=== PATIENT | female | born 1950 | race Caucasian/White ===

== ENCOUNTER 2018-05-04 11:20 | Observation (INO) | payer MEDICARE, MEDICAID ==
[~2018-05-04] VITALS: Ht 157.5 cm; Wt 38.6 kg
--- OUTSIDE RECORDS SUMMARY | 2018-05-04 11:27 | XMS REPORT | Clinical Summary ---
Author Author Admin, QIE Organization [facility] Address Unknown Phone Unavailable Allergies, Adverse Reactions, Alerts Allergy Name Reaction Description Start Date Severity Status Provider DILTIAZEM HCL ER rash Moderate Active Meli Elder Conditions or Problems Problem Name Problem Code Onset Date Status Entry Date Provider Comment Standard Description Annotate URETHRAL STENOSIS, MEATAL 598.9 Active Gabriela Calloway MD Urethral stricture, unspecified Incomplete Bladder Emptying 788.20 Active Gabriela Calloway MD Retention of urine, unspecified Medication List Medication Instructions Start Date Stop Date Generic Name NDC Status Provider Patient Instruction NITROFURANTOIN MACROCRYSTAL 100 MG ORAL CAPSULE Take one by mouth daily 03/15 NITROFURANTOIN MACROCRYSTAL 61513675591 Active Gabriela Calloway MD Active CARAFATE 1 GM ORAL TABLET 1 QID SUCRALFATE 09446891115 Active Meli Elder Active FERROUS SULFATE 325 (65 FE) MG ORAL TABLET 1 tablet by mouth twice daily 2017 FERROUS SULFATE 51881197902 Active Meli Elder Active DIGOXIN 125 MCG ORAL TABLET 1 tab by mouth daily DIGOXIN 33493013063 Active Meli Elder Active ATENOLOL 50 MG ORAL TABLET 1 tab by mouth daily ATENOLOL 94080195212 Active Meli Elder Active IMODIUM A-D 2 MG ORAL TABLET 1 tab by mouth every 4 hours prn LOPERAMIDE HCL 59810554359 Active Meli Elder Active FISH OIL 1000 MG ORAL CAPSULE DELAYED RELEASE 1 pill by mouth twice daily for cholesterol OMEGA-3 FATTY ACIDS 81268723114 Active Meli Elder Active POTASSIUM CHLORIDE 20 MEQ ORAL PACKET 1 qDay with Lasix POTASSIUM CHLORIDE 68285894251 Active Meli Elder Active TRAMADOL HCL 50 MG ORAL TABLET 1 po tid with ES Tylenol TRAMADOL HCL 77174351435 Active Meli Elder Active MIRALAX ORAL PACKET 1 po qd PRN Constipation POLYETHYLENE GLYCOL 3350 55795663732 Active Meli Elder Active TYLENOL 325 MG ORAL TABLET 1 to 2 tabs by mouth every 4 hours prn ACETAMINOPHEN 84513584045 Active Meli Elder Active OMEPRAZOLE 20 MG ORAL CAPSULE DELAYED RELEASE 1 tablet by mouth daily OMEPRAZOLE 08729824753 Active Meli Elder Active FENOFIBRATE 160 MG ORAL TABLET 1 tab by mouth daily FENOFIBRATE 12861874172 Active Meli Elder Active ROBAFEN DM 100-10 MG/5ML ORAL SYRUP 10ml by mouth every 6 hours prn DEXTROMETHORPHAN-GUAIFENESIN 30966269784 Active Meli Elder Active FUROSEMIDE 20 MG ORAL TABLET 1 tablet by mouth daily FUROSEMIDE 58439154832 Active Meli Bravo Active MULTIVITAMINS ORAL CAPSULE 1 cap by mouth daily MULTIPLE VITAMIN 79683383804 Active Meli Bravo Active Immunizations Vaccine Administration Date Value Standard Description influenza immunization (Flu Vax) has been administered Done according to patient influenza virus vaccine, unspecified formulation Vital Signs Date Name Value Unit Range Description blood pressure, diastolic, repeated by physician 80 BP marquez blood pressure, diastolic 80 mm[Hg] BP marquez blood pressure, systolic, repeated by physician 128 BP sys blood pressure, systolic 128 mm[Hg] BP sys height E&M 60 [in_us] Bdy height pulse rate E&M 72 /min Heart rate temperature E&M 97.8 [degF] Body temperature weight E&M 85 [lb_av] Weight Measured Diagnostic Results Date Name Value Unit Range Description Clinical Lists Update: chart update - [facility] sexually transmitted disease no risk noted Office Visit: CN-recurrent uti - Chemistry RBC, urine, dipstick trace non hemoglyzed Office Visit: CN-recurrent uti - Urinalysis nitrite, urine, semiquantitative negative urobilinogen, urine, semiquantitative (dipstick) 0.2 leukocyte esterase, urine, by dipstick 2+ appearance, urine clear urine color yellow specific gravity, urine 1.010 pH, urine, semiquantitative 6.5 protein, urine, semiquantitative (dipstick) 1+ glucose, urine, semiquantitative negative ketones, urine, by test strip negative bilirubin, urine negative Encounters Code Encounter Date Provider Facility CPT-38228 Level 3 New Patient 11:32:23 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
--- OUTSIDE RECORDS SUMMARY | 2018-05-04 11:27 | XMS REPORT | Clinical Summary ---
Author Author Admin, QIE Organization [facility] Address Unknown Phone Unavailable Allergies, Adverse Reactions, [...] one by mouth daily 03/15 NITROFURANTOIN MACROCRYSTAL 71909437649 Active Lizzy Manuel Active CARAFATE 1 GM ORAL TABLET 1 QID SUCRALFATE 53637366429 Active Meli Elder Active FERROUS SULFATE 325 (65 FE) MG ORAL TABLET 1 tablet by mouth twice daily 2017 FERROUS SULFATE 64588087398 Active Meli Elder Active DIGOXIN 125 MCG ORAL TABLET 1 tab by mouth daily DIGOXIN 94190449220 Active Meli Elder Active ATENOLOL 50 MG ORAL TABLET 1 tab by mouth daily ATENOLOL 05514636636 Active Meli Elder Active IMODIUM A-D 2 MG ORAL TABLET 1 tab by mouth every 4 hours prn LOPERAMIDE HCL 55864811188 Active Meli Elder Active FISH OIL 1000 MG ORAL CAPSULE DELAYED RELEASE 1 pill by mouth twice daily for cholesterol OMEGA-3 FATTY ACIDS 49477604096 Active Meli Elder Active POTASSIUM CHLORIDE 20 MEQ ORAL PACKET 1 qDay with Lasix POTASSIUM CHLORIDE 77035040783 Active Meli Elder Active TRAMADOL HCL 50 MG ORAL TABLET 1 po tid with ES Tylenol TRAMADOL HCL 39179927371 Active Meli Elder Active MIRALAX ORAL PACKET 1 po qd PRN Constipation POLYETHYLENE GLYCOL 3350 58746605484 Active Meli Elder Active TYLENOL 325 MG ORAL TABLET 1 to 2 tabs by mouth every 4 hours prn ACETAMINOPHEN 63118508867 Active Meli Elder Active OMEPRAZOLE 20 MG ORAL CAPSULE DELAYED RELEASE 1 tablet by mouth daily OMEPRAZOLE 59728833522 Active Meli Elder Active FENOFIBRATE 160 MG ORAL TABLET 1 tab by mouth daily FENOFIBRATE 29419113058 Active Meli Elder Active ROBAFEN DM 100-10 MG/5ML ORAL SYRUP 10ml by mouth every 6 hours prn DEXTROMETHORPHAN-GUAIFENESIN 92671583061 Active Meli Elder Active FUROSEMIDE 20 MG ORAL TABLET 1 tablet by mouth daily FUROSEMIDE 90196415608 Active Meli Elder Active MULTIVITAMINS ORAL CAPSULE 1 cap by mouth daily MULTIPLE VITAMIN 63597159199 Active Meli Elder Active Immunizations Vaccine Administration Date Value Standard [...] Description Clinical Lists Update: chart update - [facility] sexually transmitted disease no risk noted [...] negative Encounters Code Encounter Date Provider Facility CPT-14285 Level 3 New Patient 11:32: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 Procedures Code Procedure Name Date Entry Date Standard Description CPT-79489 Dil F ureth int 11:32:23 CORE WINDER MACHINE OPERATOR CPT-53531 Bladder Scan 11:32:23 CORE WINDER MACHINE OPERATOR
--- OUTSIDE RECORDS SUMMARY | 2018-05-04 11:27 | XMS REPORT | Clinical Summary ---
Author Author Admin, QIE Organization [facility] Address Unknown Phone Unavailable Allergies, [...] one by mouth daily 03/15 NITROFURANTOIN MACROCRYSTAL 84027306050 Active Lizzy Manuel Active CARAFATE 1 GM ORAL TABLET 1 QID SUCRALFATE 14430913997 Active Meli Elder Active FERROUS SULFATE 325 (65 FE) MG ORAL TABLET 1 tablet by mouth twice daily 2017 FERROUS SULFATE 40681510921 Active Meli Elder Active DIGOXIN 125 MCG ORAL TABLET 1 tab by mouth daily DIGOXIN 64241927663 Active Meli Elder Active ATENOLOL 50 MG ORAL TABLET 1 tab by mouth daily ATENOLOL 08354208308 Active Meli Elder Active IMODIUM A-D 2 MG ORAL TABLET 1 tab by mouth every 4 hours prn LOPERAMIDE HCL 04485139765 Active Meli Elder Active FISH OIL 1000 MG ORAL CAPSULE DELAYED RELEASE 1 pill by mouth twice daily for cholesterol OMEGA-3 FATTY ACIDS 53296278200 Active Meli Elder Active POTASSIUM CHLORIDE 20 MEQ ORAL PACKET 1 qDay with Lasix POTASSIUM CHLORIDE 54871435147 Active Meli Elder Active TRAMADOL HCL 50 MG ORAL TABLET 1 po tid with ES Tylenol TRAMADOL HCL 13556664715 Active Meli Elder Active MIRALAX ORAL PACKET 1 po qd PRN Constipation POLYETHYLENE GLYCOL 3350 15759043470 Active Meli Elder Active TYLENOL 325 MG ORAL TABLET 1 to 2 tabs by mouth every 4 hours prn ACETAMINOPHEN 38236535305 Active Meli Elder Active OMEPRAZOLE 20 MG ORAL CAPSULE DELAYED RELEASE 1 tablet by mouth daily OMEPRAZOLE 59524236844 Active Meli Elder Active FENOFIBRATE 160 MG ORAL TABLET 1 tab by mouth daily FENOFIBRATE 98922508059 Active Meli Elder Active ROBAFEN DM 100-10 MG/5ML ORAL SYRUP 10ml by mouth every 6 hours prn DEXTROMETHORPHAN-GUAIFENESIN 98539468664 Active Meli Elder Active FUROSEMIDE 20 MG ORAL TABLET 1 tablet by mouth daily FUROSEMIDE 95912919635 Active Meli Elder Active MULTIVITAMINS ORAL CAPSULE 1 cap by mouth daily MULTIPLE VITAMIN 49412814267 Active Meli Elder Active Immunizations Vaccine Administration [...] Description Clinical Lists Update: chart update - [facility] sexually transmitted disease no risk noted [...] negative Encounters Code Encounter Date Provider Facility CPT-67362 Level 3 New Patient 11:32:23 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
--- OUTSIDE RECORDS SUMMARY | 2018-05-04 11:28 | XMS REPORT | Clinical Summary ---
Author Author Admin, QIE Organization [facility] Address Unknown Phone Unavailable Allergies, [...] Generic Name NDC Status Provider Patient Instruction CARAFATE 1 GM ORAL TABLET 1 QID SUCRALFATE 48586415579 Active Meli Elder Active FERROUS SULFATE 325 (65 FE) MG ORAL TABLET 1 tablet by mouth twice daily 2017 FERROUS SULFATE 60743445474 Active Meli Elder Active DIGOXIN 125 MCG ORAL TABLET 1 tab by mouth daily DIGOXIN 31545257542 Active Meli Elder Active ATENOLOL 50 MG ORAL TABLET 1 tab by mouth daily ATENOLOL 05730293122 Active Meli Elder Active IMODIUM A-D 2 MG ORAL TABLET 1 tab by mouth every 4 hours prn LOPERAMIDE HCL 17869620281 Active Meli Elder Active FISH OIL 1000 MG ORAL CAPSULE DELAYED RELEASE 1 pill by mouth twice daily for cholesterol OMEGA-3 FATTY ACIDS 65966179956 Active Meli Elder Active POTASSIUM CHLORIDE 20 MEQ ORAL PACKET 1 qDay with Lasix POTASSIUM CHLORIDE 56831566311 Active Meli Elder Active TRAMADOL HCL 50 MG ORAL TABLET 1 po tid with ES Tylenol TRAMADOL HCL 74189053858 Active Meli Elder Active MIRALAX ORAL PACKET 1 po qd PRN Constipation POLYETHYLENE GLYCOL 3350 12366711773 Active Meli Elder Active TYLENOL 325 MG ORAL TABLET 1 to 2 tabs by mouth every 4 hours prn ACETAMINOPHEN 18979031020 Active Meli Elder Active OMEPRAZOLE 20 MG ORAL CAPSULE DELAYED RELEASE 1 tablet by mouth daily OMEPRAZOLE 99824749076 Active Meli Elder Active FENOFIBRATE 160 MG ORAL TABLET 1 tab by mouth daily FENOFIBRATE 48343519285 Active Meli Elder Active ROBAFEN DM 100-10 MG/5ML ORAL SYRUP 10ml by mouth every 6 hours prn DEXTROMETHORPHAN-GUAIFENESIN 01880677402 Active Meli Bravo Active FUROSEMIDE 20 MG ORAL TABLET 1 tablet by mouth daily FUROSEMIDE 85096846175 Active Meli Bravo Active MULTIVITAMINS ORAL CAPSULE 1 cap by mouth daily MULTIPLE VITAMIN 74811864284 Active Meli Elder Active Immunizations Vaccine Administration [...] Description Clinical Lists Update: chart update - [facility] sexually transmitted disease no risk noted [...] negative Encounters Code Encounter Date Provider Facility CPT-44057 Level 3 New Patient 11:32: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
--- OUTSIDE RECORDS SUMMARY | 2018-05-04 11:28 | XMS REPORT | Clinical Summary ---
Author Author Admin, QIE Organization [facility] Address Unknown Phone Unavailable Allergies, [...] 1 GM ORAL TABLET 1 QID SUCRALFATE 16954232328 Active Meli Elder Active FERROUS SULFATE 325 (65 FE) MG ORAL TABLET 1 tablet by mouth twice daily 2017 FERROUS SULFATE 76874019582 Active Meli Elder Active DIGOXIN 125 MCG ORAL TABLET 1 tab by mouth daily DIGOXIN 07071080287 Active Meli Elder Active ATENOLOL 50 MG ORAL TABLET 1 tab by mouth daily ATENOLOL 66543984661 Active Meli Elder Active IMODIUM A-D 2 MG ORAL TABLET 1 tab by mouth every 4 hours prn LOPERAMIDE HCL 64541222443 Active Meli Elder Active FISH OIL 1000 MG ORAL CAPSULE DELAYED RELEASE 1 pill by mouth twice daily for cholesterol OMEGA-3 FATTY ACIDS 94432366045 Active Meli Elder Active POTASSIUM CHLORIDE 20 MEQ ORAL PACKET 1 qDay with Lasix POTASSIUM CHLORIDE 86111083012 Active Meli Elder Active TRAMADOL HCL 50 MG ORAL TABLET 1 po tid with ES Tylenol TRAMADOL HCL 09965558809 Active Meli Elder Active MIRALAX ORAL PACKET 1 po qd PRN Constipation POLYETHYLENE GLYCOL 3350 59091098657 Active Meli Elder Active TYLENOL 325 MG ORAL TABLET 1 to 2 tabs by mouth every 4 hours prn ACETAMINOPHEN 48285649346 Active Meli Elder Active OMEPRAZOLE 20 MG ORAL CAPSULE DELAYED RELEASE 1 tablet by mouth daily OMEPRAZOLE 46488762110 Active Meli Elder Active FENOFIBRATE 160 MG ORAL TABLET 1 tab by mouth daily FENOFIBRATE 07680567533 Active Meli Elder Active ROBAFEN DM 100-10 MG/5ML ORAL SYRUP 10ml by mouth every 6 hours prn DEXTROMETHORPHAN-GUAIFENESIN 75778950495 Active Meli Bravo Active FUROSEMIDE 20 MG ORAL TABLET 1 tablet by mouth daily FUROSEMIDE 35589724781 Active Meli Bravo Active MULTIVITAMINS ORAL CAPSULE 1 cap by mouth daily MULTIPLE VITAMIN 49911817393 Active Meli Elder Active Immunizations Vaccine Administration [...] Description Clinical Lists Update: chart update - [facility] sexually transmitted disease no risk noted [...] negative Encounters Code Encounter Date Provider Facility CPT-30623 Level 3 New Patient 11:32: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
--- OUTSIDE RECORDS SUMMARY | 2018-05-04 11:28 | XMS REPORT | Clinical Summary ---
Author Author Admin, QIE Organization [facility] Address Unknown Phone Unavailable Allergies, [...] 1 GM ORAL TABLET 1 QID SUCRALFATE 82901124216 Active Meli Elder Active FERROUS SULFATE 325 (65 FE) MG ORAL TABLET 1 tablet by mouth twice daily 2017 FERROUS SULFATE 68696784680 Active Meli Elder Active DIGOXIN 125 MCG ORAL TABLET 1 tab by mouth daily DIGOXIN 86779460068 Active Meli Elder Active ATENOLOL 50 MG ORAL TABLET 1 tab by mouth daily ATENOLOL 06826417896 Active Meli Elder Active IMODIUM A-D 2 MG ORAL TABLET 1 tab by mouth every 4 hours prn LOPERAMIDE HCL 43155978235 Active Meli Elder Active FISH OIL 1000 MG ORAL CAPSULE DELAYED RELEASE 1 pill by mouth twice daily for cholesterol OMEGA-3 FATTY ACIDS 77011523183 Active Meli Elder Active POTASSIUM CHLORIDE 20 MEQ ORAL PACKET 1 qDay with Lasix POTASSIUM CHLORIDE 79163794334 Active Meli Elder Active TRAMADOL HCL 50 MG ORAL TABLET 1 po tid with ES Tylenol TRAMADOL HCL 53989542590 Active Meli Elder Active MIRALAX ORAL PACKET 1 po qd PRN Constipation POLYETHYLENE GLYCOL 3350 88845251236 Active Meli Elder Active TYLENOL 325 MG ORAL TABLET 1 to 2 tabs by mouth every 4 hours prn ACETAMINOPHEN 53956752696 Active Meli Elder Active OMEPRAZOLE 20 MG ORAL CAPSULE DELAYED RELEASE 1 tablet by mouth daily OMEPRAZOLE 86218034666 Active Meli Elder Active FENOFIBRATE 160 MG ORAL TABLET 1 tab by mouth daily FENOFIBRATE 84074715995 Active Meli Elder Active ROBAFEN DM 100-10 MG/5ML ORAL SYRUP 10ml by mouth every 6 hours prn DEXTROMETHORPHAN-GUAIFENESIN 16940305078 Active Meli Bravo Active FUROSEMIDE 20 MG ORAL TABLET 1 tablet by mouth daily FUROSEMIDE 73603404916 Active Meli Bravo Active MULTIVITAMINS ORAL CAPSULE 1 cap by mouth daily MULTIPLE VITAMIN 33264374617 Active Meli Elder Active Immunizations Vaccine Administration [...] Description Clinical Lists Update: chart update - [facility] sexually transmitted disease no risk noted [...] negative Encounters Code Encounter Date Provider Facility CPT-02087 Level 3 New Patient 11:32:23 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
--- OUTSIDE RECORDS SUMMARY | 2018-05-04 11:28 | XMS REPORT | Clinical Summary ---
Author Author Admin, QIE Organization [facility] Address Unknown Phone Unavailable Allergies, Adverse Reactions, [...] one by mouth daily 03/15 NITROFURANTOIN MACROCRYSTAL 07931379099 Active Lizzy Manuel Active CARAFATE 1 GM ORAL TABLET 1 QID SUCRALFATE 61394094564 Active Meli Elder Active FERROUS SULFATE 325 (65 FE) MG ORAL TABLET 1 tablet by mouth twice daily 2017 FERROUS SULFATE 36940258476 Active Meli Elder Active DIGOXIN 125 MCG ORAL TABLET 1 tab by mouth daily DIGOXIN 53259450107 Active Meli Elder Active ATENOLOL 50 MG ORAL TABLET 1 tab by mouth daily ATENOLOL 56992212967 Active Meli Elder Active IMODIUM A-D 2 MG ORAL TABLET 1 tab by mouth every 4 hours prn LOPERAMIDE HCL 37162323721 Active Meli Elder Active FISH OIL 1000 MG ORAL CAPSULE DELAYED RELEASE 1 pill by mouth twice daily for cholesterol OMEGA-3 FATTY ACIDS 60969388919 Active Meli Elder Active POTASSIUM CHLORIDE 20 MEQ ORAL PACKET 1 qDay with Lasix POTASSIUM CHLORIDE 83418445628 Active Meli Elder Active TRAMADOL HCL 50 MG ORAL TABLET 1 po tid with ES Tylenol TRAMADOL HCL 76282055753 Active Meli Elder Active MIRALAX ORAL PACKET 1 po qd PRN Constipation POLYETHYLENE GLYCOL 3350 11035386122 Active Meli Elder Active TYLENOL 325 MG ORAL TABLET 1 to 2 tabs by mouth every 4 hours prn ACETAMINOPHEN 81764470888 Active Meli Elder Active OMEPRAZOLE 20 MG ORAL CAPSULE DELAYED RELEASE 1 tablet by mouth daily OMEPRAZOLE 63973810040 Active Meli Elder Active FENOFIBRATE 160 MG ORAL TABLET 1 tab by mouth daily FENOFIBRATE 68565181851 Active Meli Elder Active ROBAFEN DM 100-10 MG/5ML ORAL SYRUP 10ml by mouth every 6 hours prn DEXTROMETHORPHAN-GUAIFENESIN 04200276477 Active Meli Elder Active FUROSEMIDE 20 MG ORAL TABLET 1 tablet by mouth daily FUROSEMIDE 32783373538 Active Meli Elder Active MULTIVITAMINS ORAL CAPSULE 1 cap by mouth daily MULTIPLE VITAMIN 02287203197 Active Meli Elder Active Immunizations Vaccine Administration [...] Description Clinical Lists Update: chart update - [facility] sexually transmitted disease no risk noted Office [...] negative Encounters Code Encounter Date Provider Facility CPT-97196 Level 3 New Patient 11:32:23 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 Procedures Code Procedure Name Date Entry Date Standard Description CPT-62874 Dil F ureth int 11:32:23 URBAN DESIGN CONSULTANT CPT-26548 Bladder Scan 11:32:23 URBAN DESIGN CONSULTANT
--- OUTSIDE RECORDS SUMMARY | 2018-05-04 11:28 | XMS REPORT | Clinical Summary ---
Author Author Admin, QIE Organization [facility] Address Unknown Phone Unavailable Allergies, [...] 1 GM ORAL TABLET 1 QID SUCRALFATE 87570347799 Active Meli Elder Active FERROUS SULFATE 325 (65 FE) MG ORAL TABLET 1 tablet by mouth twice daily 2017 FERROUS SULFATE 26935842812 Active Meli Elder Active DIGOXIN 125 MCG ORAL TABLET 1 tab by mouth daily DIGOXIN 96031269911 Active Meli Elder Active ATENOLOL 50 MG ORAL TABLET 1 tab by mouth daily ATENOLOL 84554661776 Active Meli Elder Active IMODIUM A-D 2 MG ORAL TABLET 1 tab by mouth every 4 hours prn LOPERAMIDE HCL 39660888172 Active Meli Elder Active FISH OIL 1000 MG ORAL CAPSULE DELAYED RELEASE 1 pill by mouth twice daily for cholesterol OMEGA-3 FATTY ACIDS 86561148211 Active Meli Elder Active POTASSIUM CHLORIDE 20 MEQ ORAL PACKET 1 qDay with Lasix POTASSIUM CHLORIDE 89846455775 Active Meli Elder Active TRAMADOL HCL 50 MG ORAL TABLET 1 po tid with ES Tylenol TRAMADOL HCL 04328121669 Active Meli Elder Active MIRALAX ORAL PACKET 1 po qd PRN Constipation POLYETHYLENE GLYCOL 3350 83952186411 Active Meli Elder Active TYLENOL 325 MG ORAL TABLET 1 to 2 tabs by mouth every 4 hours prn ACETAMINOPHEN 24701034215 Active Meli Elder Active OMEPRAZOLE 20 MG ORAL CAPSULE DELAYED RELEASE 1 tablet by mouth daily OMEPRAZOLE 99194837071 Active Meli Elder Active FENOFIBRATE 160 MG ORAL TABLET 1 tab by mouth daily FENOFIBRATE 11361554574 Active Meli Elder Active ROBAFEN DM 100-10 MG/5ML ORAL SYRUP 10ml by mouth every 6 hours prn DEXTROMETHORPHAN-GUAIFENESIN 21652031588 Active Meli Bravo Active FUROSEMIDE 20 MG ORAL TABLET 1 tablet by mouth daily FUROSEMIDE 49564611171 Active Meli Bravo Active MULTIVITAMINS ORAL CAPSULE 1 cap by mouth daily MULTIPLE VITAMIN 89347121023 Active Meli Elder Active Immunizations Vaccine Administration [...] Description Clinical Lists Update: chart update - [facility] sexually transmitted disease no risk noted [...] negative Encounters Code Encounter Date Provider Facility CPT-29941 Level 3 New Patient 11:32:23 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
--- OUTSIDE RECORDS SUMMARY | 2018-05-04 11:28 | XMS REPORT | Clinical Summary ---
Author Author Admin, QIE Organization [facility] Address Unknown Phone Unavailable Allergies, Adverse [...] 1 GM ORAL TABLET 1 QID SUCRALFATE 21533380743 Active Meli Elder Active FERROUS SULFATE 325 (65 FE) MG ORAL TABLET 1 tablet by mouth twice daily 2017 FERROUS SULFATE 14309836064 Active Meli Elder Active DIGOXIN 125 MCG ORAL TABLET 1 tab by mouth daily DIGOXIN 38166519786 Active Meli Elder Active ATENOLOL 50 MG ORAL TABLET 1 tab by mouth daily ATENOLOL 09405564376 Active Meli Elder Active IMODIUM A-D 2 MG ORAL TABLET 1 tab by mouth every 4 hours prn LOPERAMIDE HCL 53870651316 Active Meli Elder Active FISH OIL 1000 MG ORAL CAPSULE DELAYED RELEASE 1 pill by mouth twice daily for cholesterol OMEGA-3 FATTY ACIDS 00764062416 Active Meli Elder Active POTASSIUM CHLORIDE 20 MEQ ORAL PACKET 1 qDay with Lasix POTASSIUM CHLORIDE 18641405689 Active Meli Elder Active TRAMADOL HCL 50 MG ORAL TABLET 1 po tid with ES Tylenol TRAMADOL HCL 61430395193 Active Meli Elder Active MIRALAX ORAL PACKET 1 po qd PRN Constipation POLYETHYLENE GLYCOL 3350 72965016162 Active Meli Elder Active TYLENOL 325 MG ORAL TABLET 1 to 2 tabs by mouth every 4 hours prn ACETAMINOPHEN 09912902848 Active Meli Elder Active OMEPRAZOLE 20 MG ORAL CAPSULE DELAYED RELEASE 1 tablet by mouth daily OMEPRAZOLE 90474610304 Active Meli Elder Active FENOFIBRATE 160 MG ORAL TABLET 1 tab by mouth daily FENOFIBRATE 79523457331 Active Meli Elder Active ROBAFEN DM 100-10 MG/5ML ORAL SYRUP 10ml by mouth every 6 hours prn DEXTROMETHORPHAN-GUAIFENESIN 76786022470 Active Meli Bravo Active FUROSEMIDE 20 MG ORAL TABLET 1 tablet by mouth daily FUROSEMIDE 70423640507 Active Meli Bravo Active MULTIVITAMINS ORAL CAPSULE 1 cap by mouth daily MULTIPLE VITAMIN 57180398291 Active Meli Elder Active Immunizations Vaccine Administration [...] Description Clinical Lists Update: chart update - [facility] sexually transmitted disease no risk [...] negative Encounters Code Encounter Date Provider Facility CPT-18413 Level 3 New Patient 11:32:23 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
--- OUTSIDE RECORDS SUMMARY | 2018-05-04 11:29 | XMS REPORT ---
Author Author AMELIA VIVAR Organization [facility] Address [address] [place] [address] Care Team Providers Care Plate Gauger Name Role Phone AMELIA VIVAR Unavailable PROBLEMS Unknown Problems ALLERGIES No Information ENCOUNTERS Encounter Location Date Diagnosis [facility] [address] [id number] [phone] May, [facility] [address] [id number], [place] [phone] Apr, Encounter for dental exam and cleaning w/o abnormal findings Z01.20 [facility] [address] [id number], [place] [phone] Mar, Dental examination Z01.20 [facility] [address] [id number], [place] [phone] Jan, Dental examination Z01.20 [facility] [place] [address] [id number] [place] [phone] Jan, Dental examination Z01.20 [facility] [address] [id number], [place] [phone] Oct, Encounter for dental examination and cleaning with abnormal findings Z01.21 [facility] [address] [id number] [place] [phone] Aug, Dental examination Z01.20 [facility] [address] [id number], [place] [phone] Jul, Encounter for dental examination and cleaning without abnormal findings Z01.20 [facility] [address] [id number], [place] [phone] Feb, Encounter for dental examination and cleaning without abnormal findings Z01.20 [facility] [address] [id number] [place] [phone] Feb, Dental examination Z01.20 [facility] [address] [id number], [place] [phone] Oct, Encounter for dental examination and cleaning without abnormal findings Z01.20 [facility] [address] [id number] [place] [phone] Sep, Dental examination Z01.20 [facility] [address] [id number], [place] [phone] Jul, Encounter for dental examination and cleaning without abnormal findings Z01.20 [facility] [address] [id number] [place] [phone] Jul, Dental examination Z01.20 [facility] [address] [id number], [place] [phone] May, Encounter for dental examination Z01.20 [facility] [address] [id number], [place] [phone] Mar, Encounter for dental examination Z01.20 [facility] [address] [id number], [place] [phone] Feb, Dental examination Z01.20 [facility] [address] [id number], [place] [phone] Aug, Dental examination V72.2 [facility] [address] [id number], [place] [phone] Jul, Dental examination V72.2 IMMUNIZATIONS No Known Immunizations SOCIAL HISTORY Never Assessed REASON FOR VISIT PLAN OF CARE Activity Details Follow Up prn Reason:Recall VITAL SIGNS MEDICATIONS Unknown Medications RESULTS No Results PROCEDURES Procedure Date Ordered Result Body Site RESIN COMPOS - 3 SURFACES ANTERIOR August 28, 2016 Dental Outreach adjust balance August 28, 2016 Billing Notes on claim August 28, 2016 INSTRUCTIONS MEDICATIONS ADMINISTERED No Known Medications MEDICAL (GENERAL) HISTORY Type Description Date Medical History Arthritis Medical History 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 Hospitalization History Hospitalization for surgery only
--- OUTSIDE RECORDS SUMMARY | 2018-05-04 11:29 | XMS REPORT ---
Author Author CORNELIUS PHAN Organization [facility] Address [address] [place] [address] Phone Unavailable Care Team Providers Care Gas Processing Plant Operator Name Role Phone CORNELIUS PHAN Unavailable Unavailable PROBLEMS Type Condition ICD9-CM Code [id number] Code Onset Dates Condition Status SNOMED Code Problem Encounter for dental examination Z01.20 Active 997546797 Assessment Encounter for dental examination and cleaning without abnormal findings Z01.20 13 Oct, 2015 Active 813929508 ALLERGIES Substance Reaction Event Type Date Status Diltiazem HCl Unknown Drug Allergy Oct, Active SOCIAL HISTORY No smoking Hx information available PLAN OF CARE VITAL SIGNS MEDICATIONS Medication Instructions Dosage Frequency Start Date End Date Duration Status Fenofibrate Active Prilosec Active Furosemide Active Ferrous Sulfate ER Active Gummi Bear Multivitamin/Min Active Anusol-HC 25 MG Rectal Twice a day 1 suppository 12h Active Milk of Magnesia Active Lovastatin Active Carafate Active MiraLax Active Colace Adult Active atenolol Active Digoxin Active Tylenol Active Omeprazole Active Anusol Active RESULTS No Results PROCEDURES Procedure Date Ordered Related Diagnosis Body Site PROPHYLAXIS - ADULT Oct 30, 2015 TOPICAL FLUORIDE VARNISH Oct 30, 2015 IMMUNIZATIONS No Known Immunizations
--- OUTSIDE RECORDS SUMMARY | 2018-05-04 11:29 | XMS REPORT | Clinical Summary ---
Author Author Admin, QIE Organization [facility] Address Unknown Phone Unavailable Allergies, Adverse Reactions, Alerts Allergy Name Reaction Description Start Date Severity Status Provider DILTIAZEM HCL ER rash Moderate Active Meli Elder Conditions or Problems Problem Name Problem Code Onset Date Status Entry Date Provider Comment Standard Description Annotate Problems Unknown Active Medication List Medication Instructions Start Date Stop Date Generic Name NDC Status Provider Patient Instruction CARAFATE 1 GM ORAL TABLET 1 QID SUCRALFATE 42801037742 Active Meli Elder Active FERROUS SULFATE 325 (65 FE) MG ORAL TABLET 1 tablet by mouth twice daily 2017 FERROUS SULFATE 08598522727 Active Meli Elder Active DIGOXIN 125 MCG ORAL TABLET 1 tab by mouth daily DIGOXIN 08979305238 Active Meli Elder Active ATENOLOL 50 MG ORAL TABLET 1 tab by mouth daily ATENOLOL 55613036427 Active Meli Elder Active IMODIUM A-D 2 MG ORAL TABLET 1 tab by mouth every 4 hours prn LOPERAMIDE HCL 12131809211 Active Meli Elder Active FISH OIL 1000 MG ORAL CAPSULE DELAYED RELEASE 1 pill by mouth twice daily for cholesterol OMEGA-3 FATTY ACIDS 52076867027 Active Meli Elder Active POTASSIUM CHLORIDE 20 MEQ ORAL PACKET 1 qDay with Lasix POTASSIUM CHLORIDE 89138374853 Active Meli Elder Active TRAMADOL HCL 50 MG ORAL TABLET 1 po tid with ES Tylenol TRAMADOL HCL 74286389325 Active Meli Elder Active MIRALAX ORAL PACKET 1 po qd PRN Constipation POLYETHYLENE GLYCOL 3350 52539936722 Active Meli Elder Active TYLENOL 325 MG ORAL TABLET 1 to 2 tabs by mouth every 4 hours prn ACETAMINOPHEN 16517547238 Active Meli Elder Active OMEPRAZOLE 20 MG ORAL CAPSULE DELAYED RELEASE 1 tablet by mouth daily OMEPRAZOLE 85034576233 Active Meli Elder Active FENOFIBRATE 160 MG ORAL TABLET 1 tab by mouth daily FENOFIBRATE 61822909385 Active Meli Elder Active ROBAFEN DM 100-10 MG/5ML ORAL SYRUP 10ml by mouth every 6 hours prn DEXTROMETHORPHAN-GUAIFENESIN 03851556846 Active Meli Elder Active FUROSEMIDE 20 MG ORAL TABLET 1 tablet by mouth daily FUROSEMIDE 98723266297 Active Meli Elder Active MULTIVITAMINS ORAL CAPSULE 1 cap by mouth daily MULTIPLE VITAMIN 76082760716 Active Meli Elder Active Diagnostic Results Date Name Value Unit Range Description Clinical Lists Update: chart update - [facility] sexually transmitted disease no risk noted
--- OUTSIDE RECORDS SUMMARY | 2018-05-04 11:29 | XMS REPORT ---
Author Author AMELIA VIVAR Organization [facility] Address [address] [place] [address] Care Team Providers Care Tax Senior Associate Name Role Phone AMELIA VIVAR Unavailable PROBLEMS Unknown Problems ALLERGIES Substance Reaction Event Type Date Status Diltiazem HCl Unknown Drug Allergy May, Active ENCOUNTERS Encounter Location Date Diagnosis [facility] [address] [place] [address] Jul, Dental examination Z01.20 [facility] [address] [id number] [place] [phone] May, Dental examination Z01.20 [facility] [address] [id number] [place] [phone] Apr, Encounter for dental exam and cleaning w/o abnormal findings Z01.20 [facility] [address] [id number] [place] [phone] Mar, Dental examination Z01.20 [facility] [address] [id number], [place] [phone] Jan, Dental examination Z01.20 [facility] [address] [place] [address] Jan, Dental examination Z01.20 [facility] [address] [id number] [place] [phone] Oct, Encounter for dental examination and cleaning with abnormal findings [facility]01.21 [facility] [address] [id number], [place] [phone] Aug, Dental examination Z01.20 [facility] [address] [id number], [place] [phone] Jul, Encounter for dental examination and cleaning without abnormal findings Z01.20 [facility] [address] [id number], [place] [phone] Feb, Encounter for dental examination and cleaning without abnormal findings Z01.20 [facility] [address] [facility] [address] [id number], [place] [phone] Feb, Dental examination Z01.20 [facility] [address] [id number], [place] [phone] Oct, Encounter for dental examination and cleaning without abnormal findings Z01.20 [facility] [address] [place] [address] AVE [id number], [place] [phone] Sep, Dental examination Z01.20 [facility] [address] [id number] [place] [phone] Jul, Encounter for dental examination and cleaning without abnormal findings Z01.20 [facility] [address] [facility] [address] [id number], [place] [phone] Jul, Dental examination Z01.20 [facility] [address] [id number], [place] [phone] May, Encounter for dental examination Z01.20 [facility] [address] [id number] [place] [phone] Mar, Encounter for dental examination Z01.20 [facility] [address] [id number] [place] [address] [phone] Feb, Dental examination Z01.20 [facility] [address] [id number], [place] [phone] Aug, Dental examination V72.2 [facility] [address] [id number], [place] [phone] Jul, Dental examination V72.2 IMMUNIZATIONS No Known Immunizations SOCIAL HISTORY Never Assessed REASON FOR VISIT PLAN OF CARE Activity Details Follow Up prn Reason:CATIE VITAL SIGNS Blood pressure systolic 150 mmHg 2017-06-08 Blood pressure diastolic 90 mmHg 2017-06-08 MEDICATIONS Medication Instructions Dosage Frequency Start Date End Date Duration Status Ferrous Sulfate ER Active Carafate Active Digoxin Active atenolol Active MiraLax Active Anusol Active Milk of Magnesia Active Lovastatin Active Prilosec Active Gummi Bear Multivitamin/Min Active Colace Adult Active Fenofibrate Active Furosemide Active Anusol-HC 25 MG Rectal Twice a day 1 suppository 12h Active Omeprazole Active Tylenol Active RESULTS No Results PROCEDURES Procedure Date Ordered Result Body Site AMALGAM-ONE SURFACE PRIMARY/PERM June 08, 2017 RESIN COMPOS - 2 SURFACES POSTERIOR June 08, 2017 Dental Outreach adjust balance June 08, 2017 Billing Notes on claim June 08, 2017 INSTRUCTIONS MEDICATIONS ADMINISTERED No Known Medications MEDICAL (GENERAL) HISTORY Type Description Date Medical History Arthritis Medical History 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 Hospitalization History Hospitalization for surgery only
--- OUTSIDE RECORDS SUMMARY | 2018-05-04 11:29 | XMS REPORT ---
Author Author CORNELIUS PHAN Organization [facility] Address [address] [place] [address] Phone Unavailable Care Team Providers Care Market Analysis Director Name Role Phone CORNELIUS PHAN Unavailable Unavailable PROBLEMS Unknown Problems ALLERGIES Substance Reaction Event Type Date Status Diltiazem HCl Unknown Drug Allergy Apr, Active ENCOUNTERS Encounter Location Date Diagnosis [facility] [place] [address] [place] [address] Jul, Dental examination Z01.20 [facility] [address] [id number] [place] [phone] May, Dental examination Z01.20 [facility] [address] [id number] [place] [phone] Apr, Encounter for dental exam and cleaning w/o abnormal findings Z01.20 [facility] [address] [id number] [place] [phone] Mar, Dental examination Z01.20 [facility] [address] [id number] [place] [phone] Jan, Dental examination Z01.20 [facility] [place] [address] [place] [address] Jan, Dental examination Z01.20 [facility] [address] [id number], [place] [phone] Oct, Encounter for dental examination and cleaning with abnormal findings Z01.21 [facility] [address] [id number] LA[place] [phone] Aug, Dental examination Z01.20 [facility] [address] [id number] [place] [phone] Jul, Encounter for dental examination and cleaning without abnormal findings Z01.20 [facility] [address] [id number], [place] [phone] Feb, Encounter for dental examination and cleaning without abnormal findings Z01.20 [facility] [address] [id number] LAKE[place] [phone] Feb, Dental examination Z01.20 [facility] [address] [id number], [place] [phone] Oct, Encounter for dental examination and cleaning without abnormal findings Z01.20 [facility] [address] [id number] LAKE, [place] [phone] Sep, Dental examination Z01.20 [facility] [address] [id number], [place] [phone] Jul, Encounter for dental examination and cleaning without abnormal findings Z01.20 [facility] [address] [id number] LAKE, [place] [phone] Jul, Dental examination Z01.20 [facility] [address] [id number], [place] [phone] May, Encounter for dental examination Z01.20 [facility] [address] [id number], [place] [phone] Mar, Encounter for dental examination Z01.20 [facility] [address] [id number], [place] [phone] Feb, Dental examination Z01.20 [facility] [address] [id number], [place] [phone] Aug, Dental examination V72.2 [facility] [address] [id number], [place] [phone] Jul, Dental examination V72.2 IMMUNIZATIONS No Known Immunizations SOCIAL HISTORY Never Assessed REASON FOR VISIT ADULT OUTREACH PILAR MATA PLAN OF CARE Activity Details Follow Up PATIENT HAS APPT Reason:RESTORATIVE #21 VITAL SIGNS MEDICATIONS Medication Instructions Dosage Frequency Start Date End Date Duration Status Fenofibrate Active MiraLax Active atenolol Active Digoxin Active Gummi Bear Multivitamin/Min Active Colace Adult Active Tylenol Active Prilosec Active Furosemide Active Lovastatin Active Anusol Active Omeprazole Active Ferrous Sulfate ER Active Carafate Active Anusol-HC 25 MG Rectal Twice a day 1 suppository 12h Active Milk of Magnesia Active RESULTS No Results PROCEDURES Procedure Date Ordered Result Body Site PROPHYLAXIS - ADULT May 06, 2017 TOPICAL FLUORIDE VARNISH May 06, 2017 INSTRUCTIONS MEDICATIONS ADMINISTERED No Known Medications MEDICAL (GENERAL) HISTORY Type Description Date Medical History Arthritis Medical History Mild MR [facility] Medical History hyperlipidemia Medical History anemia Surgical History Eye Surgery Surgical History Esophogeal 2012? Hospitalization History Hospitalization for surgery only
--- OUTSIDE RECORDS SUMMARY | 2018-05-04 11:29 | XMS REPORT ---
Author Author AMELIA VIVAR Organization [facility] Address [address] [place] [address] Care Team Providers Care Assistant Plant Control Operator Name Role Phone AMELIA VIVAR Unavailable PROBLEMS Unknown Problems ALLERGIES Substance Reaction Event Type Date Status Diltiazem HCl Unknown Drug Allergy Mar, Active ENCOUNTERS Encounter Location Date Diagnosis [facility] [address] [id number] [place], [place] [phone] Jul, Dental examination Z01.20 [facility] [address] [id number] [place], [place] [phone] May, Dental examination Z01.20 [facility] [address] [id number] [place] [phone] Apr, Encounter for dental exam and cleaning w/o abnormal findings Z01.20 [facility] [address] [id number] [place], [place] [phone] Mar, Dental examination Z01.20 [facility] [address] [id number] [place] [phone] Jan, Dental examination Z01.20 [facility] [place] [address] [id number] [place], [place] [phone] Jan, Dental examination Z01.20 [facility] [address] [id number] [place] [phone] Oct, Encounter for dental examination and cleaning with abnormal findings Z01.21 [facility] [address] [id number], [place] [phone] Aug, Dental examination Z01.20 [facility] [address] [id number] [place], [place] [phone] Jul, Encounter for dental examination and cleaning without abnormal findings Z01.20 [facility] [address] [id number] [place], [place] [phone] Feb, Encounter for dental examination and cleaning without abnormal findings Z01.20 [facility] [address] [id number], [place] [phone] Feb, Dental examination Z01.20 [facility] [address] [id number] [place] [phone] Oct, Encounter for dental examination and cleaning without abnormal findings Z01.20 [facility] [address] [id number], [place] [phone] Sep, Dental examination Z01.20 [facility] [address] [id number] [place] [address] [phone] Jul, Encounter for dental examination and cleaning without abnormal findings Z01.20 [facility] Parviz [facility] [address] [id number], [place] [phone] Jul, Dental examination Z01.20 [facility] [address] [id number] [place] [address] [phone] May, Encounter for dental examination Z01.20 [facility] [address] [id number] [place] [address] [phone] Mar, Encounter for dental examination Z01.20 [facility] [address] [id number] [place], [place] [phone] Feb, Dental examination Z01.20 [facility] [address] [id number] [place], [place] [phone] Aug, Dental examination V72.2 [facility] [address] [id number] [place], [place] [phone] Jul, Dental examination V72.2 IMMUNIZATIONS No Known Immunizations SOCIAL HISTORY Never Assessed REASON FOR VISIT filling PLAN OF CARE Activity Details Follow Up as directed Reason:recall VITAL SIGNS Blood pressure systolic 144 mmHg 2017-03-30 Blood pressure diastolic 82 mmHg 2017-03-30 MEDICATIONS Medication Instructions Dosage Frequency Start Date End Date Duration Status Colace Adult Active atenolol Active Carafate Active Tylenol Active Milk of Magnesia Active Ferrous Sulfate ER Active Furosemide Active Digoxin Active Anusol-HC 25 MG Rectal Twice a day 1 suppository 12h Active Omeprazole Active Gummi Bear Multivitamin/Min Active Anusol Active MiraLax Active Fenofibrate Active Prilosec Active Lovastatin Active RESULTS No Results PROCEDURES Procedure Date Ordered Result Body Site PRFABR STAINLESS STEEL CROWN-PERM Mar 30, 2017 Dental Outreach adjust balance Mar 30, 2017 Billing Notes on claim Mar 30, 2017 INSTRUCTIONS MEDICATIONS ADMINISTERED No Known Medications MEDICAL (GENERAL) HISTORY Type Description Date Medical History Arthritis Medical History Mild [facility] Medical History hyperlipidemia Medical History anemia Surgical History Eye Surgery Surgical History Esophogeal 2012? Hospitalization History Hospitalization for surgery only
--- OUTSIDE RECORDS SUMMARY | 2018-05-04 11:29 | XMS REPORT ---
Author Author ABY BRYAN Organization [employer] Address Unknown Phone Unavailable Care Team Providers Care Cake Cutter Machine Name Role Phone ABY BRYAN CP Unavailable Allergies, Adverse Reactions, Alerts Substance Reaction Event Type Aspirin Info Not Available Drug Allergy Problems Problem Type Condition Code Onset Dates Condition Status Assessment Dental examination Z01.20 Active Medications Medication Code System Code Instructions Start Date End Date Status Dosage Furosemide NDC 0 not defined Fenofibrate [facility] [address]-90 not defined Tylenol NDC 0 not defined Carafate [facility] [address]-96 not defined Phenergan [facility] [address]-71 not defined Ferrous Sulfate ER [facility] [address]-22 not defined Colace Adult NDC 0 not defined Milk of Magnesia [facility] [address]-38 not defined Gummi Bear Multivitamin/Min [facility] [address] not defined Lovastatin [facility] [address]-95 not defined Prilosec [facility] [address]-68 not defined Anusol NDC 0 not defined atenolol NDC 0 not defined Digoxin [facility] [address]-19 not defined MiraLax [facility] [address]-05 not defined Procedures Procedure Coding System Code Date AMALGAM-FOUR/MORE SURF PRIM/PERM CPT-4 D2161 Feb 19, 2015 Vital Signs Date/Time: Feb 19, 2015 Blood Pressure Diastolic 93 mmHg Blood Pressure Systolic 154 mmHg Results No Known Results Summary Purpose [employer] Submission
--- OUTSIDE RECORDS SUMMARY | 2018-05-04 11:29 | XMS REPORT ---
Author Author ANN SYLVESTER Organization [facility] [address] [place] [address] Care Team Providers Care Shopper Insights Manager Name Role Phone ANN SYLVESTER Unavailable PROBLEMS Unknown Problems ALLERGIES Substance Reaction Event Type Date Status Diltiazem HCl Unknown Drug Allergy Jul, Active ENCOUNTERS Encounter Location Date Diagnosis [facility] I[address] [place] [address] Jul, Dental examination Z01.20 [facility] [address] [id number] [place], [place] [phone] May, Dental examination Z01.20 [facility] [id number] [place] [phone] Apr, Encounter for dental exam and cleaning w/o abnormal findings Z01.20 [facility] [address] [id number] [place] [phone] Mar, Dental examination Z01.20 [facility] [address] [id number] [place], [place] [phone] Jan, Dental examination Z01.20 [facility] [place] [address] [place] [address] Jan, Dental examination Z01.20 [facility] [address] [id number] [place] [phone] Oct, Encounter for dental examination and cleaning with abnormal findings Z01.21 [facility] [address] [id number], [place] [phone] Aug, Dental examination Z01.20 [facility] [address] [id number] [place] [phone] Jul, Encounter for dental examination and cleaning without abnormal findings Z01.20 [facility] [address] [id number] [place] [phone] Feb, Encounter for dental examination and cleaning without abnormal findings [facility]01.20 [facility] [address] [id number], [place] [phone] Feb, Dental examination Z01.20 [facility] [address] [id number] [place] [phone] Oct, Encounter for dental examination and cleaning without abnormal findings [facility]01.20 [facility] [address] [id number], [place] [phone] Sep, Dental examination Z01.20 [facility] [address] [id number] [place] [phone] Jul, Encounter for dental examination and cleaning without abnormal findings Z01.20 [facility] [address] [id number], [place] [phone] Jul, Dental examination Z01.20 [facility] [address] [id number] CITY, [place] [phone] May, Encounter for dental examination Z01.20 [facility] [address] [id number] [place] [phone] Mar, Encounter for dental examination Z01.20 [facility] [address] [id number] [place] [phone] Feb, Dental examination Z01.20 [facility] [address] [id number] [place], [place] [phone] Aug, Dental examination V72.2 [facility] [address] [id number] CITY, [place] [phone] Jul, Dental examination V72.2 IMMUNIZATIONS No Known Immunizations SOCIAL HISTORY Never Assessed REASON FOR VISIT Adult outreach [facility] PLAN OF CARE Activity Details Follow Up 3 Months Reason:on site recall VITAL SIGNS MEDICATIONS Medication Instructions Dosage Frequency Start Date End Date Duration Status Ferrous Sulfate ER Active Prilosec Active Digoxin Active Fenofibrate Active MiraLax Active Colace Adult Active Anusol Active Lovastatin Active Gummi Bear Multivitamin/Min Active Carafate Active Anusol-HC 25 MG Rectal Twice a day 1 suppository 12h Active atenolol Active Furosemide Active Tylenol Active Omeprazole Active Milk of Magnesia Active RESULTS No Results PROCEDURES Procedure Date Ordered Result Body Site PERIODIC ORAL EXAMINATION August 12, 2017 PROPHYLAXIS - ADULT August 12, 2017 INSTRUCTIONS MEDICATIONS ADMINISTERED No Known Medications MEDICAL (GENERAL) HISTORY Type Description Date Medical History Arthritis Medical History 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 Hospitalization History Hospitalization for surgery only
--- OUTSIDE RECORDS SUMMARY | 2018-05-04 11:29 | XMS REPORT ---
Author Author CORNELIUS PHAN Organization [facility] Address [address] [place] [address] Phone Unavailable Care Team Providers Care Fiberglass Laminator Name Role Phone CORNELIUS PHAN Unavailable Unavailable PROBLEMS Type Condition ICD9-CM Code [id number] Code Onset Dates Condition Status SNOMED Code Problem Encounter for dental examination Z01.20 Active 624656031 ALLERGIES Substance Reaction Event Type Date Status Diltiazem HCl Unknown Drug Allergy Feb, Active SOCIAL HISTORY No smoking Hx information available PLAN OF CARE Activity Details Follow Up 3 Months Reason:ON SITE RECALL VITAL SIGNS MEDICATIONS Unknown Medications RESULTS No Results PROCEDURES Procedure Date Ordered Related Diagnosis Body Site PROPHYLAXIS - ADULT Feb 22, 2016 TOPICAL FLUORIDE VARNISH Feb 22, 2016 IMMUNIZATIONS No Known Immunizations
--- OUTSIDE RECORDS SUMMARY | 2018-05-04 11:30 | XMS REPORT ---
Author Author CORNELIUS PHAN Organization [facility] Address [address] [place] [address] Phone Unavailable Care Team Providers Care Professor Of Radiology Name Role Phone CORNELIUS PHAN Unavailable Unavailable PROBLEMS Unknown Problems ALLERGIES Substance Reaction Event Type Date Status Diltiazem HCl Unknown Drug Allergy Oct, Active ENCOUNTERS Encounter Location Date Diagnosis [facility] [address] [id number] [place] [phone] May, [facility] [address] [id number] [place] [phone] Apr, Encounter for dental exam and cleaning w/o abnormal findings Z01.20 [facility] [address] [id number] [place] [phone] Mar, Dental examination Z01.20 [facility] [address] [id number] [place] [phone] Jan, Dental examination Z01.20 [facility] [place] [address] [id number] [place] [phone] Jan, Dental examination Z01.20 [facility] [address] [id number] [place] [phone] Oct, Encounter for dental examination and cleaning with abnormal findings Z01.21 [facility] [address] [id number] [place] [phone] Aug, Dental examination Z01.20 [facility] [address] [id number] [place] [phone] Jul, Encounter for dental examination and cleaning without abnormal findings Z01.20 [facility] [address] [id number] [place] [phone] Feb, Encounter for dental examination and cleaning without abnormal findings Z01.20 [facility] [address] [id number] [place] [phone] Feb, Dental examination Z01.20 [facility] [address] [id number] [place] [phone] Oct, Encounter for dental examination and cleaning without abnormal findings Z01.20 [facility] [address] [id number] [place] [phone] Sep, Dental examination Z01.20 [facility] [address] [id number] [place] [phone] Jul, Encounter for dental examination and cleaning without abnormal findings Z01.20 [facility] [address] [id number] [place] [phone] Jul, Dental examination Z01.20 [facility] [address] [id number] [place] [phone] May, Encounter for dental examination Z01.20 [facility] [address] [id number] [place] [phone] Mar, Encounter for dental examination Z01.20 [facility] [address] [id number] [place] [phone] Feb, Dental examination Z01.20 [facility] [address] [id number] [place] [phone] Aug, Dental examination V72.2 [facility] [address] [id number] [place] [phone] Jul, Dental examination V72.2 IMMUNIZATIONS No Known Immunizations SOCIAL HISTORY Never Assessed REASON FOR VISIT ADULT OUTREACH [facility] PLAN OF CARE Activity Details Follow Up 3 Months/CHERYLE Reason:ON SITE RECALL/#12 FRACTURED CONFUCIANISM, POSSIBLE RE-RESTORE OR TE VITAL SIGNS MEDICATIONS Medication Instructions Dosage Frequency Start Date End Date Duration Status Anusol Active Fenofibrate Active Tylenol Active Milk of Magnesia Active Digoxin Active Lovastatin Active MiraLax Active Omeprazole Active atenolol Active Ferrous Sulfate ER Active Furosemide Active Colace Adult Active Anusol-HC 25 MG Rectal Twice a day 1 suppository 12h Active Gummi Bear Multivitamin/Min Active Carafate Active Prilosec Active RESULTS No Results PROCEDURES Procedure Date Ordered Result Body Site PROPHYLAXIS - ADULT Oct 17, 2016 TOPICAL FLUORIDE VARNISH Oct 17, 2016 INSTRUCTIONS MEDICATIONS ADMINISTERED No Known Medications MEDICAL (GENERAL) HISTORY Type Description Date Medical History Arthritis Medical History 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 Hospitalization History Hospitalization for surgery only
--- OUTSIDE RECORDS SUMMARY | 2018-05-04 11:30 | XMS REPORT ---
Author Author ANN SYLVESTER [facility] Address [address] [place] [address] Care Team Providers Care Equipment Cleaner And Tester Name Role Phone ANN SYLVESTER Unavailable PROBLEMS Unknown Problems ALLERGIES Substance Reaction Event Type Date Status Diltiazem HCl Unknown Drug Allergy Jan, Active ENCOUNTERS Encounter Location Date Diagnosis [facility] [address] [id number] [place] [phone] Jul, [facility] [address] [id number] [place] [phone] Jul, [facility] [address] [id number] [place] [phone] May, Dental examination Z01.20 [facility] [address] [id number] [place] [phone] Apr, Encounter for dental exam and cleaning w/o abnormal findings Z01.20 [facility] [address] [id number] [place] [phone] Mar, Dental examination Z01.20 [facility] [address] [id number] [place] [phone] Jan, Dental examination Z01.20 [facility] [place] [address] [id number] [place] [phone] Jan, Dental examination Z01.20 [facility] [address] [id number] [place] [phone] Oct, Encounter for dental examination and cleaning with abnormal findings Z01.21 [facility] [address] [id number] [place] [phone] Aug, Dental examination Z01.20 [facility] [address] [id number] [place] [phone] Jul, Encounter for dental examination and cleaning without abnormal findings Z01.20 [facility] [address] [id number] [place] [phone] Feb, Encounter for dental examination and cleaning without abnormal findings Z01.20 [facility] [address] [id number] [place], [place] [phone] Feb, Dental examination Z01.20 [facility] [address] [id number] [place] [phone] Oct, Encounter for dental examination and cleaning without abnormal findings Z01.20 [facility] [address] [id number] [place] [phone] Sep, Dental examination Z01.20 [facility] [address] [id number] [place] [phone] Jul, Encounter for dental examination and cleaning without abnormal findings Z01.20 [facility] ESCAM[facility] [address] [id number] [place] [phone] Jul, Dental examination Z01.20 [facility] [address] [id number] [place] [address] [phone] May, Encounter for dental examination Z01.20 [facility] [address] [id number] [place] [phone] Mar, Encounter for dental examination Z01.20 [facility] [address] [id number] [place] [phone] Feb, Dental examination Z01.20 [facility] [address] [id number] [place] [phone] Aug, Dental examination V72.2 [facility] [address] [id number] [place] [address] [phone] Jul, Dental examination V72.2 IMMUNIZATIONS No Known Immunizations SOCIAL HISTORY Never Assessed REASON FOR VISIT PLAN OF CARE Activity Details Follow Up CHERYLE Reason:Restorative VITAL SIGNS MEDICATIONS Medication Instructions Dosage Frequency Start Date End Date Duration Status Digoxin Active Gummi Bear Multivitamin/Min Active atenolol Active Milk of Magnesia Active Furosemide Active MiraLax Active Prilosec Active Lovastatin Active Fenofibrate Active Ferrous Sulfate ER Active Tylenol Active Anusol-HC 25 MG Rectal Twice a day 1 suppository 12h Active Omeprazole Active Carafate Active Anusol Active Colace Adult Active RESULTS No Results PROCEDURES Procedure Date Ordered Result Body Site PERIODIC ORAL EXAMINATION Feb 04, 2017 INTRAORL-PERIAPICAL 1 FILM 00209 Feb 04, 2017 INTRAORL-PERIAPICAL EA ADD FILM Feb 04, 2017 INTRAORL-PERIAPICAL EA ADD FILM Feb 04, 2017 INTRAORL-PERIAPICAL EA ADD FILM Feb 04, 2017 INSTRUCTIONS MEDICATIONS ADMINISTERED No Known Medications MEDICAL (GENERAL) HISTORY Type Description Date Medical History Arthritis Medical History 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 Hospitalization History Hospitalization for surgery only
--- OUTSIDE RECORDS SUMMARY | 2018-05-04 11:30 | XMS REPORT ---
Author Author AMELIA VIVAR Organization [facility] Address [facility] [place] [address] Care Team Providers Care Insurance Biller Name Role Phone AMELIA VIVAR Unavailable PROBLEMS Type Condition ICD9-CM Code [id number] Code Onset Dates Condition Status SNOMED Code Problem Encounter for dental examination Z01.20 Active 882773561 Assessment Dental examination Z01.20 Sep, Active 700188214 ALLERGIES Unknown Allergies SOCIAL HISTORY No smoking Hx information available PLAN OF CARE VITAL SIGNS MEDICATIONS Unknown Medications RESULTS No Results PROCEDURES Procedure Date Ordered Related Diagnosis Body Site AMALGAM-ONE SURFACE PRIMARY/PERM Oct 09, 2015 AMALGAM-ONE SURFACE PRIMARY/PERM Oct 09, 2015 Dental Outreach adjust balance Oct 09, 2015 AMALGAM-TWO SURFACES PRIMARY/PERM Oct 09, 2015 IMMUNIZATIONS No Known Immunizations
--- OUTSIDE RECORDS SUMMARY | 2018-05-04 11:30 | XMS REPORT ---
Author Author ABY BRYAN Organization [employer] Address Unknown Phone Unavailable Care Team Providers Care Lunch Truck Driver Name Role Phone ABY BRYAN CP Unavailable Allergies No Known Allergies Problems Problem Type Condition ICD-9 Code Onset Dates Condition Status Assessment Dental examination V72.2 Active Medications No Known Medications Procedures Procedure Coding System Code Date RESIN COMPOS - 2 SURFACES ANTERIOR CPT-4 D2331 September 12, 2014 RESIN COMPOS - 2 SURFACES ANTERIOR CPT-4 D2331 September 12, 2014 AMALGAM-3 SURFACES PRIMARY/PERM CPT-4 D2160 September 12, 2014 Results No Known Results Summary Purpose [employer] Submission
--- OUTSIDE RECORDS SUMMARY | 2018-05-04 11:30 | XMS REPORT ---
Author Author CORNELIUS PHAN Organization [facility] Address [address] [place] [address] Phone Unavailable Care Team Providers Care Model Set Artist Name Role Phone CORNELIUS PHAN Unavailable Unavailable PROBLEMS Type Condition ICD9-CM Code [id number] Code Onset Dates Condition Status SNOMED Code Problem Encounter for dental examination Z01.20 Active 511186778 ALLERGIES Substance Reaction Event Type Date Status Diltiazem HCl Unknown Drug Allergy Jul, Active SOCIAL HISTORY Never Assessed PLAN OF CARE Activity Details Follow Up CHERYLE /3 Months Reason:RESTORATIVE/ON SITE RECALL VITAL SIGNS MEDICATIONS Medication Instructions Dosage Frequency Start Date End Date Duration Status Digoxin Active Lovastatin Active atenolol Active Anusol-HC 25 MG Rectal Twice a day 1 suppository 12h Active Fenofibrate Active Tylenol Active Carafate Active Ferrous Sulfate ER Active Gummi Bear Multivitamin/Min Active Furosemide Active Prilosec Active Milk of Magnesia Active Omeprazole Active MiraLax Active Anusol Active Colace Adult Active RESULTS No Results PROCEDURES Procedure Date Ordered Result Body Site PERIODIC ORAL EXAMINATION July 17, 2016 BITEWINGS - FOUR FILMS July 17, 2016 PROPHYLAXIS - ADULT July 17, 2016 IMMUNIZATIONS No Known Immunizations MEDICAL (GENERAL) HISTORY Type Description Date Medical History Arthritis Medical History 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 Hospitalization History Hospitalization for surgery only
--- OUTSIDE RECORDS SUMMARY | 2018-05-04 11:30 | XMS REPORT ---
Author Author CORNELIUS PHAN [facility] Address [address] [place] [address] Phone Unavailable Care Team Providers Care Mixing Machine Tender Name Role Phone CORNELIUS PHAN Unavailable Unavailable PROBLEMS Unknown Problems ALLERGIES Substance Reaction Event Type Date Status Diltiazem HCl Unknown Drug Allergy Jan, Active ENCOUNTERS Encounter Location Date Diagnosis [facility] [address] [facility] [id number] [place] [address] Jul, [facility] [address] [id number], [place] [phone] Jul, [facility] [address] [id number] [place] [phone] May, Dental examination Z01.20 [facility] [address] [id number] [place] [phone] Apr, Encounter for dental exam and cleaning w/o abnormal findings Z01.20 [facility] [address] [id number] [place] [phone] Mar, Dental examination Z01.20 [facility] [address] [id number] [place] [phone] Jan, Dental examination Z01.20 [facility] [place] [address] [id number] [place], [place] [phone] Jan, Dental examination Z01.20 [facility] [address] [id number] [place] [phone] Oct, Encounter for dental examination and cleaning with abnormal findings Z01.21 [facility] [address] [id number], [place] [phone] Aug, Dental examination Z01.20 [facility] [address] [id number] [place] [phone] Jul, Encounter for dental examination and cleaning without abnormal findings Z01.20 [facility] [address] [id number] [place] [phone] Feb, Encounter for dental examination and cleaning without abnormal findings Z01.20 [facility] [address] [id number], [place] [phone] Feb, Dental examination Z01.20 [facility] [address] [id number] [place] [phone] Oct, Encounter for dental examination and cleaning without abnormal findings Z01.20 [facility] [address] [id number], [place] [phone] Sep, Dental examination Z01.20 [facility] [address] [id number] [place] [phone] Jul, Encounter for dental examination and cleaning without abnormal findings Z01.20 [facility] [address] [id number], [place] [phone] Jul, Dental examination Z01.20 [facility] [address] [id number] [place] [phone] May, Encounter for dental examination Z01.20 [facility] [address] [id number] [place] [phone] Mar, Encounter for dental examination Z01.20 [facility] [address] [id number] [place] [phone] Feb, Dental examination Z01.20 [facility] [address] [id number] [place] [phone] Aug, Dental examination V72.2 [facility] [address] [id number] [place] [phone] Jul, Dental examination V72.2 IMMUNIZATIONS No Known Immunizations SOCIAL HISTORY Never Assessed REASON FOR VISIT ADULT OUTREACH [facility] PLAN OF CARE Activity Details Follow Up SITE STAFF WILL CALL Reason:RESTORATIVE AT [facility] [place] [facility] VITAL SIGNS MEDICATIONS Medication Instructions Dosage Frequency Start Date End Date Duration Status Omeprazole Active Fenofibrate Active Digoxin Active Anusol-HC 25 MG Rectal Twice a day 1 suppository 12h Active Lovastatin Active Carafate Active Prilosec Active Gummi Bear Multivitamin/Min Active Ferrous Sulfate ER Active Furosemide Active Colace Adult Active Milk of Magnesia Active atenolol Active MiraLax Active Anusol Active Tylenol Active RESULTS No Results PROCEDURES Procedure Date Ordered Result Body Site PROPHYLAXIS - ADULT Feb 04, 2017 TOPICAL FLUORIDE VARNISH Feb 04, 2017 INSTRUCTIONS MEDICATIONS ADMINISTERED No Known Medications MEDICAL (GENERAL) HISTORY Type Description Date Medical History Arthritis Medical History 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 Hospitalization History Hospitalization for surgery only
--- OUTSIDE RECORDS SUMMARY | 2018-05-04 11:30 | XMS REPORT | Continuity of Care Document ---
Author Author [facility] Organization [facility] Address Unknown Phone Unavailable Allergies There is no data. Medications There is no data. Problems Date Dx Coded Attending Type Code Diagnosis Diagnosed By 12/25/2017 Gabriela Calloway MD N35.9 URETHRAL STENOSIS, MEATAL 12/25/2017 Gabriela Calloway MD R33.9 Incomplete Bladder Emptying Procedures There is no data. Results There is no data. Encounters ACCT No. Visit Date/Time Discharge Status Pt. Type Provider Facility Loc./Unit Complaint [id number] 03/26/2018 20:06:20 ACT Unknown Gabriela Calloway MD [id number] 04/30/2018 09:30:00 04/30/2018 23:59:59 CLS Outpatient [facility]
--- NOTE | 2018-05-04 11:38 | ED Syncope ---
General Stated Complaint: SYNCOPE Source of Information: Patient, Caregiver Exam Limitations: Physical Impairments (developmental delay) History of Present Illness Date Seen by Provider: May 04, 2018 Time Seen by Provider: 11:23 Initial Comments Patient presents to the ER by private conveyance from [facility] with chief complaint of 2 syncopal episodes this morning. 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 She had a bowel movement earlier today. She was also incontinent of bowel upon arrival. Her worker reports she went syncopal en route while sitting in the van as well. No known fever or chills. She says she has some mild, diffuse abdominal pain. She has a history of chronic UTIs and is on Macrobid daily. She took her medications this morning. She denies nausea or painful urination. Allergies and Home Medications Allergies Coded Allergies: diltiazem (Verified Allergy, Unknown, 05/04/18) Patient Home Medication List Home Medication List Reviewed: Yes Review of Systems Constitutional: No chills, No diaphoresis, No fever, No malaise EENTM: No ear discharge, No ear pain Respiratory: No cough, No short of breath Cardiovascular: No chest pain, No edema Gastrointestinal: abdominal pain; No constipation, No diarrhea, No nausea, No vomiting Genitourinary: No discharge, No dysuria Musculoskeletal: No back pain, No joint pain Past Erajkis-Ijvyzo-Afbjxm Hx Patient Social History Alcohol Use: Denies Use Recreational Drug Use: No Smoking Status: Never a Smoker Recent Foreign Travel: No Physical Exam Vital Signs Vital Signs - First Documented 05/04/18 12:00 Temp 97.2 Pulse 64 Resp 18 B/P (MAP) 184/58 (100) Pulse Ox 95 O2 Delivery Room Air Capillary Refill : Height, Weight, BMI Height: '" Weight: lbs. oz. kg; BMI Method: General Appearance: No Apparent Distress, WD/WN, Thin HEENT: PERRL/EOMI, Normal ENT Inspection, Pharynx Normal; No Moist Mucous Membranes (mildly dry) Neck: Full Range of Motion, Normal Inspection Cardiovascular: Regular Rate, Rhythm, No Edema, Normal Peripheral Pulses Respiratory: Lungs Clear, Normal Breath Sounds, No Accessory Muscle Use, No Respiratory Distress Gastrointestinal: Normal Bowel Sounds, No Organomegaly, Non Tender, Soft Extremities: Normal Capillary Refill, Normal Inspection, No Pedal Edema Neurologic/Psychiatric: Alert, Oriented x3, No Motor/Sensory Deficits, Normal 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, 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 Norm as Tested Cranial Nerves: Normal Hearing, Normal Speech, PERRL Motor/Sensory: No Motor Deficit, No Sensory Deficit, No Pronator Drift Skin: Warm/Dry, Pallor Progress/Results/Core Measures Results/Orders Lab Results Laboratory Tests Test 05/04/18 11:30 05/04/18 12:00 05/04/18 12:25 Range/Units Stool Occult Blood Immunoassay POSITIVE H NEGATIVE White Blood Count 10.8 4.3-11.0 10^3/uL Red Blood Count 3.16 L 4.35-5.85 10^6/uL Hemoglobin 10.2 L 11.5-16.0 G/DL Hematocrit 31 L 35-52 % Mean Corpuscular Volume 98 80-99 FL Mean Corpuscular Hemoglobin 32 25-34 PG Mean Corpuscular Hemoglobin Concent 33 32-36 G/DL Red Cell Distribution Width 13.7 10.0-14.5 % Platelet Count 264 130-400 10^3/uL Mean Platelet Volume 10.6 H 7.4-10.4 FL Neutrophils (%) (Auto) 82 H 42-75 % Lymphocytes (%) (Auto) 12 12-44 % Monocytes (%) (Auto) 6 0-12 % Eosinophils (%) (Auto) 0 0-10 % Basophils (%) (Auto) 0 0-10 % Neutrophils # (Auto) 8.8 H 1.8-7.8 X 10^3 Lymphocytes # (Auto) 1.3 1.0-4.0 X 10^3 Monocytes # (Auto) 0.7 0.0-1.0 X 10^3 Eosinophils # (Auto) 0.0 0.0-0.3 10^3/uL Basophils # (Auto) 0.0 0.0-0.1 10^3/uL Sodium Level 141 135-145 MMOL/L Potassium Level 3.9 3.6-5.0 MMOL/L Chloride Level 102 98-107 MMOL/L Carbon Dioxide Level 21 21-32 MMOL/L Anion Gap 18 H 5-14 MMOL/L Blood Urea Nitrogen 21 H 7-18 MG/DL Creatinine 1.26 0.60-1.30 MG/DL Estimat Glomerular Filtration Rate 42 BUN/Creatinine Ratio 17 Glucose Level 153 H 70-105 MG/DL Calcium Level 8.8 8.5-10.1 MG/DL Corrected Calcium 9.0 8.5-10.1 MG/DL Total Bilirubin 0.3 0.1-1.0 MG/DL Aspartate Amino Transf (AST/SGOT) 28 5-34 U/L Alanine Aminotransferase (ALT/SGPT) 14 0-55 U/L Alkaline Phosphatase 50 40-136 U/L Total Protein 6.9 6.4-8.2 GM/DL Albumin 3.8 3.2-4.5 GM/DL Lipase 14 8-78 U/L Urine Color YELLOW Urine Clarity CLEAR Urine pH 6.5 5-9 Urine Specific [place] 1.010 L 1.016-1.022 Urine Protein 1+ H NEGATIVE Urine Glucose (UA) NEGATIVE NEGATIVE Urine Ketones NEGATIVE NEGATIVE Urine Nitrite NEGATIVE NEGATIVE Urine Bilirubin NEGATIVE NEGATIVE Urine Urobilinogen 0.2 NORMAL MG/DL Urine Leukocyte Esterase NEGATIVE NEGATIVE Urine RBC (Auto) NEGATIVE NEGATIVE Urine RBC RARE /HPF Urine WBC NONE /HPF Urine Squamous Epithelial Cells RARE /HPF Urine Crystals NONE /LPF Urine Bacteria NONE /HPF Urine Casts NONE /LPF Urine Mucus NEGATIVE /LPF Urine Culture Indicated NO My Orders Orders - FANNY,DANILO Ochoa Ua Culture If Indicated (05/04/18 11:23) Cbc With Automated Diff (05/04/18 11:25) Comprehensive Metabolic Panel (05/04/18 11:25) Orthostatic Vital Signs (Adult (05/04/18 11:25) Ekg Tracing (05/04/18 11:25) Continuous Ekg Monitoring (05/04/18 11:25) Chest 1 View Ap/Pa Only (05/04/18 11:25) Lipase (05/04/18 11:25) Iv Heplock-Insert (Order) (05/04/18 11:29) Occult Blood Stool (05/04/18 11:31) Digoxin (05/04/18 12:51) Thyroid Stimulating Hormone (05/04/18 12:56) Vital Signs/I&O 05/04/18 12:00 Temp 97.2 Pulse 64 Resp 18 B/P (MAP) 184/58 (100) Pulse Ox 95 O2 Delivery Room Air Progress Progress Note #1: Time: 11:35 Progress Note Labs to include lipase and urinalysis. Orthostatic vital signs, EKG and chest x- ray. Suspect UTI versus other source of abdominal pain. In her provided written medical history she has anemia listed. Dysrhythmia is also a possibility. The staff who accompanies her relates that her blood pressure this morning was on the low side 101 systolic but after her syncopal episode was high 180. 184 systolic now. Heart rate is controlled at 60 bpm with P waves. Orthostatic vital signs are unremarkable. Progress Note #2: Time: 12:52 Progress Note Patient's had a low heart rate running anywhere from 48-65 without atrial fibrillation. She is on atenolol 50 mg as well as digoxin. Digoxin is a send out from this facility so I don't know what the level was today. Her blood pressure has been elevated in the 160s to 170s systolic range. Rest of her labs are fairly unremarkable except she does have some positive fecal occult blood. Hemoglobin is okay at 12 and should not be contributing to her symptoms of syncope. This may just be symptomatic bradycardia. We're waiting on a TSH and if this is okay then we'll discuss whether we should discontinue her atenolol and maybe replace it with another blood pressure medicine. We will obtain a digoxin level and have her primary care doctor followed up outpatient. Initial ECG Impression Date: May 04, 2018 Initial ECG Impression Time: 11:39 Initial ECG Rate: 53 Initial ECG Rhythm: S.[place] Initial ECG Intervals: Normal Initial ECG Impression: Normal Initial ECG Comparisson: No Previous ECG Available Comment Sinus bradycardia without ST elevation or depression. Diagnostic Imaging Diagonstic Imaging: Xray Plain Films/CT/US/NM/MRI: chest (1v) Comments [facility] [place] NAME: KAROLINA SOMMERS [facility] REC#: [id number] PT STATUS: REG ER : 1950 PHYSICIAN: DANILO ESCOBEDO MD ADMIT DATE: 05/04/18/ER FS Draft Date of Exam:05/04/18 CHEST 1 VIEW AP/PA ONLY INDICATION: Syncope. TIME OF EXAM: 11:09 a.m. No prior studies available for comparison. The heart size is normal. The lungs are clear. No infiltrates are seen. There is no effusion or pneumothorax. Kyphoplasty changes lower thoracic spine are noted. IMPRESSION: No acute cardiopulmonary process is detected. Dictated on workstation # [id number] Dict: 05/04/18 1214 Trans: 05/04/18 1217 [facility] [id number] Interpreted by: GUI ARTHUR MD Electronically signed by: Reviewed: Reviewed by Me Consults : Consulting Physician: LOUIS HUTCHINS MD Consults Notes We discussed the case lab imaging findings medicines and he agrees it is symptomatically bradycardia. We discussed whether observation stay or follow-up in the clinic would be appropriate. She's been asymptomatic for us and is not orthostatic so I think would be reasonable to try and do a close hand follow-up this week. He says he would see her in the clinic if they will call for an appointment. He recommend since we can't get a digoxin level just to stop the digitoxin is able not contribute to her already high blood pressure. Departure Impression Primary Impression: Symptomatic sinus bradycardia Disposition: HOME, SELF-CARE Condition: Stable Departure-Patient Inst. Decision time for Depature: 13:29 Referrals: NIKIA APPLE MD (PCP/Family) Primary Care Physician LOUIS HUTCHINS MD Patient Instructions: Bradycardia (DC) Add. Discharge Instructions: Call Dr. Hutchins's office and request an appointment on . 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 Discontinue the use of digoxin. Use fall precautions in your fainting episode should slow down and disappear by tomorrow as the digoxin wears off. If you have any other significant problems and may follow back up with the ER or the primary care doctor. DANILO ESCOBEDO May 04, 2018 11:38
[2018-05-04 12:14] VITALS: BP 164/45
[2018-05-04 12:15] VITALS: BP 161/46
[2018-05-04 12:16] VITALS: BP_SYST 150; BP_SYST 161; BP_SYST 164; BP_DIAS 45; BP_DIAS 46; BP_DIAS 55
--- NOTE | 2018-05-04 12:17 | Diagnostic Imaging Report ---
INDICATION: Syncope. TIME OF EXAM: 11:09 a.m. No prior studies available for comparison. The heart size is normal. The lungs are clear. No infiltrates are seen. There is no effusion or pneumothorax. Kyphoplasty changes lower thoracic spine are noted. IMPRESSION: No acute cardiopulmonary process is detected. Dictated by: Dictated on workstation # [id number]
[2018-05-04 12:22] LABS: HEMATOCRIT 31 % (35-52); HEMOGLOBIN 10.2 G/DL (11.5-16.0); MEAN CORPUSCULAR HEMOGLOBIN 32 PG (25-34); MEAN CORPUSCULAR HGB CONC 33 G/DL (32-36); MEAN CORPUSCULAR VOLUME 98 FL (80-99); WHITE BLOOD COUNT 10.8 10^3/uL (4.3-11.0)
[2018-05-04 12:23] LABS: BASOPHILS % (AUTO) 0 % (0-10); EOSINOPHILS % (AUTO) 0 % (0-10); LYMPHOCYTES # (AUTO) 1.3 X 10^3 (1.0-4.0); LYMPHOCYTES % (AUTO) 12 % (12-44); MEAN PLATELET VOLUME 10.6 FL (7.4-10.4); MONOCYTES # (AUTO) 0.7 X 10^3 (0.0-1.0); MONOCYTES % (AUTO) 6 % (0-12); NEUTROPHILS # (AUTO) 8.8 X 10^3 (1.8-7.8); NEUTROPHILS % (AUTO) 82 % (42-75); PLATELET COUNT 264 10^3/uL (130-400); RED CELL DISTRIBUTION WIDTH 13.7 % (10.0-14.5)
[2018-05-04 12:36] LABS: ALBUMIN 3.8 GM/DL (3.2-4.5); BILIRUBIN,TOTAL 0.3 MG/DL (0.1-1.0); CALCIUM 8.8 MG/DL (8.5-10.1); CREATININE SERUM 1.26 MG/DL (0.60-1.30); POTASSIUM 3.9 MMOL/L (3.6-5.0); TOTAL PROTEIN 6.9 GM/DL (6.4-8.2)
[2018-05-04 12:39] LABS: BILIRUBIN,URINE NEGATIVE (NEGATIVE); CLARITY,URINE CLEAR; COLOR,URINE YELLOW; GLUCOSE, URINE (UA) NEGATIVE (NEGATIVE); KETONES,URINE NEGATIVE (NEGATIVE); LEUKOCYTE ESTERASE ,URINE NEGATIVE (NEGATIVE); NITRITE,URINE NEGATIVE (NEGATIVE); PH,URINE 6.5 (5-9); PROTEIN,URINE 1+ (NEGATIVE); RBC,URINE RARE /HPF; SQUAMOUS EPITHELIAL CELL,UR RARE /HPF; UROBILINOGEN,URINE 0.2 MG/DL (NORMAL)
--- NOTE | 2018-05-04 16:09 | NUR ---
KAROLINA SOMMERS admitted to room 414-1, with an admitting diagnosis of , on 05/04/18 from [place] via AMBULANCE, accompanied by EMS.KAROLINA SOMMERS introduced to surroundings, call light, bed controls, phone, TV, temperature control, lights, meal times, smoking policy, visitor policy, side rail policy, bathrooms and showers. Patient Rights given to patient in the handbook.KAROLINA SOMMERS verbalizes understanding that [facility] is not responsible for the loss or damage to any personal effects or valuables that are kept in the patients posession during their hospitalization. The following Patient Care Plans were discussed with the : Discharge Planning, ,, and . KAROLINA SOMMERS verbalizes understanding of Interdisciplinary Patient Education.
[2018-05-04] MEDS ORDERED: ACETAMINOPHEN 500 MG TAB (TYLENOL) PO PRN (17:15)
[2018-05-04] MEDS ORDERED: CATHETER FLUSH 10 ML SYR IV PRN (17:15)
[2018-05-04] MEDS ORDERED: ONDANSETRON 4 MG/2 ML (SDV) Z0FRAN IV PRN (17:15)
[2018-05-04] MEDS ORDERED: hydrALAZINE (APESOLINE) 20 MG/ML VIAL IV PRN (17:15)
--- OUTSIDE RECORDS SUMMARY | 2018-05-04 18:39 | XMS REPORT | Continuity of Care Document ---
[...] Status Pt. Type Provider Facility Loc./Unit Complaint [id number] 03/26/2018 20:06:20 ACT Unknown Gabriela Calloway MD [id number] 04/30/2018 09:30:00 04/30/2018 23:59:59 C[facility]
[2018-05-04 19:37] VITALS: BP 182/82
[2018-05-04] MEDS: CATHETER FLUSH 10 ML SYR IV SCH (22:00)
[2018-05-05] VITALS: BP 159/74
[2018-05-05 04:00] VITALS: BP 164/77
[2018-05-05 04:25] LABS: BASOPHILS % (AUTO) 0 % (0-10); EOSINOPHILS % (AUTO) 0 % (0-10); HEMATOCRIT 30 % (35-52); HEMOGLOBIN 9.8 G/DL (11.5-16.0); LYMPHOCYTES % (AUTO) 38 % (12-44); MEAN CORPUSCULAR HEMOGLOBIN 32 PG (25-34); MEAN CORPUSCULAR HGB CONC 33 G/DL (32-36); MEAN CORPUSCULAR VOLUME 97 FL (80-99); MEAN PLATELET VOLUME 10.8 FL (7.4-10.4); MONOCYTES # (AUTO) 0.7 X 10^3 (0.0-1.0); MONOCYTES % (AUTO) 13 % (0-12); NEUTROPHILS # (AUTO) 2.6 X 10^3 (1.8-7.8); NEUTROPHILS % (AUTO) 49 % (42-75); PLATELET COUNT 251 10^3/uL (130-400); RED CELL DISTRIBUTION WIDTH 14.2 % (10.0-14.5); WHITE BLOOD COUNT 5.2 10^3/uL (4.3-11.0)
[2018-05-05 04:45] LABS: CALCIUM 8.9 MG/DL (8.5-10.1); CREATININE SERUM 1.17 MG/DL (0.60-1.30); POTASSIUM 3.4 MMOL/L (3.6-5.0)
[2018-05-05] MEDS: CATHETER FLUSH 10 ML SYR IV SCH ×2 (06:35→14:46)
[2018-05-05] MEDS ORDERED: FUROSEMIDE 20 MG (LASIX) TAB PO SCH (07:00)
[2018-05-05] MEDS ORDERED: KCL 10 MEQ TAB (MICRO K) PO SCH (07:00)
[2018-05-05 08:00] VITALS: BP 174/71
[2018-05-05] MEDS ORDERED: NITR100C10 PO (08:47)
[2018-05-05] MEDS ORDERED: GUAI5SYR PO (08:47)
[2018-05-05] MEDS ORDERED: FENO160T12 PO (08:47)
[2018-05-05] MEDS ORDERED: LOVA20TA2 PO (08:47)
[2018-05-05] MEDS ORDERED: POTA20LI3 PO (08:47)
[2018-05-05] MEDS ORDERED: FURO20TA4 PO (08:47)
[2018-05-05] MEDS ORDERED: [UNRECOGNIZED DRUG - CODE] PO (08:47)
[2018-05-05] MEDS ORDERED: OMEG10005 PO (08:47)
[2018-05-05] MEDS ORDERED: OMEP20CA12 PO (08:47)
[2018-05-05] MEDS ORDERED: DIGO125T18 PO (08:47)
[2018-05-05] MEDS ORDERED: ATEN50TA PO (08:47)
[2018-05-05] MEDS ORDERED: LOPE2CAP PO (08:47)
[2018-05-05] MEDS ORDERED: POLY238P32 PO (08:47)
[2018-05-05] MEDS ORDERED: FERR-84 PO (08:47)
[2018-05-05] MEDS ORDERED: [UNRECOGNIZED DRUG - CODE] PO (08:47)
[2018-05-05] MEDS ORDERED: SUCR1TAB PO (08:47)
[2018-05-05] MEDS ORDERED: ONDA4TAB11 PO (08:47)
--- NOTE | 2018-05-05 08:51 | NUR ---
UPDATED MED REC WITH MAR FROM [facility]
[2018-05-05] MEDS ORDERED: ATENOLOL 50 MG (TENORMIN) TAB PO SCH (09:00)
[2018-05-05] MEDS ORDERED: PANTOPRAZOLE 20 MG TABLET (PROTONIX) PO SCH ×2 (09:00→21:00)
--- NOTE | 2018-05-05 09:03 | History & Physical-Hospitalist ---
History of Present Illness HPI/Chief Complaint Chief Complaint: Syncopal episode. HPI: This is a 67yo mentally challenged white female who sees Dr. 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 She was assessed, had normal labs and EKG showed bradycardia so she has been admitted, echocardiogram ordered and reviewed by Dr. Hutchins, placed on telemetry and initiated PT in the mean time. I did speak with Dr. Hutchins who evaluated the Pt and reviewed the test results and found everything to be within normal limits and stopped the Digoxin, so that will be followed over on her discharge med list, but to continue the rest of her medications. At this current time the Pt is very agreeable with the plan. Source: patient Exam Limitations: no limitations Date Seen 05/05/18 Time Seen by a Provider: 09:15 Attending Physician Armando Ogden MD PCP Erick Rogers MD Referring Physician LOUIS HUTCHINS MD Date of Admission May 04, 2018 at 16:10 Home Medications & Allergies Home Medications Reviewed patient Home Medication Reconciliation performed by pharmacy medication reconciliations line technician and/or nursing. Patients Allergies have been reviewed. Allergies Allergies Coded Allergies diltiazem (Verified Allergy, Unknown, 05/04/18) Past Fbzfgtv-Vikmml-Rbsexw Hx Past Med/Social Hx: Reviewed Nursing Past Med/Soc Hx, Reviewed and Corrections made Patient Social History Marrital Status: (19 yrs) Employed/Student: employed Alcohol Use: Denies Use Recreational Drug Use: No Smoking Status: Never a Smoker 2nd Hand Smoke Exposure: No Physical Abuse Screen: No Sexual Abuse: No Recent Foreign Travel: No Contact w/other who traveled: No Recent Hopitalizations: No Recent Infectious Disease Expo: No Immunizations Up To Date Date of Pneumonia Vaccine: Jan 04, 2018 Date of Influenza Vaccine: Jan 04, 2018 Seasonal Allergies Seasonal Allergies: No Past Medical History Currently Using CPAP: No Currently Using BIPAP: No Cardiac: Hypertension Neurological: Developmental Disorder Genitourinary: Renal Failure History of Blood Disorders: Yes (chronic anemia) Family History Patient reports no known family medical history. Review of Systems Constitutional: see HPI, dizziness EENTM: no symptoms reported Respiratory: no symptoms reported Cardiovascular: no symptoms reported Gastrointestinal: no symptoms reported Musculoskeletal: no symptoms reported Skin: no symptoms reported Psychiatric/Neurological: No Symptoms Reported All Other Systems Reviewed Negative Unless Noted: Yes Physical Exam Physical Exam Vital Signs Vital Signs - First Documented 05/04/18 12:00 Temp 97.2 Pulse 64 Resp 18 B/P (MAP) 184/58 (100) Pulse Ox 95 O2 Delivery Room Air Capillary Refill : Less Than 3 Seconds Height, Weight, BMI Height: 5'2.00" Weight: 85lbs. 0.2oz. 38.478103ml; 15.6 BMI Method:Stated General Appearance: No Apparent Distress, WD/WN, Chronically ill, Thin Eyes: Right Eye Normal Inspection, Right Eye PERRL HEENT: PERRL/EOMI, TMs Normal, Normal ENT Inspection, Pharynx Normal, Moist Mucous Membranes Neck: Full Range of Motion, Normal Inspection, Non Tender Respiratory: Chest Non Tender, Lungs Clear, Normal Breath Sounds, No Accessory Muscle Use, No Respiratory Distress Cardiovascular: Regular Rate, Rhythm, No Edema, No Gallop, No JVD, No Murmur, Normal Peripheral Pulses Gastrointestinal: Normal Bowel Sounds, No Organomegaly, No Pulsatile Mass, Non Tender, Soft Back: Normal Inspection, No CVA Tenderness, No Vertebral Tenderness Extremity: Normal Capillary Refill, Normal Inspection, Normal Range of Motion, Non Tender, No Calf Tenderness, No Pedal Edema Neurologic/Psychiatric: Alert, Oriented x3, No Motor/Sensory Deficits, Normal Mood/Affect Skin: Normal Color, Warm/Dry Lymphatic: No Adenopathy Results Results/Procedures Labs Laboratory Tests 05/04/18 12:00 05/05/18 03:45 Patient resulted labs reviewed. Assessment/Plan Admission Diagnosis Assessment: Syncope vasovagal type Bradycardia DC Dig Developmental d/o Plan: DC home Cardiology f/u Admission Status: Observation Diagnosis/Problems Diagnosis/Problems (1) Syncope and collapse Status: Resolved Resolution Date/Time: 05/05/18 @ 21:21 (2) Symptomatic bradycardia Status: Acute Clinical Quality Measures DVT/VTE Risk/Contraindication: Risk Factor Score Per Nursin RFS Level Per Nursing on Admit: 3=High CARLOS ABREU DO May 05, 2018 09:03
--- NOTE | 2018-05-05 10:52 | Consultation-Cardiology ---
HPI-Cardiology Cardiology Consultation Date of Consultation 05/05/18 Date of Admission Time Seen by Provider: 09:55 Indication: Syncope, bradycardia HPI Patient is a 67 y/o female with history of HTN, HLP, questionable PAF. Presented to [facility] ER via private vehicle with complaints of syncope. Patient was sitting in chair sewing yesterday when she had syncopal episode. While on the way to ER reportedly had another syncopal episode while sitting. Denies any chest pain or dyspnea. Denies any dizziness, lightheadedness or previous syncope. Has questionable hx of PAF and is on Atenolol and digoxin. Workup in ER revealed bradycardia with HR as low as 48. Digoxin was discontinued and patient was admitted for observation. Upon interviewing patient , she denies any c/o at this time. 67 years old lady with history of hypertension, questionable history of atrial fibrillation, presented for [place] emergency room with syncopal episodes. At the syncope while in route to the hospital and reported to be bradycardic, had her syncope initially after bowel movement and then the second episode of syncopal card while she was sitting down, reported that her heart rate was as low as 48. She is currently a symptom that expand the night in the hospital and was asymptomatic. Heart rate has been in the 60s and 70s. Probably she had a vasovagal episode. Home Medications & Allergies Allergies: Coded Allergies: diltiazem (Verified Allergy, Unknown, 05/04/18) Home Medication List Reviewed: Yes XOT-Etmsrs-Fvgopx Hx Patient Social History Marital Status: Employed/Student: employed ([employer], [place]) Alcohol Use: Denies Use Recreational Drug Use: No Smoking Status: Never a Smoker 2nd Hand Smoke Exposure: No Recent Foreign Travel: No Recent Infectious Disease Expo: No Recent Hopitalizations: No Physical Abuse Screen: No Sexual Abuse: No Immunizations Up To Date Date of Pneumonia Vaccine: Jan 04, 2018 Date of Influenza Vaccine: Jan 04, 2018 Past Medical History HTN, HLP Family Medical History Significant Family History: No Pertinent Family Hx Family History: Patient reports no known family medical history. Review of Systems Constitutional: No diaphoresis, No dizziness, No fever, No malaise, No weakness EENTM: No blurred vision, No double vision, No vision loss, No epistaxis, No nose pain Respiratory: No cough, No dyspnea on exertion, No short of breath Cardiovascular: No chest pain, No edema, No palpitations; syncope; No vascular heart diseas Gastrointestinal: No abdominal pain, No constipation Genitourinary: No discharge, No dysuria, No frequency Musculoskeletal: No joint pain, No joint swelling Skin: No dryness, No lesions Psychiatric/Neurological: Denies Anxiety, Denies Depressed Reviewed Test Results Reviewed Test Results Lab Laboratory Tests 05/04/18 11:30: Stool Occult Blood Immunoassay POSITIVEH 05/04/18 12:00: White Blood Count 10.8, Red Blood Count 3.16L, Hemoglobin 10.2L, Hematocrit 31L , Mean Corpuscular Volume 98, Mean Corpuscular Hemoglobin 32, Mean Corpuscular Hemoglobin Concent 33, Red Cell Distribution Width 13.7, Platelet Count 264, Mean Platelet Volume 10.6H, Neutrophils (%) (Auto) 82H, Lymphocytes (%) (Auto) 12, Monocytes (%) (Auto) 6, Eosinophils (%) (Auto) 0, Basophils (%) (Auto) 0, Neutrophils # (Auto) 8.8H, Lymphocytes # (Auto) 1.3, Monocytes # (Auto) 0.7, Eosinophils # (Auto) 0.0, Basophils # (Auto) 0.0, Sodium Level 141, Potassium Level 3.9, Chloride Level 102, Carbon Dioxide Level 21, Anion Gap 18H, Blood Urea Nitrogen 21H, Creatinine 1.26, Estimat Glomerular Filtration Rate 42, BUN/ Creatinine Ratio 17, Glucose Level 153H, Calcium Level 8.8, Corrected Calcium 9.0, Total Bilirubin 0.3, Aspartate Amino Transf (AST/SGOT) 28, Alanine Aminotransferase (ALT/SGPT) 14, Alkaline Phosphatase 50, Total Protein 6.9, Albumin 3.8, Lipase 14, Thyroid Stimulating Hormone (TSH) 2.22, Digoxin Level 0.70L 05/04/18 12:25: Urine Color YELLOW, Urine Clarity CLEAR, Urine pH 6.5, Urine Specific [place] 1.010L, Urine Protein 1+H, Urine Glucose (UA) NEGATIVE, Urine Ketones NEGATIVE, Urine Nitrite NEGATIVE, Urine Bilirubin NEGATIVE, Urine Urobilinogen 0.2, Urine Leukocyte Esterase NEGATIVE, Urine RBC (Auto) NEGATIVE, Urine RBC RARE, Urine WBC NONE, Urine Squamous Epithelial Cells RARE, Urine Crystals NONE, Urine Bacteria NONE, Urine Casts NONE, Urine Mucus NEGATIVE, Urine Culture Indicated NO 05/05/18 03:45: White Blood Count 5.2, Red Blood Count 3.03L, Hemoglobin 9.8L, Hematocrit 30L, Mean Corpuscular Volume 97, Mean Corpuscular Hemoglobin 32, Mean Corpuscular Hemoglobin Concent 33, Red Cell Distribution Width 14.2, Platelet Count 251, Mean Platelet Volume 10.8H, Neutrophils (%) (Auto) 49, Lymphocytes (%) (Auto) 38 , Monocytes (%) (Auto) 13H, Eosinophils (%) (Auto) 0, Basophils (%) (Auto) 0, Neutrophils # (Auto) 2.6, Lymphocytes # (Auto) 2.0, Monocytes # (Auto) 0.7, Eosinophils # (Auto) 0.0, Basophils # (Auto) 0.0, Sodium Level 140, Potassium Level 3.4L, Chloride Level 105, Carbon Dioxide Level 25, Anion Gap 10, Blood Urea Nitrogen 20H, Creatinine 1.17, Estimat Glomerular Filtration Rate 46, BUN/ Creatinine Ratio 17, Glucose Level 96, Calcium Level 8.9 ECG Impression ECG Initial ECG Rhythm: S.[place] Physical Exam Vital Signs Vital Signs - First Documented 05/04/18 12:00 Temp 97.2 Pulse 64 Resp 18 B/P (MAP) 184/58 (100) Pulse Ox 95 O2 Delivery Room Air Capillary Refill : Less Than 3 Seconds Height, Weight, BMI Height: 5'2.00" Weight: 85lbs. 0.2oz. 38.242179sa; 15.6 BMI Method:Stated General Appearance: No Apparent Distress, WD/WN HEENT: PERRL/EOMI, Normal ENT Inspection Neck: Non Tender, Supple; No Carotid Bruit Respiratory: Chest Non Tender, Lungs Clear, Normal Breath Sounds Cardiovascular: No Edema, No Gallop, No Murmur, Normal Peripheral Pulses, Bradycardia Gastrointestinal: Normal Bowel Sounds, No Pulsatile Mass, Non Tender, Soft Rectal: Deferred Back: No CVA Tenderness Extremity: Non Tender, No Calf Tenderness Neurologic/Psychiatric: Alert, Oriented x3 A/P-Cardiology Admission Diagnosis Syncope Bradycardia HTN HLP Assessment/Plan Syncope- unknown etiology. Had syncopal episode while sitting x 2 yesterday. Could be secondary to bradycardia. Digoxin was discontinued. Continue on telemetry. Further evaluation with 2D Echo Bradycardia- HR in upper 40's in ER, was asymptomatic at the time. Digoxin discontinued. Continue to monitor. Questionable PAF- I will try to obtain records from PCP in [place] for further review. HTN- continue to monitor BP/HR HLP- maintained on statin GERD- maintained on protonix and carafate. Hx of chronic UTI- maintained on macrobid as outpatient. Thank you for allowing us to participate in the management of Ms. Valenzuela. This is Janae Roach PA-C, as a scribe for Dr. Hutchins. This is Dr. Hutchins, I have seen and evaluated the patient with Janae, discussed the management plan examined the patient, agree with the current scribed note, on examination lungs were clear to auscultation bilateral, heart is regular rate and rhythm. This is a 67 years old lady who was admitted for syncopal episode most probably vasovagal episode post bowel movement, was bradycardic, I we will discontinue digoxin, echocardiogram reviewed and showed normal LV size and function. I will continue on atenolol and follow-up as an outpatient. Discussed the management plan with Dr. Moon. I reviewed the current note and made few minor modification using Italic Font Clinical Quality Measures DVT/VTE Risk/Contraindication: Risk Factor Score Per Nursin RFS Level Per Nursing on Admit: 3=High JANAE ROBISON May 05, 2018 10:51 LOUIS HUTCHINS MD May 05, 2018 13:01
[2018-05-05 12:00] VITALS: BP 192/76
[2018-05-05] MEDS ORDERED: ONDANSETRON 4 MG (ZOFRAN) ORAL DISSOLVE TAB PO PRN (12:00)
[2018-05-05] MEDS ORDERED: LOPERAMIDE 2 MG (IMODIUM) CAP PO PRN (12:00)
[2018-05-05] MEDS ORDERED: ACETAMINOPHEN 325 MG TABLET PO PRN (12:00)
--- NOTE | 2018-05-05 12:55 | Physical Therapy Evaluation ---
PT Evaluation-General Medical Diagnosis Admission Date May 04, 2018 at 16:10 Medical Diagnosis: bradycardia Onset Date: May 04, 2018 Therapy Diagnosis Therapy Diagnosis: weakness Height/Weight Height (Feet): 5 Height (Inches): 2.00 Weight (Pounds): 85 Weight (Ounces): 0.2 Precautions Precautions/Isolations: Fall Prevention, Standard Precautions Referral Physician: Sarai Reason for Referral: Evaluation/Treatment Medical History Pertinent Medical History: GERD, HTN Current History Pt admitted with symptomatic bracycardia with syncopal episodes. Reviewed History: Yes Social History Home: Single Level Current Living Status: Spouse Entry Into Home: Stairs With Railing Prior/Core FIM Prior Level of Function Therapy Code Descriptions/Definitions Functional [place] Measure: 0=Not Assessed/NA 4=Minimal Assistance 1=Total Assistance 5=Supervision or Setup 2=Maximal Assistance 6=Modified [place] 3=Moderate Assistance 7=Complete [place] Therapy Quality Codes: 6 Independent with activity with or without an assistive device 5 Patient requires set up or clean up by helper. Patient completes activity by themselves 4 Supervision or touching assist (CGA). [place] provide cues , steadying assist 3 The helper provides less than half the effort to complete the activity 2 The helper provides more than half the effort to complete the activity 1 Dependent. The helper does all the effort to complete an activity 7 Patient refused to complete or attempt activity 9 The patient did not perform the activity before the current illness or injury 88 Not attempted due to Medical conditions or safety concerns Functional Abilities and Goals: Independent: Patient completed the activities by him/herself, with or without an assistive device, with no assistance from a helper. Needed Some Help: Patient needed partial assistance from another person to complete activities. Dependent: A helper completed the activities for the patient. Unknown: Not Applicable: Bed Mobility: 7 Transfers (B,C,W/C) (FIM): 7 Gait: 7 PT Evaluation-Current Subjective Reports she hopes to go home today. Objective Patient Orientation: Person, Place, Time, Situation Problem Solving: Good ROM/Strength ROM Lower Extremities WNL Strength Lower Extremities WFL Integumentary/Posture Bowel Incontinence: No Bladder Incontinence: Yes Posture normal Neuromuscular (Tone, Coordination, Reflexes) intact Sensory Vision: Wears Glasses Hearing: Functional Hand Dominance: Right Sensation Right Lower Extremit: Intact Sensation Left Lower Extremity: Intact Transfers Therapy Code Descriptions/Definitions Functional [place]ell Measure: 0=Not Assessed/NA 4=Minimal Assistance 1=Total Assistance 5=Supervision or Setup 2=Maximal Assistance 6=Modified [place]ell 3=Moderate Assistance 7=Complete [place] Transfers (B, C, W/C) (FIM): 5 SBA with all transfers Gait Mode of Locomotion: Walk Anticipated Mode of Locomotion: Walk Gait (FIM): 4 (CGA for safety) Distance (FIM): 6=108-99 ft Distance: 50 ft Gait Assistive Device: None Balance Sitting Static: Normal Sitting Dynamic: Normal Standing Static: Normal Standing Dynamic: Normal Treatment up to chair Assessment/Needs Pt is SBA with transfers an dCGA with gait. She will benefit from short term pt to address functional mobility and safety. 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 Usp Goals PT Usp Goals Time Frame: May 10, 2018 Transfers (B,C,W/C) (FIM): 7 Gait (FIM): 7 PT Plan Problem List Problem List: Activity Tolerance, Functional Strength, Safety Treatment/Plan Treatment Plan: Continue Plan of Care Treatment Plan: Functional Activity Marissa, Gait, Safety, Therapeutic Exercise, Transfers Treatment Duration: May 10, 2018 Frequency: 6 times per week Estimated Hrs Per Day: .25 hour per day Patient and/or Family Agrees t: Yes Safety Risks/Education Patient Education: Safety Issues Teaching Recipient: Patient Teaching Methods: Discussion Response to Teaching: Return Demonstration Time/GCodes Time In: 1235 Time Out: 1250 Total Billed Treatment Time: 15 Total Billed Treatment visit EVL 15 CARLITA VASQUEZ PT May 05, 2018 12:54
--- NOTE | 2018-05-05 13:51 | Occupational Therapy Eval ---
OT Evaluation-General/PLF Medical Diagnosis Admission Date May 04, 2018 at 16:10 Medical Diagnosis: bradycardia Onset Date: May 04, 2018 Therapy Diagnosis Therapy Diagnosis: Weakness Height/Weight Height (Feet): 5 Height (Inches): 2.00 Weight (Pounds): 85 Weight (Ounces): 0.2 Precautions Precautions/Isolations: Fall Prevention, Standard Precautions Safety Interventions: Bed Exit Alarm, Reorient-PRN Weight Bear Status Weight Bearing Restriction: Weight Bearing/Tolerated Referral Physician: Sarai Referral Reason: Activity Tolerance, Self Care, Evaluation/Treatment, Strengthening/ROM Medical History Pertinent Medical History: GERD, HTN Additional Medical History Developmental disorder Current History Pt. had several syncopal episodes. Came to ER with bradycardia. Reviewed History: Yes Social History Home: Single Level Current Living Status: Spouse Entry Into Home: Level Entry ADL-Prior Level of Function Therapy Code Descriptions/Definitions Functional [place] Measure: 0=Not Assessed/NA 4=Minimal Assistance 1=Total Assistance 5=Supervision or Setup 2=Maximal Assistance 6=Modified [place] 3=Moderate Assistance 7=Complete [place] Therapy Quality Codes: 6 Independent with activity with or without an assistive device 5 Patient requires set up or clean up by helper. Patient completes activity by themselves 4 Supervision or touching assist (CGA). [place] provide cues , steadying assist 3 The helper provides less than half the effort to complete the activity 2 The helper provides more than half the effort to complete the activity 1 Dependent. The helper does all the effort to complete an activity 7 Patient refused to complete or attempt activity 9 The patient did not perform the activity before the current illness or injury 88 Not attempted due to Medical conditions or safety concerns Functional Abilities and Goals: Independent: Patient completed the activities by him/herself, with or without an assistive device, with no assistance from a helper. Needed Some Help: Patient needed partial assistance from another person to complete activities. Dependent: A helper completed the activities for the patient. Unknown: Not Applicable: ADL PLOF Comments Pt. states that she is independent with daily tasks. 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 Pt. states that she does not use any assistive devices. Self Care: Unknown Functional Cognition: Unknown DME/Equipment: Tub/Shower Pt. lives with her spouse. He works two jobs per pt. OT Current Status Subjective No pain reported. Appearance Pt. in bed. Agrees to shower. Mental Status/Objective Patient Orientation: Person, Place Attachments: IV, Telemetry Current Glasses/Contacts: Yes Hearing Aids: Yes Hand Dominance: Right Upper Extremity ROM WFL ADL-Treatment Therapy Code Descriptions/Definitions Functional [place] Measure: 0=Not Assessed/NA 4=Minimal Assistance 1=Total Assistance 5=Supervision or Setup 2=Maximal Assistance 6=Modified [place] 3=Moderate Assistance 7=Complete [place] Therapy Quality Codes: 6 Independent with activity with or without an assistive device 5 Patient requires set up or clean up by helper. Patient completes activity by themselves 4 Supervision or touching assist (CGA). [place] provide cues , steadying assist 3 The helper provides less than half the effort to complete the activity 2 The helper provides more than half the effort to complete the activity 1 Dependent. The helper does all the effort to complete an activity 7 Patient refused to complete or attempt activity 9 The patient did not perform the activity before the current illness or injury 88 Not attempted due to Medical conditions or safety concerns Grooming (FIM): 5 (Set up to brush hair.) Bathing (FIM): 5 (SBA in shower for safety.) Lower Body Dressing (FIM): 5 (SBA to doff/don socks and brief.) Transfers (B, C, W/C) (FIM): 4 (Pt. held OT's hand to ambulate to shower and into shower. Declined walker.) Shower Transfer (FIM): 4 Other Treatments Pt. agreed to shower. Pt. able to wash all parts with no difficulty, with SBA needed. Ambulated back to bed after shower and donning fresh gown/brief/socks. All needs met. Education OT Patient Education: Correct positioning, Modified ADL techniques, Progress toward Goal/Update tx plan, Purpose of tx/functional activities, Reviewed precautions, Rehab process, Transfer techniques Teaching Recipient: Patient Teaching Methods: Demonstration, Discussion Response to Teaching: Verbalize Understanding, Return Demonstration OT Short Term Goals Short Term Goals 1=Demonstrate adherence to instructed precautions during ADL tasks. 2=Patient will verbalize/demonstrate understanding of assistive devices/ modifications for ADL. 3=Patient will improve strength/tolerance for activity to enable patient to perform ADL's. OT Complaint Inspector Goals [facility] Goals Time Frame: May 12, 2018 Eating (FIM): 6 Grooming(FIM): 6 Bathing(FIM): 6 Upper Body Dressing(FIM): 6 Lower Body Dressing(FIM): 6 Toileting(FIM): 6 Transfers (B,C,W/C) (FIM): 6 Toilet/Commode Transfer(FIM): 6 Shower Transfer(FIM): 6 Additional Goals: 1-Demonstrate ADL Tasks, 2-Verbalize Understanding, 3- ImproveStrength/Marissa 1=Demonstrate adherence to instructed precautions during ADL tasks. 2=Patient will verbalize/demonstrate understanding of assistive devices/ modifications for ADL. 3=Patient will improve strength/tolerance for activity to enable patient to perform ADL's. OT Education/Plan Problem List/Assessment Assessment: Decreased Activ Tolerance, Impaired I ADL's, Impaired Self-Care Skills Discharge Recommendations Plan/Recommendations: Continue POC Therapy D/C Recommendations: Home w/ Family Support Treatment Plan/Plan of Care Treatment,Training & Education: Yes Patient would benefit from OT for education, treatment and training to promote independence in ADL's, mobility, safety and/or upper extremity function for ADL' s. Plan of Care: ADL Retraining, Functional Mobility, UE Funct Exercise/Act Treatment Duration: May 12, 2018 Frequency: 5 times per week Estimated Hrs Per Day: .25 hour per day Agreement: Yes Rehab Potential: Good Time/GCodes Start Time: 11:35 Stop Time: 12:00 Total Time Billed (hr/min): 25 Billed Treatment Time 1, EVM x 10minutes, ADL x 15minutes EDDIE PUGA OT May 05, 2018 13:51
--- NOTE | 2018-05-05 15:45 | Diagnostic Imaging Report ---
PROCEDURE: US carotid duplex, bilateral. TECHNIQUE: Multiple real-time grayscale images were obtained over the carotid arteries in various projections, bilaterally. Additional spectral analysis and color Doppler duplex images were also obtained. INDICATION: Syncope. FINDINGS: Mild plaquing is seen at the carotid bifurcations bilaterally extending into the proximal internal carotid arteries. Internal carotid artery is seen reaching 150 cm/s. There is some mild elevation of the distal left ICA reaching 140 cm/s. Both vertebral arteries demonstrate antegrade flow. Parameters based on the consensus panel Woodward-Scale and Doppler ultrasound criteria published December 2002, Radiology, Volume 229. DOPPLER (peak systolic velocity M/S Right Left CCA 0.8 1.0 ICA Proximal 1.5 1.0 ICA Mid 1.1 1.1 ICA Distal 1.0 1.4 RATIO 1.91 1.41 ECA 0.96 1.1 VERT 0.83 0.57 IMPRESSION: Mild bilateral carotid plaque. There is mild velocity elevation in the internal carotid arteries as described consistent with approximately 50% diameter stenosis. No hemodynamically significant stenosis is identified. Dictated by: Dictated on workstation # [id number]
[2018-05-05] MEDS ORDERED: SUCRALFATE 1 GM (CARAFATE) TAB PO SCH (16:00)
[2018-05-05] MEDS ORDERED: NITROFURANTOIN 100 MG (MACROBID) CAPSULE PO SCH (20:00)
[2018-05-06] MEDS ORDERED: FERROUS SULF 325 MG (IRON) TAB PO SCH (07:00)
[2018-05-06] MEDS ORDERED: KCL 20 MEQ POWDER FOR ORAL SOLUTION PO SCH (07:00)
[2018-05-06] MEDS ORDERED: POLYETHYLENE GLYCOL 17 GM (MIRALAX) PACK PO SCH (09:00)
[2018-05-06] MEDS ORDERED: FUROSEMIDE 20 MG (LASIX) TAB PO SCH (09:00)
== END 2018-05-05 18:39 | disposition home or self-care (01) ==
LOC: ER FS 11:23 → 4TH 16:10
PROVIDERS: ADMIT Internal Medicine; ATTEND Internal Medicine
DX: R55 Syncope and collapse (principal); R00.1 Bradycardia, unspecified; N39.0 Urinary tract infection, site not specified; I10 Essential (primary) hypertension; E78.5 Hyperlipidemia, unspecified; N19 Unspecified kidney failure; D63.8 Anemia in other chronic diseases classified elsewhere; F79 Unspecified intellectual disabilities; K21.9 Gastro-esophageal reflux disease without esophagitis; Z79.899 Other long term (current) drug therapy
CPT/HCPCS: 36415; 71045; 80048; 80053; 80162; 81000; 82274; 83690; 84443; 85025; 93005; 93306; 93880

== ENCOUNTER 2019-07-13 10:59 | Emergency (ER) | payer MEDICARE, MEDICAID ==
[~2019-07-13] VITALS: Ht 152 cm; Wt 45.0 kg
[~2019-07-13 10:59] MED LIST: ATEN50TA PO; DIGO125T18 PO; FENO160T12 PO; FERR-84 PO; FURO20TA4 PO; GUAI5SYR PO; LOPE2CAP PO; LOVA20TA2 PO; NITR100C10 PO; OMEG10005 PO; OMEP20CA18 PO; ONDA4TAB11 PO; POLY238P32 PO; POTA20LI3 PO; SUCR1TAB PO; [UNRECOGNIZED DRUG - CODE] PO; [UNRECOGNIZED DRUG - CODE] PO
--- NOTE | 2019-07-13 11:16 | ED General ---
General Stated Complaint: POSSIBLE STROKE Source of Information: Patient, EMS, EMS Notes Reviewed, [facility]pc Records, Old Records, RN/MD History of Present Illness Date Seen by Provider: July 13, 2019 Time Seen by Provider: 11:00 Initial Comments This patient is a 68-year-old female that presents to the emergency department complaining of strokelike symptoms. Patient states she was sitting in chair in her room at the local shelter Where she couldn't harming move her right arm cannot move her right leg. Patient denies any history of stroke in the past. Patient is awake and alert and oriented in all cranial nerves are intact. We'll do medical evaluation treatment is needed. Timing/Duration: 1 Hour Severity: Moderate Allergies and Home Medications Allergies Coded Allergies: diltiazem (Verified Allergy, Unknown, 05/04/18) Home Medications Acetaminophen 325 Mg Tablet, 650 MG PO Q4H PRN for PAIN-MILD OR TEMPATURE, (Reported) TAKES 2 (325MG) TABLETS Atenolol 50 Mg Tablet, 50 MG PO DAILY, (Reported) Fenofibrate 160 Mg Tablet, 160 MG PO 1999, (Reported) Ferrous Sulfate 325 Mg Tablet, 325 MG PO DAILY, (Reported) Folic Acid/Multivit-Minerals 200 Mcg Tab.chew, 1 TAB.CHEW PO DAILY, (Reported) Furosemide 20 Mg Tablet, 20 MG PO DAILY, (Reported) Guaifenesin/Dextromethorphan 5 Ml Syrup, 10 ML PO Q4H PRN for COUGH, (Reported) Loperamide HCl 2 Mg Capsule, 2 MG PO Q3H PRN for DIARRHEA, (Reported) Lovastatin 20 Mg Tablet, 20 MG PO 1700, (Reported) Nitrofurantoin Monohyd/M-Cryst 100 Mg Capsule, 100 MG PO 1999, (Reported) [place]-3 Fatty Acids 1,000 Mg Capsule, 1,000 MG PO BID, (Reported) Omeprazole 20 Mg Capsule.dr, 20 MG PO BID, (Reported) Ondansetron 4 Mg Tab.rapdis, 4 MG PO Q8H PRN for NAUSEA/VOMITING-1ST LINE, (Reported) Polyethylene Glycol 3350 238 Gm Powder, 17 GM PO DAILY, (Reported) Potassium Chloride 20 Meq/15 Ml Liquid, 15 ML PO DAILY, (Reported) Sucralfate 1 Gm Tablet, 1 GM PO ACHS, (Reported) Patient Home Medication List Home Medication List Reviewed: Yes Review of Systems Review of Systems Constitutional: No no symptoms reported; see HPI; No chills, No diaphoresis, No dizziness, No fever, No malaise, No weakness, No weight gain, No weight loss, No other EENTM: No see HPI, No no symptoms reported, No ear discharge, No hearing loss, No ear pain, No blurred vision, No double vision, No eye pain, No tearing, No vision loss, No dental problems, No hoarseness, No mouth pain, No mouth swelling, No epistaxis, No nose congestion, No nose pain, No throat pain, No throat swelling, No other Respiratory: No no symptoms reported, No see HPI, No cough, No dyspnea on exertion, No hemoptysis, No orthopnea, No phlegm, No short of breath, No stridor, No wheezing, No other Cardiovascular: No no symptoms reported, No see HPI, No chest pain, No edema, No Hx of Intervention, No palpitations, No syncope, No vascular heart diseas, No other Gastrointestinal: No RUQ, No LUQ, No RLQ, No LLQ, No no symptoms reported, No see HPI, No abdominal pain, No constipation, No diarrhea, No dysphagia, No hematemesis, No heartburn, No jaundice, No loss of appetite, No melena, No nausea, No vomiting, No other Musculoskeletal: No no symptoms reported, No see HPI, No back pain, No gout, No joint pain, No joint swelling, No muscle pain, No muscle stiffness, No muscle cramps, No muscle twitching, No muscle weakness, No neck pain, No other Skin: No no symptoms reported, No see HPI, No change in color, No change in hair/nails, No dryness, No hx of skin cancer, No lesions, No lumps, No pruritus, No rash, No other Psychiatric/Neurological: See HPI, Numbness, Paresthesia, Weakness All Other Systems Reviewed Negative Unless Noted: Yes Past Szmyrlr-Cxaqqr-Pupxme Hx Patient Social History 2nd Hand Smoke Exposure: No Recent Hopitalizations: No Immunizations Up To Date Date of Pneumonia Vaccine: Jan 04, 2018 Date of Influenza Vaccine: Jan 04, 2018 Seasonal Allergies Seasonal Allergies: No Past Medical History Surgeries: No Respiratory: Yes Pneumonia Currently Using CPAP: No Currently Using BIPAP: No Cardiac: No Hypertension Neurological: Yes (MILD MR) Developmental Disorder Genitourinary: Yes Renal Failure Gastrointestinal: No Musculoskeletal: No Endocrine: No HEENT: No Cancer: No Psychosocial: No Integumentary: No Blood Disorders: Yes (chronic anemia) Family Medical History Patient reports no known family medical history. No Pertinent Family Hx Physical Exam Vital Signs Vital Signs - First Documented 07/13/19 11:22 Temp 36.5 Pulse 69 Resp 16 B/P (MAP) 180/74 (109) Pulse Ox 100 O2 Delivery Nasal Cannula O2 Flow Rate 2.00 Capillary Refill : Height, Weight, BMI Height: 5'2.00" Weight: 85lbs. 0.2oz. 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 Norm as Tested, Motor Weakness (right arm and right leg), Sensory Deficit (decrease sensation to right leg ) Skin: Normal Color, Warm/Dry Progress/Results/Core Measures Suspected Sepsis SIRS Temperature: Pulse: Respiratory Rate: Laboratory Tests 07/13/19 12:10: White Blood Count 7.0 Blood Pressure / Mean: Laboratory Tests 07/13/19 11:16: INR Comment 0.9 07/13/19 12:10: Platelet Count 287 Results/Orders Lab Results Laboratory Tests Test 07/13/19 11:13 07/13/19 11:16 07/13/19 12:10 Range/Units Glucometer 108 70-110 MG/DL Prothrombin Time 12.5 12.2-14.7 SEC INR Comment 0.9 0.8-1.4 White Blood Count 7.0 4.3-11.0 10^3/uL Red Blood Count 3.13 L 4.35-5.85 10^6/uL Hemoglobin 10.4 L 11.5-16.0 G/DL Hematocrit 30 L 35-52 % Mean Corpuscular Volume 96 80-99 FL Mean Corpuscular Hemoglobin 33 25-34 PG Mean Corpuscular Hemoglobin Concent 35 32-36 G/DL Red Cell Distribution Width 13.2 10.0-14.5 % Platelet Count 287 130-400 10^3/uL Mean Platelet Volume 10.3 7.4-10.4 FL Neutrophils (%) (Auto) 68 42-75 % Lymphocytes (%) (Auto) 22 12-44 % Monocytes (%) (Auto) 10 0-12 % Eosinophils (%) (Auto) 0 0-10 % Basophils (%) (Auto) 0 0-10 % Neutrophils # (Auto) 4.7 1.8-7.8 X 10^3 Lymphocytes # (Auto) 1.6 1.0-4.0 X 10^3 Monocytes # (Auto) 0.7 0.0-1.0 X 10^3 Eosinophils # (Auto) 0.0 0.0-0.3 10^3/uL Basophils # (Auto) 0.0 0.0-0.1 10^3/uL My Orders Orders - HOLA MCFARLAND MD Ct Head Wo (07/13/19 11:02) Cbc With Automated Diff (07/13/19 11:02) Comprehensive Metabolic Panel (07/13/19 11:02) Protime With Inr (07/13/19 11:02) Troponin I Fs (07/13/19 11:02) Urinalysis (07/13/19 11:02) Chest 1 View Ap/Pa Only (07/13/19 11:02) Ekg Tracing (07/13/19 11:02) Metoprolol Tartrate Injection (Lopressor (07/13/19 11:45) Alteplase (Activase) (Activase Injection (07/13/19 11:36) Alteplase (Activase) (Activase Injection (07/13/19 12:00) Post Thrombolytic Adminstratio (07/13/19 11:57) Ns (Ivpb) (Sodium C... W/Nicardipine Iv (07/13/19 12:30) Nicardipine Iv For Drip (Cardene I.V. (O (07/13/19 12:24) Ns (Ivpb) (Sodium Chloride 0.9%) (07/13/19 12:24) Medications Given in ED Current Medications Medications Dose Ordered Sig/Rolando Route Start Time Stop Time Status Last Admin Dose Admin Alteplase, Recombinant (0.9mg/ kg-max 90mg) with ... ONCE ONCE IV 07/13/19 12:00 07/13/19 12:01 DC 07/13/19 12:28 40 MG Metoprolol Tartrate 5 mg ONCE ONCE IV 07/13/19 11:45 07/13/19 11:46 DC 07/13/19 11:41 5 MG Sodium Chloride 250 ml @ ud STK-MED ONCE .ROUTE 07/13/19 12:24 07/13/19 12:33 DC 07/13/19 12:35 25 MLS/HR Vital Signs/I&O 07/13/19 07/13/19 11:22 12:38 Temp 36.5 Pulse 69 70 Resp 16 B/P (MAP) 180/74 (109) 187/59 Pulse Ox 100 O2 Delivery Nasal Cannula O2 Flow Rate 2.00 Capillary Refill : Progress Note : Progress Note 1130 patient initially had a NIH score of 5-6. On arrival back from CT scan patient appears to have some improvement negative evaluation in the right upper extremity now and now is able to move the right lower extremity with some drift. Patient states all sensations intact at this time. I discussed with Dr. Ballesteros neurology at [facility]. Review patient's CT scan and lab reports and contraindications. Patient is stable at this time Dr. Ballesteros recommends patient receive TPA. She is aware that some improvement of her symptoms have taken place. Patient is still ataxic unable stand or walk. Unable to do heel to peres with right leg. She again recommends TPA. And also a Cardene drip. The maintain tight control of blood pressure. I discussed at length with patient and she is agreeable for TPA as therapy for acute strokelike symptoms. Nursing staff was preparing to give TPA. Patient be from by helicopter to [facility] in [place]. CT Head no acute findings ECG Initial ECG Impression Date: July 13, 2019 Initial ECG Impression Time: 10:57 Initial ECG Rate: 71 Initial ECG Rhythm: Normal Sinus Initial ECG Intervals: Normal Initial ECG Impression: Normal Comment Normal sinus rhythm heart rate 71 nonspecific EKG. Critical Care Note Critical Care Start Time: 11:00 Stop Time: 12:30 Total Time (minutes) Patient acute CVA administering TPA in the emergency dept. Departure Impression Primary Impression: Cerebrovascular accident due to cerebral artery occlusion Additional Impression: HTN (hypertension) Disposition: 02 XFER SHT-TRM HOSP Condition: Stable Transfer Transfer Reason: Exceeds level of care Time Spoke to Accepting Phy: 12:00 Transfer Progress Notes I discussed with Dr. Ballesteros neurology at [facility]. Review patient's CT scan and lab reports and contraindications. Patient is stable at this time Dr. Ballesteros recommends patient receive TPA. She is aware that some improvement of her symptoms have taken place. Patient is still ataxic unable stand or walk. Unable to do heel to peres with right leg. She again recommends TPA. And a Cardene drip to maintain tight blood pressure control less than 180. I discussed at length with patient and she is agreeable for TPA as therapy for acute strokelike symptoms. Nursing staff was preparing to give TPA. Patient be from by helicopter to [facility] in [place]. Transfer Time: 12:03 Transfer Facility: [facility] Method of Transfer: Air Departure-Patient Inst. Referrals: NIKIA APPLE MD (PCP/Family) Primary Care Physician HOLA MCFARLAND MD July 13, 2019 11:16
[2019-07-13] MEDS ORDERED: ALTEPLASE 100 MG/VIAL (ACTIVASE) ONE (11:36)
--- NOTE | 2019-07-13 11:36 | Diagnostic Imaging Report ---
INDICATION: Right-sided weakness. Time of exam 11:28 AM Correlation is made with prior chest from 05/04/2018. Heart is enlarged but stable. Lungs appear clear of acute infiltrates. No parenchymal consolidation is identified. No effusion or pneumothorax is detected. IMPRESSION: No acute cardiopulmonary process is detected. Dictated by: Dictated on workstation # [id number]
--- NOTE | 2019-07-13 11:38 | Diagnostic Imaging Report ---
PROCEDURE: CT head without contrast. TECHNIQUE: Multiple contiguous axial images were obtained through the brain without the use of intravenous contrast. Auto Exposure Controls were utilized during the CT exam to meet ALARA standards for radiation dose reduction. INDICATION: Right-sided weakness. COMPARISON: No prior studies are available for comparison. FINDINGS: Ventricles and sulci are somewhat prominent. There is a small area of encephalomalacia in the left frontal lobe. There is also an area of encephalomalacia in the left posterior parieto-occipital lobe. This is consistent with prior infarcts. No sulcal effacement or midline shift is identified. No acute intra-axial or extra-axial hemorrhage is detected. Cisterns are patent. Visualized paranasal sinuses demonstrate opacification of the left maxillary sinus. IMPRESSION: 1. Chronic changes, as described. No acute intracranial process is detected. 2. Left maxillary sinusitis. Dictated by: Dictated on workstation # [id number]
[2019-07-13] MEDS ORDERED: meTOprolol 5 MG/5 ML (LOPRESSOR) VIAL IV ONE (11:45)
--- OUTSIDE RECORDS SUMMARY | 2019-07-13 11:54 | XMS REPORT | Clinical Summary ---
Author Author Admin, Nola Caballero Organization [facility] Address Unknown Phone Unavailable Allergies, Adverse Reactions, Alerts Allergy Name Reaction Description Start Date Severity Status Pr ovider DILTIAZEM HCL ER rash Moderate Active Meli Hickman naye Conditions or Problems Problem Name Problem Code Onset Date Status Entry Date Provider Comment Standard Description Annotate URETHRAL STENOSIS, MEATAL 598.9 Active Gabriela Calloway MD Urethral stricture, unspecified Incomplete Bladder Emptying 788.20 Active Gabriela Calloway MD Retention of urine, unspecified BMI less than 20 Inactive Meli Bravo Body Mass Index less than 19, adult Underweight [facility] Recurrent bacterial cystitis 595.9 Active Gabriela Calloway MD Cystitis, unspecified BMI less than 20 Inactive Meli Elder Underweight Inactive Meli Elder Medication List Medication Instructions Start Date Stop Date Generic Name NDC Status Provider Patient Instruction NITROFURANTOIN MACROCRYSTAL 100 MG ORAL CAPSULE Take one by mouth daily NITROFURANTOIN MACROCRYSTAL 27580892994 Active Gabriela Calloway MD Active CARAFATE 1 GM ORAL TABLET 1 QID SUCRALFATE 81356590 110 Active Meli Elder Active FERROUS SULFATE 325 (65 FE) MG ORAL TABLET 1 tablet by mouth twice daily FERROUS SULFATE 63974881486 Active Meli Elder Active DIGOXIN 125 MCG ORAL TABLET 1 tab by mouth daily DIGOXIN 41273906275 Active Meli Elder Active ATENOLOL 50 MG ORAL TABLET 1 tab by mouth daily ATENOLOL 01527432940 Active Meli Elder Active IMODIUM A-D 2 MG ORAL TABLET 1 tab by mouth every 4 hours prn 12/24 LOPERAMIDE HCL 12236381679 Active Meli Elder Active FISH OIL 1000 MG ORAL CAPSULE DELAYED RELEASE 1 pill b y mouth twice daily for cholesterol OMEGA-3 FATTY ACIDS 48496351542 Active Meli Eld er Active POTASSIUM CHLORIDE 20 MEQ ORAL PACKET 1 qDay with Lasix POTASSIUM CHLORIDE 62012372071 Active Meli Elder Active TRAMADOL HCL 50 MG ORAL TABLET 1 po tid with ES Tylenol TRAMADOL HCL 86523607448 Active Meli Elder Active MIRALAX ORAL PACKET 1 po qd PRN Constipation POLYETHYLENE GLYCOL 3350 56453877394 Active Meli Elder Active TYLENOL 325 MG ORAL TABLET 1 to 2 tabs by mouth every 4 hours prn 2 ACETAMINOPHEN 91372566641 Active Meli Elder Active OMEPRAZOLE 20 MG ORAL CAPSULE DELAYED RELEASE 1 tablet by mo uth daily OMEPRAZOLE 33782992077 Active Meli Elder Activ e FENOFIBRATE 160 MG ORAL TABLET 1 tab by mouth daily FENOFIBRATE 49254817495 Active Meli Elder Active ROBAFEN DM 100-10 MG/5ML ORAL SYRUP 10ml by mouth every 6 hours prn DEXTROMETHORPHAN-GUAIFENESIN 14655727761 Active Meli Elder Active FUROSEMIDE 20 MG ORAL TABLET 1 tablet by mouth daily FUROSEMIDE 09999827547 Active Meli Elder Active MULTIVITAMINS ORAL CAPSULE 1 cap by mouth daily MULTIPLE VITAMIN 15143967410 Active Meli Elder Active Immunizations Vaccine Administration Date Value Standard Max cription influenza immunization (Flu Vax) has been administered 11/26 Done according to patient influenza virus vaccine, unspecified for mulation influenza immunization (Flu Vax) has been administered 12/25 Done according to patient influenza virus vaccine, unspecified for mulation Vital Signs Date Name Value Unit Range Description blood pressure, diastolic, repeated by physician 80 BP marquez blood pressure, diastolic 80 mm[Hg] BP marquez blood pressure, systolic, repeated by physician 100 BP sys blood pressure, systolic 100 mm[Hg] BP sys height E&M 60 [in_us] Bdy height pulse rate E&M 74 /min Heart rate temperature E&M 98.3 [degF] Body temp erature weight E&M 83 [lb_av] Weight Measure d blood pressure, diastolic, repeated by physician 70 BP marquez blood pressure, diastolic 70 mm[Hg] BP marquez blood pressure, systolic, repeated by physician 110 BP sys blood pressure, systolic 110 mm[Hg] BP sys height E&M 60 [in_us] Bdy height pulse rate E&M 72 /min Heart rate temperature E&M 98.3 [degF] Body temp erature weight E&M 88 [lb_av] Weight Measure d blood pressure, diastolic 78 mm[Hg] BP marquez blood pressure, systolic 126 mm[Hg] BP sys height E&M 60 [in_us] Bdy height pulse rate E&M 70 /min Heart rate temperature E&M 98.2 [degF] Body temp erature weight E&M 85 [lb_av] Weight Measure d blood pressure, diastolic, repeated by physician 80 BP marquez blood pressure, diastolic 80 mm[Hg] BP marquez blood pressure, systolic, repeated by physician 128 BP sys blood pressure, systolic 128 mm[Hg] BP sys height E&M 60 [in_us] Bdy height pulse rate E&M 72 /min Heart rate temperature E&M 97.8 [degF] Body temp erature weight E&M 85 [lb_av] Weight Measure d Diagnostic Results Date Name Value Unit Range Description Clinical Lists Update: chart update - P sexually transmitted disease no risk noted Office Visit: 3 month f/u macrobid - Rosalia mehnaz protein, total urine random trace mg/dL RBC, urine, dipstick negative Office Visit: 3 month f/u macrobid - Uri nalysis ketones, urine, by test strip negative bilirubin, urine negative glucose, urine, semiquantitative negative pH, urine, semiquantitative 6 specific gravity, urine 1.010 urinalysis, routine Clean Catch urine color yellow appearance, urine cloudy leukocyte esterase, urine, by dipstick 2+ nitrite, urine, semiquantitative positive urobilinogen, urine, semiquantitative (dipstick) 0.2 protein, urine, semiquantitative (dipstick) negative Office Visit: 3 month follow up uti - C hemistry RBC, urine, dipstick trace non hemoglyzed protein, urine, by sulfasalicylic acid negative bilirubin, by Ictotest, urine negative Office Visit: 3 month follow up uti - U rinalysis nitrite, urine, semiquantitative negative urobilinogen, urine, semiquantitative (dipstick) 0.2 leukocyte esterase, urine, by dipstick negative appearance, urine clear urine color yellow specific gravity, urine 1.010 pH, urine, semiquantitative 5.0 protein, urine, semiquantitative (dipstick) negative glucose, urine, semiquantitative negative ketones, urine, by test strip negative bilirubin, urine negative Office Visit: CN-recurrent uti - Chemis try RBC, urine, dipstick trace non hemoglyzed Office Visit: CN-recurrent uti - Urinal ysis nitrite, urine, semiquantitative negative urobilinogen, urine, semiquantitative (dipstick) 0.2 leukocyte esterase, urine, by dipstick 2+ appearance, urine clear urine color yellow specific gravity, urine 1.010 pH, urine, semiquantitative 6.5 protein, urine, semiquantitative (dipstick) 1+ glucose, urine, semiquantitative negative ketones, urine, by test strip negative bilirubin, urine negative Encounters Code Encounter Date Provider Facility CPT-02978 Level 3 Est. Patient 19:16:54 CDT Gabriela scales MD [facility] CPT-50850 Level 3 Est. Patient 10:47:04 CDT Gabriela scales MD [facility] CPT-37861 Level 3 Est. 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
--- OUTSIDE RECORDS SUMMARY | 2019-07-13 11:54 | XMS REPORT | Clinical Summary ---
Author Author Admin, Nola Caballero Organization [facility] Address Unknown Phone Unavailable Allergies, Adverse [...] less than 19, adult Underweight Inactive [facility]eli [facility] Recurrent bacterial cystitis 595.9 Active Gabriela Calloway MD Cystitis, unspecified BMI less than 20 Inactive Meli Bravo Underweight Inactive Meli Elder Medication List Medication Instructions Start Date Stop Date Generic Name NDC Status Provider Patient Instruction NITROFURANTOIN MACROCRYSTAL 100MG ORAL CAPSULE TAKE 1 CAPSULE BY MOUTH ONCE A DAY FOR CHRONIC UTI (EQ MACRODANTIN) *TAKE WITH FOOD* NITROFURANTOIN MACROCRYSTAL 40641429661 Active Gabriela Calloway MD Active CARAFATE 1 GM ORAL TABLET 1 QID SUCRALFATE 31539100 110 Active Meli Elder Active FERROUS SULFATE 325 (65 FE) MG ORAL TABLET 1 tablet by mouth twice daily FERROUS SULFATE 81062694858 Active Meli Elder Active DIGOXIN 125 MCG ORAL TABLET 1 tab by mouth daily DIGOXIN 68810822191 Active Meli Elder Active ATENOLOL 50 MG ORAL TABLET 1 tab by mouth daily ATENOLOL 95359974847 Active Meli Elder Active IMODIUM A-D 2 MG ORAL TABLET 1 tab by mouth every 4 hours prn 12/24 LOPERAMIDE HCL 90015041029 Active Meli Elder Active FISH OIL 1000 MG ORAL CAPSULE DELAYED RELEASE 1 pill b y mouth twice daily for cholesterol OMEGA-3 FATTY ACIDS 32702206293 Active Meli Eld er Active POTASSIUM CHLORIDE 20 MEQ ORAL PACKET 1 qDay with Lasix POTASSIUM CHLORIDE 11866120520 Active Meli Elder Active TRAMADOL HCL 50 MG ORAL TABLET 1 po tid with ES Tylenol TRAMADOL HCL 26410419296 Active Meli Elder Active MIRALAX ORAL PACKET 1 po qd PRN Constipation POLYETHYLENE GLYCOL 3350 59121384316 Active Meli Elder Active TYLENOL 325 MG ORAL TABLET 1 to 2 tabs by mouth every 4 hours prn 2 ACETAMINOPHEN 92255472436 Active Meli Elder Active OMEPRAZOLE 20 MG ORAL CAPSULE DELAYED RELEASE 1 tablet by mo uth daily OMEPRAZOLE 18567826582 Active Meli Elder Activ e FENOFIBRATE 160 MG ORAL TABLET 1 tab by mouth daily FENOFIBRATE 69628743977 Active Meli Elder Active ROBAFEN DM 100-10 MG/5ML ORAL SYRUP 10ml by mouth every 6 hours prn DEXTROMETHORPHAN-GUAIFENESIN 26246211609 Active Meli Elder Active FUROSEMIDE 20 MG ORAL TABLET 1 tablet by mouth daily FUROSEMIDE 43933389671 Active Meli Elder Active MULTIVITAMINS ORAL CAPSULE 1 cap by mouth daily MULTIPLE VITAMIN 79207262608 Active Meli Elder Active Immunizations Vaccine Administration [...] negative Encounters Code Encounter Date Provider Facility CPT-94219 Level 3 Est. Patient 19:16:54 CDT Gabriela scales MD [facility] CPT-51054 Level 3 Est. Patient 10:47:04 CDT Gabriela scales MD [facility] CPT-82671 Level 3 Est. 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
--- OUTSIDE RECORDS SUMMARY | 2019-07-13 11:55 | XMS REPORT | Clinical Summary ---
Author Author Admin, Nola Caballero Organization [facility] Address Unknown [...] less than 19, adult Underweight [facility] Recurrent bacterial cystitis 595.9 Active Gabriela Calloway MD Cystitis, unspecified BMI less than 20 Inactive Meli Elder Underweight Inactive Meli Elder Medication List Medication Instructions Start Date Stop Date Generic Name NDC Status Provider Patient Instruction NITROFURANTOIN MACROCRYSTAL 100 MG ORAL CAPSULE Take one by mouth daily NITROFURANTOIN MACROCRYSTAL 70976934132 Active Gabriela Calloway MD Active CARAFATE 1 GM ORAL TABLET 1 QID SUCRALFATE 16214878 110 Active Meli Elder Active FERROUS SULFATE 325 (65 FE) MG ORAL TABLET 1 tablet by mouth twice daily FERROUS SULFATE 92068907162 Active Meli Elder Active DIGOXIN 125 MCG ORAL TABLET 1 tab by mouth daily DIGOXIN 69992583946 Active Meli Elder Active ATENOLOL 50 MG ORAL TABLET 1 tab by mouth daily ATENOLOL 64971221582 Active Meli Elder Active IMODIUM A-D 2 MG ORAL TABLET 1 tab by mouth every 4 hours prn 12/24 LOPERAMIDE HCL 51657887043 Active Meli Elder Active FISH OIL 1000 MG ORAL CAPSULE DELAYED RELEASE 1 pill b y mouth twice daily for cholesterol OMEGA-3 FATTY ACIDS 23062862299 Active Meli Eld er Active POTASSIUM CHLORIDE 20 MEQ ORAL PACKET 1 qDay with Lasix POTASSIUM CHLORIDE 83063525348 Active Meli Elder Active TRAMADOL HCL 50 MG ORAL TABLET 1 po tid with ES Tylenol TRAMADOL HCL 76317126745 Active Meli Elder Active MIRALAX ORAL PACKET 1 po qd PRN Constipation POLYETHYLENE GLYCOL 3350 24031351491 Active Meli Elder Active TYLENOL 325 MG ORAL TABLET 1 to 2 tabs by mouth every 4 hours prn 2 ACETAMINOPHEN 86083651926 Active Meli Elder Active OMEPRAZOLE 20 MG ORAL CAPSULE DELAYED RELEASE 1 tablet by mo uth daily OMEPRAZOLE 50915589160 Active Meli Elder Activ e FENOFIBRATE 160 MG ORAL TABLET 1 tab by mouth daily FENOFIBRATE 03739155214 Active Meli Elder Active ROBAFEN DM 100-10 MG/5ML ORAL SYRUP 10ml by mouth every 6 hours prn DEXTROMETHORPHAN-GUAIFENESIN 89607089401 Active Meli Elder Active FUROSEMIDE 20 MG ORAL TABLET 1 tablet by mouth daily FUROSEMIDE 98734050895 Active Meli Elder Active MULTIVITAMINS ORAL CAPSULE 1 cap by mouth daily MULTIPLE VITAMIN 38079088643 Active Meli Elder Active Immunizations Vaccine Administration [...] negative Encounters Code Encounter Date Provider Facility CPT-67569 Level 3 Est. Patient 19:16:54 CDT Gabriela scales MD [facility] CPT-66969 Level 3 Est. Patient 10:47:04 CDT Gabriela scales MD [facility] CPT-62255 Level 3 Est. 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
--- OUTSIDE RECORDS SUMMARY | 2019-07-13 11:55 | XMS REPORT | Clinical Summary ---
Author Author Admin, Nola Caballero Organization [facility] Address Unknown Phone Unavailable [...] less than 19, adult Underweight [facility] Recurrent bacterial cystitis 595.9 Active Gabriela Calloway MD Cystitis, unspecified BMI less than 20 Inactive Meli Elder Underweight Inactive Meli Elder Medication List Medication Instructions Start Date Stop Date Generic Name NDC Status Provider Patient Instruction NITROFURANTOIN MACROCRYSTAL 100 MG ORAL CAPSULE Take one by mouth daily NITROFURANTOIN MACROCRYSTAL 36736559326 Active Gabriela Calloway MD Active CARAFATE 1 GM ORAL TABLET 1 QID SUCRALFATE 18267612 110 Active Meli Elder Active FERROUS SULFATE 325 (65 FE) MG ORAL TABLET 1 tablet by mouth twice daily FERROUS SULFATE 57156292019 Active Meli Elder Active DIGOXIN 125 MCG ORAL TABLET 1 tab by mouth daily DIGOXIN 87302103046 Active Meli Elder Active ATENOLOL 50 MG ORAL TABLET 1 tab by mouth daily ATENOLOL 64413878444 Active Meli Elder Active IMODIUM A-D 2 MG ORAL TABLET 1 tab by mouth every 4 hours prn 12/24 LOPERAMIDE HCL 63284019127 Active Meli Elder Active FISH OIL 1000 MG ORAL CAPSULE DELAYED RELEASE 1 pill b y mouth twice daily for cholesterol OMEGA-3 FATTY ACIDS 45160829501 Active Meli Eld er Active POTASSIUM CHLORIDE 20 MEQ ORAL PACKET 1 qDay with Lasix POTASSIUM CHLORIDE 20240123427 Active Meli Elder Active TRAMADOL HCL 50 MG ORAL TABLET 1 po tid with ES Tylenol TRAMADOL HCL 42853503443 Active Meli Elder Active MIRALAX ORAL PACKET 1 po qd PRN Constipation POLYETHYLENE GLYCOL 3350 21147012661 Active Meli Elder Active TYLENOL 325 MG ORAL TABLET 1 to 2 tabs by mouth every 4 hours prn 2 ACETAMINOPHEN 26062052006 Active Meli Elder Active OMEPRAZOLE 20 MG ORAL CAPSULE DELAYED RELEASE 1 tablet by mo uth daily OMEPRAZOLE 80920907343 Active Meli Elder Activ e FENOFIBRATE 160 MG ORAL TABLET 1 tab by mouth daily FENOFIBRATE 97464028213 Active Meli Elder Active ROBAFEN DM 100-10 MG/5ML ORAL SYRUP 10ml by mouth every 6 hours prn DEXTROMETHORPHAN-GUAIFENESIN 64190303140 Active Meli Elder Active FUROSEMIDE 20 MG ORAL TABLET 1 tablet by mouth daily FUROSEMIDE 73420896302 Active Meli Elder Active MULTIVITAMINS ORAL CAPSULE 1 cap by mouth daily MULTIPLE VITAMIN 15158278100 Active Meli Elder Active Immunizations Vaccine Administration [...] negative Encounters Code Encounter Date Provider Facility CPT-79728 Level 3 Est. Patient 19:16:54 CDT Gabriela scales MD [facility] CPT-11190 Level 3 Est. Patient 10:47:04 CDT Gabriela scales MD [facility] CPT-07143 Level 3 Est. Patient 14:07:32 CDT Gabriela scales MD 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 Procedures Code Procedure Name Date Entry Date Standard Desc ription CPT-10198 Bladder Scan 19:16:54 CDT CPT-04211 Insert non indwelling bld cath 10:47:05 CDT CPT-02066 Bladder Scan 10:47:04 CDT CPT-80889 Insert non indwelling bld cath 14:10:28 CDT CPT-22961 Bladder Scan 14:07:32 CDT CPT-61648 Dil F ureth int 11:32:23 COMMUNICATIONS OPERATOR CPT-48832 Bladder Scan 11:32:23 COMMUNICATIONS OPERATOR
--- OUTSIDE RECORDS SUMMARY | 2019-07-13 11:55 | XMS REPORT | Clinical Summary ---
Author Author Admin, Nola Caballero Organization [facility] Address Unknown Phone Unavailable Allergies, Adverse Reactions, Alerts Allergy Name Reaction Description Start Date Severity Status Pr ovider DILTIAZEM HCL ER rash Moderate Active Meli El naye Conditions or Problems Problem Name Problem Code Onset Date Status Entry Date Provider Comment Standard Description Annotate URETHRAL STENOSIS, MEATAL 598.9 Active Gabriela Calloway MD Urethral stricture, unspecified Incomplete Bladder Emptying 788.20 Active Gabriela Calloway MD Retention of urine, unspecified BMI less than 20 Active Gabriela Calloway MD Body Mass Index less than 19, adult Underweight Active Gabriela Calloway MD Underweight Recurrent bacterial cystitis 595.9 Active Gabriela Calloway MD Cystitis, unspecified Medication List Medication Instructions Start Date Stop Date Generic Name NDC Status Provider Patient Instruction NITROFURANTOIN MACROCRYSTAL 100 MG ORAL CAPSULE Take one by mouth daily NITROFURANTOIN MACROCRYSTAL 70228126950 Active Gabriela Calloway MD Active CARAFATE 1 GM ORAL TABLET 1 QID SUCRALFATE 89306746 110 Active Meli Elder Active FERROUS SULFATE 325 (65 FE) MG ORAL TABLET 1 tablet by mouth twice daily FERROUS SULFATE 95838730255 Active Meli Elder Active DIGOXIN 125 MCG ORAL TABLET 1 tab by mouth daily DIGOXIN 34913350167 Active Meli Elder Active ATENOLOL 50 MG ORAL TABLET 1 tab by mouth daily ATENOLOL 26926000086 Active Meli Elder Active IMODIUM A-D 2 MG ORAL TABLET 1 tab by mouth every 4 hours prn 12/24 LOPERAMIDE HCL 35538833391 Active Meli Elder Active FISH OIL 1000 MG ORAL CAPSULE DELAYED RELEASE 1 pill b y mouth twice daily for cholesterol OMEGA-3 FATTY ACIDS 96421656063 Active Meli Eld er Active POTASSIUM CHLORIDE 20 MEQ ORAL PACKET 1 qDay with Lasix POTASSIUM CHLORIDE 80870836088 Active Meli Elder Active TRAMADOL HCL 50 MG ORAL TABLET 1 po tid with ES Tylenol TRAMADOL HCL 27834740574 Active Meli Elder Active MIRALAX ORAL PACKET 1 po qd PRN Constipation POLYETHYLENE GLYCOL 3350 17140890936 Active Meli Elder Active TYLENOL 325 MG ORAL TABLET 1 to 2 tabs by mouth every 4 hours prn 2 ACETAMINOPHEN 50302824615 Active Meli Elder Active OMEPRAZOLE 20 MG ORAL CAPSULE DELAYED RELEASE 1 tablet by mo uth daily OMEPRAZOLE 69857779714 Active Meli Elder Activ e FENOFIBRATE 160 MG ORAL TABLET 1 tab by mouth daily FENOFIBRATE 06189052799 Active Meli Elder Active ROBAFEN DM 100-10 MG/5ML ORAL SYRUP 10ml by mouth every 6 hours prn DEXTROMETHORPHAN-GUAIFENESIN 02755777393 Active Meli Elder Active FUROSEMIDE 20 MG ORAL TABLET 1 tablet by mouth daily FUROSEMIDE 22121598775 Active Meli Elder Active MULTIVITAMINS ORAL CAPSULE 1 cap by mouth daily MULTIPLE VITAMIN 60402686596 Active Meli Elder Active Immunizations Vaccine Administration Date Value Standard Max cription influenza immunization (Flu Vax) has been administered 12/25 Done according to patient influenza virus vaccine, unspecified for mulation Vital Signs Date Name Value Unit Range Description blood pressure, diastolic, repeated by physician 70 [...] 3 month f/u macrobid - Rosalia mehnaz RBC, urine, dipstick negative protein, total urine random trace mg/dL Office Visit: 3 month f/u macrobid - Uri nalysis pH, urine, semiquantitative 6 specific gravity, urine 1.010 urinalysis, routine Clean Catch ketones, urine, by test strip negative bilirubin, urine negative glucose, urine, semiquantitative negative urine color yellow appearance, urine cloudy leukocyte esterase, urine, by dipstick 2+ nitrite, urine, semiquantitative positive urobilinogen, urine, semiquantitative (dipstick) 0.2 protein, urine, semiquantitative (dipstick) negative Office Visit: CN-recurrent uti - Chemis [...] negative Encounters Code Encounter Date Provider Facility CPT-10269 Level 3 Est. Patient 10:47:04 CDT Gabriela scales MD [facility] CPT-01607 Level 3 Est. 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
--- OUTSIDE RECORDS SUMMARY | 2019-07-13 11:55 | XMS REPORT | Clinical Summary ---
Author Author Admin, Nola Caballero Organization [facility] Address Unknown Phone Unavailable Allergies, Adverse [...] adult Underweight Active Gabriela Calloway MD Underweight Medication List Medication Instructions Start Date Stop Date Generic Name NDC Status Provider Patient Instruction NITROFURANTOIN MACROCRYSTAL 100 MG ORAL CAPSULE Take one by mouth daily NITROFURANTOIN MACROCRYSTAL 77698246967 Active Gabriela Calloway MD Active CARAFATE 1 GM ORAL TABLET 1 QID SUCRALFATE 82294567 110 Active Meli Elder Active FERROUS SULFATE 325 (65 FE) MG ORAL TABLET 1 tablet by mouth twice daily FERROUS SULFATE 59089818451 Active Meli Elder Active DIGOXIN 125 MCG ORAL TABLET 1 tab by mouth daily DIGOXIN 22771039386 Active Meli Elder Active ATENOLOL 50 MG ORAL TABLET 1 tab by mouth daily ATENOLOL 80872888102 Active Meli Elder Active IMODIUM A-D 2 MG ORAL TABLET 1 tab by mouth every 4 hours prn 12/24 LOPERAMIDE HCL 70350622404 Active Meli Elder Active FISH OIL 1000 MG ORAL CAPSULE DELAYED RELEASE 1 pill b y mouth twice daily for cholesterol OMEGA-3 FATTY ACIDS 31740355178 Active Meli Eld er Active POTASSIUM CHLORIDE 20 MEQ ORAL PACKET 1 qDay with Lasix POTASSIUM CHLORIDE 65605877388 Active Meli Elder Active TRAMADOL HCL 50 MG ORAL TABLET 1 po tid with ES Tylenol TRAMADOL HCL 24248817088 Active Meli Elder Active MIRALAX ORAL PACKET 1 po qd PRN Constipation POLYETHYLENE GLYCOL 3350 15576026396 Active Meli Elder Active TYLENOL 325 MG ORAL TABLET 1 to 2 tabs by mouth every 4 hours prn 2 ACETAMINOPHEN 44334539610 Active Meli Elder Active OMEPRAZOLE 20 MG ORAL CAPSULE DELAYED RELEASE 1 tablet by mo uth daily OMEPRAZOLE 42731466842 Active Meli Elder Activ e FENOFIBRATE 160 MG ORAL TABLET 1 tab by mouth daily FENOFIBRATE 37459259146 Active Meli Elder Active ROBAFEN DM 100-10 MG/5ML ORAL SYRUP 10ml by mouth every 6 hours prn DEXTROMETHORPHAN-GUAIFENESIN 34711761745 Active Meli Elder Active FUROSEMIDE 20 MG ORAL TABLET 1 tablet by mouth daily FUROSEMIDE 87265728779 Active Meli Elder Active MULTIVITAMINS ORAL CAPSULE 1 cap by mouth daily MULTIPLE VITAMIN 67689832860 Active Meli Elder Active Immunizations Vaccine Administration Date Value Standard Max cription influenza immunization (Flu Vax) has been administered 12/25 Done according to patient influenza virus vaccine, unspecified for mulation Vital Signs Date Name Value Unit Range Description blood pressure, diastolic 78 mm[Hg] BP marquez [...] risk noted Office Visit: CN-recurrent uti - Chemis try [...] negative Encounters Code Encounter Date Provider Facility CPT-36731 Level 3 Est. 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
--- OUTSIDE RECORDS SUMMARY | 2019-07-13 11:55 | XMS REPORT | Clinical Summary ---
Author Author Admin, Nola Caballero Organization [facility] Address Unknown Phone Unavailable Allergies, Adverse [...] Take one by mouth daily NITROFURANTOIN MACROCRYSTAL 06970711931 Active Gabriela Calloway MD Active CARAFATE 1 GM ORAL TABLET 1 QID SUCRALFATE 77715651 110 Active Meli Elder Active FERROUS SULFATE 325 (65 FE) MG ORAL TABLET 1 tablet by mouth twice daily FERROUS SULFATE 53699621136 Active Meli Elder Active DIGOXIN 125 MCG ORAL TABLET 1 tab by mouth daily DIGOXIN 05882255932 Active Meli Elder Active ATENOLOL 50 MG ORAL TABLET 1 tab by mouth daily ATENOLOL 22550708266 Active Meli Elder Active IMODIUM A-D 2 MG ORAL TABLET 1 tab by mouth every 4 hours prn 12/24 LOPERAMIDE HCL 39384980127 Active Meli Elder Active FISH OIL 1000 MG ORAL CAPSULE DELAYED RELEASE 1 pill b y mouth twice daily for cholesterol OMEGA-3 FATTY ACIDS 96083964730 Active Meli Eld er Active POTASSIUM CHLORIDE 20 MEQ ORAL PACKET 1 qDay with Lasix POTASSIUM CHLORIDE 67682692284 Active Meli Elder Active TRAMADOL HCL 50 MG ORAL TABLET 1 po tid with ES Tylenol TRAMADOL HCL 88386134204 Active Meli Elder Active MIRALAX ORAL PACKET 1 po qd PRN Constipation POLYETHYLENE GLYCOL 3350 94571037097 Active Meli Elder Active TYLENOL 325 MG ORAL TABLET 1 to 2 tabs by mouth every 4 hours prn 2 ACETAMINOPHEN 91909454548 Active Meli Elder Active OMEPRAZOLE 20 MG ORAL CAPSULE DELAYED RELEASE 1 tablet by mo uth daily OMEPRAZOLE 71149989215 Active Meli Elder Activ e FENOFIBRATE 160 MG ORAL TABLET 1 tab by mouth daily FENOFIBRATE 30468173498 Active Meli Elder Active ROBAFEN DM 100-10 MG/5ML ORAL SYRUP 10ml by mouth every 6 hours prn DEXTROMETHORPHAN-GUAIFENESIN 36917582208 Active Meli Elder Active FUROSEMIDE 20 MG ORAL TABLET 1 tablet by mouth daily FUROSEMIDE 03147856385 Active Meli Elder Active MULTIVITAMINS ORAL CAPSULE 1 cap by mouth daily MULTIPLE VITAMIN 60781848312 Active Meli Elder Active Immunizations Vaccine Administration [...] negative Encounters Code Encounter Date Provider Facility CPT-53685 Level 3 Est. Patient 10:47:04 CDT Gabriela scales MD [facility] CPT-20426 Level 3 Est. 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
--- OUTSIDE RECORDS SUMMARY | 2019-07-13 11:55 | XMS REPORT | Clinical Summary ---
Author Author Admin, Nola Caballero Organization [facility] Address Unknown Phone Unavailable Allergies, Adverse [...] Take one by mouth daily NITROFURANTOIN MACROCRYSTAL 69250029485 Active Gabriela Calloway MD Active CARAFATE 1 GM ORAL TABLET 1 QID SUCRALFATE 85016661 110 Active Meli Elder Active FERROUS SULFATE 325 (65 FE) MG ORAL TABLET 1 tablet by mouth twice daily FERROUS SULFATE 49611578160 Active Meli Elder Active DIGOXIN 125 MCG ORAL TABLET 1 tab by mouth daily DIGOXIN 75207989341 Active Meli Elder Active ATENOLOL 50 MG ORAL TABLET 1 tab by mouth daily ATENOLOL 28049097948 Active Meli Elder Active IMODIUM A-D 2 MG ORAL TABLET 1 tab by mouth every 4 hours prn 12/24 LOPERAMIDE HCL 10032579806 Active Meli Elder Active FISH OIL 1000 MG ORAL CAPSULE DELAYED RELEASE 1 pill b y mouth twice daily for cholesterol OMEGA-3 FATTY ACIDS 71621761628 Active Meli Eld er Active POTASSIUM CHLORIDE 20 MEQ ORAL PACKET 1 qDay with Lasix POTASSIUM CHLORIDE 07388918975 Active Meli Elder Active TRAMADOL HCL 50 MG ORAL TABLET 1 po tid with ES Tylenol TRAMADOL HCL 40902240528 Active Meli Elder Active MIRALAX ORAL PACKET 1 po qd PRN Constipation POLYETHYLENE GLYCOL 3350 69479862136 Active Meli Elder Active TYLENOL 325 MG ORAL TABLET 1 to 2 tabs by mouth every 4 hours prn 2 ACETAMINOPHEN 87956511824 Active Meli Elder Active OMEPRAZOLE 20 MG ORAL CAPSULE DELAYED RELEASE 1 tablet by mo uth daily OMEPRAZOLE 81617799995 Active Meli Elder Activ e FENOFIBRATE 160 MG ORAL TABLET 1 tab by mouth daily FENOFIBRATE 31444109216 Active Meli Elder Active ROBAFEN DM 100-10 MG/5ML ORAL SYRUP 10ml by mouth every 6 hours prn DEXTROMETHORPHAN-GUAIFENESIN 39801390808 Active Meli Elder Active FUROSEMIDE 20 MG ORAL TABLET 1 tablet by mouth daily FUROSEMIDE 00047114287 Active Meli Elder Active MULTIVITAMINS ORAL CAPSULE 1 cap by mouth daily MULTIPLE VITAMIN 17072969313 Active Meli Elder Active Immunizations Vaccine Administration [...] negative Encounters Code Encounter Date Provider Facility CPT-65447 Level 3 Est. Patient 10:47:04 CDT Gabriela scales MD [facility] CPT-60237 Level 3 Est. 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
--- OUTSIDE RECORDS SUMMARY | 2019-07-13 11:55 | XMS REPORT | Clinical Summary ---
Author Author Admin, Nola Caballero Organization [facility] Address Unknown Phone Unavailable Allergies, Adverse Reactions, [...] Take one by mouth daily NITROFURANTOIN MACROCRYSTAL 30352022874 Active Gabriela Calloway MD Active CARAFATE 1 GM ORAL TABLET 1 QID SUCRALFATE 06825802 110 Active Meli Elder Active FERROUS SULFATE 325 (65 FE) MG ORAL TABLET 1 tablet by mouth twice daily FERROUS SULFATE 01375029441 Active Meli Elder Active DIGOXIN 125 MCG ORAL TABLET 1 tab by mouth daily DIGOXIN 22910124325 Active Meli Elder Active ATENOLOL 50 MG ORAL TABLET 1 tab by mouth daily ATENOLOL 06966285544 Active Meli Elder Active IMODIUM A-D 2 MG ORAL TABLET 1 tab by mouth every 4 hours prn 12/24 LOPERAMIDE HCL 30293166402 Active Meli Elder Active FISH OIL 1000 MG ORAL CAPSULE DELAYED RELEASE 1 pill b y mouth twice daily for cholesterol OMEGA-3 FATTY ACIDS 87526518415 Active Meli Eld er Active POTASSIUM CHLORIDE 20 MEQ ORAL PACKET 1 qDay with Lasix POTASSIUM CHLORIDE 49878891338 Active Meli Elder Active TRAMADOL HCL 50 MG ORAL TABLET 1 po tid with ES Tylenol TRAMADOL HCL 66232499244 Active Meli Elder Active MIRALAX ORAL PACKET 1 po qd PRN Constipation POLYETHYLENE GLYCOL 3350 78017083193 Active Meli Elder Active TYLENOL 325 MG ORAL TABLET 1 to 2 tabs by mouth every 4 hours prn 2 ACETAMINOPHEN 11194894530 Active Meli Elder Active OMEPRAZOLE 20 MG ORAL CAPSULE DELAYED RELEASE 1 tablet by mo uth daily OMEPRAZOLE 89432650814 Active Meli Elder Activ e FENOFIBRATE 160 MG ORAL TABLET 1 tab by mouth daily FENOFIBRATE 50663403275 Active Meli Elder Active ROBAFEN DM 100-10 MG/5ML ORAL SYRUP 10ml by mouth every 6 hours prn DEXTROMETHORPHAN-GUAIFENESIN 68310956835 Active Meli Elder Active FUROSEMIDE 20 MG ORAL TABLET 1 tablet by mouth daily FUROSEMIDE 70255139460 Active Meli Elder Active MULTIVITAMINS ORAL CAPSULE 1 cap by mouth daily MULTIPLE VITAMIN 88332850768 Active Meli Elder Active Immunizations Vaccine Administration [...] negative Encounters Code Encounter Date Provider Facility CPT-52842 Level 3 Est. Patient 10:47:04 CDT Gabriela scales MD [facility] CPT-41284 Level 3 Est. 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
--- OUTSIDE RECORDS SUMMARY | 2019-07-13 11:55 | XMS REPORT | Clinical Summary ---
Author Author Admin, Nola Caballero Organization [facility] Address Unknown Phone Unavailable [...] Take one by mouth daily NITROFURANTOIN MACROCRYSTAL 54381261718 Active Gabriela Calloway MD Active CARAFATE 1 GM ORAL TABLET 1 QID SUCRALFATE 48937445 110 Active Meli Elder Active FERROUS SULFATE 325 (65 FE) MG ORAL TABLET 1 tablet by mouth twice daily FERROUS SULFATE 09814872303 Active Meli Elder Active DIGOXIN 125 MCG ORAL TABLET 1 tab by mouth daily DIGOXIN 68448849932 Active Meli Elder Active ATENOLOL 50 MG ORAL TABLET 1 tab by mouth daily ATENOLOL 20307399006 Active Meli Elder Active IMODIUM A-D 2 MG ORAL TABLET 1 tab by mouth every 4 hours prn 12/24 LOPERAMIDE HCL 82524427230 Active Meli Elder Active FISH OIL 1000 MG ORAL CAPSULE DELAYED RELEASE 1 pill b y mouth twice daily for cholesterol OMEGA-3 FATTY ACIDS 26522786079 Active Meli Eld er Active POTASSIUM CHLORIDE 20 MEQ ORAL PACKET 1 qDay with Lasix POTASSIUM CHLORIDE 95947986453 Active Meli Elder Active TRAMADOL HCL 50 MG ORAL TABLET 1 po tid with ES Tylenol TRAMADOL HCL 58117693947 Active Meli Elder Active MIRALAX ORAL PACKET 1 po qd PRN Constipation POLYETHYLENE GLYCOL 3350 35821621878 Active Meli Elder Active TYLENOL 325 MG ORAL TABLET 1 to 2 tabs by mouth every 4 hours prn 2 ACETAMINOPHEN 59859489765 Active Meli Elder Active OMEPRAZOLE 20 MG ORAL CAPSULE DELAYED RELEASE 1 tablet by mo uth daily OMEPRAZOLE 18981301380 Active Meli Elder Activ e FENOFIBRATE 160 MG ORAL TABLET 1 tab by mouth daily FENOFIBRATE 04450273053 Active Meli Elder Active ROBAFEN DM 100-10 MG/5ML ORAL SYRUP 10ml by mouth every 6 hours prn DEXTROMETHORPHAN-GUAIFENESIN 98902675247 Active Meli Elder Active FUROSEMIDE 20 MG ORAL TABLET 1 tablet by mouth daily FUROSEMIDE 25785037211 Active Meli Elder Active MULTIVITAMINS ORAL CAPSULE 1 cap by mouth daily MULTIPLE VITAMIN 06927676072 Active Meli Elder Active Immunizations Vaccine Administration [...] negative Encounters Code Encounter Date Provider Facility CPT-21078 Level 3 Est. Patient 10:47:04 CDT Gabriela scales MD [facility] CPT-66073 Level 3 Est. 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
--- OUTSIDE RECORDS SUMMARY | 2019-07-13 11:56 | XMS REPORT | Clinical Summary ---
Author Author Admin, Nola Caballero Organization [facility] Address Unknown Phone Unavailable [...] Take one by mouth daily NITROFURANTOIN MACROCRYSTAL 01036925811 Active Gabriela Calloway MD Active CARAFATE 1 GM ORAL TABLET 1 QID SUCRALFATE 34662057 110 Active Meli Elder Active FERROUS SULFATE 325 (65 FE) MG ORAL TABLET 1 tablet by mouth twice daily FERROUS SULFATE 01210273586 Active Meli Elder Active DIGOXIN 125 MCG ORAL TABLET 1 tab by mouth daily DIGOXIN 55346000749 Active Meli Elder Active ATENOLOL 50 MG ORAL TABLET 1 tab by mouth daily ATENOLOL 34634910203 Active Meli Elder Active IMODIUM A-D 2 MG ORAL TABLET 1 tab by mouth every 4 hours prn 12/24 LOPERAMIDE HCL 69573459578 Active Meli Elder Active FISH OIL 1000 MG ORAL CAPSULE DELAYED RELEASE 1 pill b y mouth twice daily for cholesterol OMEGA-3 FATTY ACIDS 34916423912 Active Meli Eld er Active POTASSIUM CHLORIDE 20 MEQ ORAL PACKET 1 qDay with Lasix POTASSIUM CHLORIDE 23279495280 Active Meli Elder Active TRAMADOL HCL 50 MG ORAL TABLET 1 po tid with ES Tylenol TRAMADOL HCL 59257863724 Active Meli Elder Active MIRALAX ORAL PACKET 1 po qd PRN Constipation POLYETHYLENE GLYCOL 3350 24759464705 Active Meli Elder Active TYLENOL 325 MG ORAL TABLET 1 to 2 tabs by mouth every 4 hours prn 2 ACETAMINOPHEN 31354435024 Active Meli Elder Active OMEPRAZOLE 20 MG ORAL CAPSULE DELAYED RELEASE 1 tablet by mo uth daily OMEPRAZOLE 68826458128 Active Meli Elder Activ e FENOFIBRATE 160 MG ORAL TABLET 1 tab by mouth daily FENOFIBRATE 51210025052 Active Meli Elder Active ROBAFEN DM 100-10 MG/5ML ORAL SYRUP 10ml by mouth every 6 hours prn DEXTROMETHORPHAN-GUAIFENESIN 10227271747 Active Meli Elder Active FUROSEMIDE 20 MG ORAL TABLET 1 tablet by mouth daily FUROSEMIDE 16690625057 Active Meli Bravo Active MULTIVITAMINS ORAL CAPSULE 1 cap by mouth daily MULTIPLE VITAMIN 75846407938 Active Meli Elder Active Immunizations Vaccine Administration [...] negative Encounters Code Encounter Date Provider Facility CPT-38829 Level 3 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
--- OUTSIDE RECORDS SUMMARY | 2019-07-13 11:56 | XMS REPORT | Clinical Summary ---
Author Author Admin, Nola Caballero Organization [facility] Address Unknown Phone Unavailable Allergies, Adverse [...] Take one by mouth daily NITROFURANTOIN MACROCRYSTAL 77138126235 Active Gabriela Calloway MD Active CARAFATE 1 GM ORAL TABLET 1 QID SUCRALFATE 09596886 110 Active Meli Elder Active FERROUS SULFATE 325 (65 FE) MG ORAL TABLET 1 tablet by mouth twice daily FERROUS SULFATE 78169531703 Active Meli Elder Active DIGOXIN 125 MCG ORAL TABLET 1 tab by mouth daily DIGOXIN 17961225639 Active Meli Elder Active ATENOLOL 50 MG ORAL TABLET 1 tab by mouth daily ATENOLOL 44051751528 Active Meli Elder Active IMODIUM A-D 2 MG ORAL TABLET 1 tab by mouth every 4 hours prn 12/24 LOPERAMIDE HCL 49911878419 Active Meli Elder Active FISH OIL 1000 MG ORAL CAPSULE DELAYED RELEASE 1 pill b y mouth twice daily for cholesterol OMEGA-3 FATTY ACIDS 73907747070 Active Meli Eld er Active POTASSIUM CHLORIDE 20 MEQ ORAL PACKET 1 qDay with Lasix POTASSIUM CHLORIDE 35663948269 Active Meli Elder Active TRAMADOL HCL 50 MG ORAL TABLET 1 po tid with ES Tylenol TRAMADOL HCL 04012789597 Active Meli Elder Active MIRALAX ORAL PACKET 1 po qd PRN Constipation POLYETHYLENE GLYCOL 3350 12155113202 Active Meli Elder Active TYLENOL 325 MG ORAL TABLET 1 to 2 tabs by mouth every 4 hours prn 2 ACETAMINOPHEN 23828714617 Active Meli Elder Active OMEPRAZOLE 20 MG ORAL CAPSULE DELAYED RELEASE 1 tablet by mo uth daily OMEPRAZOLE 25933640561 Active Meli Elder Activ e FENOFIBRATE 160 MG ORAL TABLET 1 tab by mouth daily FENOFIBRATE 02417203746 Active Meli Elder Active ROBAFEN DM 100-10 MG/5ML ORAL SYRUP 10ml by mouth every 6 hours prn DEXTROMETHORPHAN-GUAIFENESIN 75262142787 Active Meli Elder Active FUROSEMIDE 20 MG ORAL TABLET 1 tablet by mouth daily FUROSEMIDE 10256043930 Active Meli Bravo Active MULTIVITAMINS ORAL CAPSULE 1 cap by mouth daily MULTIPLE VITAMIN 68177588984 Active Meli Elder Active Immunizations Vaccine Administration [...] negative Encounters Code Encounter Date Provider Facility CPT-05748 Level 3 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
--- OUTSIDE RECORDS SUMMARY | 2019-07-13 11:56 | XMS REPORT | Clinical Summary ---
Author Author Admin, Nola Caballero Organization [facility] Address Unknown Phone Unavailable Allergies, Adverse [...] Take one by mouth daily NITROFURANTOIN MACROCRYSTAL 71531324641 Active Gabriela Calloway MD Active CARAFATE 1 GM ORAL TABLET 1 QID SUCRALFATE 06030313 110 Active Meli Elder Active FERROUS SULFATE 325 (65 FE) MG ORAL TABLET 1 tablet by mouth twice daily FERROUS SULFATE 26453843564 Active Meli Elder Active DIGOXIN 125 MCG ORAL TABLET 1 tab by mouth daily DIGOXIN 45633471226 Active Meli Elder Active ATENOLOL 50 MG ORAL TABLET 1 tab by mouth daily ATENOLOL 62843203770 Active Meli Elder Active IMODIUM A-D 2 MG ORAL TABLET 1 tab by mouth every 4 hours prn 12/24 LOPERAMIDE HCL 31992960433 Active Meli Elder Active FISH OIL 1000 MG ORAL CAPSULE DELAYED RELEASE 1 pill b y mouth twice daily for cholesterol OMEGA-3 FATTY ACIDS 39294427215 Active Meli Eld er Active POTASSIUM CHLORIDE 20 MEQ ORAL PACKET 1 qDay with Lasix POTASSIUM CHLORIDE 85594099799 Active Meli Elder Active TRAMADOL HCL 50 MG ORAL TABLET 1 po tid with ES Tylenol TRAMADOL HCL 09786091219 Active Meli Elder Active MIRALAX ORAL PACKET 1 po qd PRN Constipation POLYETHYLENE GLYCOL 3350 95799853299 Active Meli Elder Active TYLENOL 325 MG ORAL TABLET 1 to 2 tabs by mouth every 4 hours prn 2 ACETAMINOPHEN 48404929045 Active Meli Elder Active OMEPRAZOLE 20 MG ORAL CAPSULE DELAYED RELEASE 1 tablet by mo uth daily OMEPRAZOLE 15910679430 Active Meli Elder Activ e FENOFIBRATE 160 MG ORAL TABLET 1 tab by mouth daily FENOFIBRATE 84952708372 Active Meli Elder Active ROBAFEN DM 100-10 MG/5ML ORAL SYRUP 10ml by mouth every 6 hours prn DEXTROMETHORPHAN-GUAIFENESIN 62867780716 Active Meli Elder Active FUROSEMIDE 20 MG ORAL TABLET 1 tablet by mouth daily FUROSEMIDE 80996493974 Active Meli Bravo Active MULTIVITAMINS ORAL CAPSULE 1 cap by mouth daily MULTIPLE VITAMIN 18301343966 Active Meli Elder Active Immunizations Vaccine Administration [...] negative Encounters Code Encounter Date Provider Facility CPT-86996 Level 3 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
--- OUTSIDE RECORDS SUMMARY | 2019-07-13 11:56 | XMS REPORT | Clinical Summary ---
[...] Take one by mouth daily NITROFURANTOIN MACROCRYSTAL 41132831976 Active Gabriela Calloway MD Active CARAFATE 1 GM ORAL TABLET 1 QID SUCRALFATE 49413817 110 Active Meli Elder Active FERROUS SULFATE 325 (65 FE) MG ORAL TABLET 1 tablet by mouth twice daily FERROUS SULFATE 17839450026 Active Meli Elder Active DIGOXIN 125 MCG ORAL TABLET 1 tab by mouth daily DIGOXIN 53004545940 Active Meli Elder Active ATENOLOL 50 MG ORAL TABLET 1 tab by mouth daily ATENOLOL 01458753159 Active Meli Elder Active IMODIUM A-D 2 MG ORAL TABLET 1 tab by mouth every 4 hours prn 12/24 LOPERAMIDE HCL 68288906148 Active Meli Elder Active FISH OIL 1000 MG ORAL CAPSULE DELAYED RELEASE 1 pill b y mouth twice daily for cholesterol OMEGA-3 FATTY ACIDS 78118785790 Active Meli Eld er Active POTASSIUM CHLORIDE 20 MEQ ORAL PACKET 1 qDay with Lasix POTASSIUM CHLORIDE 49831185334 Active Meli Elder Active TRAMADOL HCL 50 MG ORAL TABLET 1 po tid with ES Tylenol TRAMADOL HCL 71692877004 Active Meli Elder Active MIRALAX ORAL PACKET 1 po qd PRN Constipation POLYETHYLENE GLYCOL 3350 37316711301 Active Meli Elder Active TYLENOL 325 MG ORAL TABLET 1 to 2 tabs by mouth every 4 hours prn 2 ACETAMINOPHEN 51572246202 Active Meli Elder Active OMEPRAZOLE 20 MG ORAL CAPSULE DELAYED RELEASE 1 tablet by mo uth daily OMEPRAZOLE 39791463656 Active Meli Elder Activ e FENOFIBRATE 160 MG ORAL TABLET 1 tab by mouth daily FENOFIBRATE 41457966143 Active Meli Elder Active ROBAFEN DM 100-10 MG/5ML ORAL SYRUP 10ml by mouth every 6 hours prn DEXTROMETHORPHAN-GUAIFENESIN 42714670325 Active Meli Elder Active FUROSEMIDE 20 MG ORAL TABLET 1 tablet by mouth daily FUROSEMIDE 78889121919 Active Meli Bravo Active MULTIVITAMINS ORAL CAPSULE 1 cap by mouth daily MULTIPLE VITAMIN 54948307610 Active Meli Elder Active Immunizations Vaccine Administration [...] negative Encounters Code Encounter Date Provider Facility CPT-03569 Level 3 New Patient 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
--- OUTSIDE RECORDS SUMMARY | 2019-07-13 11:56 | XMS REPORT | Clinical Summary ---
Author Author Admin, Nola Caballero Organization [facility] Address Unknown Phone Unavailable Allergies, Adverse [...] less than 19, adult Underweight Active Gabriela Callwoay MD Underweight Medication List Medication Instructions Start Date Stop Date Generic Name NDC Status Provider Patient Instruction NITROFURANTOIN MACROCRYSTAL 100 MG ORAL CAPSULE Take one by mouth daily NITROFURANTOIN MACROCRYSTAL 74278639221 Active Gabriela Calloway MD Active CARAFATE 1 GM ORAL TABLET 1 QID SUCRALFATE 59489302 110 Active Meli Elder Active FERROUS SULFATE 325 (65 FE) MG ORAL TABLET 1 tablet by mouth twice daily FERROUS SULFATE 57404573407 Active Meli Elder Active DIGOXIN 125 MCG ORAL TABLET 1 tab by mouth daily DIGOXIN 70078716649 Active Meli Elder Active ATENOLOL 50 MG ORAL TABLET 1 tab by mouth daily ATENOLOL 49261220938 Active Meli Elder Active IMODIUM A-D 2 MG ORAL TABLET 1 tab by mouth every 4 hours prn 12/24 LOPERAMIDE HCL 76944537693 Active Meli Elder Active FISH OIL 1000 MG ORAL CAPSULE DELAYED RELEASE 1 pill b y mouth twice daily for cholesterol OMEGA-3 FATTY ACIDS 76543676809 Active Meli Eld er Active POTASSIUM CHLORIDE 20 MEQ ORAL PACKET 1 qDay with Lasix POTASSIUM CHLORIDE 29711517515 Active Meli Elder Active TRAMADOL HCL 50 MG ORAL TABLET 1 po tid with ES Tylenol TRAMADOL HCL 64301353886 Active Meli Elder Active MIRALAX ORAL PACKET 1 po qd PRN Constipation POLYETHYLENE GLYCOL 3350 97878930996 Active Meli Elder Active TYLENOL 325 MG ORAL TABLET 1 to 2 tabs by mouth every 4 hours prn 2 ACETAMINOPHEN 62823026322 Active Meli Elder Active OMEPRAZOLE 20 MG ORAL CAPSULE DELAYED RELEASE 1 tablet by mo uth daily OMEPRAZOLE 86408281596 Active Meli Elder Activ e FENOFIBRATE 160 MG ORAL TABLET 1 tab by mouth daily FENOFIBRATE 64158931541 Active Meli Elder Active ROBAFEN DM 100-10 MG/5ML ORAL SYRUP 10ml by mouth every 6 hours prn DEXTROMETHORPHAN-GUAIFENESIN 58272114630 Active Meli Elder Active FUROSEMIDE 20 MG ORAL TABLET 1 tablet by mouth daily FUROSEMIDE 28454611305 Active Meli Elder Active MULTIVITAMINS ORAL CAPSULE 1 cap by mouth daily MULTIPLE VITAMIN 06172459904 Active Meli Elder Active Immunizations Vaccine Administration [...] negative Encounters Code Encounter Date Provider Facility CPT-61616 Level 3 Est. 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
--- OUTSIDE RECORDS SUMMARY | 2019-07-13 11:56 | XMS REPORT | Clinical Summary ---
[...] Index less than 19, adult Underweight Active Gabrieal Calloway MD Underweight Medication List Medication Instructions Start Date Stop Date Generic Name NDC Status Provider Patient Instruction NITROFURANTOIN MACROCRYSTAL 100 MG ORAL CAPSULE Take one by mouth daily NITROFURANTOIN MACROCRYSTAL 26268693199 Active Gabriela Calloway MD Active CARAFATE 1 GM ORAL TABLET 1 QID SUCRALFATE 71892050 110 Active Meli Elder Active FERROUS SULFATE 325 (65 FE) MG ORAL TABLET 1 tablet by mouth twice daily FERROUS SULFATE 61287011111 Active Meli Elder Active DIGOXIN 125 MCG ORAL TABLET 1 tab by mouth daily DIGOXIN 25546233374 Active Meli Elder Active ATENOLOL 50 MG ORAL TABLET 1 tab by mouth daily ATENOLOL 78886080192 Active Meli Elder Active IMODIUM A-D 2 MG ORAL TABLET 1 tab by mouth every 4 hours prn 12/24 LOPERAMIDE HCL 79612723586 Active Meli Elder Active FISH OIL 1000 MG ORAL CAPSULE DELAYED RELEASE 1 pill b y mouth twice daily for cholesterol OMEGA-3 FATTY ACIDS 13941835517 Active Meli Eld er Active POTASSIUM CHLORIDE 20 MEQ ORAL PACKET 1 qDay with Lasix POTASSIUM CHLORIDE 78073230404 Active Meli Elder Active TRAMADOL HCL 50 MG ORAL TABLET 1 po tid with ES Tylenol TRAMADOL HCL 24836159743 Active Meli Elder Active MIRALAX ORAL PACKET 1 po qd PRN Constipation POLYETHYLENE GLYCOL 3350 33448402215 Active Meli Elder Active TYLENOL 325 MG ORAL TABLET 1 to 2 tabs by mouth every 4 hours prn 2 ACETAMINOPHEN 22246687012 Active Meli Elder Active OMEPRAZOLE 20 MG ORAL CAPSULE DELAYED RELEASE 1 tablet by mo uth daily OMEPRAZOLE 14180487526 Active Meli Elder Activ e FENOFIBRATE 160 MG ORAL TABLET 1 tab by mouth daily FENOFIBRATE 22406136019 Active Meli Elder Active ROBAFEN DM 100-10 MG/5ML ORAL SYRUP 10ml by mouth every 6 hours prn DEXTROMETHORPHAN-GUAIFENESIN 46151451388 Active Meli Elder Active FUROSEMIDE 20 MG ORAL TABLET 1 tablet by mouth daily FUROSEMIDE 79724432706 Active Meli Elder Active MULTIVITAMINS ORAL CAPSULE 1 cap by mouth daily MULTIPLE VITAMIN 61062771954 Active Meli Elder Active Immunizations Vaccine Administration [...] negative Encounters Code Encounter Date Provider Facility CPT-05028 Level 3 Est. 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
--- OUTSIDE RECORDS SUMMARY | 2019-07-13 11:57 | XMS REPORT ---
Author Author Nola APPLE Organization [facility] Address [address] [place] [address] Care Team Providers Care Hot Press Operator Name Role Phone AMBIKA NIKIA Unavailable PROBLEMS Type Condition ICD9-CM Code [id number] Code Onset Dates Condition S tatus SNOMED Code Problem Generalized osteoarthrosis, unspecified site M15.9 0 559340085 Problem Atrial fibrillation I48.91 0 38289732 Problem Osteoporosis M81.0 07 May, 2008 0 6485 9006 Problem Barretts esophagus with esophagitis K22.70 01 2010 0 664061690 Problem Iron deficiency anemia due to chronic blood loss D 50.0 Active 367450709 Problem CKD (chronic kidney disease) stage 3, GFR 30-59 ml/min N18.3 Nov, 0 662529275 Problem Moderate protein-calorie malnutrition E44.0 Active 663732582 Problem Pure hypercholesterolemia E78.00 June, 0 619117038 Problem Acute cystitis with hematuria N30.01 Aug, 17 0 45957582 Problem Hypokalemia E87.6 Dec, 0 92984 004 Problem Dehydration E86.0 Aug, 0 91368 006 Problem Anemia, unspecified D64.9 0 129858592 ALLERGIES Substance Reaction Event Type Date Status Diltiazem HCl Unknown Drug Allergy Apr, Active ENCOUNTERS Encounter Location Date Diagnosis [address] [id number] [place] [address] Sep, [address] [id number] [address] Jul, [address] [id number] [place] [address] May, Atrial fibrillation I48.91 ; CKD (chronic kidney disease) stage 3, GFR 30-59 ml/min N18.3 ; Moderate protein-calorie malnutrition E44.0 and Barretts esophagus with esophagitis K22.[address] [id number] [place] [address] May, Pure hypercholesterolemia E7 8.[address] [id number] [place] [address] Apr, [facility] [place] [address] [facility] [id number] [place] [address] Apr, [facility] [address] [id number], [place] [address] Jan, [address] [id number], [place] [address] Jan, Pure hypercholesterolemia E7 8.00 ; Atrial fibrillation I48.91 ; CKD (chronic kidney disease) stage 3, GFR 30-59 ml/min N18.3 and Iron deficiency anemia due to chronic blood loss D50.[address] [id number], [place] [address] Jan, Pure hypercholesterolemia E7 8.00 [facility] [address] [facility] 340 [id number] [address] Jan, Oral health maintenance stat us requiring routine preventive dental care K08.[address] [id number], [place] [address] Dec, Barretts esophagus with esop hagitis K22.[address] [id number] [place] [address] Dec, [facility] [address] [place] [address] [facility] [address] [address] [address] [id number] [place] [address] Oct, Dental examination Z01.20 and Caries K02 .[address] [id number], [place] [address] Oct, Non-recurrent acute serous o titis media of left ear H65.02 [facility] [address] [id number] [place] [address] 04 Oct, 2018 [facility] [address] [id number] [place] [address] Sep, [address] [id number] [place] [address] 16 Sep, 2018 Encounter for immunization Z [address] [id number] [place] [address] 14 Sep, 2018 [facility] [address] [id number] [place] [address] 14 Sep, 2018 Atrial fibrillation I48.91 ; Generalized osteoarthrosis, unspecified site M15.9 ; CKD (chronic kidney disease) stage 3, GFR 30-59 ml/min N18.3 and Pure hypercholesterolemia E78.[address] 340 [id number], [place] [address] 12 Sep, 2018 Pure hypercholesterolemia E7 8.[address] [id number], [place] [address] 07 Sep, 2018 Urinary pain R30.[address] [facility] [address] [place] [address] [place] [address] 0 7 Sep, 2018 Caries K02.9 ; Dental examination Z01.20 and Oral health maintenance status requiring routine preventive dental care K08.[address] 340 [id number] [place] [address] 06 Sep, 2018 Urinary pain R30.[address] [id number], [place] [address] Sep, Urinary pain R30.[address] [id number], [place] [address] Aug, [facility] [address] [facility] [id number] [place] [id number] June, Dental examination Z01.20 an d Dental caries K02.[address] [id number], [place] [address] June, Pure hypercholesterolemia E7 8.00 ; Barretts esophagus with esophagitis K22.70 and Encounter for immunization Z23 [facility] [address] [id number], [place] [address] June, [address] [id number], [place] [address] June, Atrial fibrillation I48.91 ; Iron deficiency anemia due to chronic blood loss D50.0 and Pure hypercholesterolemia E78.[address] 340 [id number], [place] [address] June, Elevated cholesterol E78.[address] 340 [id number], [place] [address] June, [address] [id number], [place] [address] May, [facility] [address] [facility] 340 [id number] [place] [address] May, Oral health maintenance stat us requiring routine preventive dental care K08.[address] [id number], [place] [address] Apr, Iron deficiency anemia due t o chronic blood loss D50.0 ; Barretts esophagus with esophagitis K22.70 and Atrial fibrillation I48.91 [facility] [address] [facility] [id number] [place] [id number] Apr, Dental examination Z01.20 an d Caries K02.[address] 340[address] [id number], [place] [address] Apr, Screening mammogram, encount er for Z12.31 [facility] [address] [id number] [place] [address] Apr, [facility] [address] [place] [address] [facility] [id number] [place] [address] Feb, Caries K02.9 ; Dental examination Z01.20 and Oral health maintenance status requiring routine preventive dental care K08.9 [facility] [address] [id number] [address] [place] [address] Feb, [facility] [address] [id number] [address] [place] [address] Jan, [facility] [address] [id number] [address] [place] [address] Jan, [facility] [address] [id number] [address] [place] [address] Dec, [facility] [address] [id number] [address] [place] [address] Dec, [facility] [address] [id number] [address] [place] [place] [address] Dec, [facility] [address] [place] [id number] [place] [phone] Nov, Dental plaque K03.6 and Enco unter for prophylactic administration of fluoride Z29.3 [facility] [place] [address] [place] [address] Jul, [address] [facility] [address] [id number] [address] [place] [place] [address] June, [facility] [address] [facility] [id number] [place] [phone] May, Dental examination Z01.20 [facility] [address] [facility] [id number] [place] [phone] Apr, Encounter for dental exam an d cleaning w/o abnormal findings Z01.20 [facility] [address] [id number] [address] [place] [phone] Mar, Dental examination Z01.20 [facility] [address] [facility] [id number] [address] [place] [phone] Jan, Dental examination Z01.20 [facility] [place] [address] [place] [address] Jan, Dental examination Z01.20 [facility] [address] [id number] [address] [place] [phone] Oct, Encounter for dental examina tion and cleaning with abnormal findings [facility]01.21 [facility] [address] [id number] [id number] Aug, Dental examination Z01.20 [facility] [address] [id number] [address] [place] [phone] Jul, Encounter for dental examina tion and cleaning without abnormal findings Z01.20 [facility] [address] [id number] [address] [place] [address] [phone] Feb, Encounter for dental examina tion and cleaning without abnormal findings Z01.20 [facility] [id number] [id number] Feb, Dental examination Z01.20 [facility] [address] [id number] [address] [place] [phone] Oct, Encounter for dental examina tion and cleaning without abnormal findings Z01.20 [facility] [address] [id number] [id number] Sep, Dental examination Z01.20 [facility] [address] [id number] [address] [place] [phone] Jul, Encounter for dental examina tion and cleaning without abnormal findings Z01.20 [facility] [address] [id number] [id number] Jul, Dental examination Z01.20 [facility] [address] [id number] [address] [place] [phone] May, Encounter for dental examina tion Z01.20 [facility] [address] [id number] [address] [place] [address] [phone] Mar, Encounter for dental examina tion Z01.20 [facility] [address] [id number] [place] [id number] Feb, Dental examination Z01.20 [facility] [address] [id number] [place] [phone] Aug, Dental examination V72.2 [facility] [address] [id number] [address] [place] [address] [phone] Jul, Dental examination V72.2 IMMUNIZATIONS No Known Immunizations SOCIAL HISTORY Never Assessed REASON FOR VISIT Hospital F/U- [facility] Elevated B/P, Low HR PLAN OF CARE Activity Details Follow Up prn Reason: VITAL SIGNS Height 60.995032253123387 in 2018-05-11 Weight 85lb lbs 2018-05-11 Temperature 98.8 degrees Fahrenheit 2018-05-11 BMI 16.07 kg/m2 2018-05-11 Blood pressure systolic 150 mmHg 2018-05-11 Blood pressure diastolic 60 mmHg 2018-05-11 MEDICATIONS Medication Instructions Dosage Frequency Start Date End Date Duration S tatus Lasix 20 MG Orally Once a day 1 tablet 24h 30 day(s) Active Digoxin 125 MCG 1 tablet Not-Cristopher ing Lovastatin 20 MG Orally Once a day 1 capsule 24h 90 days Active Fenofibrate 160 MG Orally Once a day 1 tablet 24h Active Ferrous Sulfate 325 (65 Fe) MG Orally Once a day 1 tablet 24h 30 day(s) Active Tenormin 50 MG Orally Once a day 1 tablet 24h 30 day (s) Active Gummi Bear Multivitamin/Min Active Macrobid 100 MG Orally every 12 hrs 1 capsule with food 12h 7 day(s) Active Sucralfate 1 GM Orally Twice a day 1 tablet on an empty stomach 12h 30 day(s) Active RESULTS No Results PROCEDURES Procedure Date Ordered Result Body Site [facility] VISIT NEW PATIENT May 11, [address] [facility] May 11, 2018 INSTRUCTIONS MEDICATIONS ADMINISTERED No Known Medications MEDICAL (GENERAL) HISTORY Type Description Date Medical History Arthritis Medical History Mental retardation Medical History Atrial fibrillation Medical History Hyperlipidemia Medical History Anemia Medical History Hypertension Surgical History Eye Surgery Surgical History Esophogeal 2012? Hospitalization History Hospitalization for surgery only Hospitalization History [facility] 04/2018
--- OUTSIDE RECORDS SUMMARY | 2019-07-13 11:57 | XMS REPORT | Continuity of Care Document ---
Demographics Preferred Language Unknown Marital Status Unknown Yarsanism Affiliation Unknown Race Unknown Ethnic Group Unknown Author Organization Unknown Address Unknown Phone Unavailable Allergies Active Description Code Type Severity Reaction Onset Reported/Identified Relationship to Patient Clinical Status Yes diltiazem [id number] Drug Allergy Unknown N/A 05/04/2018 Medications There is no data. Problems Date Dx Coded Attending Type Code Diagnosis Diagnosed By 12/25/2017 Brodie RING, Gabriela Cox N3 5.9 URETHRAL STENOSIS, MEATAL 12/25/2017 Gabriela Calloway MD R3 3.9 Incomplete Bladder Emptying 05/05/2018 SACHIN RENAE MD Ot D63 .8 ANEMIA IN OTHER CHRONIC DISEASES CLASSIF 05/05/2018 SACHIN RENAE MD Ot E78 .5 HYPERLIPIDEMIA, UNSPECIFIED 05/05/2018 SACHIN RENAE MD Ot F79 UNSPECIFIED INTELLECTUAL DISABILITIES 05/05/2018 SACHIN RENAE MD Ot I10 ESSENTIAL (PRIMARY) HYPERTENSION 05/05/2018 SACHIN RENAE MD Ot K21 .9 GASTRO-ESOPHAGEAL REFLUX DISEASE WITHOUT 05/05/2018 SACHIN RENAE MD Ot N19 UNSPECIFIED KIDNEY FAILURE 05/05/2018 SACHIN RENAE MD Ot N39 .0 URINARY TRACT INFECTION, SITE NOT SPECIF 05/05/2018 SACHIN RENAE MD Ot R00 .1 BRADYCARDIA, UNSPECIFIED 05/05/2018 SACHIN RENAE MD Ot R55 SYNCOPE AND COLLAPSE 05/05/2018 SACHIN RENAE MD Ot Z79.899 OTHER PATIENT SERVICES REP (CURRENT) DRUG THERAPY 05/05/2018 SACHIN RENAE MD Ot D63 .8 ANEMIA IN OTHER CHRONIC DISEASES CLASSIF 05/05/2018 SACHIN RENAE MD Ot E78 .5 HYPERLIPIDEMIA, UNSPECIFIED 05/05/2018 SACHIN RENAE MD Ot F79 UNSPECIFIED INTELLECTUAL DISABILITIES 05/05/2018 SACHIN RENAE MD Ot I10 ESSENTIAL (PRIMARY) HYPERTENSION 05/05/2018 SACHIN RENAE MD Ot K21 .9 GASTRO-ESOPHAGEAL REFLUX DISEASE WITHOUT 05/05/2018 SACHIN RENAE MD Ot N19 UNSPECIFIED KIDNEY FAILURE 05/05/2018 SACHIN RENAE MD, Ot N39 .0 URINARY TRACT INFECTION, SITE NOT SPECIF 05/05/2018 SACHIN RENAE MD, Ot R00 .1 BRADYCARDIA, UNSPECIFIED 05/05/2018 SACHIN RENAE MD, Ot R55 SYNCOPE AND COLLAPSE 05/05/2018 SACHIN RENAE MD, Ot Z79.899 OTHER LONGTERM (CURRENT) DRUG THERAPY 06/17/2018 Gabriela Calloway MD R6 3.6 Underweight 06/17/2018 Gabriela Calloway MD Z6 8.1 BMI less than 20 08/27/2018 Gabriela Calloway MD N30.90 Recurrent bacterial cystitis 08/27/2018 Reason For Visit R30.9 Painful micturition, unspecified Procedures There is no data. Results Test Result Range Stool occult blood screen - 05/04/18 11: 30 Stool gastrointestinal hemoglobin detection POSITI VE NEGATIVE Complete blood count (CBC) with automate d white blood cell (WBC) differential - 05/04/18 12:00 Blood leukocytes automated count (number/volume) 10.8 10*3/uL 4.3-11.0 Blood erythrocytes automated count (number/volume) 3.16 10*6/uL 4.35-5.85 Venous blood hemoglobin measurement (mass/volume) 10.2 g/dL 11.5-16.0 Blood hematocrit (volume fraction) 31 % 35-52 Automated erythrocyte mean corpuscular volume 98 [ foz_us] 80-99 Automated erythrocyte mean corpuscular h emoglobin (mass per erythrocyte) 32 pg 25-34 Automated erythrocyte mean corpuscular h emoglobin concentration measurement (mass/volume) 33 g/dL 32-36 Automated erythrocyte distribution width ratio 13. 7 % 10.0- 14.5 Automated blood platelet count (count/volume) 264 10*3/uL 130-400 Automated blood platelet mean volume measurement 10.6 [foz_us] 7.4-10.4 Automated blood neutrophils/100 leukocytes 82 % 42-75 Automated blood lymphocytes/100 leukocytes 12 % 12-44 Blood monocytes/100 leukocytes 6 % 0-12 Automated blood eosinophils/100 leukocytes 0 % 0-10 Automated blood basophils/100 leukocytes 0 % 0-10 Blood neutrophils automated count (number/volume) 8.8 10*3 1.8-7.8 Blood lymphocytes automated count (number/volume) 1.3 10*3 1.0-4.0 Blood monocytes automated count (number/volume) 0. 7 10*3 0.0-1.0 Automated eosinophil count 0.0 10*3/uL 0 .0-0.3 Automated blood basophil count (count/volume) 0.0 10*3/uL 0.0-0.1 Comprehensive metabolic panel - 05/04/18 12:00 Serum or plasma sodium measurement (moles/volume) 141 mmol/L 135-145 Serum or plasma potassium measurement (moles/volume) 3.9 mmol/L 3.6-5.0 Serum or plasma chloride measurement (moles/volume) 102 mmol/L 98-107 Carbon dioxide 21 mmol/L 21-32 Serum or plasma anion gap determination (moles/volume) 18 mmol/L 5-14 Serum or plasma urea nitrogen measurement (mass/volume ) 21 mg/dL 7-18 Serum or plasma creatinine measurement (mass/volume) 1.26 mg/dL 0.60-1.30 Serum or plasma urea nitrogen/creatinine mass ratio 17 NRG Serum or plasma creatinine measurement w ith calculation of estimated glomerular filtration rate 42 NRG Serum or plasma glucose measurement (mass/volume) 153 mg/dL 70-105 Serum or plasma calcium measurement (mass/volume) 8.8 mg/dL 8.5-10.1 Serum or plasma total bilirubin measurement (mass/volu me) 0.3 mg/dL 0.1-1.0 Serum or plasma alkaline phosphatase angela surement (enzymatic activity/volume) 50 U/L 40-136 Serum or plasma aspartate aminotransfera se measurement (enzymatic activity/volume) 28 U/L 5-34 Serum or plasma alanine aminotransferase measurement (enzymatic activity/volume) 14 U/L 0-55 Serum or plasma protein measurement (mass/volume) 6.9 g/dL 6.4-8.2 Serum or plasma albumin measurement (mass/volume) 3.8 g/dL 3.2-4.5 CALCIUM CORRECTED 9.0 mg/dL 8.5-10.1 Lipase - 05/04/18 12:00 Lipase 14 U/L 8-78 THYROID STIMULATING HORMONE - 05/04/18 1 2:00 THYROID STIMULATING HORMONE 2.22 u[iU]/mL 0.35-4.94 DIGOXIN - 05/04/18 12:00 DIGOXIN 0.70 ng/mL 0.80-2.00 Complete urinalysis with reflex to cultu re - 05/04/18 12:25 Urine color determination YELLOW NRG Urine clarity determination CLEAR NR G Urine pH measurement by test strip 6.5 5-9 Specific gravity of urine by test strip 1.010 1.016-1.022 Urine protein assay by test strip, semi-quantitative 1+ NEGATIVE Urine glucose detection by automated test strip NE GATIVE NEGATIVE Erythrocytes detection in urine sediment by light micr oscopy NEGATIVE NEGATIVE Urine ketones detection by automated test strip NE GATIVE NEGATIVE Urine nitrite detection by test strip NEGATIVE NEGATIVE Urine total bilirubin detection by test strip NEGA TIVE NEGATIVE Urine urobilinogen measurement by automated test strip (mass/volume) 0.2 mg/dL NORMAL Urine leukocyte esterase detection by dipstick NEG ATIVE NEGATIVE Automated urine sediment erythrocyte cou nt by microscopy (number/high power field) RARE NRG Automated urine sediment leukocyte count by microscopy (number/high power field) NONE NRG Bacteria detection in urine sediment by light microsco py NONE NRG Squamous epithelial cells detection in u rine sediment by light microscopy RARE NRG Crystals detection in urine sediment by light microsco py NONE NRG Casts detection in urine sediment by light microscopy NONE NRG Mucus detection in urine sediment by light microscopy NEGATIVE NRG Complete urinalysis with reflex to culture NO NRG Complete blood count (CBC) with automate d white blood cell (WBC) differential - 05/05/18 03:45 Blood leukocytes automated count (number/volume) 5.2 10*3/uL 4.3-11.0 Blood erythrocytes automated count (number/volume) 3.03 10*6/uL 4.35-5.85 Venous blood hemoglobin measurement (mass/volume) 9.8 g/dL 11.5-16.0 Blood hematocrit (volume fraction) 30 % 35-52 Automated erythrocyte mean corpuscular volume 97 [ foz_us] 80-99 Automated erythrocyte mean corpuscular h emoglobin (mass per erythrocyte) 32 pg 25-34 Automated erythrocyte mean corpuscular h emoglobin concentration measurement (mass/volume) 33 g/dL 32-36 Automated erythrocyte distribution width ratio 14. 2 % 10.0- 14.5 Automated blood platelet count (count/volume) 251 10*3/uL 130-400 Automated blood platelet mean volume measurement 10.8 [foz_us] 7.4-10.4 Automated blood neutrophils/100 leukocytes 49 % 42-75 Automated blood lymphocytes/100 leukocytes 38 % 12-44 Blood monocytes/100 leukocytes 13 % 0-12 Automated blood eosinophils/100 leukocytes 0 % 0-10 Automated blood basophils/100 leukocytes 0 % 0-10 Blood neutrophils automated count (number/volume) 2.6 10*3 1.8-7.8 Blood lymphocytes automated count (number/volume) 2.0 10*3 1.0-4.0 Blood monocytes automated count (number/volume) 0. 7 10*3 0.0-1.0 Automated eosinophil count 0.0 10*3/uL 0 .0-0.3 Automated blood basophil count (count/volume) 0.0 10*3/uL 0.0-0.1 Whole blood basic metabolic panel - 04/17 03:45 Serum or plasma sodium measurement (moles/volume) 140 mmol/L 135-145 Serum or plasma potassium measurement (moles/volume) 3.4 mmol/L 3.6-5.0 Serum or plasma chloride measurement (moles/volume) 105 mmol/L 98-107 Carbon dioxide 25 mmol/L 21-32 Serum or plasma anion gap determination (moles/volume) 10 mmol/L 5-14 Serum or plasma urea nitrogen measurement (mass/volume ) 20 mg/dL 7-18 Serum or plasma creatinine measurement (mass/volume) 1.17 mg/dL 0.60-1.30 Serum or plasma urea nitrogen/creatinine mass ratio 17 NRG Serum or plasma creatinine measurement w ith calculation of estimated glomerular filtration rate 46 NRG Serum or plasma glucose measurement (mass/volume) 96 mg/dL 70-105 Serum or plasma calcium measurement (mass/volume) 8.9 mg/dL 8.5-10.1 CBC - 05/11/18 14:00 WHITE BLOOD CELL COUNT 5.1 Thousand/uL 3 .8-10.8 RED BLOOD CELL COUNT 3.11 Million/uL 3.8 0-5.10 HEMOGLOBIN 10.3 g/dL 11.7-15.5 HEMATOCRIT 30.3 % 35.0-45.0 MCV 97.4 fL 80.0-100.0 MCH 33.1 pg 27.0-33.0 MCHC 34.0 g/dL 32.0-36.0 RDW 13.8 % 11.0-15.0 PLATELET COUNT 272 Thousand/uL 140-400 MPV 11.2 fL 7.5-12.5 ABSOLUTE NEUTROPHILS 2769 cells/uL 1500- 7800 ABSOLUTE LYMPHOCYTES 1749 cells/uL 850-3 900 ABSOLUTE MONOCYTES 530 cells/uL 200-950 ABSOLUTE EOSINOPHILS 20 cells/uL 15-500 ABSOLUTE BASOPHILS 31 cells/uL 0-200 NEUTROPHILS 54.3 % NRG LYMPHOCYTES 34.3 % NRG MONOCYTES 10.4 % NRG EOSINOPHILS 0.4 % NRG BASOPHILS 0.6 % NRG CBC w/MANUAL DIFF - 06/28/18 08:15 WHITE BLOOD CELL COUNT 4.4 Thousand/uL 3 .8-10.8 RED BLOOD CELL COUNT 3.42 Million/uL 3.8 0-5.10 HEMOGLOBIN 10.8 g/dL 11.7-15.5 HEMATOCRIT 33.3 % 35.0-45.0 MCV 97.4 fL 80.0-100.0 MCH 31.6 pg 27.0-33.0 MCHC 32.4 g/dL 32.0-36.0 RDW 12.7 % 11.0-15.0 PLATELET COUNT 263 Thousand/uL 140-400 MPV 10.7 fL 7.5-12.5 ABSOLUTE NEUTROPHILS 2776 cells/uL 1500- 7800 ABSOLUTE MONOCYTES 343 cells/uL 200-950 ABSOLUTE EOSINOPHILS 0 cells/uL 15-500 ABSOLUTE BASOPHILS 0 cells/uL 0-200 NEUTROPHILS 63.1 % NRG LYMPHOCYTES 29.1 % NRG MONOCYTES 7.8 % NRG EOSINOPHILS 0 % NRG BASOPHILS 0 % NRG ABSOLUTE LYMPHOCYTES 1280 cells/uL 850-3 900 PLATELET ESTIMATION ADEQUATE ADEQUATE Urine Culture - 08/27/18 16:15 Pre >100,000 cfu/ml Gram Negativ e Rods Identification and susceptibility to follow. ORGANISM Kleoxy Final >100,000 cfu/ml Klebsiella oxytoca MURPHY - 08/27/18 16:15 Gent Trough <=1 ORGANISM Kleoxy Amp >=32 Amp/Sul 16 Cefaz <=4 Cefep <=1 Cefox <=4 Ceftaz <=1 Ceftri <=1 Cipro <=0.25 Erta <=0.5 ESBL-C Imi <=0.25 Levo 0.5 Nitro 256 Pip/Farhat <=4 Tobra <=1 SXT <=20 CULTURE, URINE - 09/21/18 15:13 CULTURE, URINE, ROUTINE SEE NOTE NRG CMP - 09/27/18 08:44 GLUCOSE 103 mg/dL 65-99 UREA NITROGEN (BUN) 22 mg/dL 7-25 CREATININE 1.56 mg/dL 0.50-0.99 eGFR NON-AFR. PARAGUAYAN 34 mL/min/1.73m2 > OR = 60 eGFR 39 mL/min/1.73m2 > OR = 60 BUN/CREATININE RATIO 14 (calc) 6-22 SODIUM 129 mmol/L 135-146 POTASSIUM 3.9 mmol/L 3.5-5.3 CHLORIDE 115 mmol/L 98-110 CARBON DIOXIDE 26 mmol/L 20-32 CALCIUM 9.2 mg/dL 8.6-10.4 PROTEIN, TOTAL 7.3 g/dL 6.1-8.1 ALBUMIN 3.9 g/dL 3.6-5.1 GLOBULIN 3.4 g/dL (calc) 1.9-3.7 ALBUMIN/GLOBULIN RATIO 1.1 (calc) 1.0-2. 5 BILIRUBIN, TOTAL 0.4 mg/dL 0.2-1.2 ALKALINE PHOSPHATASE 49 U/L 33-130 AST 25 U/L 10-35 ALT 13 U/L 6-29 CBC - 09/27/18 08:44 WHITE BLOOD CELL COUNT 6.8 Thousand/uL 3 .8-10.8 RED BLOOD CELL COUNT 3.11 Million/uL 3.8 0-5.10 HEMOGLOBIN 10.0 g/dL 11.7-15.5 HEMATOCRIT 31.7 % 35.0-45.0 MCV 101.9 fL 80.0-100.0 MCH 32.2 pg 27.0-33.0 MCHC 31.5 g/dL 32.0-36.0 RDW 12.4 % 11.0-15.0 PLATELET COUNT 383 Thousand/uL 140-400 MPV 10.4 fL 7.5-12.5 ABSOLUTE NEUTROPHILS 4406 cells/uL 1500- 7800 ABSOLUTE LYMPHOCYTES 1544 cells/uL 850-3 900 ABSOLUTE MONOCYTES 626 cells/uL 200-950 ABSOLUTE EOSINOPHILS 197 cells/uL 15-500 ABSOLUTE BASOPHILS 27 cells/uL 0-200 NEUTROPHILS 64.8 % NRG LYMPHOCYTES 22.7 % NRG MONOCYTES 9.2 % NRG EOSINOPHILS 2.9 % NRG BASOPHILS 0.4 % NRG LIPID PANEL - 02/02/19 07:38 CHOLESTEROL, TOTAL 153 mg/dL <200 HDL CHOLESTEROL 36 mg/dL >50 TRIGLYCERIDES 158 mg/dL <150 LDL-CHOLESTEROL 91 mg/dL (calc) NRG CHOL/HDLC RATIO 4.3 (calc) <5.0 NON HDL CHOLESTEROL 117 mg/dL (calc) <13 0 CMP - 02/02/19 07:38 GLUCOSE 96 mg/dL 65-99 UREA NITROGEN (BUN) 25 mg/dL 7-25 CREATININE 1.36 mg/dL 0.50-0.99 eGFR NON-AFR. PARAGUAYAN 40 mL/min/1.73m2 > OR = 60 eGFR 47 mL/min/1.73m2 > OR = 60 BUN/CREATININE RATIO 18 (calc) 6-22 SODIUM 140 mmol/L 135-146 POTASSIUM 4.1 mmol/L 3.5-5.3 CHLORIDE 103 mmol/L 98-110 CARBON DIOXIDE 25 mmol/L 20-32 CALCIUM 8.9 mg/dL 8.6-10.4 PROTEIN, TOTAL 6.8 g/dL 6.1-8.1 ALBUMIN 3.9 g/dL 3.6-5.1 GLOBULIN 2.9 g/dL (calc) 1.9-3.7 ALBUMIN/GLOBULIN RATIO 1.3 (calc) 1.0-2. 5 BILIRUBIN, TOTAL 0.4 mg/dL 0.2-1.2 ALKALINE PHOSPHATASE 48 U/L 33-130 AST 17 U/L 10-35 ALT 9 U/L 6-29 CBC - 02/02/19 07:38 WHITE BLOOD CELL COUNT 4.7 Thousand/uL 3 .8-10.8 RED BLOOD CELL COUNT 3.22 Million/uL 3.8 0-5.10 HEMOGLOBIN 10.4 g/dL 11.7-15.5 HEMATOCRIT 32.0 % 35.0-45.0 MCV 99.4 fL 80.0-100.0 MCH 32.3 pg 27.0-33.0 MCHC 32.5 g/dL 32.0-36.0 RDW 12.9 % 11.0-15.0 PLATELET COUNT 293 Thousand/uL 140-400 MPV 11.3 fL 7.5-12.5 ABSOLUTE NEUTROPHILS 2717 cells/uL 1500- 7800 ABSOLUTE LYMPHOCYTES 1419 cells/uL 850-3 900 ABSOLUTE MONOCYTES 494 cells/uL 200-950 ABSOLUTE EOSINOPHILS 42 cells/uL 15-500 ABSOLUTE BASOPHILS 28 cells/uL 0-200 NEUTROPHILS 57.8 % NRG LYMPHOCYTES 30.2 % NRG MONOCYTES 10.5 % NRG EOSINOPHILS 0.9 % NRG BASOPHILS 0.6 % NRG LIPID PANEL - 06/03/19 08:10 CHOLESTEROL, TOTAL 160 mg/dL <200 HDL CHOLESTEROL 38 mg/dL > OR = 50 TRIGLYCERIDES 163 mg/dL <150 LDL-CHOLESTEROL 96 mg/dL (calc) NRG CHOL/HDLC RATIO 4.2 (calc) <5.0 NON HDL CHOLESTEROL 122 mg/dL (calc) <13 0 CMP - 06/03/19 08:10 GLUCOSE 105 mg/dL 65-99 UREA NITROGEN (BUN) 36 mg/dL 7-25 CREATININE 1.51 mg/dL 0.50-0.99 eGFR NON-AFR. PARAGUAYAN 35 mL/min/1.73m2 > OR = 60 eGFR 41 mL/min/1.73m2 > OR = 60 BUN/CREATININE RATIO 24 (calc) 6-22 SODIUM 137 mmol/L 135-146 POTASSIUM 4.5 mmol/L 3.5-5.3 CHLORIDE 101 mmol/L 98-110 CARBON DIOXIDE 27 mmol/L 20-32 CALCIUM 9.7 mg/dL 8.6-10.4 PROTEIN, TOTAL 6.9 g/dL 6.1-8.1 ALBUMIN 4.2 g/dL 3.6-5.1 GLOBULIN 2.7 g/dL (calc) 1.9-3.7 ALBUMIN/GLOBULIN RATIO 1.6 (calc) 1.0-2. 5 BILIRUBIN, TOTAL 0.3 mg/dL 0.2-1.2 ALKALINE PHOSPHATASE 44 U/L 37-153 AST 20 U/L 10-35 ALT 13 U/L 6-29 Encounters ACCT No. Visit Date/Time Discharge Status Pt. Type Provider Facility Loc./Unit Complaint [id number] 08/27/2018 16:15:00 Document Registration [id number] 07/05/2019 09:39:00 ACT Unknown Gabriela Calloway MD [id number] 08/27/2018 16:15:00 Document Registration [id number] 12/04/2018 17:33:34 ACT Document Registration [id number] 05/04/2018 16:10:00 019 12:41:00 DIS Inpatient OC RING, SAHCIN He [facility] 4TH SYMPTOMATIC BRADYCARDIA [id number] 07/13/2019 11:01:[address] Emergency BRUNA RING, HOLA Chavez [facility] ER FS POSSIBLE STROKE [id number] 06/03/2019 07:45:00 06/03/2019 23:59: 59 CLS [facility] [id number] 06/03/2019 07:45:00 Document Registration [id number] 02/02/2019 07:30:00 Document Registration [id number] 09/27/2018 08:30:00 Document Registration [id number] 09/21/2018 15:00:00 Document Registration [id number] 06/28/2018 08:30:00 Document Registration [id number] 05/11/2018 13:15:00 Document Registration
[2019-07-13] MEDS ORDERED: ALTEPLASE 100 MG/VIAL (ACTIVASE) IV ONE (12:00)
[2019-07-13 12:05] LABS: INR 0.9 (0.8-1.4); PROTHROMBIN TIME PATIENT 12.5 SEC (12.2-14.7)
[2019-07-13 12:22] LABS: HEMATOCRIT 30 % (35-52); HEMOGLOBIN 10.4 G/DL (11.5-16.0); MEAN CORPUSCULAR HEMOGLOBIN 33 PG (25-34); MEAN CORPUSCULAR HGB CONC 35 G/DL (32-36); MEAN CORPUSCULAR VOLUME 96 FL (80-99); PLATELET COUNT 287 10^3/uL (130-400); RED CELL DISTRIBUTION WIDTH 13.2 % (10.0-14.5)
[2019-07-13 12:23] LABS: BASOPHILS % (AUTO) 0 % (0-10); EOSINOPHILS % (AUTO) 0 % (0-10); LYMPHOCYTES # (AUTO) 1.6 X 10^3 (1.0-4.0); LYMPHOCYTES % (AUTO) 22 % (12-44); MEAN PLATELET VOLUME 10.3 FL (7.4-10.4); MONOCYTES # (AUTO) 0.7 X 10^3 (0.0-1.0); MONOCYTES % (AUTO) 10 % (0-12); NEUTROPHILS # (AUTO) 4.7 X 10^3 (1.8-7.8); NEUTROPHILS % (AUTO) 68 % (42-75)
[2019-07-13] MEDS ORDERED: niCARdipine IV FOR DRIP 50 MG KIT ONE (12:24)
[2019-07-13] MEDS ORDERED: niCARdipine IV 50 MG in NS (IVPB) 230 ML IV SCH (12:30)
[2019-07-13] MEDS: NS (IVPB) 250 ML ONE ×2 (12:35→13:39)
[2019-07-13 12:45] LABS: ALKALINE PHOSPHATASE 44 U/L (40-136); BILIRUBIN,TOTAL 0.4 MG/DL (0.1-1.0); BUN/CREATININE RATIO 16; CALCIUM 9.1 MG/DL (8.5-10.1); CARBON DIOXIDE 26 MMOL/L (21-32); CHLORIDE 99 MMOL/L (98-107); GFR ESTIMATED 38; GLUCOSE 103 MG/DL (70-105); POTASSIUM 3.6 MMOL/L (3.6-5.0); SODIUM 138 MMOL/L (135-145)
[2019-07-13 12:46] LABS: ALANINE AMINOTRANSFERASE 12 U/L (0-55); TOTAL PROTEIN 6.9 GM/DL (6.4-8.2)
[2019-07-13 12:56] VITALS: BP 187/59
--- NOTE | 2019-07-13 12:57 | NUR ---
1145 JUN CALLED AND ACCEPTED FLIGHT FROM [facility]. [facility] AND VERIFICATION OF MEDICATIONS AND ALLERGIES DUE TO DR ALIA BECK AND NO PAPERWORK WAS SENT ON PT. 1210 JUN CALLED AND THAT FLIGHT HAD TO TURN AROUND DUE TO MECHANICAL REASONS AND THE [place] [facility]W WILL LIFT OFF. 1216 WILL ARDON WITH MED CONFIRMED AN ALLERGY TO [facility] 1250 JUN FROM [place] TOOK OVER PT CARE AT THIS TIME.
[2019-07-13 13:03] VITALS: BP 187/59
== END 2019-07-13 13:03 | disposition short-term general hospital (02) ==
LOC: EDUNIT# 10:59 → ER FS 11:01
DX: I63.50 Cerebral infarction due to unspecified occlusion or stenosis of unspecified cerebral artery (principal); I10 Essential (primary) hypertension; Z88.8 Allergy status to other drugs, medicaments and biological substances
CPT/HCPCS: 36415; 70450; 71045; 80053; 82962; 84484; 85025; 85610; 92977; 96374; 96375

== ENCOUNTER 2019-07-15 10:46 | Inpatient (IN) | payer MEDICARE, MEDICAID ==
[~2019-07-15] VITALS: Ht 152 cm; Wt 40.0 kg
[2019-07-15] MEDS ORDERED: BISACODYL 10 MG SUPP (DULCOLAX) PR PRN (11:30)
[2019-07-15] MEDS ORDERED: diphenhydrAMINE 25 MG TAB (BENADRYL) PO PRN (11:30)
[2019-07-15] MEDS ORDERED: CALCIUM CARBONATE 500 MG (TUMS) TAB.CHEW PO PRN (11:30)
[2019-07-15] MEDS ORDERED: LOPERAMIDE 2 MG (IMODIUM) TABLET PO PRN ×2 (11:30→15:15)
[2019-07-15] MEDS ORDERED: ONDANSETRON 4 MG (ZOFRAN) ORAL DISSOLVE TAB PO PRN (11:30)
[2019-07-15] MEDS ORDERED: HYDROcodone/APAP 5 MG/325 MG (LORTAB) TAB PO PRN (11:30)
[2019-07-15] MEDS ORDERED: LACTULOSE SYRUP 10GM/15ML (ENULOSE) 30ML UDC PO PRN (11:30)
[2019-07-15] MEDS ORDERED: ALPRAZolam 0.25 MG (XANAX) TAB PO PRN (11:30)
[2019-07-15] MEDS ORDERED: FLEET ENEMA ADULT 1 EA BTL PR PRN (11:30)
[2019-07-15] MEDS ORDERED: MELATONIN 3 MG TABLET PO PRN (11:30)
[2019-07-15] MEDS ORDERED: DOCUSATE SODIUM 100 MG (COLACE) CAP PO PRN (11:30)
[2019-07-15] MEDS ORDERED: guaiFENesin/CODEINE (ROBITUSSIN AC) 10ML UDC PO PRN (11:30)
[2019-07-15] MEDS ORDERED: MULT-1136 PO (13:02)
[2019-07-15] MEDS ORDERED: PANT40TA2 PO (13:02)
[2019-07-15] MEDS ORDERED: FENO145T26 PO (13:02)
[2019-07-15] MEDS ORDERED: OMEG-154 PO (13:02)
[2019-07-15] MEDS ORDERED: PROM25TA14 PO (13:02)
[2019-07-15] MEDS ORDERED: ASPI-983 PO (13:02)
[2019-07-15] MEDS ORDERED: LISI-556 PO (13:02)
[2019-07-15] MEDS ORDERED: CARV12.52 PO (13:02)
--- NOTE | 2019-07-15 13:06 | NUR ---
THE MED REC WAS ENTERED USING THE DISCHARGE ORDER FROM NICK Addendum: 07/19/19 at 1441 by TRAVON HARPER CPhT THE PT GETS HER MEDICATIONS TAKEN CARE OF BY [facility] AND A WORKER COMES IN MULTIPLE TIMES A DAY AND GIVES HER THE MEDICATIONS. I CALLED [facility] AND HAD A MAR FAXED OVER AND COMPLETED THE MED REC USING IT MEDICATIONS THAT HAVE BEEN REMOVED DUE TO THE PT NOT TAKING BEFORE HER HOSPITALIZATION: ASPIRIN 81MG & COREG 12.5MG MEDICATIONS THAT HAVE CHANGED: PT WAS TAKING FENOFIBRATE 160MG BUT NICK SWITCHED THE ORDER TO FENOFIBRATE 145MG MEDICATIONS THAT HAVE BEEN ADDED BACK (PT WAS TAKING PRIOR TO NICK THEN NICK DISCHARGED): ATENOLOL 50MG NITROFURANTOIN 100MG
--- NOTE | 2019-07-15 13:54 | NUR ---
KAROLINA SOMMERS admitted to room 233-1, with an admitting diagnosis of CVA, on 07/15/19 from [facility] via [facility], accompanied by STAFF. KAROLINA SOMMERS introduced to surroundings, call light, bed controls, phone, TV, temperature control, lights, meal times, smoking policy, visitor policy, side rail policy, bathrooms and showers. Patient Rights given to patient in the handbook. KAROLINA SOMMERS verbalizes understanding that [facility] is not responsible for the loss or damage to any personal effects or valuables that are kept in the patient's possession during their hospitalization. The following Patient Care Plans were discussed with the patient: DISCHARGE PLANNING, ALTERED CEREBRAL TISSUE PERFUSION, IMPAIRED MOBILITY, SELF CARE DEFICIT, and KNOWLEDGE DEFICIT: CVA. KAROLINA SOMMERS verbalizes understanding of Interdisciplinary Patient Education. Patient received Patient Rights Booklet, which includes Privacy Act Statement and Data Collection Information Summary.
[2019-07-15 14:11] VITALS: BP 166/87
--- OUTSIDE RECORDS SUMMARY | 2019-07-15 14:52 | XMS REPORT | Continuity of Care Document ---
Demographics Preferred Language Unknown Marital Status Unknown Mosque Affiliation Unknown Race Unknown Ethnic Group Unknown Author Organization Unknown Address Unknown Phone Unavailable Allergies Active Description Code Type Severity Reaction Onset Reported/Identified Relationship to Patient Clinical Status Yes diltiazem [id number] Drug Allergy Unknown N/A 05/04/2018 Medications There [...] 05/05/2018 SACHIN RENAE MD Ot Z79.899 OTHER TOUR COUNSELOR (CURRENT) DRUG THERAPY 05/05/2018 SACHIN RENAE MD [...] 05/05/2018 SACHIN RENAE MD, Ot Z79.899 OTHER TOUR COUNSELOR (CURRENT) DRUG THERAPY 06/17/2018 Gabriela Calloway MD [...] 7-25 CREATININE 1.56 mg/dL 0.50-0.99 eGFR NON-AFR. TOGOLESE 34 mL/min/1.73m2 > OR = 60 eGFR [...] 7-25 CREATININE 1.36 mg/dL 0.50-0.99 eGFR NON-AFR. TOGOLESE 40 mL/min/1.73m2 > OR = 60 eGFR [...] 7-25 CREATININE 1.51 mg/dL 0.50-0.99 eGFR NON-AFR. TOGOLESE 35 mL/min/1.73m2 > OR = 60 eGFR [...] 20 U/L 10-35 ALT 13 U/L 6-29 Capillary blood glucose measurement by g lucometer (mass/volume) - 07/13/19 11:13 Capillary blood glucose measurement by glucometer (mas s/volume) 108 mg/dL 70-110 PT panel in platelet poor plasma by coag ulation assay - 07/13/19 11:16 Prothrombin time (PT) in platelet poor plasma by coagu lation assay 12.5 s 12.2-14.7 INR in platelet poor plasma or blood by coagulation as say 0.9 0.8-1.4 Complete blood count (CBC) with automate d white blood cell (WBC) differential - 07/13/19 12:10 Blood leukocytes automated count (number/volume) 7.0 10*3/uL 4.3-11.0 Blood erythrocytes automated count (number/volume) 3.13 10*6/uL 4.35-5.85 Venous blood hemoglobin measurement (mass/volume) 10.4 g/dL 11.5-16.0 Blood hematocrit (volume fraction) 30 % 35-52 Automated erythrocyte mean corpuscular volume 96 [ foz_us] 80-99 Automated erythrocyte mean corpuscular h emoglobin (mass per erythrocyte) 33 pg 25-34 Automated erythrocyte mean corpuscular h emoglobin concentration measurement (mass/volume) 35 g/dL 32-36 Automated erythrocyte distribution width ratio 13. 2 % 10.0- 14.5 Automated blood platelet count (count/volume) 287 10*3/uL 130-400 Automated blood platelet mean volume measurement 10.3 [foz_us] 7.4-10.4 Automated blood neutrophils/100 leukocytes 68 % 42-75 Automated blood lymphocytes/100 leukocytes 22 % 12-44 Blood monocytes/100 leukocytes 10 % 0-12 Automated blood eosinophils/100 leukocytes 0 % 0-10 Automated blood basophils/100 leukocytes 0 % 0-10 Blood neutrophils automated count (number/volume) 4.7 10*3 1.8-7.8 Blood lymphocytes automated count (number/volume) 1.6 10*3 1.0-4.0 Blood monocytes automated count (number/volume) 0. 7 10*3 0.0-1.0 Automated eosinophil count 0.0 10*3/uL 0 .0-0.3 Automated blood basophil count (count/volume) 0.0 10*3/uL 0.0-0.1 Comprehensive metabolic panel - 07/13/19 12:10 Serum or plasma sodium measurement (moles/volume) 138 mmol/L 135-145 Serum or plasma potassium measurement (moles/volume) 3.6 mmol/L 3.6-5.0 Serum or plasma chloride measurement (moles/volume) 99 mmol/L 98-107 Carbon dioxide 26 mmol/L 21-32 Serum or plasma anion gap determination (moles/volume) 13 mmol/L 5-14 Serum or plasma urea nitrogen measurement (mass/volume ) 22 mg/dL 7-18 Serum or plasma creatinine measurement (mass/volume) 1.40 mg/dL 0.60-1.30 Serum or plasma urea nitrogen/creatinine mass ratio 16 NRG Serum or plasma creatinine measurement w ith calculation of estimated glomerular filtration rate 38 NRG Serum or plasma glucose measurement (mass/volume) 103 mg/dL 70-105 Serum or plasma calcium measurement (mass/volume) 9.1 mg/dL 8.5-10.1 Serum or plasma total bilirubin measurement (mass/volu me) 0.4 mg/dL 0.1-1.0 Serum or plasma alkaline phosphatase angela surement (enzymatic activity/volume) 44 U/L 40-136 Serum or plasma aspartate aminotransfera se measurement (enzymatic activity/volume) 20 U/L 5-34 Serum or plasma alanine aminotransferase measurement (enzymatic activity/volume) 12 U/L 0-55 Serum or plasma protein measurement (mass/volume) 6.9 g/dL 6.4-8.2 Serum or plasma albumin measurement (mass/volume) 4.0 g/dL 3.2-4.5 CALCIUM CORRECTED 9.1 mg/dL 8.5-10.1 TROPONIN I FS - 07/13/19 12:10 TROPONIN I FS < 0.30 <0.30 Encounters ACCT No. Visit Date/Time Discharge Status Pt. Type Provider Facility Loc./Unit Complaint [id number] 08/27/2018 16:15:00 Document Registration [id number] 07/05/2019 09:39:00 ACT Unknown Brodie RING, Gabriela Cox [id number] 08/27/2018 16:15:00 Document Registration [id number] 12/04/2018 17:33:34 ACT Document Registration [id number] 07/13/2019 11:01:00 020 13:03:00 DIS Emergency BRUNA RING, HOLA Chavez [facility] ER FS POSSIBLE STROKE [id number] 05/04/2018 16:10:00 019 12:41:00 DIS Inpatient SACHIN RENAE MD [facility] 4TH SYMPTOMATIC BRADYCARDIA [id number] 06/03/2019 07:45:00 06/03/2019 23:59: 59 CLS Outpatient NIKIA APPLE [facility] [id number] 06/03/2019 07:45:00 Document Registration [id number] 02/02/2019 07:30:00 Document Registration [id number] 09/27/2018 08:30:00 Document Registration [id number] 09/21/2018 15:00:00 Document Registration [id number] 06/28/2018 08:30:00 Document Registration [id number] 05/11/2018 13:15:00 Document Registration
[2019-07-15] MEDS ORDERED: PROMETHAZINE 25 MG (PHENERGAN) TAB PO PRN (15:15)
[2019-07-15] MEDS ORDERED: guaiFENesin/DM (ROBITUSSIN DM) 10 ML UDC PO PRN (15:15)
--- NOTE | 2019-07-15 15:35 | Occupational Therapy Eval ---
OT Evaluation-General/PLF Medical Diagnosis Admission Date July 15, 2019 at 13:51 Medical Diagnosis: CVA Onset Date: July 13, 2019 Therapy Diagnosis Therapy Diagnosis: decreased self care skills Height/Weight Height (Feet): 5 Height (Inches): 2.00 Weight (Pounds): 85 Weight (Ounces): 0.2 Precautions Precautions/Isolations: Fall Prevention, Standard Precautions Medical History Pertinent Medical History: GERD, HTN Additional Medical History HLD, A-fib, OA, chronic anemia, PE Social History Home: Single Level Current Living Status: Spouse Entry Into Home: Stairs With Railing Steps Into Home: 4 ADL-Prior Level of Function SCALE: Activities may be completed with or without assistive devices. 8-Vffzeqctsy-mcyqxui completes the activity by him/herself with no assistance from a helper. 5-Set-up or Clean-up Assistance-helper sets up or cleans up; patient completes activity. [place] assists only prior to or following the activity. 4-Supervision or Touching Assistance-helper provides verbal cues and/or touching/steadying and/or contact guard assistance as patient completes activity . Assistance may be provided throughout the activity or intermittently. 3-Partial/Moderate Assistance-helper does LESS THAN HALF the effort. [place] lifts, holds or supports trunk or limbs, but provides less than half the effort. 2-Substantial/Maximal Assistance-helper does MORE THAN HALF the effort. [place] lifts or holds trunk or limbs and provides more than half the effort. 7-Mxusfeits-ngrwze does ALL the effort. Patient does none of the effort to complete the activity. Or, the assistance of 2 or more helpers is required for the patient to complete the activity. If activity was not attempted, code reason: 7-Patient Refused. 9-Not Applicable-not attempted and the patient did not perform the activity before the current illness, exacerbation or injury. 10-Not Attempted due to Environmental Limitations-(lack of equipment, weather restraints, etc.). 88-Not Attempted due to Medical Conditions or Safety Concerns. ADL PLOF Comments Pt states spouse assists with tub transfer, but that she is able to complete other transfers and ADLs without assist. Does not use any assistive devices. 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 Has assist to set up meds. DME/Equipment: Bath Chair, Tub/Shower Drive Self: No OT Current Status Subjective Pt arrived to ARU from outside hospital, agrees to therapy. No reports of pain. Mental Status/Objective Patient Orientation: Person, Situation Current Glasses/Contacts: Yes Hearing Aids: Yes (but does not have them here) Dentures/Partials: No Hand Dominance: Right Upper Extremity ROM mildly decreased at shoulders. Remainder WFL Upper Extremity Coordination Fair Upper Extremity Strength Pt has some difficulty following commands for MMT. Pt has mildly decreased strength in right UE, but appears to be functional ADL-Treatment ADL-Current After initial evaluation, co-treat with PT secondary to decreased activity tolerance, strength, and functional mobility. OT focusing on ADLs, UE management and coordination, and safety. PT focusing on mobility, LE management, and balance. Pt reports taking a shower prior to transfer to ARU with assist. Pt demonstrated ability to doff/don pullover shirt with SBA. Doffed/donned socks with SBA for balance while seated EOB. Pt ambulated to restroom with FWW, slow pace. Transferred to toilet with min assist using grab bars for safety. Pt able to complete toileting hygiene. Pt doffed pants and Depends with CGA and increased time. Pt able to thread left LE into Depends and pants, but required assist for right LE. Stood with min assist for balance during pant hike. Stood at sink to wash hands, comb hair, and brush teeth with CGA for standing balance. Seated rest break taken after ADLs secondary to fatigue. Pt performed gait to therapy gym with FWW and slow pace. Pt completed seated ball kick using bilateral LE to increase strength, balance, and LE movement. Pt able to complete task without LOB. Seated ball catch/toss to promote increased UE coordination, core strength/balance, and activity tolerance. Pt occasionally drops ball, but was able to complete task with good accuracy and no LOB. Standing ball catch/toss was completed to increase UE activity, standing balance, and activity tolerance. Pt completed task with CGA. Seated fine motor activity with nuts and bolts completed while seated to increase bilateral coordination/manipulation skills. Pt has mildly decreased coordination during task, but was able to complete with increased time. Pt returned to room with increased time using FWW. Transfer to chair with needs met after session. Eating (QC): 5 (Pt able to drink from water bottle after it was opened. 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 2=Patient will verbalize/demonstrate understanding of assistive devices/modifications for ADL. 3=Patient will improve strength/tolerance for activity to enable patient to perform ADL's. OT Education/Plan Problem List/Assessment Assessment: Decreased Activ Tolerance, Decreased UE Strength, Dependent Transfers, Impaired Coordination, Impaired I ADL's, Impaired Self-Care Skills Pt to benefit from skilled OT intervention for ADL training, transfers, strengthening, and home safety education to increase level of independence and allow safe discharge home. Discharge Recommendations Plan/Recommendations: Continue POC Treatment Plan/Plan of Care Treatment,Training & Education: Yes Patient would benefit from OT for education, treatment and training to promote independence in ADL's, mobility, safety and/or upper extremity function for ADL's. Plan of Care: ADL Retraining, Functional Mobility, Group Exercise/Act as Ind, UE Funct Exercise/Act Treatment Duration: Jul 29, 2019 Frequency: At least 5 of 7 days/Wk (IRF) Estimated Hrs Per Day: 1.5 hours per day Rehab Potential: Good Time/GCodes Start Time: 13:50 Stop Time: 15:23 Total Time Billed (hr/min): 83 Billed Treatment Time 1 visit, EVM(10minutes) [id number] ADLx2(23minutes), FAx3(50minutes) Co-treat with PT([id number]) BETSY,MOHAN L OT July 15, 2019 15:35
--- NOTE | 2019-07-15 15:47 | ST Cognitive Linguistic Eval ---
Speech Evaluation-General Medical Diagnosis CVA Onset Date: July 15, 2019 Therapy Diagnosis Therapy Diagnosis: Cognitive-communication Referral Referring Physician: Dr. Moon Medical History Pertinent Medical History: GERD, HTN Reviewed History: Yes Social History Current Living Status: Spouse Speech PLF-Current Status Prior Level of Function Patient lives in the home with her . She has staff members that assist her with daily needs. Subjective Patient was pleasant and cooperative with the cognitive assessment. Language Eval: Auditory Comprehends Simple Yes/No Ques: Functional Indent/Objects Multiple Lou: Functional Ident/Pics in Multiple Lou: Functional Follows 1-Step Commands: Functional Follows Complex Directions: Mild Follows General Conversations: Functional Language Eval: Verbal Language Completes Spontaneous Greeting: Functional Produces Auto, Serial Info: Functional Imitates Simple Words/Phrases: Functional Word Finding: Mild Requests Basic Needs: Functional States Basic Personal Info: Functional Expresses Complex Ideas: Mild Objective Cognitive Domain Attention: WNL Memory: Mild Problem Solving: Mild Executive Functions: Mild Visuospatial Skills: Mild Composite Severity Rating: Mild Clock Drawing Severity Rating: Mild Objective Formal/Standardized Tests [facility] Status ([facility]) Results 22/20, Mild deficit range of function Oral Motor/Speech Production Within Normal Limits Impression Patient is a pleasant 68 y/o female who was admitted to the ARU s/p CVA. Patient is noted to have a decreased cognitive baseline. She was given the SLUMS with a score of 22/30 obtained. Patient will receive skilled ST services in order to improve safety awareness and independence to return home. Speech Patient Assess Expression of Ideas/Wants: Exhibits (3) Understanding Verbal Content: Usually Understands (3) Brief Interview-Mental Status: Yes Repetition of Three Words: Three (3) Temporal Orientation: Year: Correct (3) Temporal Orientation: Month: Accurate within 5 days(2) Temporal Orientation: Day: Correct (1) Recall : Wear to say "Sock": Yes, no cue required (2) Recall : Color: Yes, after cueing (1) Recall : Bed: Yes,after cueing (1) Memory/Recall Ability: Current season, That he or she is in a hsp/hsp unit Speech Short Term Goals Short Term Goals Short Term Goals 1) Patient will complete memory tasks related to her daily needs with 80-90% given minimal cues. 2) Patient will complete problem solving tasks related to her daily needs with 80-90% given minimal cues. 3) Patient will complete safety awareness tasks related to her daily needs with 80-90% given minimal cues. Speech Group Home Goals Search Marketing Coordinator Goals Patient will improve cognitive-communication necessary for safety and daily living tasks with minimal assist. Speech-Plan Patient/Family Goals Patient/Family Goals: Patient plans on returning to her home where she lives with her and has staff for assistance. Treatment Plan Speech Therapy Treatment Plan: Continue Plan of Care Treatment Duration: Jul 22, 2019 Frequency: 5 times per week Estimated Hrs Per Day: .5 hour per day Rehab Potential: Good Barriers to Learning: Patient has previous intellectual challenges, CVA with deficits related Pt/Family Agrees to Plan: Yes Safety Risks/Education Teaching Recipient: Patient Teaching Methods: Discussion Response to Teaching: Verbalize Understanding Education Topics Provided: Safety within her room and communication of wants/needs Time Speech Therapy Time In: 15:25 Speech Therapy Time Out: 15:40 Total Billed Time: 15 Billed Treatment Time 1, SPSNDCOMP CHRIS Hernandez July 15, 2019 15:47
--- NOTE | 2019-07-15 15:47 | Physical Therapy Evaluation ---
PT Evaluation-General Medical Diagnosis Admission Date July 15, 2019 at 13:51 Medical Diagnosis: CVA Onset Date: July 13, 2019 Therapy Diagnosis Therapy Diagnosis: weakness, decreased functional mobility Height/Weight Height (Feet): 5 Height (Inches): 2.00 Weight (Pounds): 85 Weight (Ounces): 0.2 Precautions Precautions/Isolations: Fall Prevention, Standard Precautions Weight Bear Status Right Lower Extremity: Right Full Weight Bearing Left Lower Extremity: Left Full Weight Bearing Referral Physician: Sarai Reason for Referral: Evaluation/Treatment Medical History Pertinent Medical History: Atrial Fib, GERD, HTN, OA Additional Medical History chronic anemia, PE Current History Pt developed (R) sided weakness, presented to ED at [facility], transferred via air ambulance to . TPA administered. Reviewed History: Yes Social History Home: Single Level Current Living Status: Spouse Entry Into Home: Stairs With Railing (5) Prior Prior Level of Function SCALE: Activities may be completed with or without assistive devices. 9-Hyfbwdsknl-ghlaidz completes the activity by him/herself with no assistance from a helper. 5-Set-up or Clean-up Assistance-helper sets up or cleans up; patient completes activity. [place] assists only prior to or following the activity. 4-Supervision or Touching Assistance-helper provides verbal cues and/or touching/steadying and/or contact guard assistance as patient completes activity. Assistance may be provided throughout the activity or intermittently. 3-Partial/Moderate Assistance-helper does LESS THAN HALF the effort. [place] lifts, holds or supports trunk or limbs, but provides less than half the effort. 2-Substantial/Maximal Assistance-helper does MORE THAN HALF the effort. [place] lifts or holds trunk or limbs and provides more than half the effort. 9-Tbhnzjgji-vjogrw does ALL the effort. Patient does none of the effort to complete the activity. Or, the assistance of 2 or more helpers is required for the patient to complete the activity. If activity was not attempted, code reason: 7-Patient Refused. 9-Not Applicable-not attempted and the patient did not perform the activity before the current illness, exacerbation or injury. 10-Not Attempted due to Environmental Limitations-(lack of equipment, weather restraints, etc.). 88-Not Attempted due to Medical Conditions or Safety Concerns. Bed Mobility: 7 Transfers (B,C,W/C): 7 Gait: 7 Stairs: 7 Wheelchair Mobility: 9 Indoor Mobility (Ambulation): Independent Stairs: Independent Prior Devices Use: None Pt (I) at [employer]. Works 2 days/week at [employer] in [place] in [place] [facility]. PT Evaluation-Current Subjective Pt in room with OT, agreeable. Reports "I am doing pretty good with all of this!" Denied pain. Objective Patient Orientation: Person, Place, Time, Situation ROM/Strength ROM Upper Extremities See OT ROM Lower Extremities WFL Strength Upper Extremities See OT Strength Lower Extremities (L) LE grossly 4/5 (R) ankle: 0/5, knee flexion: 3/5, knee extension: 3+/5, hip flexion: 3-/5 Integumentary/Posture Integumentary See nurses' notes Posture Kyphotic Neuromuscular (Tone, Coordination, Reflexes) Decreased coordination, proprioception in (R) LE, increasing with fatigue Sensory Vision: Wears Glasses Hearing: Functional Hand Dominance: Right Sensation Right Lower Extremit: Impaired Sensation Left Lower Extremity: Intact Transfers Roll Left to Right (QC): 6 Sit to Lying (QC): 6 Lying to Sitting/Side of Bed(Q: 6 Sit to Stand (QC): 4 Chair/Njw-lv-Wrydo Xfer(QC): 4 Toilet Transfer (QC): 3 Car Transfer (QC): 4 Gait Does the Patient Walk?: Yes Mode of Locomotion: Walk Anticipated Mode of Locomotion: Walk Walk 10 feet (QC): 4 Walk 50 ft with 2 Turns(QC): 4 Walk 150 ft (QC): 4 Walking 10ft/uneven surface-QC: 4 Distance: 150 Gait Assistive Device: FWW Comments/Gait Description Upon initial ambulation, Pt demonstrated (R) ankle inversion with weightbearing. Air cast applied for medial/lateral stability. Pt ambulated with slow gait speed, antalgic with decreased proprioception on (R) LE, frequent hyperextension in (R) knee with weightbearing. Unsteady but no arvind LOB. Occasional VCS for safety to maintain feet within base of walker and to turn completely before attempting to sit. Wheelchair Training Does the Pt Use a Wheelchair?: No Wheel 50 ft with 2 turns (QC): 9 Wheel 150 ft (QC): 9 Type of Wheelchair: N/A Stairs #of Steps: 1 1 Step (curb) (QC): 4 4 Steps (QC): 88 12 Steps (QC): 88 Walking Assistive Device: Walker Max skilled VCS for sequencing and min A x 1 to negotiate curb step. No additional steps attempted this date due to decreased proprioception and increased weakness in (R) knee with fatigue. Balance Sitting Static: Normal Sitting Dynamic: Normal Standing Static: Good Standing Dynamic: Fair Picking up an Object (QC): 4 Treatment Eval. Gait training with FWW. Seated and standing balance tasks with ball toss and ball kick. Pt demonstrated good trunk mobility and righting reactions in sitting, mod (I). With standing ball toss, Pt completed with CGA for standing balance. Pt returned to up in recliner with all needs met. Assessment/Needs Pt is a 68 y.o. female s/p CVA. Pt's problem list includes: decreased (R) LE strength, decreased (R) LE coordination and proprioception, antalgic gait, and increased fall risk. Pt would benefit from skilled PT to address outlined dysfunctions to restore PLOF. Rehab Potential: Good PT Short Term Goals Short Term Goals Time Frame: Jul 22, 2019 Roll Left & Right: 7 Sit to lyin Lying to sitting on side of be: 7 Sit to stand: 6 PT Custodial Goals Rn Float Goals PT Rn Float Goals Time Frame: Jul 29, 2019 Roll Left & Right (QC): 7 Sit to Lying (QC): 7 Lying-Sitting on Side/Bed(QC): 7 Sit to Stand (QC): 6 Chair/Ekk-uy-Uenrb Xfer(QC): 6 Toilet Transfer (QC): 6 Car Transfer (QC): 6 Does the Patient Walk: Yes Walk 10 feet (QC): 6 Walk 50ft with 2 Turns (QC): 6 Walk 150 ft (QC): 6 Walking 10ft on Uneven Surface: 6 1 Step (curb) (QC): 6 4 Steps (QC): 6 12 Steps (QC): 6 Picking up an Object (QC): 6 Does the Pt use WC or Scooter?: No Wheel 50 feet with 2 turns (QC: 9 Type: N/A Wheel 150 feet: 9 Type: N/A PT LTGs established to allow safe return home. PT Plan Problem List Problem List: Activity Tolerance, Functional Strength, Safety, Balance, Gait, Transfer, Bed Mobility Treatment/Plan Treatment Plan: Continue Plan of Care Treatment Plan: Bed Mobility, Education, Functional Activity Marissa, Functional Strength, Group Therapy, Gait, Safety, Therapeutic Exercise, Transfers Treatment Duration: Jul 29, 2019 Frequency: At least 5 of 7 days/Wk (IRF) Estimated Hrs Per Day: 1.5 hours per day Patient and/or Family Agrees t: Yes Safety Risks/Education Patient Education: Gait Training Teaching Recipient: Patient Teaching Methods: Demonstration, Discussion Response to Teaching: Verbalize Understanding, Reinforcement Needed Discharge Recommendations Barriers to Progress None Time/GCodes Time In: 1400 Time Out: 1523 Total Billed Treatment Time: 83 Total Billed Treatment [id number] Eval (mod) x 10' [id number] GT x 20', FA x 53' Co-treat with OT due to level of skilled assist required. OT addressing UE's and ADLs, PT addressing LE's, balance, gait, and transfers. DICK GÓMEZ DPT July 15, 2019 15:47
[2019-07-15] MEDS ORDERED: FENOFIBRATE 134 MG (LOFIBRA) CAPSULE PO SCH (16:00)
--- NOTE | 2019-07-15 16:45 | NUR ---
DR. GROSSMAN NOTIFIED OF CONSULT.
[2019-07-15] MEDS: SUCRALFATE 1 GM (CARAFATE) TAB PO SCH ×2 (17:07→20:51)
[2019-07-15] MEDS: ENOXAPARIN 30 MG/0.3 ML (LOVENOX) SYR SC SCH (17:07)
[2019-07-15] MEDS: CARVEDILOL 12.5 MG (COREG) TABLET PO SCH (17:07)
[2019-07-15 17:21] VITALS: BP 135/78
--- NOTE | 2019-07-15 17:34 | PM&R Post Admission Assessment ---
PM&R HP Date of Visit: July 15, 2019 Time of Visit: 17:30 History of Present Illness CC: Debility following CVA 07/13/19 s/p tPA [facility] ER HPI: This is a 68yoWF clinic patient of Dr Rogers who presents to IRF in need of recovery following CVA on 07/13/19 s/p tPA but suffered right hand and arm weakness and right foot and leg weakness in need of aggressive rehab for return of function. She has a h/o mild intellectual disability but she is high functioning and remains . NIHSS was 6 in [facility] ER and 1 upon arrival at . Patient has a h/p PAF CAD HLP and UTI. Currently she is doing well since arrival and is pleased with the care she is receiving. Right ankle splint was placed on leg by therapy due to ankle turning in when attempting to walk. 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 Past Mnsuvpt-Fcuuqx-Psqaud Hx Past Med/Social Hx: Reviewed Nursing Past Med/Soc Hx, Reviewed and Corrections made Patient Social History Marrital Status: Employed/Student: employed Alcohol Use: Denies Use Smoking Status: Never a Smoker 2nd Hand Smoke Exposure: No Recent Foreign Travel: No Contact w/other who traveled: No Recent Hopitalizations: Yes ( S/P CVA) Recent Infectious Disease Expo: No Immunizations Up To Date Date of Pneumonia Vaccine: Jan 04, 2018 Date of Influenza Vaccine: Jan 04, 2018 Past Medical History Surgeries: Eye Surgery, Gallbladder Currently Using CPAP: No Currently Using BIPAP: No Cardiac: Atrial Fibrillation, High Cholesterol, Hypertension Neurological: Developmental Disorder Genitourinary: Bladder Infection, Renal Failure Gastrointestinal: Gastroesophageal Reflux, Carpio's Esophagus, Chronic Constipation Musculoskeletal: Osteoporosis History of Blood Disorders: Yes (CHRONIC ANEMIA) Family History Patient reports no known family medical history. No Pertinent Family Hx Prior Level of Function Bed Mobility: 7 Transfers: 7 Gait: 7 Stairs: 7 Wheelchair Mobility: 9 Indoor Mobility (Ambulation): Independent Stairs: Independent Prior Devices Use: None Drive Self: No Current Level of Fuctioning Roll Left to Right: 6 Sit to Lyin Lying to Sitting/Side of Bed: 6 Sit to Stand: 4 Chair/Gne-nn-Nmvey Xfer: 4 Car Transfer: 4 Does the Patient Walk: Yes Mode of Locomotion: Walk Anticipated Mode of Locomotion: Walk Walk 10 feet: 4 Walk 50 ft with 2 Turns: 4 Walk 150 ft: 4 Walking 10ft on uneven surface: 4 Gait Assistive Device: FWW Does the Pt Use a Wheelchair: No Wheel 50 ft with 2 turns: 9 Wheel 150 ft: 9 Type of Wheelchair: N/A #of Steps: 1 1 Step (curb): 4 4 Steps: 88 Walking Assistive Device: Walker 12 Steps: 88 Picking up an Object: 4 Eatin (Pt able to drink from water bottle after it was opened. ) Oral Hygiene: 4 (CGA) Shower/Bathe Self: 7 (Pt declined, stating she had a shower prior to transfer to [facility].) Upper Body Dressin Lower Body Dressin On/Off Footwear: 4 Toileting Hygiene: 3 PM&R Allergy/Meds/Data Review Allergies Coded Allergies: diltiazem (Verified Allergy, Unknown, 05/04/18) Home Medications Scheduled Aspirin (Aspirin EC), 81 MG PO DAILY W/MEAL, (Reported) Carvedilol (Coreg), 12.5 MG PO BID WITH MEALS, (Reported) Fenofibrate Nanocrystallized (Fenofibrate), 145 MG PO DAILY W/MEAL, (Reported) Ferrous Sulfate (Iron), 325 MG PO DAILY, (Reported) Furosemide (Furosemide), 20 MG PO DAILY, (Reported) Lisinopril (Lisinopril), 2.5 MG PO DAILY, (Reported) Lovastatin (Lovastatin), 20 MG PO HS, (Reported) Multivitamin (Multivitamin), 1 EACH PO DAILY, (Reported) [place]-3S/Dha/Epa/Fish Oil (Fish Oil [place]-3 Softgel), 1 EACH PO DAILY, (Reported) Pantoprazole Sodium (Protonix), 40 MG PO BID, (Reported) Polyethylene Glycol 3350 ([id number]), 17 GM PO DAILY, (Reported) Sucralfate (Sucralfate), 1 GM PO ACHS, (Reported) Scheduled PRN Acetaminophen (Mapap), 325 MG PO Q4H PRN for PAIN-MILD OR TEMPATURE, (Reported) Guaifenesin/Dextromethorphan (Guaifenesin Dm Syrup), 10 ML PO Q4H PRN for COUGH, (Reported) Loperamide HCl (Loperamide), 2 MG PO Q3H PRN for DIARRHEA, (Reported) Promethazine HCl (Promethazine Tablet), 25 MG PO Q6H PRN for NAUSEA/VOMITING, (Reported) Discontinued Medications Atenolol (Atenolol), 50 MG PO DAILY, (Reported) Discontinued Reason: No Longer Taking Fenofibrate (Fenofibrate), 160 MG PO 1999, (Reported) Discontinued Reason: No Longer Taking Folic Acid/Multivit-Minerals (Adult Multi Gummies), 1 TAB.CHEW PO DAILY, (Reported) Discontinued Reason: Duplicate Order Nitrofurantoin Monohyd/M-Cryst (Nitrofurantoin [place]-Mcr 100 mg), 100 MG PO 1999, (Reported) Discontinued Reason: No Longer Taking [place]-3 Fatty Acids ([place]-3), 1,000 MG PO BID, (Reported) Discontinued Reason: Duplicate Order Omeprazole (Omeprazole), 20 MG PO BID, (Reported) Discontinued Reason: No Longer Taking Ondansetron (Ondansetron Odt), 4 MG PO Q8H PRN for NAUSEA/VOMITING-1ST LINE, (Reported) Discontinued Reason: No Longer Taking Potassium Chloride (Potassium Chloride), 15 ML PO DAILY, (Reported) Discontinued Reason: No Longer Taking Current Medications Current Medications Reviewed Review of Systems Constitutional: weakness EENTM: no symptoms reported Respiratory: no symptoms reported Cardiovascular: no symptoms reported Gastrointestinal: no symptoms reported Genitourinary: no symptoms reported Musculoskeletal: no symptoms reported Skin: no symptoms reported Psychiatric/Neurological: Weakness All Other Systems Reviewed Negative Unless Noted: Yes Physical Exam Physical Exam Vital Signs Vital Signs - First Documented 07/15/19 07/15/19 14:11 15:35 Temp 36.5 Pulse 79 Resp 16 B/P (MAP) 166/87 Pulse Ox 98 O2 Delivery Room Air Capillary Refill : Height, Weight, BMI Height: 5'2.00" Weight: 85lbs. 0.2oz. 38.455969hg; 16.96 BMI Method:Stated General Appearance: No Apparent Distress, WD/WN, Chronically ill Eyes: Bilateral Eye Normal Inspection, Bilateral Eye PERRL HEENT: PERRL/EOMI, Normal ENT Inspection, Pharynx Normal Neck: Full Range of Motion, Normal Inspection, Non Tender, Supple, Carotid Bruit Respiratory: Chest Non Tender, Lungs Clear, Normal Breath Sounds, No Accessory Muscle Use, No Respiratory Distress Cardiovascular: Regular Rate, Rhythm, No Edema, No Gallop, No JVD, No Murmur, Normal Peripheral Pulses Gastrointestinal: Normal Bowel Sounds, No Organomegaly, No Pulsatile Mass, Non Tender, Soft Back: Normal Inspection, No CVA Tenderness, No Vertebral Tenderness Extremity: Normal Capillary Refill, Normal Inspection, Normal Range of Motion, Non Tender, No Calf Tenderness, No Pedal Edema Neurologic/Psychiatric: Alert, Oriented x3, Normal Mood/Affect, computer service technician II-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 Norm as Tested, Motor Weakness (right hand 4/5 right leg 3/5) Skin: Normal Color, Warm/Dry Lymphatic: No Adenopathy PM&R Medical Assessment & Plan REHAB/MEDICAL ASSESSMENT AND PLAN: REHAB IMPAIRMENT GROUP: CVA ETIOLOGIC DIAGNOSIS: CVA The comorbidities that impact the patients function and/or functional outcome by: developmental intellectual disability, PAF, HTN, HLP REHAB PLAN: The patient is being admitted to our comprehensive inpatient rehabilitation facility and can tolerate the intensity of service consisting of at least: 180 minutes of therapy a day, 5 out of 7 days a week Rehab treatment will consist of: PT OT will focus on regaining function of right hand and right leg residual from CVA in order to regain ambulation to return home to live independently The patient/family has a good understanding of our discharge process and will benefit from an interdisciplinary inpatient rehabilitation program. The patient has potential to make improvement and is in need of at least two of the following multidisciplinary therapies including but not limited to physical, occupational, speech, and prosthetics and orthotics. Additionally the patient will need services from respiratory, nutritional services, wound care, psychology, etc. (Customize this to each patient). Given the patients complex condition and risk of further medical complications, rehabilitation services cannot be safely or effectively provided at a lower level of care such as a fci facility. BARRIERS TO DISCHARGE: Intellectual disability ESTIMATED LOS: 7 days DISPOSITION: Home RELEVANT CHANGES SINCE PREADMISSION SCREENING: I have compared the patients medical and functional status at the time of the preadmission screening and there are: no changes PROGNOSIS: Good REHABILITATION GOALS: 1. PT OT will focus on regaining function of right hand and right leg residual from CVA in order to regain ambulation to return home to live independently All the above goals were reviewed with the patient and he/she is in agreement. By signing this document, I acknowledge that I have personally performed a full physical examination on this patient within 24 hours of admission to this inpatient rehabilitation facility and have determined the patient to be able to tolerate the above course of treatment at an intensive level for a reasonable period of time. I will be completing a detailed individualized Plan of Care for this patient by day #4 of the patients stay based upon the Preadmission Screen, the Post-Admission Evaluation, and the therapy evaluations. Admission Dx/Comorbidities: (1) CVA (cerebral vascular accident) ICD Codes: I63.9 - Cerebral infarction, unspecified (2) Intellectual disability ICD Codes: F79 - Unspecified intellectual disabilities (3) Hyperlipemia ICD Codes: E78.5 - Hyperlipidemia, unspecified (4) Atrial fib/flutter, transient (5) CAD (coronary artery disease) ICD Codes: I25.10 - Atherosclerotic heart disease of [place] coronary artery without angina pectoris (6) GERD (gastroesophageal reflux disease) ICD Codes: K21.9 - Gastro-esophageal reflux disease without esophagitis (7) HTN (hypertension) Status: Acute ICD Codes: I10 - Essential (primary) hypertension CARLOS ABREU DO July 15, 2019 17:34
[2019-07-15] MEDS: SIMvastatin 10 MG (ZOCOR) TAB PO SCH (20:51)
[2019-07-15] MEDS: polyethylene glycoL POWDER 17 GM (MIRALAX) PACK PO SCH (20:51)
[2019-07-15] MEDS: DOCUSATE SODIUM 100 MG (COLACE) CAP PO SCH (20:51)
[2019-07-15] MEDS: SENNA W/DOCUSATE (SENOKOT S) TABLET PO SCH (20:51)
[2019-07-15] MEDS: PANTOPRAZOLE 40 MG (PROTONIX) TAB PO SCH (20:51)
[2019-07-16 05:22] LABS: BASOPHILS % (AUTO) 0 % (0-10); EOSINOPHILS # (AUTO) 0.1 10^3/uL (0.0-0.3); EOSINOPHILS % (AUTO) 1 % (0-10); HEMATOCRIT 29 % (35-52); HEMOGLOBIN 9.7 G/DL (11.5-16.0); LYMPHOCYTES # (AUTO) 1.5 X 10^3 (1.0-4.0); LYMPHOCYTES % (AUTO) 31 % (12-44); MEAN CORPUSCULAR HEMOGLOBIN 33 PG (25-34); MEAN CORPUSCULAR HGB CONC 33 G/DL (32-36); MEAN CORPUSCULAR VOLUME 98 FL (80-99); MONOCYTES # (AUTO) 0.5 X 10^3 (0.0-1.0); MONOCYTES % (AUTO) 11 % (0-12); NEUTROPHILS # (AUTO) 2.8 X 10^3 (1.8-7.8); NEUTROPHILS % (AUTO) 57 % (42-75); PLATELET COUNT 262 10^3/uL (130-400); RED CELL DISTRIBUTION WIDTH 13.9 % (10.0-14.5); WHITE BLOOD COUNT 4.9 10^3/uL (4.3-11.0)
[2019-07-16 05:34] VITALS: BP 169/83
[2019-07-16 05:37] LABS: ALBUMIN 3.4 GM/DL (3.2-4.5); POTASSIUM 4.4 MMOL/L (3.6-5.0)
[2019-07-16 05:39] LABS: CALCIUM 8.7 MG/DL (8.5-10.1)
[2019-07-16 05:40] LABS: TOTAL PROTEIN 6.1 GM/DL (6.4-8.2)
[2019-07-16 05:42] LABS: BILIRUBIN,TOTAL 0.3 MG/DL (0.1-1.0)
[2019-07-16 05:43] LABS: CREATININE SERUM 1.48 MG/DL (0.60-1.30)
[2019-07-16] MEDS: MULTIVIT W/MINERALS TAB (THERAGRAN M) PO SCH (06:18)
[2019-07-16] MEDS: SUCRALFATE 1 GM (CARAFATE) TAB PO SCH ×4 (06:18→20:44)
--- NOTE | 2019-07-16 08:19 | PM&R Progress Note ---
Subjective HPI/CC On Admission Date Seen by Provider: July 16, 2019 Time Seen by Provider: 12:30 Subjective/Events-last exam Had a good night last night No falls Ambulating well with therapy APAP used for right leg pain Lovenox maintained for DVT PPx Dr Hutchins evaluation appreciated and we talked about PAF Creat 1.4 Hgb 9.7 so will assess iron level BP 148/78 Conferred with RN Checked meds and labs Reviewed therapy notes Review of Systems General: Fatigue Neurological: Weakness, Numbness, Incoordination Objective Exam Vital Signs Vital Signs Date Time Temp Pulse Resp B/P (MAP) Pulse Ox O2 Delivery O2 Flow Rate FiO2 07/16/19 09:00 78 18 148/76 (100) 100 Room Air 07/16/19 05:34 36.7 Capillary Refill : Less Than 3 Seconds General Appearance: No Apparent Distress, WD/WN, Chronically ill HEENT: PERRL/EOMI, Normal ENT Inspection, Pharynx Normal Neck: Full Range of Motion, Normal Inspection, Non Tender, Supple, Carotid Bruit Respiratory: Chest Non Tender, Lungs Clear, Normal Breath Sounds, No Accessory Muscle Use, No Respiratory Distress Cardiovascular: Regular Rate, Rhythm, No Edema, No Gallop, No JVD, No Murmur, Normal Peripheral Pulses Gastrointestinal: Normal Bowel Sounds, No Organomegaly, No Pulsatile Mass, Non Tender, Soft Back: Normal Inspection, No CVA Tenderness, No Vertebral Tenderness Extremity: Normal Capillary Refill, Normal Inspection, Normal Range of Motion, Non Tender, No Calf Tenderness, No Pedal Edema Neurologic/Psychiatric: Alert, Oriented x3, Normal Mood/Affect, 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 FIM Transfers Therapy Code Descriptions/Definitions Functional [place] Measure: 0=Not Assessed/NA 4=Minimal Assistance 1=Total Assistance 5=Supervision or Setup 2=Maximal Assistance 6=Modified [place] 3=Moderate Assistance 7=Complete IndependenceSCALE: Activities may be completed with or without assistive devices. 7-Fmjfjskckf-hrhehco completes the activity by him/herself with no assistance from a helper. 5-Set-up or Clean-up Assistance-helper sets up or cleans up; patient completes activity. [place] assists only prior to or following the activity. 4-Supervision or Touching Assistance-helper provides verbal cues and/or touching/steadying and/or contact guard assistance as patient completes activity. Assistance may be provided throughout the activity or intermittently. 3-Partial/Moderate Assistance-helper does LESS THAN HALF the effort. [place] lifts, holds or supports trunk or limbs, but provides less than half the effort. 2-Substantial/Maximal Assistance-helper does MORE THAN HALF the effort. [place] lifts or holds trunk or limbs and provides more than half the effort. 7-Lasgymdyc-smflku does ALL the effort. Patient does none of the effort to complete the activity. Or, the assistance of 2 or more helpers is required for the patient to complete the activity. If activity was not attempted, code reason: 7-Patient Refused. 9-Not Applicable-not attempted and the patient did not perform the activity before the current illness, exacerbation or injury. 10-Not Attempted due to Environmental Limitations-(lack of equipment, weather restraints, etc.). 88-Not Attempted due to Medical Conditions or Safety Concerns. Roll Left to Right (QC): 6 Sit to Lying (QC): 6 Sit to Stand (QC): 4 Chair/Suk-jh-Ytjxc Xfer(QC): 4 Car Transfer (QC): 4 Gait Training Does the Patient Walk?: Yes Walk 10 feet (QC): 4 Walk 50 ft with 2 Turns(QC): 4 Walk 150 ft (QC): 4 Walking 10ft/uneven surface-QC: 4 Gait Assistive Device: FWW Wheelchair Training Does the Pt Use a Wheelchair?: No Wheel 50 ft with 2 turns (QC): 9 Wheel 150 ft (QC): 9 Type of Wheelchair: N/A Stair Training #of Steps: 1 1 Step (curb) (QC): 4 4 Steps (QC): 88 12 Steps (QC): 88 Balance Picking up an Object (QC): 4 ADL-Treatment Eating (QC): 5 (Pt able to drink from water bottle after it was opened. ) Oral Hygiene (QC): 4 (CGA) Shower/Bathe Self (QC): 7 (Pt declined, stating she had a shower prior to trans adilson to [facility].) Upper Body Dressing (QC): 5 Lower Body Dressing (QC): 3 On/Off Footwear (QC): 4 Toileting Hygiene (QC): 3 Assessment/Plan Assessment and Plan Assess & Plan/Chief Complaint Assessment: CVA s/p tPA [facility] [place] [facility] 07/13/19 then sent to [facility] Intellectual disability high functioning HTN CRI Anemia awaiting iron level HLP PAF? Right sided weakness Plan: IRF protocol Iron level Dr Hutchins appreciated Lovenox (1) CVA (cerebral vascular accident) (2) Intellectual disability (3) Hyperlipemia (4) Atrial fib/flutter, transient (5) CAD (coronary artery disease) (6) GERD (gastroesophageal reflux disease) (7) HTN (hypertension) Status: Acute CARLOS ABREU DO July 16, 2019 08:19
[2019-07-16 09:00] VITALS: BP 148/76
[2019-07-16] MEDS ORDERED: polyethylene glycoL Bowel Prep(MIRALAX) 238 GM PO SCH (09:00)
[2019-07-16] MEDS: ASPIRIN E.C. 81 MG (ECOTRIN) TAB PO SCH (09:08)
[2019-07-16] MEDS: FUROSEMIDE 20 MG (LASIX) TAB PO SCH (09:08)
[2019-07-16] MEDS: PANTOPRAZOLE 40 MG (PROTONIX) TAB PO SCH ×2 (09:08→20:44)
[2019-07-16] MEDS: OMEGA 3 (FISH OIL) 1000 MG CAP PO SCH (09:08)
[2019-07-16] MEDS: CARVEDILOL 12.5 MG (COREG) TABLET PO SCH ×2 (09:08→17:27)
[2019-07-16] MEDS: FERROUS SULF 325 MG (IRON) TAB PO SCH (09:08)
[2019-07-16] MEDS: lisINopril 5 MG (PRINIVIL) TABLET PO SCH (09:09)
[2019-07-16] MEDS: SENNA W/DOCUSATE (SENOKOT S) TABLET PO SCH ×2 (09:10→20:45)
[2019-07-16] MEDS: polyethylene glycoL POWDER 17 GM (MIRALAX) PACK PO SCH ×2 (09:10→20:44)
[2019-07-16] MEDS: DOCUSATE SODIUM 100 MG (COLACE) CAP PO SCH ×2 (09:10→20:44)
[2019-07-16] MEDS: ACETAMINOPHEN 500 MG TAB (TYLENOL) PO PRN ×2 (09:17→20:49)
--- NOTE | 2019-07-16 11:21 | Physical Therapy Daily Note ---
PT Daily Note-Current Subjective Pt agreeable. Mental Status Patient Orientation: Normal For Age Transfers SCALE: Activities may be completed with or without assistive devices. 6-Tguptkuuay-pwrqcwf completes the activity by him/herself with no assistance from a helper. 5-Set-up or Clean-up Assistance-helper sets up or cleans up; patient completes activity. [place] assists only prior to or following the activity. 4-Supervision or Touching Assistance-helper provides verbal cues and/or touching/steadying and/or contact guard assistance as patient completes activity. Assistance may be provided throughout the activity or intermittently. 3-Partial/Moderate Assistance-helper does LESS THAN HALF the effort. [place] lifts, holds or supports trunk or limbs, but provides less than half the effort. 2-Substantial/Maximal Assistance-helper does MORE THAN HALF the effort. [place] lifts or holds trunk or limbs and provides more than half the effort. 2-Itlxsbbra-dlrtfs does ALL the effort. Patient does none of the effort to complete the activity. Or, the assistance of 2 or more helpers is required for the patient to complete the activity. If activity was not attempted, code reason: 7-Patient Refused. 9-Not Applicable-not attempted and the patient did not perform the activity before the current illness, exacerbation or injury. 10-Not Attempted due to Environmental Limitations-(lack of equipment, weather restraints, etc.). 88-Not Attempted due to Medical Conditions or Safety Concerns. Sit to Stand (QC): 4 Chair/Rut-ez-Nltzh Xfer(QC): 4 verbal cues for use of arm rests Weight Bearing Right Lower Extremity: Right Full Weight Bearing Left Lower Extremity: Left Full Weight Bearing Gait Training Gait Assistive Device: FWW Ambulate 100ft x 5 trials with instruction to remain upright, swing the right leg through vs circumducting, and stay inside the walker frame during turns. Exercises Seated exercises of marching, hamstring curls, LAQ, (R) foot targe touching. Assessment Current Status: Good Progress Pt showing improved gait stability and activity tolerance. She will benefit from continued PT. PT Short Term Goals Short Term Goals Time Frame: Jul 22, 2019 Roll Left & Right: 7 Sit to lyin Lying to sitting on side of be: 7 Sit to stand: 6 PT Half-Way Goals Half-Way Goals PT Half-Way Goals Time Frame: Jul 29, 2019 Roll Left & Right (QC): 7 Sit to Lying (QC): 7 Lying-Sitting on Side/Bed(QC): 7 Sit to Stand (QC): 6 Chair/Ujg-jv-Uoobk Xfer(QC): 6 Toilet Transfer (QC): 6 Car Transfer (QC): 6 Does the Patient Walk: Yes Walk 10 feet (QC): 6 Walk 50ft with 2 Turns (QC): 6 Walk 150 ft (QC): 6 Walking 10ft on Uneven Surface: 6 1 Step (curb) (QC): 6 4 Steps (QC): 6 12 Steps (QC): 6 Picking up an Object (QC): 6 Does the Pt use WC or Scooter?: No Wheel 50 feet with 2 turns (QC: 9 Type: N/A Wheel 150 feet: 9 Type: N/A PT Plan Problem List Problem List: Activity Tolerance, Safety, Balance, Gait Treatment/Plan Treatment Plan: Continue Plan of Care Treatment Plan: Bed Mobility, Education, Functional Activity Marissa, Functional Strength, Group Therapy, Gait, Safety, Therapeutic Exercise, Transfers Treatment Duration: Jul 29, 2019 Frequency: At least 5 of 7 days/Wk (IRF) Estimated Hrs Per Day: 1.5 hours per day Patient and/or Family Agrees t: Yes Time/GCodes Time In: 1055 Time Out: 1120 Total Billed Treatment Time: 25 Total Billed Treatment visit, gait 15min, ex 10 min JOSE ALFREDO CONLEY PT July 16, 2019 11:21
--- NOTE | 2019-07-16 12:59 | Consultation-Cardiology ---
HPI-Cardiology Cardiology Consultation Date of Consultation 07/16/19 Date of Admission Time Seen by Provider: 12:56 Indication: CVA HPI 68-year-old lady with history of chronic atrial fibrillation, admitted with acute CVA with right-sided weakness transferred to and received TPA. Currently transferred back for rehabilitation. She denied any chest pain still having some residual weakness on the right side. No palpitation. No syncope or near syncopal episodes. No claudications Home Medications & Allergies Allergies: Coded Allergies: diltiazem (Verified Allergy, Unknown, 05/04/18) Home Medication List Reviewed: Yes FBO-Dnzrzj-Rghdvg Hx Patient Social History Marital Status: Employed/Student: employed Alcohol Use: Denies Use Smoking Status: Never a Smoker 2nd Hand Smoke Exposure: No Recent Foreign Travel: No Recent Infectious Disease Expo: No Recent Hopitalizations: Yes ( S/P CVA) Immunizations Up To Date Date of Pneumonia Vaccine: Jan 04, 2018 Date of Influenza Vaccine: Jan 04, 2018 Past Medical History Discussed below Family Medical History Significant Family History: No Pertinent Family Hx Family History: Patient reports no known family medical history. Review of Systems-General Review of Systems Constitutional: see HPI, weakness EENTM: see HPI, no symptoms reported Respiratory: see HPI; No cough, No dyspnea on exertion, No hemoptysis, No orthopnea, No phlegm, No short of breath, No stridor, No wheezing, No other Cardiovascular: see HPI; No chest pain, No edema, No Hx of Intervention, No palpitations, No syncope, No vascular heart diseas, No other Gastrointestinal: no symptoms reported, see HPI Genitourinary: no symptoms reported, see HPI Musculoskeletal: no symptoms reported, muscle weakness Skin: no symptoms reported Psychiatric/Neurological: Weakness All Other Systems Reviewed Negative Unless Noted: Yes Reviewed Test Results Reviewed Test Results Lab Laboratory Tests Test 07/16/19 05:14 Range/Units White Blood Count 4.9 4.3-11.0 10^3/uL Red Blood Count 2.98 L 4.35-5.85 10^6/uL Hemoglobin 9.7 L 11.5-16.0 G/DL Hematocrit 29 L 35-52 % Mean Corpuscular Volume 98 80-99 FL Mean Corpuscular Hemoglobin 33 25-34 PG Mean Corpuscular Hemoglobin Concent 33 32-36 G/DL Red Cell Distribution Width 13.9 10.0-14.5 % Platelet Count 262 130-400 10^3/uL Mean Platelet Volume 10.0 7.4-10.4 FL Neutrophils (%) (Auto) 57 42-75 % Lymphocytes (%) (Auto) 31 12-44 % Monocytes (%) (Auto) 11 0-12 % Eosinophils (%) (Auto) 1 0-10 % Basophils (%) (Auto) 0 0-10 % Neutrophils # (Auto) 2.8 1.8-7.8 X 10^3 Lymphocytes # (Auto) 1.5 1.0-4.0 X 10^3 Monocytes # (Auto) 0.5 0.0-1.0 X 10^3 Eosinophils # (Auto) 0.1 0.0-0.3 10^3/uL Basophils # (Auto) 0.0 0.0-0.1 10^3/uL Sodium Level 135 135-145 MMOL/L Potassium Level 4.4 3.6-5.0 MMOL/L Chloride Level 104 98-107 MMOL/L Carbon Dioxide Level 22 21-32 MMOL/L Anion Gap 9 5-14 MMOL/L Blood Urea Nitrogen 27 H 7-18 MG/DL Creatinine 1.48 H 0.60-1.30 MG/DL Estimat Glomerular Filtration Rate 35 BUN/Creatinine Ratio 18 Glucose Level 112 H 70-105 MG/DL Calcium Level 8.7 8.5-10.1 MG/DL Corrected Calcium 9.2 8.5-10.1 MG/DL Total Bilirubin 0.3 0.1-1.0 MG/DL Aspartate Amino Transf (AST/SGOT) 26 5-34 U/L Alanine Aminotransferase (ALT/SGPT) 19 0-55 U/L Alkaline Phosphatase 37 L 40-136 U/L Total Protein 6.1 L 6.4-8.2 GM/DL Albumin 3.4 3.2-4.5 GM/DL Physical Exam Physical Exam Vital Signs Vital Signs - First Documented 07/15/19 07/15/19 14:11 15:35 Temp 36.5 Pulse 79 Resp 16 B/P (MAP) 166/87 Pulse Ox 98 O2 Delivery Room Air Capillary Refill : Less Than 3 Seconds Height, Weight, BMI Height: 5'2.00" Weight: 85lbs. 0.2oz. 38.734753ey; 16.96 BMI Method:Stated General Appearance: No Apparent Distress, WD/WN, Chronically ill Eyes: Bilateral Eye Normal Inspection, Bilateral Eye PERRL HEENT: PERRL/EOMI, Normal ENT Inspection, Pharynx Normal Neck: Full Range of Motion, Normal Inspection, Non Tender, Supple, Carotid Bruit Respiratory: Chest Non Tender, Lungs Clear, Normal Breath Sounds, No Accessory Muscle Use, No Respiratory Distress Cardiovascular: No Edema, No Gallop, No JVD, No Murmur, Normal Peripheral Pulses, Irregularly Irregular Gastrointestinal: Normal Bowel Sounds, No Organomegaly, No Pulsatile Mass, Non Tender, Soft Back: Normal Inspection, No CVA Tenderness, No Vertebral Tenderness Extremity: Normal Capillary Refill, Normal Inspection, Normal Range of Motion, Non Tender, No Calf Tenderness, No Pedal Edema Neurologic/Psychiatric: Alert, Oriented x3, Normal Mood/Affect, paper counter II-XII Norm as Tested, Motor Weakness (right hand 4/5 right leg 3/5) Skin: Normal Color, Warm/Dry Lymphatic: No Adenopathy A/P-Cardiology Admission Diagnosis Acute CVA Chronic atrial fibrillation Coronary artery disease Hypertension Assessment/Plan Acute CVA, received TPA on July 06, 2019, recovering slowly, still have some residual right sided weakness, starting with physical therapy. Chronic atrial fibrillation, currently not on oral anticoagulation probably secondary to receiving TPA. She will need to be restarted on oral anticoagulation to reduce her risk of recurrent stroke Coronary artery disease, evaluate EKG, continue to monitor Hypertension, restart home medication monitor blood pressure Hyperlipidemia, monitor lipids History of intellectual disability. Clinical Quality Measures DVT/VTE Risk/Contraindication: Risk Factor Score Per Nursin RFS Level Per Nursing on Admit: 2=Moderate LOUIS GROSSMAN MD July 16, 2019 12:59 pm
[2019-07-16] MEDS: ENOXAPARIN 30 MG/0.3 ML (LOVENOX) SYR SC SCH (16:24)
[2019-07-16 17:22] VITALS: BP 138/75
[2019-07-16] MEDS: SIMvastatin 10 MG (ZOCOR) TAB PO SCH (20:44)
[2019-07-17 06:24] VITALS: BP 149/83
[2019-07-17] MEDS: MULTIVIT W/MINERALS TAB (THERAGRAN M) PO SCH (06:33)
[2019-07-17] MEDS: SUCRALFATE 1 GM (CARAFATE) TAB PO SCH ×4 (06:33→21:07)
[2019-07-17 08:34] VITALS: BP 120/65
[2019-07-17] MEDS: FERROUS SULF 325 MG (IRON) TAB PO SCH (08:38)
[2019-07-17] MEDS: lisINopril 5 MG (PRINIVIL) TABLET PO SCH (08:38)
[2019-07-17] MEDS: CARVEDILOL 12.5 MG (COREG) TABLET PO SCH ×2 (08:38→17:12)
[2019-07-17] MEDS: PANTOPRAZOLE 40 MG (PROTONIX) TAB PO SCH ×2 (08:39→21:07)
[2019-07-17] MEDS: ASPIRIN E.C. 81 MG (ECOTRIN) TAB PO SCH (08:39)
[2019-07-17] MEDS: ACETAMINOPHEN 500 MG TAB (TYLENOL) PO PRN ×2 (08:39→16:02)
[2019-07-17] MEDS: FUROSEMIDE 20 MG (LASIX) TAB PO SCH (08:39)
[2019-07-17] MEDS: OMEGA 3 (FISH OIL) 1000 MG CAP PO SCH (08:39)
--- NOTE | 2019-07-17 09:15 | PM&R Progress Note ---
Subjective HPI/CC On Admission Date Seen by Provider: July 17, 2019 Time Seen by Provider: 09:15 Subjective/Events-last exam Had a good night last night and sleeps well No falls Ambulating well with therapy with walker APAP used for right leg pain with good results Lovenox maintained for DVT PPx Dr Hutchins evaluation appreciated and we talked about PAF Creat 1.4 will recheck labs in am Hgb 9.7 so will assess iron level BP 148/78 Conferred with RN Checked meds and labs Reviewed therapy notes Review of Systems General: Fatigue Musculoskeletal: leg pain Neurological: Weakness, Numbness, Incoordination Objective Exam Vital Signs Vital Signs Date Time Temp Pulse Resp B/P (MAP) Pulse Ox O2 Delivery O2 Flow Rate FiO2 07/17/19 08:44 Room Air 07/17/19 08:34 86 18 120/65 (83) 97 07/17/19 06:24 37.0 Capillary Refill : Less Than 3 Seconds General Appearance: No Apparent Distress, WD/WN, Chronically ill HEENT: PERRL/EOMI, Normal ENT Inspection, Pharynx Normal Neck: Full Range of Motion, Normal Inspection, Non Tender, Supple, Carotid Bruit Respiratory: Chest Non Tender, Lungs Clear, Normal Breath Sounds, No Accessory Muscle Use, No Respiratory Distress Cardiovascular: Regular Rate, Rhythm, No Edema, No Gallop, No JVD, No Murmur, Normal Peripheral Pulses Gastrointestinal: Normal Bowel Sounds, No Organomegaly, No Pulsatile Mass, Non Tender, Soft Back: Normal Inspection, No CVA Tenderness, No Vertebral Tenderness Extremity: Normal Capillary Refill, Normal Inspection, Normal Range of Motion, Non Tender, No Calf Tenderness, No Pedal Edema Neurologic/Psychiatric: Alert, Oriented x3, Normal 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 FIM Transfers Therapy Code Descriptions/Definitions Functional [place] Measure: 0=Not Assessed/NA 4=Minimal Assistance 1=Total Assistance 5=Supervision or Setup 2=Maximal Assistance 6=Modified [place] 3=Moderate Assistance 7=Complete IndependenceSCALE: Activities may be completed with or without assistive devices. 1-Zoimoblohv-pdykcla completes the activity by him/herself with no assistance from a helper. 5-Set-up or Clean-up Assistance-helper sets up or cleans up; patient completes activity. [place] assists only prior to or following the activity. 4-Supervision or Touching Assistance-helper provides verbal cues and/or touching/steadying and/or contact guard assistance as patient completes activity. Assistance may be provided throughout the activity or intermittently. 3-Partial/Moderate Assistance-helper does LESS THAN HALF the effort. [place] lifts, holds or supports trunk or limbs, but provides less than half the effort. 2-Substantial/Maximal Assistance-helper does MORE THAN HALF the effort. [place] lifts or holds trunk or limbs and provides more than half the effort. 2-Ocjpkngyp-yfokqj does ALL the effort. Patient does none of the effort to complete the activity. Or, the assistance of 2 or more helpers is required for the patient to complete the activity. If activity was not attempted, code reason: 7-Patient Refused. 9-Not Applicable-not attempted and the patient did not perform the activity before the current illness, exacerbation or injury. 10-Not Attempted due to Environmental Limitations-(lack of equipment, weather restraints, etc.). 88-Not Attempted due to Medical Conditions or Safety Concerns. Roll Left to Right (QC): 6 Sit to Lying (QC): 6 Sit to Stand (QC): 4 Chair/Zpw-gx-Aoxki Xfer(QC): 4 Car Transfer (QC): 4 Gait Training Does the Patient Walk?: Yes Walk 10 feet (QC): 4 Walk 50 ft with 2 Turns(QC): 4 Walk 150 ft (QC): 4 Walking 10ft/uneven surface-QC: 4 Gait Assistive Device: FWW Wheelchair Training Does the Pt Use a Wheelchair?: No Wheel 50 ft with 2 turns (QC): 9 Wheel 150 ft (QC): 9 Type of Wheelchair: N/A Stair Training #of Steps: 1 1 Step (curb) (QC): 4 4 Steps (QC): 88 12 Steps (QC): 88 Balance Picking up an Object (QC): 4 ADL-Treatment Eating (QC): 5 (Pt able to drink from water bottle after it was opened. ) Oral Hygiene (QC): 4 (CGA) Shower/Bathe Self (QC): 7 (Pt declined, stating she had a shower prior to transfer to [facility].) Upper Body Dressing (QC): 5 Lower Body Dressing (QC): 3 On/Off Footwear (QC): 4 Toileting Hygiene (QC): 3 Assessment/Plan Assessment and Plan Assess & Plan/Chief Complaint Assessment: CVA s/p tPA [facility] 07/13/19 then sent to [facility] Intellectual disability high functioning HTN CRI Anemia awaiting iron level HLP PAF? Right sided weakness Plan: IRF protocol Iron level Dr Hutchins appreciated Lovenox for DVT PPx (1) CVA (cerebral vascular accident) (2) Intellectual disability (3) Hyperlipemia (4) Atrial fib/flutter, transient (5) CAD (coronary artery disease) (6) GERD (gastroesophageal reflux disease) (7) HTN (hypertension) Status: CARLOS Kelley DO July 17, 2019 09:15
--- NOTE | 2019-07-17 09:15 | Individualized Plan of Care ---
Individualized Plan of Care Rehab Nursing IPOC Order Admission Date July 15, 2019 at 13:51 Current Orders Orders Admission Order(Inpt,Obs,Sdc) (07/15/19 11:28) Vital Signs: Per Unit Policy ( 08,16,00 (07/15/19 11:28) Omar Parsons 09,21 (07/15/19 11:28) Sequential Compression Device Q4H (07/15/19 11:28) Fashion Merchandiser-Inpt Rehab Con (07/15/19 11:28) Rehab Nursing Orders-Ipoc (07/15/19 11:28) Physical Therapy Rehab Orders (07/15/19 11:28) Occupational Therapy Rehab Ord (07/15/19 11:28) Speech Therapy Rehab Orders (07/15/19:) Cbc With Automated Diff (07/16/19 06:00) Comprehensive Metabolic Panel (07/16/19 06:00) Intake & Output 06,14,22 (07/15/19 11:28) Precautions (Aru) (07/15/19 11:28) Weekly Weight WEEK (07/15/19 11:28) Rehab-Intensity Of Therapy (07/15/19 11:28) Initiate Admission Nursing Pro .admission (07/15/19 11:28) Acetaminophen Tablet (Tylenol Tablet) (07/15/19 11:30) Alprazolam Tablet (Xanax Tablet) (07/15/19 11:30) Calcium Carbonate Chew Tablet (Antacid C (07/15/19 11:30) Diphenhydramine Tablet (Benadryl Tablet) (07/15/19 11:30) Docusate Sodium Capsule (Colace Capsule) (07/15/19 21:00) Docusate Sodium Capsule (Colace Capsule) (07/15/19 11:30) Bisacodyl Suppository (Dulcolax Supposit (07/15/19 11:30) Lactulose Oral Solution (Enulose Oral So (07/15/19 11:30) Na Phos/Na Biphos Enema (Fleet Enema Rex (07/15/19 11:30) Guaifenesin/Codeine Syrup (Robitussin Ac (07/15/19 11:30) Hydrocodone/Apap 5/325 Tablet (Lortab 5 (07/15/19 11:30) Loperamide Tablet (Imodium Tablet) (07/15/19 11:30) Melatonin Tablet (Melatonin Tablet) (07/15/19 11:30) Polyethylene Glycol Powder Pkt (Miralax (07/15/19 21:00) Ondansetron Oral Dissolve Tab (Zofran (07/15/19 11:30) Senna S Tablet (Senokot S Tablet) (07/15/19 21:00) Initiate Admission Nursing Pro .admission (07/15/19 11:28) Admission Arrival Bed Request (07/15/19 13:51) Enoxaparin Injection (Lovenox Injection) (07/15/19 15:15) Aspirin Enteric Coated Tablet (Ecotrin T (07/16/19 09:00) Carvedilol Tablet (Coreg Tablet) (07/15/19 18:00) Ferrous Sulfate Tablet (Feosol Tablet) (07/16/19 09:00) Furosemide Tablet (Lasix Tablet) (07/16/19 09:00) Guaifenesin/Dm Syrup (Robitussin Dm Syru (07/15/19 15:15) Lisinopril Tablet (Zestril Tablet) (07/16/19 09:00) Loperamide Tablet (Imodium Tablet) (07/15/19 15:15) Pantoprazole Tablet (Protonix Tablet) (07/15/19 21:00) Polyethylene Glycol Powder Btl (Miralax (07/16/19 09:00) Promethazine Tablet (Phenergan Tablet) (07/15/19 15:15) Sucralfate Tablet (Carafate Tablet) (07/15/19 16:00) Fenofibrate,Micronized Capsule (Lofibra (07/15/19 16:00) Simvastatin Tablet (Zocor Tablet) (07/15/19 21:00) Therapeutic Multivitamin Tab (Vitamins, (07/16/19 07:00) [place] 3 Capsule (Fish Oil Capsule) (07/16/19 09:00) Consult Cardiology (07/15/19 15:14) General/Regular (07/15/19 Breakfast) Ambulate 08,12,20 (07/15/19 15:23) Sequential Compression Device Q4H (07/15/19 15:23) Dvt/Vte Risk - Notifiy Physici Q4H (07/15/19 15:23) Patient Visit (07/15/19 ) Speech Sound Lang Comp (07/15/19 ) Patient Visit (07/15/19 ) Pt Eval Moderate Complexity (07/15/19 ) Gait Training, Ea 15 Min (07/15/19 ) Functional Activities, Ea 15 (07/15/19 ) Patient Visit (07/16/19 ) Exercise Therap, Ea 15 Min (07/16/19 ) Gait Training, Ea 15 Min (07/16/19 ) Ekg Tracing (07/16/19 12:15) Iron Test (Fe) (07/16/19 12:16) Rehab Nursing Orders: Ongoing Assess. of Cognitive Status, Ongoing Assess. of Function Status, Bladder Management, Bladder Scan, Bladder Training, Bowel Management, Bowel Training, Disease Management & Educaiton, DVT Prophylaxis, Fall Prevention, Fluid/Electrolyte/Nutrition Mgmt, Infection Prevention, Medication Management & Education, Management of Risks & Complications, Nutrition Management, Pain Management, Patient/Family Support, Safety Management Intensity of Therapy to be met Patient to be seen: Min.3h per day/5 of 7d PT IPOC Problem List: Activity Tolerance, Safety, Balance, Gait Treatment Plan: Continue Plan of Care Bed Mobility, Education, Functional Activity Marissa, Functional Strength, Group Therapy, Gait, Safety, Therapeutic Exercise, Transfers Treatment Duration: Jul 29, 2019 Frequency: At least 5 of 7 days/Wk (IRF) Estimated Hrs Per Day: 1.5 hours per day OT IPOC Problems: Decreased Activ Tolerance, Decreased UE Strength, Dependent Transfers, Impaired Coordination, Impaired I ADL's, Impaired Self-Care Skills OT Treatment, Training and Edu: Yes OT Problems Pt to benefit from skilled OT intervention for ADL training, transfers, strengthening, and home safety education to increase level of independence and allow safe discharge home. Plan of Care: ADL Retraining, Functional Mobility, Group Exercise/Act as Ind, UE Funct Exercise/Act Treatment Duration: Jul 29, 2019 Frequency: At least 5 of 7 days/Wk (IRF) Estimated Hrs Per Day: 1.[address] IPOC Speech Therapy Treatment Plan: Continue Plan of Care Treatment Duration: Jul 22, 2019 Frequency: 5 times per week Estimated Hrs Per Day: .5 hour per day Fashion Merchandiser/Case Mgmt Fashion Merchandiser/Case Managemen: Discharge Planning Dietitian/Health Claims Examiner Dietitian/Health Claims Examiner to monitor nutritional status and make changes and/or recommendations as needed and work with speech pathology on dietary upgrades as the occur. Physician IPOC Medical Issues being managed closely and that require the 24 hour availability of a physician: Recent CVA with questionable PAF in need of close monitoring for bleed from tPA Medical Issues: Bowel/Bladder Function, DVT Prophylaxis, Falls Precautions, F luid/Electrolyte/Nutrition Balance, Pain Management, Swallowing Precautions Brief Synthesis of Preadmission Screen, Post-Admission Evaluation, and Therapy Evaluations: PT OT ST will all focus on regaining function from CVA residual with fall prevention and stamina building in order to return safely home at DC Medical Prognosis: Good Anticipated Length of Stay: 10 days CARLOS ABREU DO July 17, 2019 09:15
[2019-07-17] MEDS: DOCUSATE SODIUM 100 MG (COLACE) CAP PO SCH ×2 (10:11→21:07)
[2019-07-17] MEDS: SENNA W/DOCUSATE (SENOKOT S) TABLET PO SCH ×2 (10:11→21:08)
[2019-07-17] MEDS: polyethylene glycoL POWDER 17 GM (MIRALAX) PACK PO SCH ×2 (10:11→21:08)
--- NOTE | 2019-07-17 10:25 | Cardiology Progress Note ---
Subjective Date Seen by Provider: July 17, 2019 Time Seen by Provider: 10:24 Subjective/Events-last exam Patient is laying down in a chair, no new complaint, muscle strength is imp roving Review of Systems General: No Chills, No Night Sweats, No Fatigue, No Malaise, No Appetite, No Other HEENT: No Head Aches, No Visual Changes, No Eye Pain, No Ear Pain, No Dysphasia, No Sinus Congestion, No Post Nasal Drip, No Sore Throat, No Other Pulmonary: No Dyspnea, No Cough, No Pleuritic Chest Pain, No Other Cardiovascular: No: Chest Pain, Palpitations, Orthopnea, Paroxysmal Noc. Dyspnea, Edema, Lt Headedness, Other Objective-Cardiology Exam Last Set of Vital Signs Vital Signs 07/17/19 07/17/19 07/17/19 06:24 08:34 08:44 Temp 37.0 Pulse 86 Resp 18 B/P (MAP) 120/65 (83) Pulse Ox 97 O2 Delivery Room Air Capillary Refill : Less Than 3 Seconds I&O Intake and Output 07/17/19 00:00 Intake Total 2100 ml Balance 2100 ml Intake Oral 2100 ml # Voids 7 # Bowel Movements 3 General: Alert, Oriented X3, Cooperative HEENT: Atraumatic, PERRLA Neck: Supple, No JVD, No Thyromegaly Lungs: Clear to Auscultation, Normal Air Movement Heart: Regular Rate, Normal S1, Normal S2, No Murmurs Abdomen: Normal Bowel Sounds, Soft, No Tenderness, No Hepatosplenomegaly, No Masses Extremities: No Clubbing, No Cyanosis, No Edema, Normal Pulses, No Tenderness/Swelling Skin: No Rashes, No Breakdown, No Significant Lesion Neuro: Normal Gait, Normal Speech, Strength at 5/5 X4 Ext, Normal Tone, Sensation Intact Psych/Mental Status: Mental Status NL, Mood NL A/P-Cardiology Admission Diagnosis Acute CVA Chronic atrial fibrillation Coronary artery disease Hypertension Assessment/Plan Status post acute CVA, received TPA on July 06, 2019, recovering slowly, still have some residual right sided weakness, improving, continue with physical therapy Chronic atrial fibrillation, currently not on oral anticoagulation probably secondary to receiving TPA. She will need to be restarted on oral anticoagulation to reduce her risk of recurrent stroke Coronary artery disease, EKG showed sinus tachycardia. Continue to monitor Hypertension, restart home medication monitor blood pressure Hyperlipidemia, monitor lipids History of intellectual disability. Clinical Quality Measures DVT/VTE Risk/Contraindication: Risk Factor Score Per Nursin RFS Level Per Nursing on Admit: 2=Moderate LOUIS GROSSMAN MD July 17, 2019 10:25
[2019-07-17] MEDS: ENOXAPARIN 30 MG/0.3 ML (LOVENOX) SYR SC SCH (15:54)
[2019-07-17 17:20] VITALS: BP 125/73
[2019-07-17] MEDS: SIMvastatin 10 MG (ZOCOR) TAB PO SCH (21:07)
[2019-07-18 05:48] VITALS: BP 146/81
[2019-07-18] MEDS: MULTIVIT W/MINERALS TAB (THERAGRAN M) PO SCH (06:00)
[2019-07-18] MEDS: SUCRALFATE 1 GM (CARAFATE) TAB PO SCH ×4 (06:01→21:31)
--- NOTE | 2019-07-18 06:48 | PM&R Progress Note ---
Subjective HPI/CC On Admission Date Seen by Provider: Jul 18, 2019 Time Seen by Provider: 10:30 Subjective/Events-last exam Bowels moved yesterday Eliquis 2.5 twice daily started by Dr. Hutchins for paroxysmal atrial flutter with recent stroke s/p TPA and DC the Lovenox Labs remain stable Overall doing very well Conferred with RN Checked meds and labs Reviewed therapy notes Review of Systems Neurological: Weakness, Numbness, Incoordination Objective Exam Vital Signs Vital Signs Date Time Temp Pulse Resp B/P (MAP) Pulse Ox O2 Delivery O2 Flow Rate FiO2 07/18/19 16:32 37.0 90 16 124/73 (90) 99 Room Air Capillary Refill : Less Than 3 Seconds General Appearance: No Apparent Distress, WD/WN, Chronically ill HEENT: PERRL/EOMI, Normal ENT Inspection, Pharynx Normal Neck: Full Range of Motion, Normal Inspection, Non Tender, Supple, Carotid Bruit Respiratory: Chest Non Tender, Lungs Clear, Normal Breath Sounds, No Accessory Muscle Use, No Respiratory Distress Cardiovascular: Regular Rate, Rhythm, No Edema, No Gallop, No JVD, No Murmur, Normal Peripheral Pulses Gastrointestinal: Normal Bowel Sounds, No Organomegaly, No Pulsatile Mass, Non Tender, Soft Back: Normal Inspection, No CVA Tenderness, No Vertebral Tenderness Extremity: Normal Capillary Refill, Normal Inspection, Normal Range of Motion, Non Tender, No Calf Tenderness, No Pedal Edema Neurologic/Psychiatric: Alert, Oriented x3, Normal 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 FIM Transfers Therapy Code Descriptions/Definitions Functional [place] Measure: 0=Not Assessed/NA 4=Minimal Assistance 1=Total Assistance 5=Supervision or Setup 2=Maximal Assistance 6=Modified [place] 3=Moderate Assistance 7=Complete IndependenceSCALE: Activities may be completed with or without assistive devices. 0-Gjnpyqlbjv-oseyasq completes the activity by him/herself with no assistance from a helper. 5-Set-up or Clean-up Assistance-helper sets up or cleans up; patient completes activity. [place] assists only prior to or following the activity. 4-Supervision or Touching Assistance-helper provides verbal cues and/or touching/steadying and/or contact guard assistance as patient completes activity. Assistance may be provided throughout the activity or intermittently. 3-Partial/Moderate Assistance-helper does LESS THAN HALF the effort. [place] lifts, holds or supports trunk or limbs, but provides less than half the effort. 2-Substantial/Maximal Assistance-helper does MORE THAN HALF the effort. [place] lifts or holds trunk or limbs and provides more than half the effort. 5-Ouzbnamwt-dvthxi does ALL the effort. Patient does none of the effort to complete the activity. Or, the assistance of 2 or more helpers is required for the patient to complete the activity. If activity was not attempted, code reason: 7-Patient Refused. 9-Not Applicable-not attempted and the patient did not perform the activity before the current illness, exacerbation or injury. 10-Not Attempted due to Environmental Limitations-(lack of equipment, weather restraints, etc.). 88-Not Attempted due to Medical Conditions or Safety Concerns. Roll Left to Right (QC): 6 Sit to Lying (QC): 6 Sit to Stand (QC): 4 Chair/Neh-sq-[place] Xfer(QC): 4 Car Transfer (QC): 4 Gait Training Does the Patient Walk?: Yes Walk 10 feet (QC): 4 Walk 50 ft with 2 Turns(QC): 4 Walk 150 ft (QC): 4 Walking 10ft/uneven surface-QC: 4 Gait Assistive Device: FWW Wheelchair Training Does the Pt Use a Wheelchair?: No Wheel 50 ft with 2 turns (QC): 9 Wheel 150 ft (QC): 9 Type of Wheelchair: N/A Stair Training #of Steps: 1 1 Step (curb) (QC): 4 4 Steps (QC): 88 12 Steps (QC): 88 Balance Picking up an Object (QC): 4 ADL-Treatment Eating (QC): 5 (Pt able to drink from water bottle after it was opened. ) Oral Hygiene (QC): 4 (CGA) Shower/Bathe Self (QC): 7 (Pt declined, stating she had a shower prior to transfer to [facility].) Upper Body Dressing (QC): 5 Lower Body Dressing (QC): 3 On/Off Footwear (QC): 4 Toileting Hygiene (QC): 3 Assessment/Plan Assessment and Plan Assess & Plan/Chief Complaint Assessment: CVA s/p tPA [place] [facility] 07/13/19 then sent to [facility] Intellectual disability high functioning HTN CRI Anemia nl iron level HLP PAF Right sided weakness Plan: IRF protocol Iron level Dr Hutchins appreciated Lovenox DC Eliquis 2.5mg PO BID (1) CVA (cerebral vascular accident) (2) Intellectual disability (3) Hyperlipemia (4) Atrial fib/flutter, transient (5) CAD (coronary artery disease) (6) GERD (gastroesophageal reflux disease) (7) HTN (hypertension) Status: Acute CARLOS ABREU DO Jul 18, 2019 06:48
--- NOTE | 2019-07-18 06:52 | NUR ---
PATIENT SLEPT WELL, NO C/O AT THIS TIME. UP IN RECLINER FOR BREAKFAST.
--- NOTE | 2019-07-18 08:58 | Physical Therapy Daily Note ---
PT Daily Note-Current Subjective Patient in recliner pre tx, agrees to PT, has no complaints of pain. Patient needs to get dressed, max assist to put pants on, setup for shirt. Appearance Patient in recliner post tx with nurse call, phone, tray, all needs met, legs elevated. Mental Status Patient Orientation: Person, Place, Situation, [place] Transfers SCALE: Activities may be completed with or without assistive devices. 6-Wgjooikqgb-bddipvt completes the activity by him/herself with no assistance from a helper. 5-Set-up or Clean-up Assistance-helper sets up or cleans up; patient completes activity. [place] assists only prior to or following the activity. 4-Supervision or Touching Assistance-helper provides verbal cues and/or touching/steadying and/or contact guard assistance as patient completes activity. Assistance may be provided throughout the activity or intermittently. 3-Partial/Moderate Assistance-helper does LESS THAN HALF the effort. [place] lifts, holds or supports trunk or limbs, but provides less than half the effort. 2-Substantial/Maximal Assistance-helper does MORE THAN HALF the effort. [place] lifts or holds trunk or limbs and provides more than half the effort. 3-Fnezulxgm-lwdrie does ALL the effort. Patient does none of the effort to com plete the activity. Or, the assistance of 2 or more helpers is required for the patient to complete the activity. If activity was not attempted, code reason: 7-Patient Refused. 9-Not Applicable-not attempted and the patient did not perform the activity before the current illness, exacerbation or injury. 10-Not Attempted due to Environmental Limitations-(lack of equipment, weather restraints, etc.). 88-Not Attempted due to Medical Conditions or Safety Concerns. Sit to Stand (QC): 4 Chair/Scl-km-Ozecw Xfer(QC): 4 CGA, cues for hand placement, patient will almost always sit or stand without using hands on armrests. Weight Bearing Right Lower Extremity: Right Full Weight Bearing Left Lower Extremity: Left Full Weight Bearing Gait Training Distance: 150'x2 Walk 10 feet (QC): 4 Walk 50 ft with 2 Turns(QC): 4 Walk 150 ft (QC): 4 Gait Assistive Device: FWW Patient ambulates very slowly, kyphotic posture, some circumduction on right leg, wears an aircast on right ankle due to ankle instability. Needs an AFO. Exercises LAQ right side with 2# ankle weight for 5 min NuStep Minutes: 15 NuStep Workload: 4 Treatments dressing, transfers, ambulation, functional strengthening Assessment Current Status: Fair Progress Also has some right knee hyperextension during ambulation. PT Short Term Goals Short Term Goals Time Frame: Jul 22, 2019 Roll Left & Right: 7 Sit to lyin Lying to sitting on side of be: 7 Sit to stand: 6 PT Prison Goals Prison Goals PT Prison Goals Time Frame: Jul 29, 2019 Roll Left & Right (QC): 7 Sit to Lying (QC): 7 Lying-Sitting on Side/Bed(QC): 7 Sit to Stand (QC): 6 Chair/Egu-wv-Rmlzt Xfer(QC): 6 Toilet Transfer (QC): 6 Car Transfer (QC): 6 Does the Patient Walk: Yes Walk 10 feet (QC): 6 Walk 50ft with 2 Turns (QC): 6 Walk 150 ft (QC): 6 Walking 10ft on Uneven Surface: 6 1 Step (curb) (QC): 6 4 Steps (QC): 6 12 Steps (QC): 6 Picking up an Object (QC): 6 Does the Pt use WC or Scooter?: No Wheel 50 feet with 2 turns (QC: 9 Type: N/A Wheel 150 feet: 9 Type: N/A PT Plan Problem List Problem List: Activity Tolerance, Functional Strength, Safety, Balance, Gait, Transfer, Bed Mobility, ROM Treatment/Plan Treatment Plan: Continue Plan of Care Treatment Plan: Bed Mobility, Education, Functional Activity Marissa, Functional Strength, Group Therapy, Gait, Safety, Therapeutic Exercise, Transfers Treatment Duration: Jul 29, 2019 Frequency: At least 5 of 7 days/Wk (IRF) Estimated Hrs Per Day: 1.5 hours per day Patient and/or Family Agrees t: Yes Safety Risks/Education Patient Education: Gait Training, Transfer Techniques, Correct Positioning, Safety Issues Teaching Recipient: Patient Teaching Methods: Demonstration, Discussion Response to Teaching: Reinforcement Needed Time/GCodes Time In: 0800 Time Out: 0900 Total Billed Treatment Time: 60 Total Billed Treatment 1 visit EX 20' FA 10' GT 30' CORY CANNON PT Jul 18, 2019 08:58
--- NOTE | 2019-07-18 09:03 | Cardiology Progress Note ---
Subjective Date Seen by Provider: Jul 18, 2019 Time Seen by Provider: 09:02 Subjective/Events-last exam Patient walking with PT this morning. Denies any chest pain or palpitations. Review of Systems General: No Chills, No Night Sweats; Fatigue; No Malaise, No Appetite, No Other HEENT: No Head Aches, No Visual Changes, No Eye Pain, No Ear Pain, No Dysphasia, No Sinus Congestion, No Post Nasal Drip, No Sore Throat, No Other Pulmonary: No Dyspnea, No Cough, No Pleuritic Chest Pain, No Other Cardiovascular: No: Chest Pain, Palpitations, Orthopnea, Paroxysmal Noc. Dyspnea, Edema, Lt Headedness, Other Objective-Cardiology Exam Last Set of Vital Signs Vital Signs 07/18/19 07/18/19 05:48 09:09 Temp 36.6 Pulse 115 Resp 18 B/P (MAP) 131/65 (87) Pulse Ox 99 O2 Delivery Room Air Capillary Refill : Less Than 3 Seconds I&O Intake and Output 07/18/19 00:00 Intake Total 2000 ml Balance 2000 ml Intake Oral 2000 ml # Voids 8 # Bowel Movements 6 General: Alert, Oriented X3, Cooperative HEENT: Atraumatic, PERRLA Neck: Supple, No JVD, No Thyromegaly Lungs: Clear to Auscultation, Normal Air Movement Heart: Regular Rate, Normal S1, Normal S2, No Murmurs Abdomen: Normal Bowel Sounds, Soft, No Tenderness, No Hepatosplenomegaly, No Masses Extremities: No Clubbing, No Cyanosis, No Edema, Normal Pulses, No Tenderness/Swelling Skin: No Rashes, No Breakdown, No Significant Lesion Neuro: Normal Gait, Normal Speech, Strength at 5/5 X4 Ext, Normal Tone, Sensation Intact Psych/Mental Status: Mental Status NL, Mood NL A/P-Cardiology Admission Diagnosis Acute CVA Chronic atrial fibrillation Coronary artery disease Hypertension Assessment/Plan Status post acute CVA, received TPA on July 06, 2019, recovering slowly, still have some residual right sided weakness, improving, continue with physical therapy Paroxysmal atrial fibrillation, currently not on oral anticoagulation probably secondary to receiving TPA. She will need to be restarted on oral anticoagulation to reduce her risk of recurrent stroke Coronary artery disease, EKG showed sinus tachycardia. Continue to monitor Hypertension, restart home medication monitor blood pressure Hyperlipidemia, monitor lipids History of intellectual disability. Patient was seen and evaluated with Katie, examination performed, management plan was discussed, agree with the current scribed note, I made few changes to the note using Italic font Patient was seen at bedside, sitting comfortably Recovering well, feeling better. No new complaint Will need to restart oral anticoagulation when deemed reasonable by medical service Clinical Quality Measures DVT/VTE Risk/Contraindication: Risk Factor Score Per Nursin RFS Level Per Nursing on Admit: 2=Moderate KATIE ROBISON Jul 18, 2019 9:03 am LOUIS GROSSMAN MD Jul 18, 2019 9:53 am
[2019-07-18 09:09] VITALS: BP 131/65
[2019-07-18] MEDS: DOCUSATE SODIUM 100 MG (COLACE) CAP PO SCH ×2 (09:14→21:33)
[2019-07-18] MEDS: FERROUS SULF 325 MG (IRON) TAB PO SCH (09:14)
[2019-07-18] MEDS: OMEGA 3 (FISH OIL) 1000 MG CAP PO SCH (09:14)
[2019-07-18] MEDS: CARVEDILOL 12.5 MG (COREG) TABLET PO SCH ×2 (09:14→17:20)
[2019-07-18] MEDS: SENNA W/DOCUSATE (SENOKOT S) TABLET PO SCH ×2 (09:14→21:33)
[2019-07-18] MEDS: lisINopril 5 MG (PRINIVIL) TABLET PO SCH (09:15)
[2019-07-18] MEDS: FUROSEMIDE 20 MG (LASIX) TAB PO SCH (09:15)
[2019-07-18] MEDS: PANTOPRAZOLE 40 MG (PROTONIX) TAB PO SCH ×2 (09:15→21:31)
[2019-07-18] MEDS: polyethylene glycoL POWDER 17 GM (MIRALAX) PACK PO SCH ×2 (09:16→21:33)
[2019-07-18] MEDS: ASPIRIN E.C. 81 MG (ECOTRIN) TAB PO SCH (09:16)
[2019-07-18] MEDS: APIXABAN 2.5 MG (ELIQUIS) TABLET PO SCH ×2 (10:17→21:31)
--- NOTE | 2019-07-18 10:18 | NUR ---
OK TO START ELIQUIS PER DR. ABREU.
--- NOTE | 2019-07-18 10:53 | Occupational Ther Daily Note ---
OT Current Status-Daily Note Subjective Pt seen in room, up in recliner, agreeable to OT.No pain mentioned. Appearance Alert, cooperative Mental Status/Objective Patient Orientation: Person, Place, Time, Situation ADL-Treatment Pt needed help to doff and don R ankle brace. Stood CGA and walked min assist to bathroom to shower. Min assist shower transfer, with cues. Pt washed and dried all parts except back, seated on shower bench and needed CGA when standing to wash bottom. Shower bench, hand held shower, grab bars. Some cues for safety. Pt walked back to recliner to dress, FWW, min A. Pt needed supervision to don bra and attempted to put it on backwards. Min assist donning briefs and slacks, with cues and pt educ modified techniques. CGA to stand to pull pants up. Pt needed to toilet and walked min A, FWW to bathroom. CGA toilet transfer, with cues for hand placement. Pt was incontinent of stool and needed a little help to get pants off. She was able to wipe in front but needed assist for wiping in back. Min assist to redress lower body. Walked min A back to recliner and was left up in chair, brushing hair, all needs met. Therapy Code Descriptions/Definitions Functional [place] Measure: 0=Not Assessed/NA 4=Minimal Assistance 1=Total Assistance 5=Supervision or Setup 2=Maximal Assistance 6=Modified [place] 3=Moderate Assistance 7=Complete IndependenceSCALE: Activities may be completed with or without assistive devices. 8-Onlqgtlhix-cqtdyaa completes the activity by him/herself with no assistance from a helper. 5-Set-up or Clean-up Assistance-helper sets up or cleans up; patient completes activity. [place] assists only prior to or following the activity. 4-Supervision or Touching Assistance-helper provides verbal cues and/or touching/steadying and/or contact guard assistance as patient completes activity. Assistance may be provided throughout the activity or intermittently. 3-Partial/Moderate Assistance-helper does LESS THAN HALF the effort. [place] lifts, holds or supports trunk or limbs, but provides less than half the effort. 2-Substantial/Maximal Assistance-helper does MORE THAN HALF the effort. [place] lifts or holds trunk or limbs and provides more than half the effort. 5-Otgzlkxmo-fvjogg does ALL the effort. Patient does none of the effort to complete the activity. Or, the assistance of 2 or more helpers is required for the patient to complete the activity. If activity was not attempted, code reason: 7-Patient Refused. 9-Not Applicable-not attempted and the patient did not perform the activity before the current illness, exacerbation or injury. 10-Not Attempted due to Environmental Limitations-(lack of equipment, weather restraints, etc.). 88-Not Attempted due to Medical Conditions or Safety Concerns. Bathing Location: L Arm, R Arm, L Upper Leg, R Upper Leg, L Lower Leg (including foot), R Lower Leg (including foot), Chest, Abdomen, Buttocks, Perineal Area Shower/Bathe Self (QC): 4 (CGA when standing. ) Upper Body Dressing (QC): 4 (Supervision) Lower Body Dressing (QC): 3 (Min A) On/Off Footwear: 4 (Supervision) Toileting Hygiene (QC): 3 (Min assist) Toilet Transfer (QC): 4 (CGA) Education OT Patient Education: Modified ADL techniques, Progress toward Goal/Update tx plan, Purpose of tx/functional activities, Rehab process, Safety issues, Transfer techniques Teaching Recipient: Patient Teaching Methods: Demonstration, Discussion Response to Teaching: Verbalize Understanding, Return Demonstration, Reinforcement Needed OT Butter Melter Goals Butter Melter Goals Time Frame: Jul 29, 2019 Eating (QC): 6 Oral Hygiene (QC): 6 Toileting Hygiene (QC): 6 Shower/Bathe Self (QC): 5 Upper Body Dressing (QC): 6 Lower Body Dressing (QC): 6 On/Off Footwear (QC): 6 Additional Goals: 1-Demonstrate ADL Tasks, 2-Verbalize Understanding, 3- ImproveStrength/Marissa 1=Demonstrate adherence to instructed precautions during ADL tasks. 2=Patient will verbalize/demonstrate understanding of assistive devices/modifications for ADL. 3=Patient will improve strength/tolerance for activity to enable patient to perform ADL's. OT Education/Plan Problem List/Assessment Pt to benefit from skilled OT intervention for ADL training, transfers, strengthening, and home safety education to increase level of independence and allow safe discharge home. Discharge Recommendations Plan/Recommendations: Continue POC Treatment Plan/Plan of Care Patient would benefit from OT for education, treatment and training to promote independence in ADL's, mobility, safety and/or upper extremity function for ADL's. Plan of Care: ADL Retraining, Functional Mobility, Group Exercise/Act as Ind, UE Funct Exercise/Act Treatment Duration: Jul 29, 2019 Frequency: At least 5 of 7 days/Wk (IRF) Estimated Hrs Per Day: 1.5 hours per day Rehab Potential: Good Time/GCodes Start Time: 09:20 Stop Time: 10:35 Total Time Billed (hr/min): 75 Billed Treatment Time visit, 75 minutes ADL SHAYNE ZUNIGA OT Jul 18, 2019 10:53
--- NOTE | 2019-07-18 11:18 | Speech Therapy Daily Note ---
Speech Daily Progress Note Subjective Date Seen by Provider: Jul 18, 2019 Time Seen by Provider: 00:30 Patient was pleasant and willing to participate with therapy. Objective Patient completed a series of "fill in the blank" sentences with 80% with 15% cues. Assessment Assessment Current Status: Good Progress Treatment Plan Continue Plan of Care Speech Short Term Goals Short Term Goals Short Term Goals 1) Patient will complete memory tasks related to her daily needs with 80-90% given minimal cues. 2) Patient will complete problem solving tasks related to her daily needs with 80-90% given minimal cues. 3) Patient will complete safety awareness tasks related to her daily needs with 80-90% given minimal cues. Speech Precision Grinder External Goals Precision Grinder External Goals Patient will improve cognitive-communication necessary for safety and daily living tasks with minimal assist. Speech-Plan Patient/Family Goals Patient/Family Goals: Patient plans on returning to her home where she lives with her and has staff for assistance. Treatment Plan Speech Therapy Treatment Plan: Continue Plan of Care Treatment Duration: Jul 22, 2019 Frequency: 5 times per week Estimated Hrs Per Day: .5 hour per day Rehab Potential: Good Barriers to Learning: Patient's recent CVA, decreased intellectual ability Pt/Family Agrees to Plan: Yes Safety Risks/Education Teaching Recipient: Patient Teaching Methods: Demonstration, Discussion Response to Teaching: Verbalize Understanding, Return Demonstration Education Topics Provided: Continued safety within her room and communication of wants/needs Time Speech Therapy Time In: 10:35 Speech Therapy Time Out: 11:05 Total Billed Time: 30 Billed Treatment Time 1ANDREEA BETHANIA ST Jul 18, 2019 11:17
--- NOTE | 2019-07-18 13:21 | Physical Therapy Daily Note ---
PT Daily Note-Current Subjective Patient in recliner pre tx, agrees to PT, has no complaints of pain. Appearance Patient in recliner post tx with nurse call, phone, tray, legs elevated, all needs met. Mental Status Patient Orientation: Person, Place, Situation Transfers SCALE: Activities may be completed with or without assistive devices. 8-Bpdqaymzvg-vficxjk completes the activity by him/herself with no assistance from a helper. 5-Set-up or Clean-up Assistance-helper sets up or cleans up; patient completes activity. [place] assists only prior to or following the activity. 4-Supervision or Touching Assistance-helper provides verbal cues and/or touching/steadying and/or contact guard assistance as patient completes activity. Assistance may be provided throughout the activity or intermittently. 3-Partial/Moderate Assistance-helper does LESS THAN HALF the effort. [place] lifts, holds or supports trunk or limbs, but provides less than half the effort. 2-Substantial/Maximal Assistance-helper does MORE THAN HALF the effort. [place] lifts or holds trunk or limbs and provides more than half the effort. 2-Jxostunpo-htbwqz does ALL the effort. Patient does none of the effort to complete the activity. Or, the assistance of 2 or more helpers is required for the patient to complete the activity. If activity was not attempted, code reason: 7-Patient Refused. 9-Not Applicable-not attempted and the patient did not perform the activity before the current illness, exacerbation or injury. 10-Not Attempted due to Environmental Limitations-(lack of equipment, weather restraints, etc.). 88-Not Attempted due to Medical Conditions or Safety Concerns. Sit to Stand (QC): 4 Chair/Slo-gz-Jvrgd Xfer(QC): 4 Weight Bearing Right Lower Extremity: Right Full Weight Bearing Left Lower Extremity: Left Full Weight Bearing Gait Training Distance: 120'x2 Walk 10 feet (QC): 4 Walk 50 ft with 2 Turns(QC): 4 Gait Persons Needed: 1 Gait Assistive Device: FWW Patient ambulated at first without an aircast, with just her shoes, much more stable ankle wearing shoes but has foot drop on the right, ambulated back with an AFO which controlled her foot drop much better and still supported her ankle. Treatments ambulation Assessment Current Status: Fair Progress improving ambulation PT Short Term Goals Short Term Goals Time Frame: Jul 22, 2019 Roll Left & Right: 7 Sit to lyin Lying to sitting on side of be: 7 Sit to stand: 6 PT Scholarship Counselor Goals Scholarship Counselor Goals PT Scholarship Counselor Goals Time Frame: Jul 29, 2019 Roll Left & Right (QC): 7 Sit to Lying (QC): 7 Lying-Sitting on Side/Bed(QC): 7 Sit to Stand (QC): 6 Chair/Mhw-qj-Pxggt Xfer(QC): 6 Toilet Transfer (QC): 6 Car Transfer (QC): 6 Does the Patient Walk: Yes Walk 10 feet (QC): 6 Walk 50ft with 2 Turns (QC): 6 Walk 150 ft (QC): 6 Walking 10ft on Uneven Surface: 6 1 Step (curb) (QC): 6 4 Steps (QC): 6 12 Steps (QC): 6 Picking up an Object (QC): 6 Does the Pt use WC or Scooter?: No Wheel 50 feet with 2 turns (QC: 9 Type: N/A Wheel 150 feet: 9 Type: N/A PT Plan Problem List Problem List: Activity Tolerance, Functional Strength, Safety, Balance, Gait, Transfer, Bed Mobility, ROM Treatment/Plan Treatment Plan: Continue Plan of Care Treatment Plan: Bed Mobility, Education, Functional Activity Marissa, Functional Strength, Group Therapy, Gait, Safety, Therapeutic Exercise, Transfers Treatment Duration: Jul 29, 2019 Frequency: At least 5 of 7 days/Wk (IRF) Estimated Hrs Per Day: 1.5 hours per day Patient and/or Family Agrees t: Yes Safety Risks/Education Patient Education: Gait Training, Transfer Techniques, Correct Positioning, Safety Issues Teaching Recipient: Patient Teaching Methods: Demonstration, Discussion Response to Teaching: Reinforcement Needed Time/GCodes Time In: 1300 Time Out: 1320 Total Billed Treatment Time: 20 Total Billed Treatment 1 visit GT 20' CORY CANNON PT Jul 18, 2019 13:21
--- NOTE | 2019-07-18 13:29 | NUR ---
CM/SS ADMISSION Patient was admitted to ARU 07/15/19 from [facility] for CVA. Additional diagnoses include, in part, intellectual disability, CAD, GERD, HTN. Patient resides with her spouse of approx 20 years, Alexandr Valenzuela, in [place] They are both under the umbrella of services through [employer] [employer] [facility] in [place]. Patient and Alexandr live in their own home with supplemental services and daily staff visits. They do not drive. Patient was working at [employer] [place] [place] in [facility] until Covid19 precautions were instated and [employer] clients have all been "at home" since. PCP: Erick Rogers [facility] PHARMACY: [facility] INSURANCE: Medicare, [employer] DME: No assistive equipment used prior to onset of acute illness/CVA. Will follow for recommendations from therapy staff regarding post hospital equipment needs. BARRIERS TO DISCHARGE: Patient has a network of supportive services with [facility], HCBS 26 hours weekly of monitor/assistance and Rx is administered by staff. [facility] provides transport as needed. Intellectual Disability may complicate patient's acceptance of new functioning limits and assimilation of what is required for ambulation and safety, all to be determined. CONTACTS: Patient is her own person, she has no legal guardian. Alexandr Valenzuela, Spouse [phone] [facility] [employer] [facility] Dalia Byers, Director: [phone] / [phone] Parisa RN: [phone] Patient (and Dalia Byers) indicated understanding of the weekly patient care conference meeting and that patient first review would be 07/20/19.
--- NOTE | 2019-07-18 14:38 | NUR ---
"RD ASSESSMENT PMHx: afib; hypercholesterolemia; HTN; GERD; chronic constipation; Carpio's esophagus; osteoporosis PT INTERACTION: Pt was awake and pleasant during nutrition assessment. Pt states current appetite is good. Note avg PO intake 69% x3d, per chart review. Pt states following a regular diet at home, and has no issues with chewing/swallowing food. Pt states no recent issues with nausea or vomiting. Pt states some recent issues with constipation and diarrhea. Note last BM was 07/17 and pt currently on bowel regimen of colace BID; senna BID; and miralax BID, per chart review. Pt states recent wt fluctuations going up and down. Note unable to determine recent wt hx, per chart review. ABNORMAL NUTRITION-RELATED LAB VALUES LOW: alkphos 37; Pro 6.1 HIGH: BUN 27; cr 1.48; glu 112 Est. kcal needs: 8543-2250 kcal | 30-35 kcal/kg Est. Pro needs: 47-55 g Pro | 1.2-1.4 g Pro/kg PES STATEMENT: Inadequate oral intake (NI-2.1) related to constipation | diarrhea as evidenced by pt interview | avg PO intake 69% x3d INTERVENTION: Continue with current diet order of Regular diet. Pt may benefit from nutrition supplementation if PO intake declines. Will continue to follow and reassess as pt needs, intake, and status change. MONITOR/EVALUATE: PO Intake; Plan of Care; Hydration Status; Weight Status; Lab Values Lyubov Burrell, MS, RD, LD"
[2019-07-18 16:32] VITALS: BP 124/73
--- NOTE | 2019-07-18 18:44 | NUR ---
PT VISITED AND BROUGHT PTS HEARING AIDS IN.
--- NOTE | 2019-07-18 19:18 | NUR ---
bedside report received from CHEMO STEVEN, assume care of pt
[2019-07-18] MEDS: ACETAMINOPHEN 500 MG TAB (TYLENOL) PO PRN (19:53)
--- NOTE | 2019-07-18 19:53 | NUR ---
pt c/o rt foot pain, level 9/10 on numeric scale, Tylenol 650mg given
--- NOTE | 2019-07-18 20:30 | NUR ---
rates pain level 4/10 on numeric scale
[2019-07-18] MEDS: SIMvastatin 10 MG (ZOCOR) TAB PO SCH (21:31)
--- NOTE | 2019-07-18 21:34 | NUR ---
pt refused Colace, mirwindyx & Jose Manuelot
[2019-07-19 05:50] VITALS: BP 150/74
[2019-07-19] MEDS: MULTIVIT W/MINERALS TAB (THERAGRAN M) PO SCH (06:29)
[2019-07-19] MEDS: SUCRALFATE 1 GM (CARAFATE) TAB PO SCH ×4 (06:29→20:34)
[2019-07-19] MEDS: FERROUS SULF 325 MG (IRON) TAB PO SCH (08:11)
[2019-07-19] MEDS: SENNA W/DOCUSATE (SENOKOT S) TABLET PO SCH ×2 (08:12→20:36)
[2019-07-19] MEDS: APIXABAN 2.5 MG (ELIQUIS) TABLET PO SCH ×2 (08:12→20:34)
[2019-07-19] MEDS: ASPIRIN E.C. 81 MG (ECOTRIN) TAB PO SCH (08:12)
[2019-07-19] MEDS: OMEGA 3 (FISH OIL) 1000 MG CAP PO SCH (08:12)
[2019-07-19] MEDS: FUROSEMIDE 20 MG (LASIX) TAB PO SCH (08:12)
[2019-07-19] MEDS: PANTOPRAZOLE 40 MG (PROTONIX) TAB PO SCH ×2 (08:12→20:34)
[2019-07-19] MEDS: CARVEDILOL 12.5 MG (COREG) TABLET PO SCH ×2 (08:12→17:19)
[2019-07-19] MEDS: DOCUSATE SODIUM 100 MG (COLACE) CAP PO SCH ×2 (08:12→20:36)
[2019-07-19] MEDS: lisINopril 5 MG (PRINIVIL) TABLET PO SCH (08:13)
[2019-07-19] MEDS: polyethylene glycoL POWDER 17 GM (MIRALAX) PACK PO SCH ×2 (08:14→20:36)
--- NOTE | 2019-07-19 08:29 | Cardiology Progress Note ---
Subjective Date Seen by Provider: Jul 19, 2019 Time Seen by Provider: 08:29 Subjective/Events-last exam Patient is sitting up in chair, no new complaints. Denies any chest pain or dyspnea. Review of Systems General: No Chills, No Night Sweats, No Fatigue, No Malaise, No Appetite, No Other HEENT: No Head Aches, No Visual Changes, No Eye Pain, No Ear Pain, No Dysphasia, No Sinus Congestion, No Post Nasal Drip, No Sore Throat, No Other Pulmonary: No Dyspnea, No Cough, No Pleuritic Chest Pain, No Other Cardiovascular: No: Chest Pain, Palpitations, Orthopnea, Paroxysmal Noc. Dyspnea, Edema, Lt Headedness, Other Objective-Cardiology Exam Last Set of Vital Signs Vital Signs 07/19/19 05:50 Temp 36.6 Pulse 77 Resp 16 B/P (MAP) 150/74 (99) Pulse Ox 98 O2 Delivery Room Air Capillary Refill : Less Than 3 Seconds I&O Intake and Output 07/19/19 00:00 Intake Total 1440 ml Balance 1440 ml Intake Oral 1440 ml # Voids 6 # Bowel Movements 5 General: Alert, Oriented X3, Cooperative HEENT: Atraumatic, PERRLA Neck: Supple, No JVD, No Thyromegaly Lungs: Clear to Auscultation, Normal Air Movement Heart: Regular Rate, Normal S1, Normal S2, No Murmurs Abdomen: Normal Bowel Sounds, Soft, No Tenderness, No Hepatosplenomegaly, No Masses Extremities: No Clubbing, No Cyanosis, No Edema, Normal Pulses, No Tend erness/Swelling Skin: No Rashes, No Breakdown, No Significant Lesion Neuro: Normal Gait, Normal Speech, Strength at 5/5 X4 Ext, Normal Tone, Sensation Intact Psych/Mental Status: Mental Status NL, Mood NL A/P-Cardiology Admission Diagnosis Acute CVA Chronic atrial fibrillation Coronary artery disease Hypertension Assessment/Plan Status post acute CVA, received TPA on July 06, 2019, recovering slowly, still have some residual right sided weakness, improving, continue with physical therapy Paroxysmal atrial fibrillation, currently not on oral anticoagulation probably secondary to receiving TPA. Started on Eliquis 2.5mg BID Coronary artery disease, EKG showed sinus tachycardia. Continue to monitor Hypertension, controlled, continue to monitor. Hyperlipidemia, monitor lipids History of intellectual disability. Patient was seen and evaluated with Katie, examination performed, management plan was discussed, agree with the current scribed note, I made few changes to the note using Italic font Patient was seen at bedside, sitting comfortably, no new complaint Started on oral anticoagulation, continue to monitor closely Clinical Quality Measures DVT/VTE Risk/Contraindication: Risk Factor Score Per Nursin RFS Level Per Nursing on Admit: 2=Moderate KATIE ROBISON Jul 19, 2019 8:29 am LOUIS GROSSMAN MD Jul 19, 2019 9:13 am
--- NOTE | 2019-07-19 08:54 | PM&R Progress Note ---
Subjective HPI/CC On Admission Date Seen by Provider: Jul 19, 2019 Time Seen by Provider: 09:00 Subjective/Events-last exam Pt doing very well Will discontinue her fish oil, because its too big to swallow Bowels are moving Working with therapy Overall has no concerns about any of her issues currently. Conferred with RN Checked meds and labs Reviewed therapy notes Review of Systems General: Fatigue Neurological: Weakness, Numbness, Incoordination Objective Exam Vital Signs Vital Signs Date Time Temp Pulse Resp B/P (MAP) Pulse Ox O2 Delivery O2 Flow Rate FiO2 07/19/19 16:46 36.6 89 16 154/81 (105) 97 Room Air Capillary Refill : Less Than 3 Seconds General Appearance: No Apparent Distress, WD/WN, Chronically ill HEENT: PERRL/EOMI, Normal ENT Inspection, Pharynx Normal Neck: Full Range of Motion, Normal Inspection, Non Tender, Supple, Carotid Bruit Respiratory: Chest Non Tender, Lungs Clear, Normal Breath Sounds, No Accessory Muscle Use, No Respiratory Distress Cardiovascular: Regular Rate, Rhythm, No Edema, No Gallop, No JVD, No Murmur, Normal Peripheral Pulses Gastrointestinal: Normal Bowel Sounds, No Organomegaly, No Pulsatile Mass, Non Tender, Soft Back: Normal Inspection, No CVA Tenderness, No Vertebral Tenderness Extremity: Normal Capillary Refill, Normal Inspection, Normal Range of Motion, Non Tender, No Calf Tenderness, No Pedal Edema Neurologic/Psychiatric: Alert, Oriented x3, Normal Mood/Affect, stock saw operator II-XII Norm as Tested, Motor Weakness (right hand 4/5 right leg 3/5) Skin: Normal Color, Warm/Dry Lymphatic: No Adenopathy Results/Procedures Lab Patient resulted labs reviewed. FIM Transfers Therapy Code Descriptions/Definitions Functional [place] Measure: 0=Not Assessed/NA 4=Minimal Assistance 1=Total Assistance 5=Supervision or Setup 2=Maximal Assistance 6=Modified [place] 3=Moderate Assistance 7=Complete IndependenceSCALE: Activities may be completed with or without assistive devices. 8-Roesrmixqk-qqkbymx completes the activity by him/herself with no assistance from a helper. 5-Set-up or Clean-up Assistance-helper sets up or cleans up; patient completes activity. [place] assists only prior to or following the activity. 4-Supervision or Touching Assistance-helper provides verbal cues and/or touching/steadying and/or contact guard assistance as patient completes activity. Assistance may be provided throughout the activity or intermittently. 3-Partial/Moderate Assistance-helper does LESS THAN HALF the effort. [place] lifts, holds or supports trunk or limbs, but provides less than half the effort. 2-Substantial/Maximal Assistance-helper does MORE THAN HALF the effort. [place] lifts or holds trunk or limbs and provides more than half the effort. 2-Vjrmhclxc-cnbncl does ALL the effort. Patient does none of the effort to complete the activity. Or, the assistance of 2 or more helpers is required for the patient to complete the activity. If activity was not attempted, code reason: 7-Patient Refused. 9-Not Applicable-not attempted and the patient did not perform the activity before the current illness, exacerbation or injury. 10-Not Attempted due to Environmental Limitations-(lack of equipment, weather restraints, etc.). 88-Not Attempted due to Medical Conditions or Safety Concerns. Roll Left to Right (QC): 6 Sit to Lying (QC): 6 Sit to Stand (QC): 4 Chair/Pmw-db-Subcw Xfer(QC): 4 Car Transfer (QC): 4 Gait Training Does the Patient Walk?: Yes Distance: 120'x2 Walk 10 feet (QC): 4 Walk 50 ft with 2 Turns(QC): 4 Walk 150 ft (QC): 4 Walking 10ft/uneven surface-QC: 4 Gait Persons Needed: 1 Gait Assistive Device: FWW Wheelchair Training Does the Pt Use a Wheelchair?: No Wheel 50 ft with 2 turns (QC): 9 Wheel 150 ft (QC): 9 Type of Wheelchair: N/A Stair Training #of Steps: 1 1 Step (curb) (QC): 4 4 Steps (QC): 88 12 Steps (QC): 88 Balance Picking up an Object (QC): 4 ADL-Treatment Eating (QC): 5 (Pt able to drink from water bottle after it was opened. ) Oral Hygiene (QC): 4 (CGA) Bathing Location: L Arm, R Arm, L Upper Leg, R Upper Leg, L Lower Leg (including foot), R Lower Leg (including foot), Chest, Abdomen, Buttocks, Perineal Area Shower/Bathe Self (QC): 4 (CGA when standing. ) Upper Body Dressing (QC): 4 (Supervision) Lower Body Dressing (QC): 3 (Min A) On/Off Footwear (QC): 4 (Supervision) Toileting Hygiene (QC): 3 (Min assist) Toilet Transfer (QC): 4 (CGA) Assessment/Plan Assessment and Plan Assess & Plan/Chief Complaint Assessment: CVA s/p tPA [place] [facility] 07/13/19 then sent to [facility] Intellectual disability high functioning HTN CRI Anemia nl iron level HLP PAF now placed on OAC Right sided weakness Plan: IRF protocol Iron level Dr Hutchins appreciated Lovenox DC Eliquis 2.5mg PO BID (1) CVA (cerebral vascular accident) (2) Intellectual disability (3) Hyperlipemia (4) Atrial fib/flutter, transient (5) CAD (coronary artery disease) (6) GERD (gastroesophageal reflux disease) (7) HTN (hypertension) Status: Acute CARLOS ABREU DO Jul 19, 2019 08:54
--- NOTE | 2019-07-19 09:19 | Physical Therapy Daily Note ---
PT Daily Note-Current Subjective Pt sitting in recliner upon arrival. Pt is agreeable to PT. Pain Location: No Pain Reported Mental Status Patient Orientation: Person, Place Attachments: Other-See Comments (Air cast) Transfers SCALE: Activities may be completed with or without assistive devices. 9-Popmwejzsv-xkbqwtn completes the activity by him/herself with no assistance from a helper. 5-Set-up or Clean-up Assistance-helper sets up or cleans up; patient completes activity. [place] assists only prior to or following the activity. 4-Supervision or Touching Assistance-helper provides verbal cues and/or touching/steadying and/or contact guard assistance as patient completes activity. Assistance may be provided throughout the activity or intermittently. 3-Partial/Moderate Assistance-helper does LESS THAN HALF the effort. [place] lift s, holds or supports trunk or limbs, but provides less than half the effort. 2-Substantial/Maximal Assistance-helper does MORE THAN HALF the effort. [place] lifts or holds trunk or limbs and provides more than half the effort. 7-Gcuitztba-rgjjuq does ALL the effort. Patient does none of the effort to complete the activity. Or, the assistance of 2 or more helpers is required for the patient to complete the activity. If activity was not attempted, code reason: 7-Patient Refused. 9-Not Applicable-not attempted and the patient did not perform the activity before the current illness, exacerbation or injury. 10-Not Attempted due to Environmental Limitations-(lack of equipment, weather restraints, etc.). 88-Not Attempted due to Medical Conditions or Safety Concerns. Sit to Stand (QC): 5 (With VC) Weight Bearing Right Lower Extremity: Right Full Weight Bearing Left Lower Extremity: Left Full Weight Bearing Gait Training Does the Patient Walk?: Yes Distance: 100', 150' Walk 10 feet (QC): 5 Walk 50 ft with 2 Turns(QC): 5 Walk 150 ft (QC): 5 Gait Persons Needed: 1 Gait Assistive Device: FWW PRODUCTION COST ESTIMATOR gives VC for picking up R foot instead of dragging foot. Wheelchair Training Does the Pt Use a Wheelchair?: No Exercises Seated Therapy Exercises: Ankle pumps, Long arc quads, Hip flexion, Kicking activity, Hip abd/add Seated Reps: 15 NuStep Minutes: 12 NuStep Workload: 4 Treatments Pt transfers from sitting to standing. Pt ambulates in hallway with RB as needed. Pt uses NuStep. Pt returns to room at end of Rx with all needs met, call light in hand. Assessment Current Status: Good Progress Pt is confused at times but this is baseline. Pt needs VC for sequencing and safety. PT Short Term Goals Short Term Goals Time Frame: Jul 22, 2019 Roll Left & Right: 7 Sit to lyin Lying to sitting on side of be: 7 Sit to stand: 6 PT Site Worker Goals Site Worker Goals PT Senior Living Goals Time Frame: Jul 29, 2019 Roll Left & Right (QC): 7 Sit to Lying (QC): 7 Lying-Sitting on Side/Bed(QC): 7 Sit to Stand (QC): 6 Chair/Dgz-fq-Ykwpc Xfer(QC): 6 Toilet Transfer (QC): 6 Car Transfer (QC): 6 Does the Patient Walk: Yes Walk 10 feet (QC): 6 Walk 50ft with 2 Turns (QC): 6 Walk 150 ft (QC): 6 Walking 10ft on Uneven Surface: 6 1 Step (curb) (QC): 6 4 Steps (QC): 6 12 Steps (QC): 6 Picking up an Object (QC): 6 Does the Pt use WC or Scooter?: No Wheel 50 feet with 2 turns (QC: 9 Type: N/A Wheel 150 feet: 9 Type: N/A PT Plan Problem List Problem List: Activity Tolerance, Functional Strength, Safety Treatment/Plan Treatment Plan: Continue Plan of Care Treatment Plan: Bed Mobility, Education, Functional Activity Marissa, Functional Strength, Group Therapy, Gait, Safety, Therapeutic Exercise, Transfers Treatment Duration: Jul 29, 2019 Frequency: At least 5 of 7 days/Wk (IRF) Estimated Hrs Per Day: 1.5 hours per day Patient and/or Family Agrees t: Yes Safety Risks/Education Patient Education: Gait Training, Transfer Techniques, Correct Positioning, Safety Issues Teaching Recipient: Patient Teaching Methods: Discussion Response to Teaching: Reinforcement Needed Time/GCodes Time In: 815 Time Out: 900 Total Billed Treatment Time: 45 Total Billed Treatment 1, GT (20m) & EX x2 (25m) DONNA LINDA PRODUCTION COST ESTIMATOR Jul 19, 2019 09:19
--- NOTE | 2019-07-19 10:42 | Occupational Ther Daily Note ---
OT Current Status-Daily Note Subjective Pt sitting in chair, agrees to treatment. No c/o pain. ADL-Treatment Pt declined shower today. Completed partial sponge bath while seated in chair. Doff gown without assist. Pt completed upper body bathing with set up. Pt able to wash legs. Declined to remove socks and shoes to wash feet. Don pullover gown with set up. Pt completed toilet transfer with supervision. Pt had small amount of incontinence, changed Depends with min assist to thread LE. Stood with supervision for pant hike. Pt required min assist for thorough hygiene. Pt stood at sink to wash hands, comb hair, and brush teeth with supervision for balance. Increased time for ADLs Therapy Code Descriptions/Definitions Functional [place] Measure: 0=Not Assessed/NA 4=Minimal Assistance 1=Total Assistance 5=Supervision or Setup 2=Maximal Assistance 6=Modified [place] 3=Moderate Assistance 7=Complete IndependenceSCALE: Activities may be completed with or without assistive devices. 7-Npaflzpgfi-lnzqefk completes the activity by him/herself with no assistance from a helper. 5-Set-up or Clean-up Assistance-helper sets up or cleans up; patient completes activity. [place] assists only prior to or following the activity. 4-Supervision or Touching Assistance-helper provides verbal cues and/or touching/steadying and/or contact guard assistance as patient completes activity. Assistance may be provided throughout the activity or intermittently. 3-Partial/Moderate Assistance-helper does LESS THAN HALF the effort. [place] lifts, holds or supports trunk or limbs, but provides less than half the effort. 2-Substantial/Maximal Assistance-helper does MORE THAN HALF the effort. [place] lifts or holds trunk or limbs and provides more than half the effort. 8-Jqgfwewjp-aotuqm does ALL the effort. Patient does none of the effort to complete the activity. Or, the assistance of 2 or more helpers is required for the patient to complete the activity. If activity was not attempted, code reason: 7-Patient Refused. 9-Not Applicable-not attempted and the patient did not perform the activity before the current illness, exacerbation or injury. 10-Not Attempted due to Environmental Limitations-(lack of equipment, weather restraints, etc.). 88-Not Attempted due to Medical Conditions or Safety Concerns. Oral Hygiene (QC): 4 Upper Body Dressing (QC): 5 Lower Body Dressing (QC): 3 Toileting Hygiene (QC): 3 Toilet Transfer (QC): 4 Other Treatment Gait to therapy gym with FWW, slow pace. Pt completed fine motor task with bilateral UE to increase coordination/manipulation skills. Pt completed task with increased time. Putty activity with bilateral hands to increase strength and coordination. Pt able to remove small beads from mild resistance putty. Pt returned to room, sitting in chair with needs met after session. OT Bilingual Loan Processor Goals Fpc Goals Time Frame: Jul 29, 2019 Eating (QC): 6 Oral Hygiene (QC): 6 Toileting Hygiene (QC): 6 Shower/Bathe Self (QC): 5 Upper Body Dressing (QC): 6 Lower Body Dressing (QC): 6 On/Off Footwear (QC): 6 Additional Goals: 1-Demonstrate ADL Tasks, 2-Verbalize Understanding, 3- ImproveStrength/Marissa 1=Demonstrate adherence to instructed precautions during ADL tasks. 2=Patient will verbalize/demonstrate understanding of assistive devices/modifications for ADL. 3=Patient will improve strength/tolerance for activity to enable patient to perform ADL's. OT Education/Plan Discharge Recommendations Plan/Recommendations: Continue POC Treatment Plan/Plan of Care Patient would benefit from OT for education, treatment and training to promote independence in ADL's, mobility, safety and/or upper extremity function for ADL's. Plan of Care: ADL Retraining, Functional Mobility, Group Exercise/Act as Ind, UE Funct Exercise/Act Treatment Duration: Jul 29, 2019 Frequency: At least 5 of 7 days/Wk (IRF) Estimated Hrs Per Day: 1.5 hours per day Rehab Potential: Good Time/GCodes Start Time: 09:15 Stop Time: 10:15 Total Time Billed (hr/min): 60 Billed Treatment Time 1 visit, ADLx3(40minutes), FA(20minutes) MOHAN MEYER OT Jul 19, 2019 10:42
--- NOTE | 2019-07-19 13:40 | Occupational Ther Daily Note ---
OT Current Status-Daily Note Subjective Pt sitting in chair, agrees to therapy. No c/o pain. ADL-Treatment Therapy Code Descriptions/Definitions Functional [place] Measure: 0=Not Assessed/NA 4=Minimal Assistance 1=Total Assistance 5=Supervision or Setup 2=Maximal Assistance 6=Modified [place] 3=Moderate Assistance 7=Complete IndependenceSCALE: Activities may be completed with or without assistive devices. 9-Bmbsvsbzyt-bdgocrk completes the activity by him/herself with no assistance from a helper. 5-Set-up or Clean-up Assistance-helper sets up or cleans up; patient completes activity. [place] assists only prior to or following the activity. 4-Supervision or Touching Assistance-helper provides verbal cues and/or touching/steadying and/or contact guard assistance as patient completes activity. Assistance may be provided throughout the activity or intermittently. 3-Partial/Moderate Assistance-helper does LESS THAN HALF the effort. [place] lifts, holds or supports trunk or limbs, but provides less than half the effort. 2-Substantial/Maximal Assistance-helper does MORE THAN HALF the effort. [place] lifts or holds trunk or limbs and provides more than half the effort. 6-Nmwjpiwvg-aoxqvj does ALL the effort. Patient does none of the effort to complete the activity. Or, the assistance of 2 or more helpers is required for the patient to complete the activity. If activity was not attempted, code reason: 7-Patient Refused. 9-Not Applicable-not attempted and the patient did not perform the activity before the current illness, exacerbation or injury. 10-Not Attempted due to Environmental Limitations-(lack of equipment, weather restraints, etc.). 88-Not Attempted due to Medical Conditions or Safety Concerns. Other Treatment Pt completed graded clothespins task with bilateral hands to increase in service education teacher/pinch strength needed for functional tasks. Pt completed activity with increased time. Bilateral UE exercises x10 reps with dowel kee to increase strength for ADLs and transfers. Pt performed shoulder flexion, forward press, and biceps curls with rest breaks between exercises. Pt sitting in chair with needs met after session OT Machine Inspector Goals Machine Inspector Goals Time Frame: Jul 29, 2019 Eating (QC): 6 Oral Hygiene (QC): 6 Toileting Hygiene (QC): 6 Shower/Bathe Self (QC): 5 Upper Body Dressing (QC): 6 Lower Body Dressing (QC): 6 On/Off Footwear (QC): 6 Additional Goals: 1-Demonstrate ADL Tasks, 2-Verbalize Understanding, 3- ImproveStrength/Marissa 1=Demonstrate adherence to instructed precautions during ADL tasks. 2=Patient will verbalize/demonstrate understanding of assistive devices/modifications for ADL. 3=Patient will improve strength/tolerance for activity to enable patient to perform ADL's. OT Education/Plan Discharge Recommendations Plan/Recommendations: Continue POC Treatment Plan/Plan of Care Patient would benefit from OT for education, treatment and training to promote independence in ADL's, mobility, safety and/or upper extremity function for ADL's. Plan of Care: ADL Retraining, Functional Mobility, Group Exercise/Act as Ind, UE Funct Exercise/Act Treatment Duration: Jul 29, 2019 Frequency: At least 5 of 7 days/Wk (IRF) Estimated Hrs Per Day: 1.5 hours per day Rehab Potential: Good Time/GCodes Start Time: 11:35 Stop Time: 11:50 Total Time Billed (hr/min): 15 Billed Treatment Time 1 visit, EX(15minutes) MOHAN MEYER OT Jul 19, 2019 13:40
--- NOTE | 2019-07-19 13:47 | Speech Therapy Daily Note ---
Speech Daily Progress Note Subjective Date Seen by Provider: Jul 19, 2019 Time Seen by Provider: 00:30 Patient was working on her "homework" when I entered her room. Objective Patient completed a series of safety awareness q/a with 90% given minimal cues. She was able to relate therapy questions to her job. Assessment Assessment Current Status: Good Progress Treatment Plan Continue Plan of Care Speech Short Term Goals Short Term Goals Short Term Goals 1) Patient will complete memory tasks related to her daily needs with 80-90% given minimal cues. 2) Patient will complete problem solving tasks related to her daily needs with 80-90% given minimal cues. 3) Patient will complete safety awareness tasks related to her daily needs with 80-90% given minimal cues. Speech Retirement Goals Retirement Goals Patient will improve cognitive-communication necessary for safety and daily living tasks with minimal assist. Speech-Plan Patient/Family Goals Patient/Family Goals: Patient plans on returning to her home where she lives with her . They have staff who assist with needs. Treatment Plan Speech Therapy Treatment Plan: Continue Plan of Care Treatment Duration: Jul 22, 2019 Frequency: 5 times per week Estimated Hrs Per Day: .5 hour per day Rehab Potential: Good Barriers to Learning: Patient's recent CVA and intellectual challenge status Pt/Family Agrees to Plan: Yes Safety Risks/Education Teaching Recipient: Patient Teaching Methods: Demonstration, Discussion Response to Teaching: Verbalize Understanding, Return Demonstration Education Topics Provided: Continued safety within her room and communication of wants/needs Time Speech Therapy Time In: 10:30 Speech Therapy Time Out: 11:00 Total Billed Time: 30 Billed Treatment Time 1ANDREEA BETHANIA ST Jul 19, 2019 13:47
[2019-07-19] MEDS ORDERED: FENO160T12 PO (14:34)
[2019-07-19] MEDS ORDERED: ATEN50TA PO (14:34)
[2019-07-19] MEDS ORDERED: NITR100C PO (14:34)
[2019-07-19] MEDS ORDERED: LISI2.5T PO (14:34)
[2019-07-19] MEDS ORDERED: POTA40LI3 PO (14:34)
--- NOTE | 2019-07-19 14:44 | Physical Therapy Daily Note ---
PT Daily Note-Current Subjective Pt sitting reclined in chair upon arrival. Pt agrees to PT. Pain Location: No Pain Reported Mental Status Patient Orientation: Person, Place Transfers SCALE: Activities may be completed with or without assistive devices. 7-Fitlebupbg-pkpmxlv completes the activity by him/herself with no assistance from a helper. 5-Set-up or Clean-up Assistance-helper sets up or cleans up; patient completes activity. [place] assists only prior to or following the activity. 4-Supervision or Touching Assistance-helper provides verbal cues and/or touching/steadying and/or contact guard assistance as patient completes activity. Assistance may be provided throughout the activity or intermittently. 3-Partial/Moderate Assistance-helper does LESS THAN HALF the effort. [place] lifts, holds or supports trunk or limbs, but provides less than half the effort. 2-Substantial/Maximal Assistance-helper does MORE THAN HALF the effort. [place] lifts or holds trunk or limbs and provides more than half the effort. 2-Ouxkzwwld-nbwmsd does ALL the effort. Patient does none of the effort to complete the activity. Or, the assistance of 2 or more helpers is required for the patient to complete the activity. If activity was not attempted, code reason: 7-Patient Refused. 9-Not Applicable-not attempted and the patient did not perform the activity before the current illness, exacerbation or injury. 10-Not Attempted due to Environmental Limitations-(lack of equipment, weather restraints, etc.). 88-Not Attempted due to Medical Conditions or Safety Concerns. Sit to Stand (QC): 5 Toilet Transfer (QC): 5 Weight Bearing Right Lower Extremity: Right Full Weight Bearing Left Lower Extremity: Left Full Weight Bearing Gait Training Does the Patient Walk?: Yes Distance: 10' Walk 10 feet (QC): 5 Gait Persons Needed: 1 Gait Assistive Device: FWW Wheelchair Training Does the Pt Use a Wheelchair?: No Exercises Supine Ex: Ankle pumps, Quad Set, Glut sets, Heel Slides, Straight leg raise, Hip abd/add Supine Reps: 20 Treatments Pt completes Supine Ex in chair. Pt asks to use restroom at end of Rx. Pt transfers to standing and ambulates to restroom. Pt safely in restroom with corin l light in hand & Nurse notified. Assessment Current Status: Good Progress Pt tolerates Rx well. PT Short Term Goals Short Term Goals Time Frame: Jul 22, 2019 Roll Left & Right: 7 Sit to lyin Lying to sitting on side of be: 7 Sit to stand: 6 PT [place] Frame Builder Goals [place] Frame Builder Goals PT [place] Frame Builder Goals Time Frame: Jul 29, 2019 Roll Left & Right (QC): 7 Sit to Lying (QC): 7 Lying-Sitting on Side/Bed(QC): 7 Sit to Stand (QC): 6 Chair/Bxs-bu-Jqgck Xfer(QC): 6 Toilet Transfer (QC): 6 Car Transfer (QC): 6 Does the Patient Walk: Yes Walk 10 feet (QC): 6 Walk 50ft with 2 Turns (QC): 6 Walk 150 ft (QC): 6 Walking 10ft on Uneven Surface: 6 1 Step (curb) (QC): 6 4 Steps (QC): 6 12 Steps (QC): 6 Picking up an Object (QC): 6 Does the Pt use WC or Scooter?: No Wheel 50 feet with 2 turns (QC: 9 Type: N/A Wheel 150 feet: 9 Type: N/A PT Plan Problem List Problem List: Activity Tolerance Treatment/Plan Treatment Plan: Continue Plan of Care Treatment Plan: Bed Mobility, Education, Functional Activity Marissa, Functional Strength, Group Therapy, Gait, Safety, Therapeutic Exercise, Transfers Treatment Duration: Jul 29, 2019 Frequency: At least 5 of 7 days/Wk (IRF) Estimated Hrs Per Day: 1.5 hours per day Patient and/or Family Agrees t: Yes Safety Risks/Education Patient Education: Transfer Techniques, Correct Positioning, Safety Issues Teaching Recipient: Patient Teaching Methods: Discussion Response to Teaching: Verbalize Understanding Time/GCodes Time In: 1300 Time Out: 1330 Total Billed Treatment Time: 30 Total Billed Treatment 1, EX x2 (30m) DONNA LINDA TIRE MOUNTER Jul 19, 2019 14:44
[2019-07-19 16:46] VITALS: BP 154/81
[2019-07-19] MEDS: ACETAMINOPHEN 325 MG TABLET PO PRN (17:20)
--- NOTE | 2019-07-19 19:14 | NUR ---
bedside report received from CHEMO STEVEN, assume care of pt
[2019-07-19] MEDS: SIMvastatin 10 MG (ZOCOR) TAB PO SCH (20:34)
--- NOTE | 2019-07-19 20:34 | NUR ---
pt Colace, Senokot & miralax held due to loose stools today
[2019-07-20 06:00] VITALS: BP 155/74
[2019-07-20] MEDS: SUCRALFATE 1 GM (CARAFATE) TAB PO SCH ×4 (06:35→21:32)
[2019-07-20] MEDS: MULTIVIT W/MINERALS TAB (THERAGRAN M) PO SCH (06:35)
--- NOTE | 2019-07-20 08:31 | Cardiology Progress Note ---
Subjective Date Seen by Provider: Jul 20, 2019 Time Seen by Provider: 08:31 Subjective/Events-last exam Patient up in room, no new complaints. Denies any chest pain or dyspnea. Review of Systems General: No Chills, No Night Sweats, No Fatigue, No Malaise, No Appetite, No Other HEENT: No Head Aches, No Visual Changes, No Eye Pain, No Ear Pain, No Dysphasia, No Sinus Congestion, No Post Nasal Drip, No Sore Throat, No Other Pulmonary: No Dyspnea, No Cough, No Pleuritic Chest Pain, No Other Cardiovascular: No: Chest Pain, Palpitations, Orthopnea, Paroxysmal Noc. Dyspnea, Edema, Lt Headedness, Other Objective-Cardiology Exam Last Set of Vital Signs Vital Signs 07/20/19 06:00 Temp 36.5 Pulse 73 Resp 12 B/P (MAP) 155/74 (101) Pulse Ox 99 O2 Delivery Room Air Capillary Refill : Less Than 3 Seconds I&O Intake and Output 07/20/19 00:00 Intake Total 1430 ml Balance 1430 ml Intake Oral 1430 ml # Voids 6 # Bowel Movements 3 General: Alert, Oriented X3, Cooperative HEENT: Atraumatic, PERRLA Neck: Supple, No JVD, No Thyromegaly Lungs: Clear to Auscultation, Normal Air Movement Heart: Regular Rate, Normal S1, Normal S2, No Murmurs Abdomen: Normal Bowel Sounds, Soft, No Tenderness, No Hepatosplenomegaly, No Masses Extremities: No Clubbing, No Cyanosis, No Edema, Normal Pulses, No Tenderness/Swelling Skin: No Rashes, No Breakdown, No Significant Lesion Neuro: Normal Gait, Normal Speech, Strength at 5/5 X4 Ext, Normal Tone, Sensation Intact Psych/Mental Status: Mental Status NL, Mood NL A/P-Cardiology Admission Diagnosis Acute CVA Chronic atrial fibrillation Coronary artery disease Hypertension Assessment/Plan Status post acute CVA, received TPA on July 06, 2019, recovering slowly, still have some residual right sided weakness, improving, continue with physical therapy Paroxysmal atrial fibrillation, currently not on oral anticoagulation probably secondary to receiving TPA. Started on Eliquis 2.5mg BID Coronary artery disease, EKG showed sinus tachycardia. Continue to monitor Hypertension, controlled, continue to monitor. Hyperlipidemia, monitor lipids History of intellectual disability. Patient was seen and evaluated with Katie, examination performed, management plan was discussed, agree with the current scribed note, I made few changes to the note using Italic font Patient is sitting in a chair, comfortable no new complaint Blood pressure is mildly elevated, I will continue to monitor without changing her medication due to her recent stroke Continue with oral anticoagulation and monitor closely Clinical Quality Measures DVT/VTE Risk/Contraindication: Risk Factor Score Per Nursin RFS Level Per Nursing on Admit: 2=Moderate KATIE ROBISON Jul 20, 2019 08:31 LOUIS GROSSMAN MD Jul 20, 2019 10:43
[2019-07-20] MEDS: FERROUS SULF 325 MG (IRON) TAB PO SCH (08:53)
[2019-07-20] MEDS: FUROSEMIDE 20 MG (LASIX) TAB PO SCH (08:53)
[2019-07-20] MEDS: CARVEDILOL 12.5 MG (COREG) TABLET PO SCH ×2 (08:54→18:36)
[2019-07-20] MEDS: ASPIRIN E.C. 81 MG (ECOTRIN) TAB PO SCH (08:54)
[2019-07-20] MEDS: lisINopril 5 MG (PRINIVIL) TABLET PO SCH (08:54)
[2019-07-20] MEDS: DOCUSATE SODIUM 100 MG (COLACE) CAP PO SCH ×2 (08:55→21:35)
[2019-07-20] MEDS: PANTOPRAZOLE 40 MG (PROTONIX) TAB PO SCH ×2 (08:55→21:32)
[2019-07-20] MEDS: polyethylene glycoL POWDER 17 GM (MIRALAX) PACK PO SCH ×2 (08:55→21:35)
[2019-07-20] MEDS: APIXABAN 2.5 MG (ELIQUIS) TABLET PO SCH ×2 (08:55→21:32)
[2019-07-20] MEDS: SENNA W/DOCUSATE (SENOKOT S) TABLET PO SCH ×2 (08:55→21:35)
--- NOTE | 2019-07-20 09:17 | PM&R Progress Note ---
Subjective HPI/CC On Admission Date Seen by Provider: Jul 20, 2019 Time Seen by Provider: 09:15 Subjective/Events-last exam Pt doing very well overall Bowels are moving Walking around very well Participating in all therapies Denies any pain Conferred with RN Checked meds and labs Reviewed therapy notes Review of Systems General: Fatigue Neurological: Weakness, Incoordination Objective Exam Vital Signs Vital Signs Date Time Temp Pulse Resp B/P (MAP) Pulse Ox O2 Delivery O2 Flow Rate FiO2 07/20/19 17:54 36.9 88 18 147/79 (101) 100 Room Air Capillary Refill : Less Than 3 Seconds General Appearance: No Apparent Distress, WD/WN, Chronically ill HEENT: PERRL/EOMI, Normal ENT Inspection, Pharynx Normal Neck: Full Range of Motion, Normal Inspection, Non Tender, Supple, Carotid Bruit Respiratory: Chest Non Tender, Lungs Clear, Normal Breath Sounds, No Accessory Muscle Use, No Respiratory Distress Cardiovascular: Regular Rate, Rhythm, No Edema, No Gallop, No JVD, No Murmur, Normal Peripheral Pulses Gastrointestinal: Normal Bowel Sounds, No Organomegaly, No Pulsatile Mass, Non Tender, Soft Back: Normal Inspection, No CVA Tenderness, No Vertebral Tenderness Extremity: Normal Capillary Refill, Normal Inspection, Normal Range of Motion, Non Tender, No Calf Tenderness, No Pedal Edema Neurologic/Psychiatric: Alert, Oriented x3, Normal Mood/Affect, abatement worker II-XII Norm as Tested, Motor Weakness (right hand 4/5 right leg 3/5) Skin: Normal Color, Warm/Dry Lymphatic: No Adenopathy Results/Procedures Lab Patient resulted labs reviewed. FIM Transfers Therapy Code Descriptions/Definitions Functional [place] Measure: 0=Not Assessed/NA 4=Minimal Assistance 1=Total Assistance 5=Supervision or Setup 2=Maximal Assistance 6=Modified [place] 3=Moderate Assistance 7=Complete IndependenceSCALE: Activities may be completed with or without assistive devices. 1-Brqwghybso-ghtttqf completes the activity by him/herself with no assistance from a helper. 5-Set-up or Clean-up Assistance-helper sets up or cleans up; patient completes activity. [place] assists only prior to or following the activity. 4-Supervision or Touching Assistance-helper provides verbal cues and/or touching/steadying and/or contact guard assistance as patient completes activity. Assistance may be provided throughout the activity or intermittently. 3-Partial/Moderate Assistance-helper does LESS THAN HALF the effort. [place] lifts, holds or supports trunk or limbs, but provides less than half the effort. 2-Substantial/Maximal Assistance-helper does MORE THAN HALF the effort. [place] lifts or holds trunk or limbs and provides more than half the effort. 6-Amujmlkxe-noripy does ALL the effort. Patient does none of the effort to complete the activity. Or, the assistance of 2 or more helpers is required for the patient to complete the activity. If activity was not attempted, code reason: 7-Patient Refused. 9-Not Applicable-not attempted and the patient did not perform the activity before the current illness, exacerbation or injury. 10-Not Attempted due to Environmental Limitations-(lack of equipment, weather restraints, etc.). 88-Not Attempted due to Medical Conditions or Safety Concerns. Roll Left to Right (QC): 6 Sit to Lying (QC): 6 Sit to Stand (QC): 5 Chair/Hvn-zh-Jclsm Xfer(QC): 4 Car Transfer (QC): 4 Gait Training Does the Patient Walk?: Yes Distance: 10' Walk 10 feet (QC): 5 Walk 50 ft with 2 Turns(QC): 5 Walk 150 ft (QC): 5 Walking 10ft/uneven surface-QC: 4 Gait Persons Needed: 1 Gait Assistive Device: FWW Wheelchair Training Does the Pt Use a Wheelchair?: No Wheel 50 ft with 2 turns (QC): 9 Wheel 150 ft (QC): 9 Type of Wheelchair: N/A Stair Training #of Steps: 1 1 Step (curb) (QC): 4 4 Steps (QC): 88 12 Steps (QC): 88 Balance Picking up an Object (QC): 4 ADL-Treatment Eating (QC): 5 (Pt able to drink from water bottle after it was opened. ) Oral Hygiene (QC): 4 Bathing Location: L Arm, R Arm, L Upper Leg, R Upper Leg, L Lower Leg (including foot), R Lower Leg (including foot), Chest, Abdomen, Buttocks, Perineal Area Shower/Bathe Self (QC): 4 (CGA when standing. ) Upper Body Dressing (QC): 5 Lower Body Dressing (QC): 3 On/Off Footwear (QC): 4 (Supervision) Toileting Hygiene (QC): 3 Toilet Transfer (QC): 4 Assessment/Plan Assessment and Plan Assess & Plan/Chief Complaint Assessment: CVA s/p tPA [place] [facility] 07/13/19 then sent to [facility] Intellectual disability high functioning HTN CRI Anemia nl iron level HLP PAF now placed on OAC Right sided weakness Plan: IRF protocol Iron level Dr Hutchins appreciated Lovenox DC Eliquis 2.5mg PO BID (1) CVA (cerebral vascular accident) (2) Intellectual disability (3) Hyperlipemia (4) Atrial fib/flutter, transient (5) CAD (coronary artery disease) (6) GERD (gastroesophageal reflux disease) (7) HTN (hypertension) Status: Acute CARLOS ABREU DO Jul 20, 2019 09:17
--- NOTE | 2019-07-20 09:33 | Occupational Ther Daily Note ---
OT Current Status-Daily Note Subjective Pt sitting in chair, agrees to therapy. ADL-Treatment Pt would like to shower this morning. Gait to restroom with FWW. Transfer to toilet using grab bars for balance and safety. Pt had small amount of bowel incontinence. Min assist overall for toileting. Transfer to walk in shower with CGA and cues for safety. Seated bathing completed using hand held shower. Pt able to wash all areas with supervision for safety. Don sports bra and pullover gown with set up. Pt able to thread bilateral LE into Depends and pants with increased time. Stood with supervision for balance during pant hike. Pt able to don bilateral socks and left shoe with set up. Dons right air cast and shoe with assist. Pt declined to brush teeth at this time. [place] hair with set up. Pt returned to chair with FWW. Pt able to place bilateral hearing aids without assist. Sitting in chair with needs met after session. Therapy Code Descriptions/Definitions Functional [place] Measure: 0=Not Assessed/NA 4=Minimal Assistance 1=Total Assistance 5=Supervision or Setup 2=Maximal Assistance 6=Modified [place] 3=Moderate Assistance 7=Complete IndependenceSCALE: Activities may be completed with or without assistive devices. 6-Axllduqsbu-nxayvpt completes the activity by him/herself with no assistance from a helper. 5-Set-up or Clean-up Assistance-helper sets up or cleans up; patient completes activity. [place] assists only prior to or following the activity. 4-Supervision or Touching Assistance-helper provides verbal cues and/or touching/steadying and/or contact guard assistance as patient completes activity . Assistance may be provided throughout the activity or intermittently. 3-Partial/Moderate Assistance-helper does LESS THAN HALF the effort. [place] lifts, holds or supports trunk or limbs, but provides less than half the effort. 2-Substantial/Maximal Assistance-helper does MORE THAN HALF the effort. [place] lifts or holds trunk or limbs and provides more than half the effort. 2-Clnclwgpc-ghbocl does ALL the effort. Patient does none of the effort to complete the activity. Or, the assistance of 2 or more helpers is required for the patient to complete the activity. If activity was not attempted, code reason: 7-Patient Refused. 9-Not Applicable-not attempted and the patient did not perform the activity before the current illness, exacerbation or injury. 10-Not Attempted due to Environmental Limitations-(lack of equipment, weather restraints, etc.). 88-Not Attempted due to Medical Conditions or Safety Concerns. Shower/Bathe Self (QC): 4 Upper Body Dressing (QC): 5 Lower Body Dressing (QC): 4 On/Off Footwear: 3 Toileting Hygiene (QC): 3 Toilet Transfer (QC): 5 OT Calcine Furnace Loader Goals Assisted Goals Time Frame: Jul 29, 2019 Eating (QC): 6 Oral Hygiene (QC): 6 Toileting Hygiene (QC): 6 Shower/Bathe Self (QC): 5 Upper Body Dressing (QC): 6 Lower Body Dressing (QC): 6 On/Off Footwear (QC): 6 Additional Goals: 1-Demonstrate ADL Tasks, 2-Verbalize Understanding, 3- ImproveStrength/Marissa 1=Demonstrate adherence to instructed precautions during ADL tasks. 2=Patient will verbalize/demonstrate understanding of assistive devices/modifications for ADL. 3=Patient will improve strength/tolerance for activity to enable patient to perform ADL's. OT Education/Plan Discharge Recommendations Plan/Recommendations: Continue POC Treatment Plan/Plan of Care Patient would benefit from OT for education, treatment and training to promote independence in ADL's, mobility, safety and/or upper extremity function for ADL's. Plan of Care: ADL Retraining, Functional Mobility, Group Exercise/Act as Ind, UE Funct Exercise/Act Treatment Duration: Jul 29, 2019 Frequency: At least 5 of 7 days/Wk (IRF) Estimated Hrs Per Day: 1.5 hours per day Rehab Potential: Good Time/GCodes Start Time: 08:15 Stop Time: 09:15 Total Time Billed (hr/min): 60 Billed Treatment Time 1 visit, ADLx4(60minutes) MOHAN MEYER OT Jul 20, 2019 09:33
--- NOTE | 2019-07-20 11:25 | Occupational Ther Daily Note ---
OT Current Status-Daily Note Subjective Pt sitting in chair, agrees to treatment. ADL-Treatment Therapy Code Descriptions/Definitions Functional [place] Measure: 0=Not Assessed/NA 4=Minimal Assistance 1=Total Assistance 5=Supervision or Setup 2=Maximal Assistance 6=Modified [place] 3=Moderate Assistance 7=Complete IndependenceSCALE: Activities may be completed with or without assistive devices. 6-Bzqdlyhtta-cyecehb completes the activity by him/herself with no assistance from a helper. 5-Set-up or Clean-up Assistance-helper sets up or cleans up; patient completes activity. [place] assists only prior to or following the activity. 4-Supervision or Touching Assistance-helper provides verbal cues and/or touching/steadying and/or contact guard assistance as patient completes activity. Assistance may be provided throughout the activity or intermittently. 3-Partial/Moderate Assistance-helper does LESS THAN HALF the effort. [place] lifts, holds or supports trunk or limbs, but provides less than half the effort. 2-Substantial/Maximal Assistance-helper does MORE THAN HALF the effort. [place] lifts or holds trunk or limbs and provides more than half the effort. 4-Tzkpdqazy-ajmmcj does ALL the effort. Patient does none of the effort to complete the activity. Or, the assistance of 2 or more helpers is required for the patient to complete the activity. If activity was not attempted, code reason: 7-Patient Refused. 9-Not Applicable-not attempted and the patient did not perform the activity before the current illness, exacerbation or injury. 10-Not Attempted due to Environmental Limitations-(lack of equipment, weather restraints, etc.). 88-Not Attempted due to Medical Conditions or Safety Concerns. Other Treatment Pt sit to stand with supervision. Gait to therapy gym with FWW and slow pace. Pt performed arm arc activity with bilateral UE while standing to promote increased standing balance, UE ROM, and overall activity tolerance. Pt able to complete task with SBA for balance. Seated rest break taken after standing activity. Pt returned to room using FWW, increased time. Transfer to chair with supervision. Pt sitting in chair with needs met after session. OT Saloonkeeper Goals Saloonkeeper Goals Time Frame: Jul 29, 2019 Eating (QC): 6 Oral Hygiene (QC): 6 Toileting Hygiene (QC): 6 Shower/Bathe Self (QC): 5 Upper Body Dressing (QC): 6 Lower Body Dressing (QC): 6 On/Off Footwear (QC): 6 Additional Goals: 1-Demonstrate ADL Tasks, 2-Verbalize Understanding, 3- ImproveStrength/Marissa 1=Demonstrate adherence to instructed precautions during ADL tasks. 2=Patient will verbalize/demonstrate understanding of assistive devices/modifications for ADL. 3=Patient will improve strength/tolerance for activity to enable patient to perform ADL's. OT Education/Plan Discharge Recommendations Plan/Recommendations: Continue POC Treatment Plan/Plan of Care Patient would benefit from OT for education, treatment and training to promote independence in ADL's, mobility, safety and/or upper extremity function for ADL's. Plan of Care: ADL Retraining, Functional Mobility, Group Exercise/Act as Ind, UE Funct Exercise/Act Treatment Duration: Jul 29, 2019 Frequency: At least 5 of 7 days/Wk (IRF) Estimated Hrs Per Day: 1.5 hours per day Rehab Potential: Good Time/GCodes Start Time: 11:00 Stop Time: 11:20 Total Time Billed (hr/min): 20 Billed Treatment Time 1 visit, FA(20minutes) MOHAN MEYER OT Jul 20, 2019 11:25
--- NOTE | 2019-07-20 11:40 | Physical Therapy Daily Note ---
PT Daily Note-Current Subjective Pt reclined in chair upon arrival. Pt agrees to PT. Pain Location: No Pain Reported Mental Status Patient Orientation: Person, Place Attachments: Other-See Comments (Air Cast/AFO) Transfers SCALE: Activities may be completed with or without assistive devices. 8-Hogmfsjggc-amnihpz completes the activity by him/herself with no assistance from a helper. 5-Set-up or Clean-up Assistance-helper sets up or cleans up; patient completes activity. [place] assists only prior to or following the activity. 4-Supervision or Touching Assistance-helper provides verbal cues and/or touching/steadying and/or contact guard assistance as patient completes activity. Assistance may be provided throughout the activity or intermittently. 3-Partial/Moderate Assistance-helper does LESS THAN HALF the effort. [place] lifts, holds or supports trunk or limbs, but provides less than half the effort. 2-Substantial/Maximal Assistance-helper does MORE THAN HALF the effort. [place] lifts or holds trunk or limbs and provides more than half the effort. 2-Utuyluusy-bjwcop does ALL the effort. Patient does none of the effort to complete the activity. Or, the assistance of 2 or more helpers is required for the patient to complete the activity. If activity was not attempted, code reason: 7-Patient Refused. 9-Not Applicable-not attempted and the patient did not perform the activity before the current illness, exacerbation or injury. 10-Not Attempted due to Environmental Limitations-(lack of equipment, weather restraints, etc.). 88-Not Attempted due to Medical Conditions or Safety Concerns. Sit to Stand (QC): 5 Toilet Transfer (QC): 5 Weight Bearing Right Lower Extremity: Right Full Weight Bearing Left Lower Extremity: Left Full Weight Bearing Gait Training Does the Patient Walk?: Yes Distance: 150', 100' Walk 10 feet (QC): 5 Walk 50 ft with 2 Turns(QC): 5 Walk 150 ft (QC): 5 Gait Persons Needed: 1 Gait Assistive Device: FWW EMBOSSING MACHINE OPERATOR observed pt walking to determine Air Cast vs AFO for support and prevention of foot drag. Pt demonstrates more foot drag when fatigued. Wheelchair Training Does the Pt Use a Wheelchair?: No Exercises Supine Ex: Ankle pumps, Quad Set, Glut sets, Heel Slides, Straight leg raise, Hip abd/add Supine Reps: 15 Standing: Hamstring curls, Marching, Mini squats Standing Reps: 15 NuStep Minutes: 12 NuStep Workload: 4 Treatments Pt completes Supine Ex before transferring to standing. Pt ambulates in hallway using Air Cast. Pt uses NuStep for 12m at WL 4 followed by Standing Ex. Pt doffs Air Cast and dons AFO for R foot and again ambulates in hallway. Pt returns to room to rest in recliner. EMBOSSING MACHINE OPERATOR gives instruction and practices PF/DF & IV/EV. Pt uses restroom. Pt resting in recliner at end of RX with all needs met, call light in hand. Assessment Current Status: Good Progress Pt is pleasant and reports no pain during Rx although at times demonstrates confusion during sequencing of task. Pt displays lateral rotation of R ankle while using AFO but displays some foot drag with Air Cast. PT Short Term Goals Short Term Goals Time Frame: Jul 22, 2019 Roll Left & Right: 7 Sit to lyin Lying to sitting on side of be: 7 Sit to stand: 6 PT Production Tester Goals Alf Goals PT Alf Goals Time Frame: Jul 29, 2019 Roll Left & Right (QC): 7 Sit to Lying (QC): 7 Lying-Sitting on Side/Bed(QC): 7 Sit to Stand (QC): 6 Chair/Wph-ma-Wlemz Xfer(QC): 6 Toilet Transfer (QC): 6 Car Transfer (QC): 6 Does the Patient Walk: Yes Walk 10 feet (QC): 6 Walk 50ft with 2 Turns (QC): 6 Walk 150 ft (QC): 6 Walking 10ft on Uneven Surface: 6 1 Step (curb) (QC): 6 4 Steps (QC): 6 12 Steps (QC): 6 Picking up an Object (QC): 6 Does the Pt use WC or Scooter?: No Wheel 50 feet with 2 turns (QC: 9 Type: N/A Wheel 150 feet: 9 Type: N/A PT Plan Problem List Problem List: Activity Tolerance, Functional Strength, Safety, Balance, Gait Treatment/Plan Treatment Plan: Continue Plan of Care Treatment Plan: Bed Mobility, Education, Functional Activity Marissa, Functional Strength, Group Therapy, Gait, Safety, Therapeutic Exercise, Transfers Treatment Duration: Jul 29, 2019 Frequency: At least 5 of 7 days/Wk (IRF) Estimated Hrs Per Day: 1.5 hours per day Patient and/or Family Agrees t: Yes Safety Risks/Education Patient Education: Gait Training, Transfer Techniques, Correct Positioning, Safety Issues Teaching Recipient: Patient Teaching Methods: Discussion Response to Teaching: Reinforcement Needed Time/GCodes Time In: 915 Time Out: 1030 Total Billed Treatment Time: 75 Total Billed Treatment 1, GT (20m), EX x2 (30m) & FA x2 (25m) DONNA LINDA EMBOSSING MACHINE OPERATOR Jul 20, 2019 11:40
--- NOTE | 2019-07-20 11:51 | Speech Therapy Daily Note ---
Speech Daily Progress Note Subjective Date Seen by Provider: Jul 20, 2019 Time Seen by Provider: 00:30 Patient was working on her word searches when I entered her room. Objective Patient completed a series of q/a related to her daily needs with 85% given minimal cues. Assessment Assessment Current Status: Good Progress Treatment Plan Continue Plan of Care Speech Short Term Goals Short Term Goals Short Term Goals 1) Patient will complete memory tasks related to her daily needs with 80-90% given minimal cues. 2) Patient will complete problem solving tasks related to her daily needs with 80-90% given minimal cues. 3) Patient will complete safety awareness tasks related to her daily needs with 80-90% given minimal cues. Speech Mcc Goals Mcc Goals Patient will improve cognitive-communication necessary for safety and daily living tasks with minimal assist. Speech-Plan Patient/Family Goals Patient/Family Goals: Patient plans on returning to her home where she lives with her and receives assistance from staff. Treatment Plan Speech Therapy Treatment Plan: Continue Plan of Care Treatment Duration: Jul 22, 2019 Frequency: 5 times per week Estimated Hrs Per Day: .5 hour per day Rehab Potential: Good Barriers to Learning: Patient's recent CVA and decreased intellectual abilities Pt/Family Agrees to Plan: Yes Safety Risks/Education Teaching Recipient: Patient Teaching Methods: Demonstration, Discussion Response to Teaching: Verbalize Understanding, Return Demonstration Education Topics Provided: Continued safety within her room and communication of wants/needs Time Speech Therapy Time In: 10:30 Speech Therapy Time Out: 11:00 Total Billed Time: 30 Billed Treatment Time 1ANDREEA BETHANIA ST Jul 20, 2019 11:51
[2019-07-20] MEDS: ACETAMINOPHEN 325 MG TABLET PO PRN (13:41)
[2019-07-20 17:54] VITALS: BP 147/79
--- NOTE | 2019-07-20 19:12 | NUR ---
bedside report received from CHEMO STEVEN, assume care of pt
[2019-07-20] MEDS: SIMvastatin 10 MG (ZOCOR) TAB PO SCH (21:32)
--- NOTE | 2019-07-20 21:32 | NUR ---
pt laxatives Colace, miralax & Senokot held due to loose stools
[2019-07-21 05:28] VITALS: BP 156/73
[2019-07-21] MEDS: MULTIVIT W/MINERALS TAB (THERAGRAN M) PO SCH (06:40)
[2019-07-21] MEDS: SUCRALFATE 1 GM (CARAFATE) TAB PO SCH ×4 (06:40→21:25)
--- NOTE | 2019-07-21 07:07 | PM&R Progress Note ---
Subjective HPI/CC On Admission Date Seen by Provider: Jul 21, 2019 Time Seen by Provider: 09:30 Subjective/Events-last exam Pt having no new complaints Working with PT and OT Bowels are moving Tolerating Eliquis 2.5 Mg BID without any difficulty or bleeding problems Conferred with RN Checked meds and labs Reviewed therapy notes Review of Systems General: Fatigue Objective Exam Vital Signs Vital Signs Date Time Temp Pulse Resp B/P (MAP) Pulse Ox O2 Delivery O2 Flow Rate FiO2 07/21/19 21:00 Room Air 07/21/19 17:36 36.6 72 18 124/70 (88) 99 Capillary Refill : Less Than 3 Seconds General Appearance: No Apparent Distress, WD/WN, Chronically ill HEENT: PERRL/EOMI, Normal ENT Inspection, Pharynx Normal Neck: Full Range of Motion, Normal Inspection, Non Tender, Supple, Carotid Bruit Respiratory: Chest Non Tender, Lungs Clear, Normal Breath Sounds, No Accessory Muscle Use, No Respiratory Distress Cardiovascular: Regular Rate, Rhythm, No Edema, No Gallop, No JVD, No Murmur, Normal Peripheral Pulses Gastrointestinal: Normal Bowel Sounds, No Organomegaly, No Pulsatile Mass, Non Tender, Soft Back: Normal Inspection, No CVA Tenderness, No Vertebral Tenderness Extremity: Normal Capillary Refill, Normal Inspection, Normal Range of Motion, Non Tender, No Calf Tenderness, No Pedal Edema Neurologic/Psychiatric: Alert, Oriented x3, Normal 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 FIM Transfers Therapy Code Descriptions/Definitions Functional [place] Measure: 0=Not Assessed/NA 4=Minimal Assistance 1=Total Assistance 5=Supervision or Setup 2=Maximal Assistance 6=Modified [place] 3=Moderate Assistance 7=Complete IndependenceSCALE: Activities may be completed with or without assistive devices. 5-Kjytcxrgau-wtxiixa completes the activity by him/herself with no assistance from a helper. 5-Set-up or Clean-up Assistance-helper sets up or cleans up; patient completes activity. [place] assists only prior to or following the activity. 4-Supervision or Touching Assistance-helper provides verbal cues and/or touching/steadying and/or contact guard assistance as patient completes activity. Assistance may be provided throughout the activity or intermittently. 3-Partial/Moderate Assistance-helper does LESS THAN HALF the effort. [place] lifts, holds or supports trunk or limbs, but provides less than half the effort. 2-Substantial/Maximal Assistance-helper does MORE THAN HALF the effort. [place] lifts or holds trunk or limbs and provides more than half the effort. 7-Aylxxoyji-mhlopb does ALL the effort. Patient does none of the effort to complete the activity. Or, the assistance of 2 or more helpers is required for the patient to complete the activity. If activity was not attempted, code reason: 7-Patient Refused. 9-Not Applicable-not attempted and the patient did not perform the activity before the current illness, exacerbation or injury. 10-Not Attempted due to Environmental Limitations-(lack of equipment, weather restraints, etc.). 88-Not Attempted due to Medical Conditions or Safety Concerns. Roll Left to Right (QC): 6 Sit to Lying (QC): 6 Sit to Stand (QC): 5 Chair/Hyg-cr-Uwyuj Xfer(QC): 4 Car Transfer (QC): 4 Gait Training Does the Patient Walk?: Yes Distance: 150', 100' Walk 10 feet (QC): 5 Walk 50 ft with 2 Turns(QC): 5 Walk 150 ft (QC): 5 Walking 10ft/uneven surface-QC: 4 Gait Persons Needed: 1 Gait Assistive Device: FWW Wheelchair Training Does the Pt Use a Wheelchair?: No Wheel 50 ft with 2 turns (QC): 9 Wheel 150 ft (QC): 9 Type of Wheelchair: N/A Stair Training #of Steps: 1 1 Step (curb) (QC): 4 4 Steps (QC): 88 12 Steps (QC): 88 Balance Picking up an Object (QC): 4 ADL-Treatment Eating (QC): 5 (Pt able to drink from water bottle after it was opened. ) Oral Hygiene (QC): 4 Bathing Location: L Arm, R Arm, L Upper Leg, R Upper Leg, L Lower Leg (including foot), R Lower Leg (including foot), Chest, Abdomen, Buttocks, Perineal Area Shower/Bathe Self (QC): 4 Upper Body Dressing (QC): 5 Lower Body Dressing (QC): 4 On/Off Footwear (QC): 3 Toileting Hygiene (QC): 3 Toilet Transfer (QC): 5 Assessment/Plan Assessment and Plan Assess & Plan/Chief Complaint Assessment: CVA s/p tPA [place] [facility] 07/13/19 then sent to [facility] Intellectual disability high functioning HTN CRI Anemia nl iron level HLP PAF now placed on OAC Right sided weakness Plan: IRF protocol Iron level Dr Hutchins appreciated Lovenox DC Eliquis 2.5mg PO BID (1) CVA (cerebral vascular accident) (2) Intellectual disability (3) Hyperlipemia (4) Atrial fib/flutter, transient (5) CAD (coronary artery disease) (6) GERD (gastroesophageal reflux disease) (7) HTN (hypertension) Status: Acute CARLOS ABREU DO Jul 21, 2019 07:07
[2019-07-21] MEDS: PANTOPRAZOLE 40 MG (PROTONIX) TAB PO SCH ×2 (07:58→21:25)
[2019-07-21] MEDS: ASPIRIN E.C. 81 MG (ECOTRIN) TAB PO SCH (07:58)
[2019-07-21] MEDS: FUROSEMIDE 20 MG (LASIX) TAB PO SCH (07:58)
[2019-07-21] MEDS: APIXABAN 2.5 MG (ELIQUIS) TABLET PO SCH ×2 (07:58→21:25)
[2019-07-21] MEDS: FERROUS SULF 325 MG (IRON) TAB PO SCH (07:58)
[2019-07-21] MEDS: polyethylene glycoL POWDER 17 GM (MIRALAX) PACK PO SCH ×2 (08:00→20:13)
[2019-07-21] MEDS: DOCUSATE SODIUM 100 MG (COLACE) CAP PO SCH ×2 (08:00→20:12)
[2019-07-21] MEDS: CARVEDILOL 12.5 MG (COREG) TABLET PO SCH ×2 (08:00→17:06)
[2019-07-21] MEDS: SENNA W/DOCUSATE (SENOKOT S) TABLET PO SCH ×2 (08:01→20:13)
[2019-07-21 08:03] VITALS: BP 131/75
[2019-07-21] MEDS: lisINopril 10 MG (PRINIVIL) TABLET PO SCH (08:03)
--- NOTE | 2019-07-21 08:17 | Cardiology Progress Note ---
Subjective Date Seen by Provider: Jul 21, 2019 Time Seen by Provider: 08:16 Subjective/Events-last exam Patient is sitting up in chair, no new complaints. Review of Systems General: No Chills, No Night Sweats, No Fatigue, No Malaise, No Appetite, No Other HEENT: No Head Aches, No Visual Changes, No Eye Pain, No Ear Pain, No Dysphasia, No Sinus Congestion, No Post Nasal Drip, No Sore Throat, No Other Pulmonary: No Dyspnea, No Cough, No Pleuritic Chest Pain, No Other Cardiovascular: No: Chest Pain, Palpitations, Orthopnea, Paroxysmal Noc. Dyspnea, Edema, Lt Headedness, Other Objective-Cardiology Exam Last Set of Vital Signs Vital Signs 07/21/19 07/21/19 07/21/19 05:28 08:03 09:12 Temp 36.4 Pulse 93 Resp 12 B/P (MAP) 131/75 (93) Pulse Ox 98 O2 Delivery Room Air Capillary Refill : Less Than 3 Seconds I&O Intake and Output 07/21/19 00:00 Intake Total 1480 ml Balance 1480 ml Intake Oral 1080 ml Tube Feeding 400 ml # Voids 5 # Bowel Movements 2 General: Alert, Oriented X3, Cooperative HEENT: Atraumatic, PERRLA Neck: Supple, No JVD, No Thyromegaly Lungs: Clear to Auscultation, Normal Air Movement Heart: Regular Rate, Normal S1, Normal S2, No Murmurs Abdomen: Normal Bowel Sounds, Soft, No Tenderness, No Hepatosplenomegaly, No Masses Extremities: No Clubbing, No Cyanosis, No Edema, Normal Pulses, No Tenderness/Swelling Skin: No Rashes, No Breakdown, No Significant Lesion Neuro: Normal Gait, Normal Speech, Strength at 5/5 X4 Ext, Normal Tone, Sensation Intact Psych/Mental Status: Mental Status NL, Mood NL A/P-Cardiology Admission Diagnosis Acute CVA Chronic atrial fibrillation Coronary artery disease Hypertension Assessment/Plan Status post acute CVA, received TPA on July 06, 2019, recovering slowly, still have some residual right sided weakness, improving, continue with physical therapy Paroxysmal atrial fibrillation, Started on Eliquis 2.5mg BID, continue to monitor Coronary artery disease, EKG showed sinus tachycardia. Continue to monitor Hypertension, controlled, continue to monitor. Hyperlipidemia, monitor lipids History of intellectual disability. Patient was seen and evaluated with Katie, examination performed, management plan was discussed, agree with the current scribed note, I made few changes to the note using Italic font Patient was seen at bedside, sitting comfortably, no new complaint Blood pressure is still elevated. I increased lisinopril to 10 mg daily Continue to monitor blood pressure, continue with physical therapy Clinical Quality Measures DVT/VTE Risk/Contraindication: Risk Factor Score Per Nursin RFS Level Per Nursing on Admit: 2=Moderate KATIE ROBISON Jul 21, 2019 08:17 LOUIS GROSSMAN MD Jul 21, 2019 12:34
--- NOTE | 2019-07-21 09:12 | Occupational Ther Daily Note ---
OT Current Status-Daily Note Subjective [id number] (45): Pt seen in recliner chair this am. Pt agrees to OT tx session, states slight R hip pain. [id number] (30): Pt seen in recliner chair. Denies pain, agrees to OT tx session, needs to utilize bathroom. ADL-Treatment Therapy Code Descriptions/Definitions Functional [place] Measure: 0=Not Assessed/NA 4=Minimal Assistance 1=Total Assistance 5=Supervision or Setup 2=Maximal Assistance 6=Modified [place] 3=Moderate Assistance 7=Complete IndependenceSCALE: Activities may be completed with or without assistive devices. 9-Shteafmwqs-azztvxv completes the activity by him/herself with no assistance from a helper. 5-Set-up or Clean-up Assistance-helper sets up or cleans up; patient completes activity. [place] assists only prior to or following the activity. 4-Supervision or Touching Assistance-helper provides verbal cues and/or touching/steadying and/or contact guard assistance as patient completes activity. Assistance may be provided throughout the activity or intermittently. 3-Partial/Moderate Assistance-helper does LESS THAN HALF the effort. [place] lif ts, holds or supports trunk or limbs, but provides less than half the effort. 2-Substantial/Maximal Assistance-helper does MORE THAN HALF the effort. [place] lifts or holds trunk or limbs and provides more than half the effort. 2-Imrinmqra-sydoit does ALL the effort. Patient does none of the effort to complete the activity. Or, the assistance of 2 or more helpers is required for the patient to complete the activity. If activity was not attempted, code reason: 7-Patient Refused. 9-Not Applicable-not attempted and the patient did not perform the activity before the current illness, exacerbation or injury. 10-Not Attempted due to Environmental Limitations-(lack of equipment, weather restraints, etc.). 88-Not Attempted due to Medical Conditions or Safety Concerns. Eating (QC): 6 Oral Hygiene (QC): 7 Shower/Bathe Self (QC): 7 Upper Body Dressing (QC): 6 (gathers shirt and dons, does not attempt bra as already donned.) Lower Body Dressing (QC): 4 (SBA during doffing/ donning) On/Off Footwear: 3 (min A during R LE shoe donning (pt does not attempt sock doffing/ donning nor AFO as already donned). ) Toileting Hygiene (QC): 4 (SUP) Toilet Transfer (QC): 4 (SUP) Other Treatment 0810: Pt seen in recliner, readily agrees to therapy. Pt stands intermittently with SBA at 2WW, no LOB and fair standing endurance, no c/o pain in hip during activities. Pt completes pant donning in sit, self-corrects wrong pant leg and also backwards belt without external cues. Pt requires assist with R shoe donning, educated on shoe horn; pt unable to manipulate/ complete with use of AE. Pt educated on RUE strength/ endurance difference; pt completes cigar roller strength testing with R: 40, 35, 30lbs; L: 35,35,35lbs. Pt educated on decreased endurance of R UE, educated on R endurance training through theraputty. HEP educated upon- pt completes 2 min cigar roller strength and 5 fine manipulation tasks. Pt left in recliner with all needs met, call light in reach. 1120: Pt utilizes bathroom with SUP, transfers with SBA with use of 2WW. Pt washes hands, denies brushing teeth. Pt stands at 2WW level to complete standing theraband ex with good balance, completing 15-20 reps bilaterally with mod cues for positioning/ tension of theraband: back flies, shoulder flexion, bicep curls, shoulder int/ ext rotation, back pulls, and triceps (requires 2 rest breaks in sitting). Pt completes with fair endurance and fair understanding of HEP. Pt left in recliner with LE's elevated, all needs met, call light in reach. Education OT Patient Education: Correct positioning, Exercise program, Home exercise program, Progress toward Goal/Update tx plan, Purpose of tx/functional activities, Use of adapted equipment Teaching Recipient: Patient Teaching Methods: Demonstration, Discussion Response to Teaching: Verbalize Understanding, Return Demonstration, Reinforcement Needed OT Assembler Adjuster Goals Assembler Adjuster Goals Time Frame: Jul 29, 2019 Eating (QC): 6 Oral Hygiene (QC): 6 Toileting Hygiene (QC): 6 Shower/Bathe Self (QC): 5 Upper Body Dressing (QC): 6 Lower Body Dressing (QC): 6 On/Off Footwear (QC): 6 Additional Goals: 1-Demonstrate ADL Tasks, 2-Verbalize Understanding, 3- ImproveStrength/Marissa 1=Demonstrate adherence to instructed precautions during ADL tasks. 2=Patient will verbalize/demonstrate understanding of assistive devices/mod ifications for ADL. 3=Patient will improve strength/tolerance for activity to enable patient to perform ADL's. OT Education/Plan Problem List/Assessment Assessment: Decreased Activ Tolerance, Decreased UE Strength, Dependent Transfers, Impaired Cognition, Impaired I ADL's, Impaired Self-Care Skills Discharge Recommendations Plan/Recommendations: Continue POC Treatment Plan/Plan of Care Treatment,Training & Education: Yes Patient would benefit from OT for education, treatment and training to promote independence in ADL's, mobility, safety and/or upper extremity function for ADL's. Plan of Care: ADL Retraining, Functional Mobility, Group Exercise/Act as Ind, UE Funct Exercise/Act Treatment Duration: Jul 29, 2019 Frequency: At least 5 of 7 days/Wk (IRF) Estimated Hrs Per Day: 1.5 hours per day Rehab Potential: Good Time/GCodes Start Time: 08:10 (1120) Stop Time: 08:55 (1150) Total Time Billed (hr/min): 75 (45+30) Billed Treatment Time 0810: 1, ADL 2 (30), EX (15)= 45 1120: 1, ADL, EX= 30 Total: 75 RAINA MARTÍNEZ OTR Jul 21, 2019 09:12
--- NOTE | 2019-07-21 10:00 | Physical Therapy Daily Note ---
PT Daily Note-Current Subjective Patient in recliner pre tx, agrees to PT, has no complaints of pain. Appearance Patient in recliner post tx with nurse call, phone, tray, all needs met. Mental Status Patient Orientation: Person, Place, Situation Transfers SCALE: Activities may be completed with or without assistive devices. 7-Etcckupyzr-tdemcgm completes the activity by him/herself with no assistance from a helper. 5-Set-up or Clean-up Assistance-helper sets up or cleans up; patient completes activity. [place] assists only prior to or following the activity. 4-Supervision or Touching Assistance-helper provides verbal cues and/or torsten raquel/steadying and/or contact guard assistance as patient completes activity. Assistance may be provided throughout the activity or intermittently. 3-Partial/Moderate Assistance-helper does LESS THAN HALF the effort. [place] lifts, holds or supports trunk or limbs, but provides less than half the effort. 2-Substantial/Maximal Assistance-helper does MORE THAN HALF the effort. [place] lifts or holds trunk or limbs and provides more than half the effort. 5-Zqwwuihty-fdclwc does ALL the effort. Patient does none of the effort to complete the activity. Or, the assistance of 2 or more helpers is required for the patient to complete the activity. If activity was not attempted, code reason: 7-Patient Refused. 9-Not Applicable-not attempted and the patient did not perform the activity before the current illness, exacerbation or injury. 10-Not Attempted due to Environmental Limitations-(lack of equipment, weather restraints, etc.). 88-Not Attempted due to Medical Conditions or Safety Concerns. Sit to Stand (QC): 4 Chair/Cyo-sv-Tscmf Xfer(QC): 4 SBA, occasional cues for hand placement or positioning Weight Bearing Right Lower Extremity: Right Full Weight Bearing Left Lower Extremity: Left Full Weight Bearing Gait Training Distance: 150'x2 Walk 10 feet (QC): 4 Walk 50 ft with 2 Turns(QC): 4 Walk 150 ft (QC): 4 Gait Persons Needed: 1 Gait Assistive Device: FWW SBA, slow but steady, poor foot clearance on the right side, wears right side AFO Exercises Standing: Hip Abduction, Hamstring curls, Marching, Mini squats, Step-ups Standing Reps: 15 NuStep Minutes: 15 NuStep Workload: 4 Treatments transfers, ambulation, functional strengthening Assessment Current Status: Fair Progress SBA with most mobility PT Short Term Goals Short Term Goals Time Frame: Jul 22, 2019 Roll Left & Right: 7 Sit to lyin Lying to sitting on side of be: 7 Sit to stand: 6 PT Manager Games Goals Manager Games Goals PT Manager Games Goals Time Frame: Jul 29, 2019 Roll Left & Right (QC): 7 Sit to Lying (QC): 7 Lying-Sitting on Side/Bed(QC): 7 Sit to Stand (QC): 6 Chair/Wwk-xs-Aqabj Xfer(QC): 6 Toilet Transfer (QC): 6 Car Transfer (QC): 6 Does the Patient Walk: Yes Walk 10 feet (QC): 6 Walk 50ft with 2 Turns (QC): 6 Walk 150 ft (QC): 6 Walking 10ft on Uneven Surface: 6 1 Step (curb) (QC): 6 4 Steps (QC): 6 12 Steps (QC): 6 Picking up an Object (QC): 6 Does the Pt use WC or Scooter?: No Wheel 50 feet with 2 turns (QC: 9 Type: N/A Wheel 150 feet: 9 Type: N/A PT Plan Problem List Problem List: Activity Tolerance, Functional Strength, Safety, Balance, Gait, Transfer, Bed Mobility, ROM Treatment/Plan Treatment Plan: Continue Plan of Care Treatment Plan: Bed Mobility, Education, Functional Activity Marissa, Functional Strength, Group Therapy, Gait, Safety, Therapeutic Exercise, Transfers Treatment Duration: Jul 29, 2019 Frequency: At least 5 of 7 days/Wk (IRF) Estimated Hrs Per Day: 1.5 hours per day Patient and/or Family Agrees t: Yes Safety Risks/Education Patient Education: Gait Training, Transfer Techniques, Correct Positioning, Reviewed Don/Doff Brace, Safety Issues Teaching Recipient: Patient Teaching Methods: Demonstration, Discussion Response to Teaching: Reinforcement Needed Time/GCodes Time In: 0900 Time Out: 1000 Total Billed Treatment Time: 60 Total Billed Treatment 1 visit GT 25' EX 35' CORY CANNON PT Jul 21, 2019 10:00
--- NOTE | 2019-07-21 13:23 | Physical Therapy Daily Note ---
PT Daily Note-Current Subjective Patient in recliner pre tx, agrees to PT, has no complaints of pain. Appearance Patient in recliner post tx with nurse call, phone, tray, all needs met. Mental Status Patient Orientation: Person, Place, Situation Transfers SCALE: Activities may be completed with or without assistive devices. 5-Jcoesejoen-lalfjfn completes the activity by him/herself with no assistance from a helper. 5-Set-up or Clean-up Assistance-helper sets up or cleans up; patient completes activity. [place] assists only prior to or following the activity. 4-Supervision or Touching Assistance-helper provides verbal cues and/or torsten raquel/steadying and/or contact guard assistance as patient completes activity. Assistance may be provided throughout the activity or intermittently. 3-Partial/Moderate Assistance-helper does LESS THAN HALF the effort. [place] lifts, holds or supports trunk or limbs, but provides less than half the effort. 2-Substantial/Maximal Assistance-helper does MORE THAN HALF the effort. [place] lifts or holds trunk or limbs and provides more than half the effort. 1-Qzarunqlf-knqbtt does ALL the effort. Patient does none of the effort to complete the activity. Or, the assistance of 2 or more helpers is required for the patient to complete the activity. If activity was not attempted, code reason: 7-Patient Refused. 9-Not Applicable-not attempted and the patient did not perform the activity before the current illness, exacerbation or injury. 10-Not Attempted due to Environmental Limitations-(lack of equipment, weather restraints, etc.). 88-Not Attempted due to Medical Conditions or Safety Concerns. Sit to Stand (QC): 4 Chair/Lad-jg-Jbrbd Xfer(QC): 4 SBA Weight Bearing Right Lower Extremity: Right Full Weight Bearing Left Lower Extremity: Left Full Weight Bearing Gait Training Distance: 150'x2 Walk 10 feet (QC): 4 Walk 50 ft with 2 Turns(QC): 4 Walk 150 ft (QC): 4 Gait Persons Needed: 1 Gait Assistive Device: FWW slow but steady ambulation, SBA, poor foot clearance on right side but improving, uses a right AFO Treatments transfers, ambulation Assessment Current Status: Fair Progress improving ambulation PT Short Term Goals Short Term Goals Time Frame: Jul 22, 2019 Roll Left & Right: 7 Sit to lyin Lying to sitting on side of be: 7 Sit to stand: 6 PT Manager Pmo Goals Manager Pmo Goals PT [facility] Goals Time Frame: Jul 29, 2019 Roll Left & Right (QC): 7 Sit to Lying (QC): 7 Lying-Sitting on Side/Bed(QC): 7 Sit to Stand (QC): 6 Chair/Olj-ck-Ykmjc Xfer(QC): 6 Toilet Transfer (QC): 6 Car Transfer (QC): 6 Does the Patient Walk: Yes Walk 10 feet (QC): 6 Walk 50ft with 2 Turns (QC): 6 Walk 150 ft (QC): 6 Walking 10ft on Uneven Surface: 6 1 Step (curb) (QC): 6 4 Steps (QC): 6 12 Steps (QC): 6 Picking up an Object (QC): 6 Does the Pt use WC or Scooter?: No Wheel 50 feet with 2 turns (QC: 9 Type: N/A Wheel 150 feet: 9 Type: N/A PT Plan Problem List Problem List: Activity Tolerance, Functional Strength, Safety, Balance, Gait, Transfer, Bed Mobility Treatment/Plan Treatment Plan: Continue Plan of Care Treatment Plan: Bed Mobility, Education, Functional Activity Marissa, Functional Strength, Group Therapy, Gait, Safety, Therapeutic Exercise, Transfers Treatment Duration: Jul 29, 2019 Frequency: At least 5 of 7 days/Wk (IRF) Estimated Hrs Per Day: 1.5 hours per day Patient and/or Family Agrees t: Yes Safety Risks/Education Patient Education: Gait Training, Transfer Techniques, Correct Positioning, Safety Issues Teaching Recipient: Patient Teaching Methods: Demonstration, Discussion Response to Teaching: Reinforcement Needed Time/GCodes Time In: 1300 Time Out: 1320 Total Billed Treatment Time: 20 Total Billed Treatment 1 visit GT 20' CORY CANNON PT Jul 21, 2019 13:23
--- NOTE | 2019-07-21 15:07 | Speech Therapy Daily Note ---
Speech Daily Progress Note Subjective Date Seen by Provider: Jul 21, 2019 Time Seen by Provider: 00:30 Patient was resting in her recliner. She reported she walked "good" today. Objective Patient completed a series of problem solving scenarios presented verbally with 85% accuracy given minimal cues. Assessment Assessment Current Status: Good Progress Treatment Plan Continue Plan of Care Speech Short Term Goals Short Term Goals Short Term Goals 1) Patient will complete memory tasks related to her daily needs with 80-90% given minimal cues. 2) Patient will complete problem solving tasks related to her daily needs with 80-90% given minimal cues. 3) Patient will complete safety awareness tasks related to her daily needs with 80-90% given minimal cues. Speech Therapeutic Recreation Specialist Goals Therapeutic Recreation Specialist Goals Patient will improve cognitive-communication necessary for safety and daily living tasks with minimal assist. Speech-Plan Patient/Family Goals Patient/Family Goals: Patient plans on returning to her home where she lives with her . They receive staff assistance for their needs. Treatment Plan Speech Therapy Treatment Plan: Continue Plan of Care Treatment Duration: Jul 22, 2019 Frequency: 5 times per week Estimated Hrs Per Day: .5 hour per day Rehab Potential: Good Barriers to Learning: Patient's recent CVA, inellectually challenged Pt/Family Agrees to Plan: Yes Safety Risks/Education Teaching Recipient: Patient Teaching Methods: Demonstration, Discussion Response to Teaching: Verbalize Understanding, Return Demonstration Education Topics Provided: Continued safety within her room and communication of wants/needs Time Speech Therapy Time In: 14:00 Speech Therapy Time Out: 14:30 Total Billed Time: 30 Billed Treatment Time 1ANDREEA [address] ST Jul 21, 2019 15:07
[2019-07-21 17:36] VITALS: BP 124/70
[2019-07-21] MEDS: FENOFIBRATE 134 MG (LOFIBRA) CAPSULE PO SCH (18:06)
[2019-07-21] MEDS: ACETAMINOPHEN 325 MG TABLET PO PRN (21:24)
[2019-07-21] MEDS: SIMvastatin 10 MG (ZOCOR) TAB PO SCH (21:25)
[2019-07-22 06:00] VITALS: BP 115/69
[2019-07-22] MEDS: SUCRALFATE 1 GM (CARAFATE) TAB PO SCH ×4 (06:04→20:32)
[2019-07-22] MEDS: MULTIVIT W/MINERALS TAB (THERAGRAN M) PO SCH (06:04)
--- NOTE | 2019-07-22 06:44 | PM&R Progress Note ---
Subjective HPI/CC On Admission Date Seen by Provider: Jul 22, 2019 Time Seen by Provider: 10:00 Subjective/Events-last exam Pt having no new complaints and working with ST when I walked in Working with PT and OT and participating well Bowels are moving Tolerating Eliquis 2.5 Mg BID without any difficulty or bleeding problems No Falls Walks with walker Conferred with RN Checked meds and labs Reviewed therapy notes Review of Systems Musculoskeletal: leg pain Neurological: Weakness, Numbness, Incoordination Objective Exam Vital Signs Vital Signs Date Time Temp Pulse Resp B/P (MAP) Pulse Ox O2 Delivery O2 Flow Rate FiO2 07/22/19 06:00 36.2 69 18 115/69 (84) 98 Room Air Capillary Refill : Less Than 3 Seconds General Appearance: No Apparent Distress, WD/WN, Chronically ill HEENT: PERRL/EOMI, Normal ENT Inspection, Pharynx Normal Neck: Full Range of Motion, Normal Inspection, Non Tender, Supple, Carotid Bruit Respiratory: Chest Non Tender, Lungs Clear, Normal Breath Sounds, No Accessory Muscle Use, No Respiratory Distress Cardiovascular: Regular Rate, Rhythm, No Edema, No Gallop, No JVD, No Murmur, Normal Peripheral Pulses Gastrointestinal: Normal Bowel Sounds, No Organomegaly, No Pulsatile Mass, Non Tender, Soft Back: Normal Inspection, No CVA Tenderness, No Vertebral Tenderness Extremity: Normal Capillary Refill, Normal Inspection, Normal Range of Motion, Non Tender, No Calf Tenderness, No Pedal Edema Neurologic/Psychiatric: Alert, Oriented x3, Normal Mood/Affect, managing partner II-XII Norm as Tested, Motor Weakness (right hand 4/5 right leg 3/5) Skin: Normal Color, Warm/Dry Lymphatic: No Adenopathy Results/Procedures Lab Patient resulted labs reviewed. FIM Transfers Therapy Code Descriptions/Definitions Functional [place] Measure: 0=Not Assessed/NA 4=Minimal Assistance 1=Total Assistance 5=Supervision or Setup 2=Maximal Assistance 6=Modified [place] 3=Moderate Assistance 7=Complete IndependenceSCALE: Activities may be completed with or without assistive devices. 4-Qbjoplutzy-pzirmyr completes the activity by him/herself with no assistance from a helper. 5-Set-up or Clean-up Assistance-helper sets up or cleans up; patient completes activity. [place] assists only prior to or following the activity. 4-Supervision or Touching Assistance-helper provides verbal cues and/or touching/steadying and/or contact guard assistance as patient completes activity. Assistance may be provided throughout the activity or intermittently. 3-Partial/Moderate Assistance-helper does LESS THAN HALF the effort. [place] lifts, holds or supports trunk or limbs, but provides less than half the effort. 2-Substantial/Maximal Assistance-helper does MORE THAN HALF the effort. [place] lifts or holds trunk or limbs and provides more than half the effort. 5-Ehuilkdta-oesirj does ALL the effort. Patient does none of the effort to complete the activity. Or, the assistance of 2 or more helpers is required for the patient to complete the activity. If activity was not attempted, code reason: 7-Patient Refused. 9-Not Applicable-not attempted and the patient did not perform the activity before the current illness, exacerbation or injury. 10-Not Attempted due to Environmental Limitations-(lack of equipment, weather restraints, etc.). 88-Not Attempted due to Medical Conditions or Safety Concerns. Roll Left to Right (QC): 6 Sit to Lying (QC): 6 Sit to Stand (QC): 4 Chair/Zoj-wv-Kvyeg Xfer(QC): 4 Car Transfer (QC): 4 Gait Training Does the Patient Walk?: Yes Distance: 150'x2 Walk 10 feet (QC): 4 Walk 50 ft with 2 Turns(QC): 4 Walk 150 ft (QC): 4 Walking 10ft/uneven surface-QC: 4 Gait Persons Needed: 1 Gait Assistive Device: FWW Wheelchair Training Does the Pt Use a Wheelchair?: No Wheel 50 ft with 2 turns (QC): 9 Wheel 150 ft (QC): 9 Type of Wheelchair: N/A Stair Training #of Steps: 1 1 Step (curb) (QC): 4 4 Steps (QC): 88 12 Steps (QC): 88 Balance Picking up an Object (QC): 4 ADL-Treatment Eating (QC): 6 Oral Hygiene (QC): 7 Bathing Location: L Arm, R Arm, L Upper Leg, R Upper Leg, L Lower Leg (including foot), R Lower Leg (including foot), Chest, Abdomen, Buttocks, Perineal Area Shower/Bathe Self (QC): 7 Upper Body Dressing (QC): 6 (gathers shirt and dons, does not attempt bra as already donned.) Lower Body Dressing (QC): 4 (SBA during doffing/ donning) On/Off Footwear (QC): 3 (min A during R LE shoe donning (pt does not attempt sock doffing/ donning nor AFO as already donned). ) Toileting Hygiene (QC): 4 (SUP) Toilet Transfer (QC): 4 (SUP) Assessment/Plan Assessment and Plan Assess & Plan/Chief Complaint Assessment: CVA s/p tPA [facility] 07/13/19 then sent to [facility] Intellectual disability high functioning HTN CRI Anemia nl iron level HLP PAF now placed on OAC Right sided weakness Plan: IRF protocol Iron level Dr Hutchins appreciated Lovenox DC Eliquis 2.5mg PO BID (1) CVA (cerebral vascular accident) (2) Intellectual disability (3) Hyperlipemia (4) Atrial fib/flutter, transient (5) CAD (coronary artery disease) (6) GERD (gastroesophageal reflux disease) (7) HTN (hypertension) Status: Acute CARLOS ABREU DO Jul 22, 2019 06:44
[2019-07-22 08:00] VITALS: BP_SYST 109; BP_SYST 138; BP_DIAS 58; BP_DIAS 73
--- NOTE | 2019-07-22 08:00 | NUR ---
STATES FEELS RIGHT ARM ABOUT BACK TO NORMAL, BUT RIGHT LEG IS STILL WEAK. PLEASANT AND COOPERATIVE. DENIES PAIN OR OTHER COMPLAINTS.
[2019-07-22] MEDS: FUROSEMIDE 20 MG (LASIX) TAB PO SCH (08:13)
[2019-07-22] MEDS: APIXABAN 2.5 MG (ELIQUIS) TABLET PO SCH ×2 (08:13→20:33)
[2019-07-22] MEDS: CARVEDILOL 12.5 MG (COREG) TABLET PO SCH ×2 (08:13→17:18)
[2019-07-22] MEDS: lisINopril 10 MG (PRINIVIL) TABLET PO SCH (08:13)
[2019-07-22] MEDS: ASPIRIN E.C. 81 MG (ECOTRIN) TAB PO SCH (08:13)
[2019-07-22] MEDS: PANTOPRAZOLE 40 MG (PROTONIX) TAB PO SCH ×2 (08:13→20:33)
[2019-07-22] MEDS: ACETAMINOPHEN 325 MG TABLET PO PRN ×2 (08:13→15:51)
[2019-07-22] MEDS: FERROUS SULF 325 MG (IRON) TAB PO SCH (08:13)
[2019-07-22] MEDS: SENNA W/DOCUSATE (SENOKOT S) TABLET PO SCH ×2 (09:00→20:32)
[2019-07-22] MEDS: polyethylene glycoL POWDER 17 GM (MIRALAX) PACK PO SCH ×2 (09:00→20:33)
[2019-07-22] MEDS: DOCUSATE SODIUM 100 MG (COLACE) CAP PO SCH ×2 (09:00→20:33)
--- NOTE | 2019-07-22 09:13 | Occupational Ther Daily Note ---
OT Current Status-Daily Note Subjective [id number]: Pt seen in recliner chair, agrees to therapy. Pt states pain in R upper thigh, nursing aware. [id number]: Pt seen in recliner, agrees to therapy, does not state pain. Nursig present. ADL-Treatment Therapy Code Descriptions/Definitions Functional [place] Measure: 0=Not Assessed/NA 4=Minimal Assistance 1=Total Assistance 5=Supervision or Setup 2=Maximal Assistance 6=Modified [place] 3=Moderate Assistance 7=Complete IndependenceSCALE: Activities may be completed with or without assistive devices. 2-Vxwvkgsvrw-tjosdsf completes the activity by him/herself with no assistance from a helper. 5-Set-up or Clean-up Assistance-helper sets up or cleans up; patient completes activity. [place] assists only prior to or following the activity. 4-Supervision or Touching Assistance-helper provides verbal cues and/or torsten raquel/steadying and/or contact guard assistance as patient completes activity. Assistance may be provided throughout the activity or intermittently. 3-Partial/Moderate Assistance-helper does LESS THAN HALF the effort. [place] lifts, holds or supports trunk or limbs, but provides less than half the effort. 2-Substantial/Maximal Assistance-helper does MORE THAN HALF the effort. [place] lifts or holds trunk or limbs and provides more than half the effort. 8-Xzcvehypc-fgzgwr does ALL the effort. Patient does none of the effort to complete the activity. Or, the assistance of 2 or more helpers is required for the patient to complete the activity. If activity was not attempted, code reason: 7-Patient Refused. 9-Not Applicable-not attempted and the patient did not perform the activity before the current illness, exacerbation or injury. 10-Not Attempted due to Environmental Limitations-(lack of equipment, weather restraints, etc.). 88-Not Attempted due to Medical Conditions or Safety Concerns. Eating (QC): 6 Oral Hygiene (QC): 4 (SBA standing at sink.) Bathing Location: L Arm, R Arm, L Upper Leg, R Upper Leg, L Lower Leg (including foot), R Lower Leg (including foot), Chest, Abdomen, Buttocks, Perineal Area Shower/Bathe Self (QC): 4 (SBA shower transfer and in stanceSUP showering while seated on sc.) Upper Body Dressing (QC): 6 (IND) Lower Body Dressing (QC): 4 (SBA) On/Off Footwear: 4 (SBA and min vc (for donning AFO), completes socks, AFO, and shoes with IND.) Toileting Hygiene (QC): 4 (SBA) Toilet Transfer (QC): 4 (SBA, use of 2WW) Other Treatment Pt completes UE exercises from memory from yesterday's tx: pt able to complete 2 exercises w/ min cues. Pt requires physical and demonstrative cues for placement/ positioning for additional exercise. Pt completes 15-20 reps bilaterally of the 3 exercises with emphasis on strength/ endurance training for fx activity tolerance. Pt sit to stand SBA and transfers to ar with SBA with use of 2WW. Completes ADLs in shower as above. Pt returns to recliner, completes donning hearing aides and necklaces (completes with good fine motor activation and coordination with bilateral manipulation continually). Pt left in recliner with all needs met, call light in reach. [id number]: Pt sits to complete fine motor manipulation task to increase pincer and fine motor control, completes with good control. Pt states she enjoys sewing at home. Pt educate on the benefits of fine motor tasks and additional activities to include within HEP to continue increasing functional hand endurance/ motor control. Pt left in recliner with all needs met, call light in reach. Education OT Patient Education: Correct positioning, Exercise program, Home exercise program, Modified ADL techniques, Progress toward Goal/Update tx plan, Purpose of tx/functional activities Teaching Recipient: Patient Teaching Methods: Demonstration, Discussion Response to Teaching: Verbalize Understanding, Return Demonstration, Reinforcement Needed OT Fpc Goals Fpc Goals Time Frame: Jul 29, 2019 Eating (QC): 6 Oral Hygiene (QC): 6 Toileting Hygiene (QC): 6 Shower/Bathe Self (QC): 5 Upper Body Dressing (QC): 6 Lower Body Dressing (QC): 6 On/Off Footwear (QC): 6 Additional Goals: 1-Demonstrate ADL Tasks, 2-Verbalize Understanding, 3-ImproveStrength/Marissa 1=Demonstrate adherence to instructed precautions during ADL tasks. 2=Patient will verbalize/demonstrate understanding of assistive devices/modifications for ADL. 3=Patient will improve strength/tolerance for activity to enable patient to perform ADL's. OT Education/Plan Problem List/Assessment Assessment: Decreased Activ Tolerance, Decreased UE Strength, Impaired Cognition, Impaired I ADL's, Impaired Self-Care Skills Discharge Recommendations Plan/Recommendations: Continue POC Treatment Plan/Plan of Care Treatment,Training & Education: Yes Patient would benefit from OT for education, treatment and training to promote independence in ADL's, mobility, safety and/or upper extremity function for ADL's. Plan of Care: ADL Retraining, Functional Mobility, Group Exercise/Act as Ind, UE Funct Exercise/Act Treatment Duration: Jul 29, 2019 Frequency: At least 5 of 7 days/Wk (IRF) Estimated Hrs Per Day: 1.5 hours per day Rehab Potential: Good Time/GCodes Start Time: 08:00 (1130) Stop Time: 09:00 (1145) Total Time Billed (hr/min): 75 (60+15) Billed Treatment Time [id number]: 1, EX (10), ADL (50)= 60 [id number]: 1, NM (15) Total: 75 RAINA MARTÍNEZ OTR Jul 22, 2019 09:13
--- NOTE | 2019-07-22 10:02 | Physical Therapy Daily Note ---
PT Daily Note-Current Subjective Pt. is very pleasant and cooperative. Smiles and makes simple conversation. No c/o pain or discomfort. Happy about her progress, proud to say she can don her AFO independently Pain Location: No Pain Reported Mental Status Patient Orientation: Person, Place, Time, Situation Attachments: Other-See Comments (AFO R foot) Transfers SCALE: Activities may be completed with or without assistive devices. 4-Ywhjiphbfj-iljbfef completes the activity by him/herself with no assistance from a helper. 5-Set-up or Clean-up Assistance-helper sets up or cleans up; patient completes activity. [place] assists only prior to or following the activity. 4-Supervision or Touching Assistance-helper provides verbal cues and/or touching/steadying and/or contact guard assistance as patient completes activity. Assistance may be provided throughout the activity or intermittently. 3-Partial/Moderate Assistance-helper does LESS THAN HALF the effort. [place] lifts, holds or supports trunk or limbs, but provides less than half the effort. 2-Substantial/Maximal Assistance-helper does MORE THAN HALF the effort. [place] lifts or holds trunk or limbs and provides more than half the effort. 2-Wggvmavoc-umqagz does ALL the effort. Patient does none of the effort to complete the activity. Or, the assistance of 2 or more helpers is required for the patient to complete the activity. If activity was not attempted, code reason: 7-Patient Refused. 9-Not Applicable-not attempted and the patient did not perform the activity before the current illness, exacerbation or injury. 10-Not Attempted due to Environmental Limitations-(lack of equipment, weather restraints, etc.). 88-Not Attempted due to Medical Conditions or Safety Concerns. Roll Left & Right (QC): 6 Sit to Lying (QC): 6 Lying to Sitting/Side of Bed(Q: 6 Sit to Stand (QC): 6 Chair/Gnc-df-Zuiig Xfer(QC): 6 Toilet Transfer (QC): 6 Weight Bearing Right Lower Extremity: Right Full Weight Bearing Left Lower Extremity: Left Full Weight Bearing Gait Training Does the Patient Walk?: Yes Walk 10 feet (QC): 5 Walk 50 ft with 2 Turns(QC): 5 Walk 150 ft (QC): 5 Gait Persons Needed: 1 Gait Assistive Device: FWW gait 300ft, 150x2, uneven step length, R>L looks to floor during gait, feels she needs to stop to gain sight of her goal. Stair Training Stair Training: Handrails/: 2 handrails #of Steps: 4 4 Steps (QC): 4 Stairs: Pattern: Step to needs instruction for sequence and hand rails and safety Exercises Supine Ex: Bridging, Ankle pumps (R HC stretches), Quad Set, Rolling, Glut sets, Heel Slides, Short Arc Quads, Scooting, Straight leg raise, Hip abd/add Supine Reps: 20 Seated Therapy Exercises: Ankle pumps, Sit to stand, Long arc quads, Hip flexion, Hip abd/add Seated Reps: 20 Assessment Current Status: Good Progress PT Short Term Goals Short Term Goals Time Frame: Jul 22, 2019 Roll Left & Right: 7 Sit to lyin Lying to sitting on side of be: 7 Sit to stand: 6 PT Purchasing Coordinator Goals Purchasing Coordinator Goals PT Purchasing Coordinator Goals Time Frame: Jul 29, 2019 Roll Left & Right (QC): 7 Sit to Lying (QC): 7 Lying-Sitting on Side/Bed(QC): 7 Sit to Stand (QC): 6 Chair/Tye-bp-Rvjaq Xfer(QC): 6 Toilet Transfer (QC): 6 Car Transfer (QC): 6 Does the Patient Walk: Yes Walk 10 feet (QC): 6 Walk 50ft with 2 Turns (QC): 6 Walk 150 ft (QC): 6 Walking 10ft on Uneven Surface: 6 1 Step (curb) (QC): 6 4 Steps (QC): 6 12 Steps (QC): 6 Picking up an Object (QC): 6 Does the Pt use WC or Scooter?: No Wheel 50 feet with 2 turns (QC: 9 Type: N/A Wheel 150 feet: 9 Type: N/A PT Plan Treatment/Plan Treatment Plan: Continue Plan of Care Treatment Plan: Bed Mobility, Education, Functional Activity Marissa, Functional Strength, Group Therapy, Gait, Safety, Therapeutic Exercise, Transfers Treatment Duration: Jul 29, 2019 Frequency: At least 5 of 7 days/Wk (IRF) Estimated Hrs Per Day: 1.5 hours per day Patient and/or Family Agrees t: Yes Safety Risks/Education Patient Education: Gait Training, Transfer Techniques, Steps, Correct Positioning, Disease Process, Safety Issues Teaching Recipient: Patient Teaching Methods: Demonstration, Discussion Response to Teaching: Verbalize Understanding, Return Demonstration, Reinforcement Needed Time/GCodes Time In: 900 Time Out: 1000 Total Billed Treatment Time: 60 Total Billed Treatment 1,GT15m,EX30m,FA15m GEOVANY CHUA DATA ANALYTICS ARCHITECT Jul 22, 2019 10:02
--- NOTE | 2019-07-22 10:46 | Speech Therapy Daily Note ---
Speech Daily Progress Note Subjective Date Seen by Provider: Jul 22, 2019 Time Seen by Provider: 00:30 Patient was resting in her recliner following her PT session. Objective Patient completed a series of safety awareness scenarios presented verbally with 85% accuracy given minimal cues. Assessment Assessment Current Status: Good Progress Treatment Plan Continue Plan of Care Speech Short Term Goals Short Term Goals Short Term Goals 1) Patient will complete memory tasks related to her daily needs with 80-90% given minimal cues. 2) Patient will complete problem solving tasks related to her daily needs with 80-90% given minimal cues. 3) Patient will complete safety awareness tasks related to her daily needs with 80-90% given minimal cues. Speech Group Home Goals Convenience Store Manager Goals Patient will improve cognitive-communication necessary for safety and daily living tasks with minimal assist. Speech-Plan Patient/Family Goals Patient/Family Goals: Patient plans on returning to her home upon discharge. Treatment Plan Speech Therapy Treatment Plan: Continue Plan of Care Treatment Duration: Jul 22, 2019 Frequency: 5 times per week Estimated Hrs Per Day: .5 hour per day Rehab Potential: Good Barriers to Learning: Patient's recent CVA and intellectual challenges Pt/Family Agrees to Plan: Yes Safety Risks/Education Teaching Recipient: Patient Teaching Methods: Demonstration, Discussion Response to Teaching: Verbalize Understanding, Return Demonstration Education Topics Provided: Continued safety and communication Time Speech Therapy Time In: 10:00 Speech Therapy Time Out: 10:30 Total Billed Time: 30 Billed Treatment Time 1ANDREEA BETHANIA ST Jul 22, 2019 10:46
--- NOTE | 2019-07-22 13:20 | NUR ---
CM/SS PATIENT CARE CONFERENCE SUMMARY Reviewed Summary with patient who is in agreement to continued admission and participation until target discharge of Saturday, July 27, 2019. DME: Patient indicates she will need a FWW. HHC: As previously noted, HHC would be through either of the two agencies in her service area, [facility] or [facility]. She agreed to whichever agency could provide the most timely initiation of services, to be determined. Patient's spouse is calling her daily. She shared they have two young cats that they both enjoy, and that the kitties are missing her and she them. Continue to follow for post hospital care needs.
--- NOTE | 2019-07-22 14:13 | Physical Therapy Daily Note ---
PT Daily Note-Current Subjective Pt. agrees to Rx, wants a folder for her word puzzles. Wants a warm blanket for her feet after Rx. Pain Location: No Pain Reported Mental Status Attachments: Other-See Comments (AFO R) Transfers SCALE: Activities may be completed with or without assistive devices. 7-Pouooysefo-lyobykp completes the activity by him/herself with no assistance from a helper. 5-Set-up or Clean-up Assistance-helper sets up or cleans up; patient completes activity. [place] assists only prior to or following the activity. 4-Supervision or Touching Assistance-helper provides verbal cues and/or [place]/steadying and/or contact guard assistance as patient completes activity. Assistance may be provided throughout the activity or intermittently. 3-Partial/Moderate Assistance-helper does LESS THAN HALF the effort. [place] lifts, holds or supports trunk or limbs, but provides less than half the effort. 2-Substantial/Maximal Assistance-helper does MORE THAN HALF the effort. [place] lifts or holds trunk or limbs and provides more than half the effort. 4-Wrytlcdhf-cnfavw does ALL the effort. Patient does none of the effort to complete the activity. Or, the assistance of 2 or more helpers is required for the patient to complete the activity. If activity was not attempted, code reason: 7-Patient Refused. 9-Not Applicable-not attempted and the patient did not perform the activity before the current illness, exacerbation or injury. 10-Not Attempted due to Environmental Limitations-(lack of equipment, weather restraints, etc.). 88-Not Attempted due to Medical Conditions or Safety Concerns. sit to stand, sup to sit and toilet TRFs all SBA to Mod I Weight Bearing Right Lower Extremity: Right Full Weight Bearing Left Lower Extremity: Left Full Weight Bearing Gait Training Does the Patient Walk?: Yes Gait Assistive Device: FWW 170 ft x 2 SBA to CGA slow, careful with some cuing to try to initiate more even step length Exercises Seated Therapy Exercises: Ankle pumps, Sit to stand, Long arc quads, Hip flexion Seated Reps: 15 NuStep Minutes: 10 NuStep Workload: 3 Assessment Current Status: Good Progress PT Short Term Goals Short Term Goals Time Frame: Jul 22, 2019 Roll Left & Right: 7 Sit to lyin Lying to sitting on side of be: 7 Sit to stand: 6 PT Oven Stripper Goals Alf Goals PT Alf Goals Time Frame: Jul 29, 2019 Roll Left & Right (QC): 7 Sit to Lying (QC): 7 Lying-Sitting on Side/Bed(QC): 7 Sit to Stand (QC): 6 Chair/Mxl-wt-Bmtlr Xfer(QC): 6 Toilet Transfer (QC): 6 Car Transfer (QC): 6 Does the Patient Walk: Yes Walk 10 feet (QC): 6 Walk 50ft with 2 Turns (QC): 6 Walk 150 ft (QC): 6 Walking 10ft on Uneven Surface: 6 1 Step (curb) (QC): 6 4 Steps (QC): 6 12 Steps (QC): 6 Picking up an Object (QC): 6 Does the Pt use WC or Scooter?: No Wheel 50 feet with 2 turns (QC: 9 Type: N/A Wheel 150 feet: 9 Type: N/A PT Plan Treatment/Plan Treatment Plan: Continue Plan of Care Treatment Plan: Bed Mobility, Education, Functional Activity Marissa, Functional Strength, Group Therapy, Gait, Safety, Therapeutic Exercise, Transfers Treatment Duration: Jul 29, 2019 Frequency: At least 5 of 7 days/Wk (IRF) Estimated Hrs Per Day: 1.5 hours per day Patient and/or Family Agrees t: Yes Safety Risks/Education Patient Education: Gait Training, Transfer Techniques Time/GCodes Time In: 1330 Time Out: 1400 Total Billed Treatment Time: 30 Total Billed Treatment 1,GT15m,EX15m GEOVANY CHUA HOME CARE MUSIC THERAPIST Jul 22, 2019 14:13
--- NOTE | 2019-07-22 15:29 | Cardiology Progress Note ---
Subjective Date Seen by Provider: Jul 22, 2019 Time Seen by Provider: 15:28 Subjective/Events-last exam Patient is sitting in a chair. No new complaint. Review of Systems General: No Chills, No Night Sweats, No Fatigue, No Malaise, No Appetite, No Other HEENT: No Head Aches, No Visual Changes, No Eye Pain, No Ear Pain, No Dysphasia, No Sinus Congestion, No Post Nasal Drip, No Sore Throat, No Other Pulmonary: No Dyspnea, No Cough, No Pleuritic Chest Pain, No Other Cardiovascular: No: Chest Pain, Palpitations, Orthopnea, Paroxysmal Noc. Dyspnea, Edema, Lt Headedness, Other Objective-Cardiology Exam Last Set of Vital Signs Vital Signs 07/22/19 07/22/19 06:00 09:00 Temp 36.2 Pulse 69 Resp 18 B/P (MAP) 115/69 (84) Pulse Ox 98 O2 Delivery Room Air Capillary Refill : Less Than 3 Seconds I&O Intake and Output 07/22/19 00:00 Intake Total 1250 ml Balance 1250 ml Intake Oral 1250 ml # Voids 6 # Bowel Movements 1 General: Alert, Oriented X3, Cooperative HEENT: Atraumatic, PERRLA Neck: Supple, No JVD, No Thyromegaly Lungs: Clear to Auscultation, Normal Air Movement Heart: Regular Rate, Normal S1, Normal S2, No Murmurs Abdomen: Normal Bowel Sounds, Soft, No Tenderness, No Hepatosplenomegaly, No Masses Extremities: No Clubbing, No Cyanosis, No Edema, Normal Pulses, No Tenderness/Swelling Skin: No Rashes, No Breakdown, No Significant Lesion Neuro: Normal Gait, Normal Speech, Strength at 5/5 X4 Ext, Normal Tone, Sensation Intact Psych/Mental Status: Mental Status NL, Mood NL A/P-Cardiology Admission Diagnosis Acute CVA Chronic atrial fibrillation Coronary artery disease Hypertension Assessment/Plan Status post acute CVA, received TPA on July 06, 2019, recovering slowly, still have some residual right sided weakness, improving, continue with physical therapy Paroxysmal atrial fibrillation, continue on Eliquis 2.5mg BID and monitor Coronary artery disease, EKG showed sinus tachycardia. Continue to monitor Hypertension, controlled, continue to monitor. Hyperlipidemia, monitor lipids History of intellectual disability. Clinical Quality Measures DVT/VTE Risk/Contraindication: Risk Factor Score Per Nursin RFS Level Per Nursing on Admit: 2=Moderate LOUIS GROSSMAN MD Jul 22, 2019 15:29
--- NOTE | 2019-07-22 16:06 | NUR ---
Pt attends attending [facility] [address] in [place]. They are aware she is here. Pt expressed hope about her situation and seemed self sufficient in meeting her spiritual needs. Funeral Home General Manager offered prayer and blessing.
[2019-07-22 16:45] VITALS: BP 129/81
[2019-07-22] MEDS: FENOFIBRATE 134 MG (LOFIBRA) CAPSULE PO SCH (17:18)
[2019-07-22] MEDS: SIMvastatin 10 MG (ZOCOR) TAB PO SCH (20:33)
[2019-07-23 05:05] VITALS: BP 126/78
[2019-07-23] MEDS: SUCRALFATE 1 GM (CARAFATE) TAB PO SCH ×4 (06:06→21:21)
[2019-07-23] MEDS: MULTIVIT W/MINERALS TAB (THERAGRAN M) PO SCH (06:07)
[2019-07-23 07:55] VITALS: BP 125/73
[2019-07-23] MEDS: DOCUSATE SODIUM 100 MG (COLACE) CAP PO SCH ×2 (07:56→21:22)
[2019-07-23] MEDS: PANTOPRAZOLE 40 MG (PROTONIX) TAB PO SCH ×2 (07:56→21:21)
[2019-07-23] MEDS: CARVEDILOL 12.5 MG (COREG) TABLET PO SCH ×2 (07:56→17:15)
[2019-07-23] MEDS: APIXABAN 2.5 MG (ELIQUIS) TABLET PO SCH ×2 (07:56→21:21)
[2019-07-23] MEDS: FERROUS SULF 325 MG (IRON) TAB PO SCH (07:56)
[2019-07-23] MEDS: lisINopril 10 MG (PRINIVIL) TABLET PO SCH (07:56)
[2019-07-23] MEDS: FUROSEMIDE 20 MG (LASIX) TAB PO SCH (07:56)
[2019-07-23] MEDS: ASPIRIN E.C. 81 MG (ECOTRIN) TAB PO SCH (07:56)
--- NOTE | 2019-07-23 07:56 | PM&R Progress Note ---
Subjective HPI/CC On Admission Date Seen by Provider: Jul 23, 2019 Time Seen by Provider: 13:10 Subjective/Events-last exam Pt having no new complaints and eating lunch without difficulty Working with PT and OT and participating well Bowels are moving Tolerating Eliquis 2.5 Mg BID without any difficulty or bleeding problems No falls DC planned for next week I met her of 20 yrs Walks with walker Conferred with RN Checked meds and labs Reviewed therapy notes Review of Systems Musculoskeletal: leg pain Neurological: Weakness, Numbness, Incoordination Objective Exam Vital Signs Vital Signs Date Time Temp Pulse Resp B/P (MAP) Pulse Ox O2 Delivery O2 Flow Rate FiO2 07/23/19 09:25 Room Air 07/23/19 07:55 83 125/73 (90) 07/23/19 05:05 36.1 16 96 Capillary Refill : Less Than 3 Seconds General Appearance: No Apparent Distress, WD/WN, Chronically ill HEENT: PERRL/EOMI, Normal ENT Inspection, Pharynx Normal Neck: Full Range of Motion, Normal Inspection, Non Tender, Supple, Carotid Bruit Respiratory: Chest Non Tender, Lungs Clear, Normal Breath Sounds, No Accessory Muscle Use, No Respiratory Distress Cardiovascular: Regular Rate, Rhythm, No Edema, No Gallop, No JVD, No Murmur, Normal Peripheral Pulses Gastrointestinal: Normal Bowel Sounds, No Organomegaly, No Pulsatile Mass, Non Tender, Soft Back: Normal Inspection, No CVA Tenderness, No Vertebral Tenderness Extremity: Normal Capillary Refill, Normal Inspection, Normal Range of Motion, Non Tender, No Calf Tenderness, No Pedal Edema Neurologic/Psychiatric: Alert, Oriented x3, Normal Mood/Affect, hand spinner II-XII Norm as Tested, Motor Weakness (right hand 4/5 right leg 3/5) Skin: Normal Color, Warm/Dry Lymphatic: No Adenopathy Results/Procedures Lab Patient resulted labs reviewed. FIM Transfers Therapy Code Descriptions/Definitions Functional [place] Measure: 0=Not Assessed/NA 4=Minimal Assistance 1=Total Assistance 5=Supervision or Setup 2=Maximal Assistance 6=Modified [place] 3=Moderate Assistance 7=Complete IndependenceSCALE: Activities may be completed with or without assistive devices. 5-Srfgzlmmfs-qlzalus completes the activity by him/herself with no assistance from a helper. 5-Set-up or Clean-up Assistance-helper sets up or cleans up; patient completes activity. [place] assists only prior to or following the activity. 4-Supervision or Touching Assistance-helper provides verbal cues and/or touching/steadying and/or contact guard assistance as patient completes activity. Assistance may be provided throughout the activity or intermittently. 3-Partial/Moderate Assistance-helper does LESS THAN HALF the effort. [place] lifts, holds or supports trunk or limbs, but provides less than half the effort. 2-Substantial/Maximal Assistance-helper does MORE THAN HALF the effort. [place] lifts or holds trunk or limbs and provides more than half the effort. 8-Phctvteni-stkjcg does ALL the effort. Patient does none of the effort to complete the activity. Or, the assistance of 2 or more helpers is required for the patient to complete the activity. If activity was not attempted, code reason: 7-Patient Refused. 9-Not Applicable-not attempted and the patient did not perform the activity before the current illness, exacerbation or injury. 10-Not Attempted due to Environmental Limitations-(lack of equipment, weather restraints, etc.). 88-Not Attempted due to Medical Conditions or Safety Concerns. Roll Left to Right (QC): 6 Sit to Lying (QC): 6 Sit to Stand (QC): 6 Chair/Tsp-gz-Wdiar Xfer(QC): 6 Car Transfer (QC): 4 Gait Training Does the Patient Walk?: Yes Distance: 150'x2 Walk 10 feet (QC): 5 Walk 50 ft with 2 Turns(QC): 5 Walk 150 ft (QC): 5 Walking 10ft/uneven surface-QC: 4 Gait Persons Needed: 1 Gait Assistive Device: FWW Wheelchair Training Does the Pt Use a Wheelchair?: No Wheel 50 ft with 2 turns (QC): 9 Wheel 150 ft (QC): 9 Type of Wheelchair: N/A Stair Training Stair Training: Handrails/: 2 handrails #of Steps: 4 1 Step (curb) (QC): 4 4 Steps (QC): 4 12 Steps (QC): 88 Stairs: Pattern: Step to Balance Picking up an Object (QC): 4 ADL-Treatment Eating (QC): 6 Oral Hygiene (QC): 4 (SBA standing at sink.) Bathing Location: L Arm, R Arm, L Upper Leg, R Upper Leg, L Lower Leg (including foot), R Lower Leg (including foot), Chest, Abdomen, Buttocks, Perineal Area Shower/Bathe Self (QC): 4 (SBA shower transfer and in stanceSUP showering while seated on sc.) Upper Body Dressing (QC): 6 (IND) Lower Body Dressing (QC): 4 (SBA) On/Off Footwear (QC): 4 (SBA and min vc (for donning AFO), completes socks, AFO, and shoes with IND.) Toileting Hygiene (QC): 4 (SBA) Toilet Transfer (QC): 4 (SBA, use of 2WW) Assessment/Plan Assessment and Plan Assess & Plan/Chief Complaint Assessment: CVA s/p tPA [place] [facility] 07/13/19 then sent to [facility] Intellectual disability high functioning HTN CRI Anemia nl iron level HLP PAF now placed on OAC Right sided weakness Plan: IRF protocol Iron level Dr Hutchins appreciated Lovenox DC Eliquis 2.5mg PO BID (1) CVA (cerebral vascular accident) (2) Intellectual disability (3) Hyperlipemia (4) Atrial fib/flutter, transient (5) CAD (coronary artery disease) (6) GERD (gastroesophageal reflux disease) (7) HTN (hypertension) Status: Acute CARLOS ABREU DO Jul 23, 2019 07:56
[2019-07-23] MEDS: polyethylene glycoL POWDER 17 GM (MIRALAX) PACK PO SCH ×2 (07:57→21:22)
[2019-07-23] MEDS: SENNA W/DOCUSATE (SENOKOT S) TABLET PO SCH ×2 (07:57→21:22)
--- NOTE | 2019-07-23 11:58 | Physical Therapy Daily Note ---
PT Daily Note-Current Subjective Pt up in recliner upon arrival. Pt agrees to PT tx. Pain Numeric Pain Scale: 0-No Pain Location: No Pain Reported Mental Status Patient Orientation: Person, Situation Attachments: Other-See Comments (AFO for RLE) Transfers SCALE: Activities may be completed with or without assistive devices. 8-Kmlgtvysnu-ucehbps completes the activity by him/herself with no assistance from a helper. 5-Set-up or Clean-up Assistance-helper sets up or cleans up; patient completes activity. [place] assists only prior to or following the activity. 4-Supervision or Touching Assistance-helper provides verbal cues and/or touching/steadying and/or contact guard assistance as patient completes activity. Assistance may be provided throughout the activity or intermittently. 3-Partial/Moderate Assistance-helper does LESS THAN HALF the effort. [place] lifts, holds or supports trunk or limbs, but provides less than half the effort. 2-Substantial/Maximal Assistance-helper does MORE THAN HALF the effort. [place] lifts or holds trunk or limbs and provides more than half the effort. 3-Nztldqudy-pfuvmw does ALL the effort. Patient does none of the effort to complete the activity. Or, the assistance of 2 or more helpers is required for the patient to complete the activity. If activity was not attempted, code reason: 7-Patient Refused. 9-Not Applicable-not attempted and the patient did not perform the activity before the current illness, exacerbation or injury. 10-Not Attempted due to Environmental Limitations-(lack of equipment, weather restraints, etc.). 88-Not Attempted due to Medical Conditions or Safety Concerns. Weight Bearing Right Lower Extremity: Right Full Weight Bearing Left Lower Extremity: Left Full Weight Bearing Exercises Supine Ex: Ankle pumps, Heel Slides (20) Supine Reps: 20 Seated Therapy Exercises: Ankle pumps, Sit to stand (15), Long arc quads, Kicking activity, Hip abd/add (manual resistance) Seated Reps: 20 Treatments Supine and Seated ex completed. Pt wears AFO on RLE. Pt able to scoot self forward/backward in recliner independently. Pt in recliner w/ call light and bed side table w/in reach and all needs met at end of tx. Assessment Current Status: Fair Progress Pt completes all ex w/out any objections or complaints. Pt cheerful and optimistic. PT Short Term Goals Short Term Goals Time Frame: Jul 22, 2019 Roll Left & Right: 7 Sit to lyin Lying to sitting on side of be: 7 Sit to stand: 6 PT Track Laying Equipment Operator Goals Fpc Goals PT Fpc Goals Time Frame: Jul 29, 2019 Roll Left & Right (QC): 7 Sit to Lying (QC): 7 Lying-Sitting on Side/Bed(QC): 7 Sit to Stand (QC): 6 Chair/Oor-hs-Lywen Xfer(QC): 6 Toilet Transfer (QC): 6 Car Transfer (QC): 6 Does the Patient Walk: Yes Walk 10 feet (QC): 6 Walk 50ft with 2 Turns (QC): 6 Walk 150 ft (QC): 6 Walking 10ft on Uneven Surface: 6 1 Step (curb) (QC): 6 4 Steps (QC): 6 12 Steps (QC): 6 Picking up an Object (QC): 6 Does the Pt use WC or Scooter?: No Wheel 50 feet with 2 turns (QC: 9 Type: N/A Wheel 150 feet: 9 Type: N/A PT Plan Problem List Problem List: Activity Tolerance, Functional Strength, Safety, Transfer, ROM Treatment/Plan Treatment Plan: Continue Plan of Care Treatment Plan: Bed Mobility, Education, Functional Activity Marissa, Functional Strength, Group Therapy, Gait, Safety, Therapeutic Exercise, Transfers Treatment Duration: Jul 29, 2019 Frequency: At least 5 of 7 days/Wk (IRF) Estimated Hrs Per Day: 1.5 hours per day Patient and/or Family Agrees t: Yes Safety Risks/Education Patient Education: Correct Positioning, Safety Issues Teaching Recipient: Patient Teaching Methods: Discussion Response to Teaching: Verbalize Understanding Time/GCodes Time In: 1057 Time Out: 1157 Total Billed Treatment Time: 10 Total Billed Treatment 1, Ex (10m) JENISE MONTILLA FINISHING SUPERVISOR Jul 23, 2019 11:58
--- NOTE | 2019-07-23 13:36 | Cardiology Progress Note ---
Subjective Date Seen by Provider: Jul 23, 2019 Time Seen by Provider: 13:35 Subjective/Events-last exam Patient is laying down in a recliner, feeling well. Improving Review of Systems General: No Chills, No Night Sweats, No Fatigue, No Malaise, No Appetite, No Other HEENT: No Head Aches, No Visual Changes, No Eye Pain, No Ear Pain, No Dysphasia, No Sinus Congestion, No Post Nasal Drip, No Sore Throat, No Other Pulmonary: No Dyspnea, No Cough, No Pleuritic Chest Pain, No Other Cardiovascular: No: Chest Pain, Palpitations, Orthopnea, Paroxysmal Noc. Dyspnea, Edema, Lt Headedness, Other Objective-Cardiology Exam Last Set of Vital Signs Vital Signs 07/23/19 07/23/19 07/23/19 05:05 07:55 09:25 Temp 36.1 Pulse 83 Resp 16 B/P (MAP) 125/73 (90) Pulse Ox 96 O2 Delivery Room Air Capillary Refill : Less Than 3 Seconds I&O Intake and Output 07/23/19 00:00 Intake Total 1740 ml Balance 1740 ml Intake Oral 1740 ml # Voids 4 General: Alert, Oriented X3, Cooperative HEENT: Atraumatic, PERRLA Neck: Supple, No JVD, No Thyromegaly Lungs: Clear to Auscultation, Normal Air Movement Heart: Regular Rate, Normal S1, Normal S2, No Murmurs Abdomen: Normal Bowel Sounds, Soft, No Tenderness, No Hepatosplenomegaly, No Masses Extremities: No Clubbing, No Cyanosis, No Edema, Normal Pulses, No Tenderness /Swelling Skin: No Rashes, No Breakdown, No Significant Lesion Neuro: Normal Gait, Normal Speech, Strength at 5/5 X4 Ext, Normal Tone, Sensation Intact Psych/Mental Status: Mental Status NL, Mood NL A/P-Cardiology Admission Diagnosis Acute CVA Chronic atrial fibrillation Coronary artery disease Hypertension Assessment/Plan Status post acute CVA, received TPA on July 06, 2019, recovering slowly, still have some residual right sided weakness, improving, continue with physical therapy Paroxysmal atrial fibrillation, continue on Eliquis 2.5mg BID and monitor Coronary artery disease, EKG showed sinus tachycardia. Continue to monitor Hypertension, controlled, continue to monitor. Hyperlipidemia, monitor lipids History of intellectual disability. Clinical Quality Measures DVT/VTE Risk/Contraindication: Risk Factor Score Per Nursin RFS Level Per Nursing on Admit: 2=Moderate LOUIS GROSSMAN MD Jul 23, 2019 13:36
[2019-07-23 16:30] VITALS: BP 106/62
[2019-07-23] MEDS: FENOFIBRATE 134 MG (LOFIBRA) CAPSULE PO SCH (17:15)
[2019-07-23] MEDS: SIMvastatin 10 MG (ZOCOR) TAB PO SCH (21:21)
[2019-07-24 06:00] VITALS: BP 142/75
[2019-07-24] MEDS: SUCRALFATE 1 GM (CARAFATE) TAB PO SCH ×4 (06:11→21:52)
[2019-07-24] MEDS: MULTIVIT W/MINERALS TAB (THERAGRAN M) PO SCH (06:11)
[2019-07-24] MEDS: ASPIRIN E.C. 81 MG (ECOTRIN) TAB PO SCH (08:00)
[2019-07-24] MEDS: APIXABAN 2.5 MG (ELIQUIS) TABLET PO SCH ×2 (08:00→21:52)
[2019-07-24] MEDS: CARVEDILOL 12.5 MG (COREG) TABLET PO SCH ×2 (08:00→17:09)
[2019-07-24] MEDS: lisINopril 10 MG (PRINIVIL) TABLET PO SCH (08:00)
[2019-07-24] MEDS: PANTOPRAZOLE 40 MG (PROTONIX) TAB PO SCH ×2 (08:00→21:52)
[2019-07-24] MEDS: FUROSEMIDE 20 MG (LASIX) TAB PO SCH (08:00)
[2019-07-24] MEDS: FERROUS SULF 325 MG (IRON) TAB PO SCH (08:00)
[2019-07-24] MEDS: SENNA W/DOCUSATE (SENOKOT S) TABLET PO SCH (08:01)
[2019-07-24] MEDS: polyethylene glycoL POWDER 17 GM (MIRALAX) PACK PO SCH (08:01)
[2019-07-24] MEDS: DOCUSATE SODIUM 100 MG (COLACE) CAP PO SCH (08:01)
[2019-07-24 08:02] VITALS: BP 117/71
--- NOTE | 2019-07-24 11:45 | Cardiology Progress Note ---
Subjective Date Seen by Provider: Jul 24, 2019 Time Seen by Provider: 11:45 Subjective/Events-last exam Patient is sitting comfortably in bed, denied any chest pain, improving. Review of Systems General: No Chills, No Night Sweats, No Fatigue, No Malaise, No Appetite, No Other HEENT: No Head Aches, No Visual Changes, No Eye Pain, No Ear Pain, No Dysphasia, No Sinus Congestion, No Post Nasal Drip, No Sore Throat, No Other Pulmonary: No Dyspnea, No Cough, No Pleuritic Chest Pain, No Other Cardiovascular: No: Chest Pain, Palpitations, Orthopnea, Paroxysmal Noc. Dyspnea, Edema, Lt Headedness, Other Objective-Cardiology Exam Last Set of Vital Signs Vital Signs 07/24/19 07/24/19 07/24/19 06:00 08:02 09:31 Temp 36.5 Pulse 86 Resp 20 B/P (MAP) 117/71 (86) Pulse Ox 96 O2 Delivery Room Air Capillary Refill : Less Than 3 Seconds I&O Intake and Output 07/24/19 00:00 Intake Total 1280 ml Balance 1280 ml Intake Oral 1280 ml # Voids 7 # Bowel Movements 7 General: Alert, Oriented X3, Cooperative HEENT: Atraumatic, PERRLA Neck: Supple, No JVD, No Thyromegaly Lungs: Clear to Auscultation, Normal Air Movement Heart: Regular Rate, Normal S1, Normal S2, No Murmurs Abdomen: Normal Bowel Sounds, Soft, No Tenderness, No Hepatosplenomegaly, No Masses Extremities: No Clubbing, No Cyanosis, No Edema, Normal Pulses, No Tenderness/Swelling Skin: No Rashes, No Breakdown, No Significant Lesion Neuro: Normal Gait, Normal Speech, Strength at 5/5 X4 Ext, Normal Tone, Sensation Intact Psych/Mental Status: Mental Status NL, Mood NL A/P-Cardiology Admission Diagnosis Acute CVA Chronic atrial fibrillation Coronary artery disease Hypertension Assessment/Plan Status post acute CVA, received TPA on July 06, 2019, recovering slowly, still have some residual right sided weakness, improving, continue with physical therapy Paroxysmal atrial fibrillation, continue on Eliquis 2.5mg BID and monitor Coronary artery disease, EKG showed sinus tachycardia. Continue to monitor Hypertension, controlled, continue to monitor. Hyperlipidemia, monitor lipids History of intellectual disability. Clinical Quality Measures DVT/VTE Risk/Contraindication: Risk Factor Score Per Nursin RFS Level Per Nursing on Admit: 2=Moderate LOUIS GROSSMAN MD Jul 24, 2019 11:45 am
--- NOTE | 2019-07-24 12:13 | NUR ---
FREQUENT LOOSE STOOLS. DR. ABREU HERE AND INFORMED. ORDERS TO CHANGE COLACE, SENOKOT, AND MIRALAX TO PRN.
--- NOTE | 2019-07-24 12:13 | PM&R Progress Note ---
Subjective HPI/CC On Admission Date Seen by Provider: Jul 24, 2019 Time Seen by Provider: 12:15 Subjective/Events-last exam Pt having no new complaints and eating lunch without difficulty Relaxing today Bowels are moving so will change stool softners to prn since she gets loose quickly Tolerating Eliquis 2.5 Mg BID without any difficulty or bleeding problems No falls DC planned for next week I met her of 20 yrs yesterday Walks with walker Conferred with RN Checked meds and labs Reviewed therapy notes Review of Systems Neurological: Incoordination Objective Exam Vital Signs Vital Signs Date Time Temp Pulse Resp B/P (MAP) Pulse Ox O2 Delivery O2 Flow Rate FiO2 07/24/19 09:31 Room Air 07/24/19 08:02 86 117/71 (86) 07/24/19 06:00 36.5 20 96 Capillary Refill : Less Than 3 Seconds General Appearance: No Apparent Distress, WD/WN, Chronically ill HEENT: PERRL/EOMI, Normal ENT Inspection, Pharynx Normal Neck: Full Range of Motion, Normal Inspection, Non Tender, Supple, Carotid Bruit Respiratory: Chest Non Tender, Lungs Clear, Normal Breath Sounds, No Accessory Muscle Use, No Respiratory Distress Cardiovascular: Regular Rate, Rhythm, No Edema, No Gallop, No JVD, No Murmur, Normal Peripheral Pulses Gastrointestinal: Normal Bowel Sounds, No Organomegaly, No Pulsatile Mass, Non Tender, Soft Back: Normal Inspection, No CVA Tenderness, No Vertebral Tenderness Extremity: Normal Capillary Refill, Normal Inspection, Normal Range of Motion, Non Tender, No Calf Tenderness, No Pedal Edema Neurologic/Psychiatric: Alert, Oriented x3, Normal Mood/Affect, dining room coordinator II-XII Norm as Tested, Motor Weakness (right hand 4/5 right leg 3/5) Skin: Normal Color, Warm/Dry Lymphatic: No Adenopathy Results/Procedures Lab Patient resulted labs reviewed. FIM Transfers Therapy Code Descriptions/Definitions Functional [place] Measure: 0=Not Assessed/NA 4=Minimal Assistance 1=Total Assistance 5=Supervision or Setup 2=Maximal Assistance 6=Modified [place] 3=Moderate Assistance 7=Complete IndependenceSCALE: Activities may be completed with or without assistive devices. 6-Kleyxdkkcr-bchbflz completes the activity by him/herself with no assistance from a helper. 5-Set-up or Clean-up Assistance-helper sets up or cleans up; patient completes activity. [place] assists only prior to or following the activity. 4-Supervision or Touching Assistance-helper provides verbal cues and/or touching/steadying and/or contact guard assistance as patient completes activit y. Assistance may be provided throughout the activity or intermittently. 3-Partial/Moderate Assistance-helper does LESS THAN HALF the effort. [place] lifts, holds or supports trunk or limbs, but provides less than half the effort. 2-Substantial/Maximal Assistance-helper does MORE THAN HALF the effort. [place] lifts or holds trunk or limbs and provides more than half the effort. 1-Lrbvcomjg-hbolhe does ALL the effort. Patient does none of the effort to complete the activity. Or, the assistance of 2 or more helpers is required for the patient to complete the activity. If activity was not attempted, code reason: 7-Patient Refused. 9-Not Applicable-not attempted and the patient did not perform the activity before the current illness, exacerbation or injury. 10-Not Attempted due to Environmental Limitations-(lack of equipment, weather restraints, etc.). 88-Not Attempted due to Medical Conditions or Safety Concerns. Roll Left to Right (QC): 6 Sit to Lying (QC): 6 Sit to Stand (QC): 6 Chair/Bmp-bp-Ggwso Xfer(QC): 6 Car Transfer (QC): 4 Gait Training Does the Patient Walk?: Yes Distance: 150'x2 Walk 10 feet (QC): 5 Walk 50 ft with 2 Turns(QC): 5 Walk 150 ft (QC): 5 Walking 10ft/uneven surface-QC: 4 Gait Persons Needed: 1 Gait Assistive Device: FWW Wheelchair Training Does the Pt Use a Wheelchair?: No Wheel 50 ft with 2 turns (QC): 9 Wheel 150 ft (QC): 9 Type of Wheelchair: N/A Stair Training Stair Training: Handrails/: 2 handrails #of Steps: 4 1 Step (curb) (QC): 4 4 Steps (QC): 4 12 Steps (QC): 88 Stairs: Pattern: Step to Balance Picking up an Object (QC): 4 ADL-Treatment Eating (QC): 6 Oral Hygiene (QC): 4 (SBA standing at sink.) Bathing Location: L Arm, R Arm, L Upper Leg, R Upper Leg, L Lower Leg (including foot), R Lower Leg (including foot), Chest, Abdomen, Buttocks, Perineal Area Shower/Bathe Self (QC): 4 (SBA shower transfer and in stanceSUP showering while seated on sc.) Upper Body Dressing (QC): 6 (IND) Lower Body Dressing (QC): 4 (SBA) On/Off Footwear (QC): 4 (SBA and min vc (for donning AFO), completes socks, AFO, and shoes with IND.) Toileting Hygiene (QC): 4 (SBA) Toilet Transfer (QC): 4 (SBA, use of 2WW) Assessment/Plan Assessment and Plan Assess & Plan/Chief Complaint Assessment: CVA s/p tPA [place] [facility] 07/13/19 then sent to [facility] Intellectual disability high functioning HTN CRI Anemia nl iron level HLP PAF now placed on OAC Right sided weakness Plan: IRF protocol Iron level Dr Hutchins appreciated Lovenox DC Eliquis 2.5mg PO BID (1) CVA (cerebral vascular accident) (2) Intellectual disability (3) Hyperlipemia (4) Atrial fib/flutter, transient (5) CAD (coronary artery disease) (6) GERD (gastroesophageal reflux disease) (7) HTN (hypertension) Status: Acute CARLOS ABREU DO Jul 24, 2019 12:13
[2019-07-24] MEDS ORDERED: polyethylene glycoL POWDER 17 GM (MIRALAX) PACK PO PRN (13:30)
[2019-07-24] MEDS ORDERED: DOCUSATE SODIUM 100 MG (COLACE) CAP PO PRN (13:30)
[2019-07-24] MEDS ORDERED: SENNA W/DOCUSATE (SENOKOT S) TABLET PO PRN (13:30)
[2019-07-24] MEDS: FENOFIBRATE 134 MG (LOFIBRA) CAPSULE PO SCH (17:09)
[2019-07-24 17:15] VITALS: BP 148/85
[2019-07-24] MEDS: SIMvastatin 10 MG (ZOCOR) TAB PO SCH (21:52)
[2019-07-25] MEDS: SUCRALFATE 1 GM (CARAFATE) TAB PO SCH ×4 (05:49→21:05)
[2019-07-25] MEDS: MULTIVIT W/MINERALS TAB (THERAGRAN M) PO SCH (05:49)
[2019-07-25 05:56] LABS: BASOPHILS % (AUTO) 0 % (0-10); EOSINOPHILS # (AUTO) 0.1 10^3/uL (0.0-0.3); EOSINOPHILS % (AUTO) 1 % (0-10); HEMATOCRIT 26 % (35-52); HEMOGLOBIN 8.8 G/DL (11.5-16.0); LYMPHOCYTES # (AUTO) 1.6 X 10^3 (1.0-4.0); LYMPHOCYTES % (AUTO) 26 % (12-44); MEAN CORPUSCULAR HEMOGLOBIN 33 PG (25-34); MEAN CORPUSCULAR HGB CONC 34 G/DL (32-36); MEAN CORPUSCULAR VOLUME 99 FL (80-99); MEAN PLATELET VOLUME 10.3 FL (7.4-10.4); MONOCYTES # (AUTO) 0.7 X 10^3 (0.0-1.0); MONOCYTES % (AUTO) 12 % (0-12); NEUTROPHILS # (AUTO) 3.6 X 10^3 (1.8-7.8); NEUTROPHILS % (AUTO) 61 % (42-75); PLATELET COUNT 340 10^3/uL (130-400); RED CELL DISTRIBUTION WIDTH 14.2 % (10.0-14.5)
[2019-07-25 06:00] VITALS: BP 120/69
[2019-07-25 06:13] LABS: ALBUMIN 3.5 GM/DL (3.2-4.5); POTASSIUM 3.4 MMOL/L (3.6-5.0)
[2019-07-25 06:15] LABS: CALCIUM 8.8 MG/DL (8.5-10.1)
[2019-07-25 06:16] LABS: TOTAL PROTEIN 6.2 GM/DL (6.4-8.2)
[2019-07-25 06:18] LABS: BILIRUBIN,TOTAL 0.2 MG/DL (0.1-1.0)
[2019-07-25 06:19] LABS: CREATININE SERUM 1.46 MG/DL (0.60-1.30)
[2019-07-25 08:00] VITALS: BP 132/72
--- NOTE | 2019-07-25 08:46 | Cardiology Progress Note ---
Subjective Date Seen by Provider: Jul 25, 2019 Time Seen by Provider: 08:45 Subjective/Events-last exam Patient is walking with PT. No new complaints. Denies any chest pain or dyspnea. Review of Systems General: No Chills, No Night Sweats, No Fatigue, No Malaise, No Appetite, No Other HEENT: No Head Aches, No Visual Changes, No Eye Pain, No Ear Pain, No Dysphasia, No Sinus Congestion, No Post Nasal Drip, No Sore Throat, No Other Pulmonary: No Dyspnea, No Cough, No Pleuritic Chest Pain, No Other Cardiovascular: No: Chest Pain, Palpitations, Orthopnea, Paroxysmal Noc. Dyspnea, Edema, Lt Headedness, Other Objective-Cardiology Exam Last Set of Vital Signs Vital Signs 07/25/19 07/25/19 07/25/19 06:00 08:00 09:08 Temp 36.4 Pulse 91 Resp 12 B/P (MAP) 132/72 (92) Pulse Ox 97 O2 Delivery Room Air Capillary Refill : Less Than 3 Seconds I&O Intake and Output 07/25/19 00:00 Intake Total 1290 ml Balance 1290 ml Intake Oral 1290 ml # Voids 8 # Bowel Movements 6 General: Alert, Oriented X3, Cooperative HEENT: Atraumatic, PERRLA Neck: Supple, No JVD, No Thyromegaly Lungs: Clear to Auscultation, Normal Air Movement Heart: Regular Rate, Normal S1, Normal S2, No Murmurs Abdomen: Normal Bowel Sounds, Soft, No Tenderness, No Hepatosplenomegaly, No Masses Extremities: No Clubbing, No Cyanosis, No Edema, Normal Pulses, No Tenderness/Swelling Skin: No Rashes, No Breakdown, No Significant Lesion Neuro: Normal Gait, Normal Speech, Strength at 5/5 X4 Ext, Normal Tone, Sensation Intact Psych/Mental Status: Mental Status NL, Mood NL Results Lab Laboratory Tests 07/25/19 04:59 A/P-Cardiology Admission Diagnosis Acute CVA Chronic atrial fibrillation Coronary artery disease Hypertension Assessment/Plan Status post acute CVA, received TPA on July 06, 2019, recovering slowly, still have some residual right sided weakness, improving, continue with physical therapy Paroxysmal atrial fibrillation, continue on Eliquis 2.5mg BID and monitor Coronary artery disease, EKG showed sinus tachycardia. Continue to monitor Hypertension, controlled, continue to monitor. Hyperlipidemia, monitor lipids History of intellectual disability. Patient was seen and evaluated with Katie, examination performed, management plan was discussed, agree with the current scribed note, I made few changes to the note using Italic font Patient was seen at bedside, feeling well. No new complaint. Blood pressure is controlled. Continue on current medication monitor Clinical Quality Measures DVT/VTE Risk/Contraindication: Risk Factor Score Per Nursin RFS Level Per Nursing on Admit: 2=Moderate KATIE ROBISON Jul 25, 2019 8:46 am LOUIS GROSSMAN MD Jul 25, 2019 12:21 pm
--- NOTE | 2019-07-25 09:00 | NUR ---
DELIGHTFUL DISPOSITION. ADMITS TO SOME RIGHT KNEE PAIN, BUT NO OTHER COMPLAINTS. WORRIED ABOUT AIR CONDITIONING BEING FIXED AT HER HOUSE.
[2019-07-25] MEDS: APIXABAN 2.5 MG (ELIQUIS) TABLET PO SCH ×2 (09:06→21:05)
[2019-07-25] MEDS: lisINopril 10 MG (PRINIVIL) TABLET PO SCH (09:06)
[2019-07-25] MEDS: PANTOPRAZOLE 40 MG (PROTONIX) TAB PO SCH ×2 (09:06→21:05)
[2019-07-25] MEDS: FERROUS SULF 325 MG (IRON) TAB PO SCH (09:06)
[2019-07-25] MEDS: FUROSEMIDE 20 MG (LASIX) TAB PO SCH (09:06)
[2019-07-25] MEDS: ASPIRIN E.C. 81 MG (ECOTRIN) TAB PO SCH (09:06)
[2019-07-25] MEDS: CARVEDILOL 12.5 MG (COREG) TABLET PO SCH ×2 (09:11→18:04)
[2019-07-25] MEDS: ACETAMINOPHEN 325 MG TABLET PO PRN (09:12)
[2019-07-25] MEDS ORDERED: KCL 10 MEQ TAB (MICRO K) PO ONE (09:30)
--- NOTE | 2019-07-25 09:41 | PM&R Progress Note ---
Subjective HPI/CC On Admission Date Seen by Provider: Jul 25, 2019 Time Seen by Provider: 09:45 Subjective/Events-last exam No bowel incontinence at night when we held her stool softeners Potassium 3.4, will give a Potassium pill of 10 mEq now and on Thursday Creatinine maintained at 1.46, Hgb 8.8 No pain is reported except for her leg Walks with walker Conferred with RN Checked meds and labs Reviewed therapy notes Review of Systems General: Fatigue Neurological: Weakness Objective Exam Vital Signs Vital Signs Date Time Temp Pulse Resp B/P (MAP) Pulse Ox O2 Delivery O2 Flow Rate FiO2 07/25/19 17:18 36.0 76 16 127/77 (94) 100 Room Air Capillary Refill : Less Than 3 Seconds General Appearance: No Apparent Distress, WD/WN, Chronically ill HEENT: PERRL/EOMI, Normal ENT Inspection, Pharynx Normal Neck: Full Range of Motion, Normal Inspection, Non Tender, Supple, Carotid Bruit Respiratory: Chest Non Tender, Lungs Clear, Normal Breath Sounds, No Accessory Muscle Use, No Respiratory Distress Cardiovascular: Regular Rate, Rhythm, No Edema, No Gallop, No JVD, No Murmur, Normal Peripheral Pulses Gastrointestinal: Normal Bowel Sounds, No Organomegaly, No Pulsatile Mass, Non Tender, Soft Back: Normal Inspection, No CVA Tenderness, No Vertebral Tenderness Extremity: Normal Capillary Refill, Normal Inspection, Normal Range of Motion, Non Tender, No Calf Tenderness, No Pedal Edema Neurologic/Psychiatric: Alert, Oriented x3, Normal Mood/Affect, 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 FIM Transfers Therapy Code Descriptions/Definitions Functional [place] Measure: 0=Not Assessed/NA 4=Minimal Assistance 1=Total Assistance 5=Supervision or Setup 2=Maximal Assistance 6=Modified [place] 3=Moderate Assistance 7=Complete IndependenceSCALE: Activities may be completed with or without assistive devices. 7-Phxbswgylq-mcxgwmj completes the activity by him/herself with no assistance from a helper. 5-Set-up or Clean-up Assistance-helper sets up or cleans up; patient completes activity. [place] assists only prior to or following the activity. 4-Supervision or Touching Assistance-helper provides verbal cues and/or touching/steadying and/or contact guard assistance as patient completes activi ty. Assistance may be provided throughout the activity or intermittently. 3-Partial/Moderate Assistance-helper does LESS THAN HALF the effort. [place] lifts, holds or supports trunk or limbs, but provides less than half the effort. 2-Substantial/Maximal Assistance-helper does MORE THAN HALF the effort. [place] lifts or holds trunk or limbs and provides more than half the effort. 9-Ybfwvksnt-bloxdr does ALL the effort. Patient does none of the effort to complete the activity. Or, the assistance of 2 or more helpers is required for the patient to complete the activity. If activity was not attempted, code reason: 7-Patient Refused. 9-Not Applicable-not attempted and the patient did not perform the activity before the current illness, exacerbation or injury. 10-Not Attempted due to Environmental Limitations-(lack of equipment, weather restraints, etc.). 88-Not Attempted due to Medical Conditions or Safety Concerns. Roll Left to Right (QC): 6 Sit to Lying (QC): 6 Sit to Stand (QC): 6 Chair/Clo-dl-Dpawx Xfer(QC): 6 Car Transfer (QC): 4 Gait Training Does the Patient Walk?: Yes Distance: 150'x2 Walk 10 feet (QC): 5 Walk 50 ft with 2 Turns(QC): 5 Walk 150 ft (QC): 5 Walking 10ft/uneven surface-QC: 4 Gait Persons Needed: 1 Gait Assistive Device: FWW Wheelchair Training Does the Pt Use a Wheelchair?: No Wheel 50 ft with 2 turns (QC): 9 Wheel 150 ft (QC): 9 Type of Wheelchair: N/A Stair Training Stair Training: Handrails/: 2 handrails #of Steps: 4 1 Step (curb) (QC): 4 4 Steps (QC): 4 12 Steps (QC): 88 Stairs: Pattern: Step to Balance Picking up an Object (QC): 4 ADL-Treatment Eating (QC): 6 Oral Hygiene (QC): 4 (SBA standing at sink.) Bathing Location: L Arm, R Arm, L Upper Leg, R Upper Leg, L Lower Leg (including foot), R Lower Leg (including foot), Chest, Abdomen, Buttocks, Perineal Area Shower/Bathe Self (QC): 4 (SBA shower transfer and in stanceSUP showering while seated on sc.) Upper Body Dressing (QC): 6 (IND) Lower Body Dressing (QC): 4 (SBA) On/Off Footwear (QC): 4 (SBA and min vc (for donning AFO), completes socks, AFO, and shoes with IND.) Toileting Hygiene (QC): 4 (SBA) Toilet Transfer (QC): 4 (SBA, use of 2WW) Assessment/Plan Assessment and Plan Assess & Plan/Chief Complaint Assessment: CVA s/p tPA [place] [facility] 07/13/19 then sent to [facility] Intellectual disability high functioning HTN CRI Anemia nl iron level HLP PAF now placed on OAC Right sided weakness Plan: IRF protocol Iron level Dr Hutchins appreciated Lovenox DC Eliquis 2.5mg PO BID (1) CVA (cerebral vascular accident) (2) Intellectual disability (3) Hyperlipemia (4) Atrial fib/flutter, transient (5) CAD (coronary artery disease) (6) GERD (gastroesophageal reflux disease) (7) HTN (hypertension) Status: Acute CARLOS ABREU DO Jul 25, 2019 09:41
--- NOTE | 2019-07-25 10:13 | Physical Therapy Daily Note ---
PT Daily Note-Current Subjective Pleasant smiling and agrees to Rx. No pain or discomfort, enjoying her word find puzzles Pain Location: No Pain Reported Mental Status Patient Orientation: Person, Place, Time, Situation Attachments: Other-See Comments (AFO right) Transfers SCALE: Activities may be completed with or without assistive devices. 0-Oqsytvkqlk-mntqrhr completes the activity by him/herself with no assistance from a helper. 5-Set-up or Clean-up Assistance-helper sets up or cleans up; patient completes activity. [place] assists only prior to or following the activity. 4-Supervision or Touching Assistance-helper provides verbal cues and/or touching/steadying and/or contact guard assistance as patient completes activity. Assistance may be provided throughout the activity or intermittently. 3-Partial/Moderate Assistance-helper does LESS THAN HALF the effort. [place] lifts, holds or supports trunk or limbs, but provides less than half the effort. 2-Substantial/Maximal Assistance-helper does MORE THAN HALF the effort. [place] lifts or holds trunk or limbs and provides more than half the effort. 4-Kurcedtgk-ywrisu does ALL the effort. Patient does none of the effort to complete the activity. Or, the assistance of 2 or more helpers is required for the patient to complete the activity. If activity was not attempted, code reason: 7-Patient Refused. 9-Not Applicable-not attempted and the patient did not perform the activity before the current illness, exacerbation or injury. 10-Not Attempted due to Environmental Limitations-(lack of equipment, weather restraints, etc.). 88-Not Attempted due to Medical Conditions or Safety Concerns. Roll Left & Right (QC): 6 Sit to Lying (QC): 6 Lying to Sitting/Side of Bed(Q: 6 Sit to Stand (QC): 6 Chair/Olh-wt-Zpkno Xfer(QC): 6 Weight Bearing Right Lower Extremity: Right Full Weight Bearing Left Lower Extremity: Left Full Weight Bearing Gait Training Does the Patient Walk?: Yes Walk 10 feet (QC): 6 Walk 50 ft with 2 Turns(QC): 6 Walk 150 ft (QC): 6 Gait Persons Needed: 1 Gait Assistive Device: FWW needs guidance to destination only Exercises Supine Ex: Bridging, Ankle pumps, Quad Set, Rolling, Glut sets, Heel Slides, Short Arc Quads, Scooting, Straight leg raise, Hip abd/add Supine Reps: 20 Seated Therapy Exercises: Ankle pumps, Sit to stand, Long arc quads, Hip flexion, Hip abd/add Seated Reps: 20 Assessment Current Status: Good Progress good progress in all phases of Rx PT Short Term Goals Short Term Goals Time Frame: Jul 22, 2019 Roll Left & Right: 7 Sit to lyin Lying to sitting on side of be: 7 Sit to stand: 6 PT [facility]ci Goals Emergency Detail Driver Goals PT Emergency Detail Driver Goals Time Frame: Jul 29, 2019 Roll Left & Right (QC): 7 Sit to Lying (QC): 7 Lying-Sitting on Side/Bed(QC): 7 Sit to Stand (QC): 6 Chair/Byi-gt-Oelhj Xfer(QC): 6 Toilet Transfer (QC): 6 Car Transfer (QC): 6 Does the Patient Walk: Yes Walk 10 feet (QC): 6 Walk 50ft with 2 Turns (QC): 6 Walk 150 ft (QC): 6 Walking 10ft on Uneven Surface: 6 1 Step (curb) (QC): 6 4 Steps (QC): 6 12 Steps (QC): 6 Picking up an Object (QC): 6 Does the Pt use WC or Scooter?: No Wheel 50 feet with 2 turns (QC: 9 Type: N/A Wheel 150 feet: 9 Type: N/A PT Plan Treatment/Plan Treatment Plan: Continue Plan of Care Treatment Plan: Bed Mobility, Education, Functional Activity Marissa, Functional Strength, Group Therapy, Gait, Safety, Therapeutic Exercise, Transfers Treatment Duration: Jul 29, 2019 Frequency: At least 5 of 7 days/Wk (IRF) Estimated Hrs Per Day: 1.5 hours per day Patient and/or Family Agrees t: Yes Safety Risks/Education Patient Education: Gait Training, Transfer Techniques, Correct Positioning, Disease Process, Safety Issues Teaching Recipient: Patient Teaching Methods: Demonstration, Discussion Response to Teaching: Unable to Return Demonstration, Return Demonstration, Reinforcement Needed Time/GCodes Time In: 930 Time Out: 1015 Total Billed Treatment Time: 45 Total Billed Treatment 1,GT20m,FA10m,EX15m GEOVANY CHUA PLANETARIUM TECHNICIAN Jul 25, 2019 10:13
--- NOTE | 2019-07-25 10:15 | Occupational Ther Daily Note ---
OT Current Status-Daily Note Subjective 0805: Pt seen in recliner this am. Pt states no pain, though when donning AFO pt states lateral malleoli is being rubbed. Gauze padding placed in between and pt states "much better." Pt agrees to OT. 1305: Pt seen in recliner post-lunch. Pt agrees to OT tx session with goals of toileting and UE HEP education. ADL-Treatment Therapy Code Descriptions/Definitions Functional [place] Measure: 0=Not Assessed/NA 4=Minimal Assistance 1=Total Assistance 5=Supervision or Setup 2=Maximal Assistance 6=Modified [place] 3=Moderate Assistance 7=Complete IndependenceSCALE: Activities may be completed with or without assistive devices. 5-Judkumsgai-ayeqkzh completes the activity by him/herself with no assistance from a helper. 5-Set-up or Clean-up Assistance-helper sets up or cleans up; patient completes activity. [place] assists only prior to or following the activity. 4-Supervision or Touching Assistance-helper provides verbal cues and/or touching/steadying and/or contact guard assistance as patient completes activity. Assistance may be provided throughout the activity or intermittently. 3-Partial/Moderate Assistance-helper does LESS THAN HALF the effort. [place] lifts, holds or supports trunk or limbs, but provides less than half the effort. 2-Substantial/Maximal Assistance-helper does MORE THAN HALF the effort. [place] lifts or holds trunk or limbs and provides more than half the effort. 7-Wmeeznqbt-wnmxwa does ALL the effort. Patient does none of the effort to complete the activity. Or, the assistance of 2 or more helpers is required for the patient to complete the activity. If activity was not attempted, code reason: 7-Patient Refused. 9-Not Applicable-not attempted and the patient did not perform the activity before the current illness, exacerbation or injury. 10-Not Attempted due to Environmental Limitations-(lack of equipment, weather restraints, etc.). 88-Not Attempted due to Medical Conditions or Safety Concerns. Eating (QC): 6 Oral Hygiene (QC): 4 (SUP at sink.) Upper Body Dressing (QC): 6 Lower Body Dressing (QC): 4 (SBA in stance.) On/Off Footwear: 4 (minimal cues for positioning of foot/ shoe when donning AFO.) Toileting Hygiene (QC): 4 (SUP, pt remains seated on toilet for cleansing.) Toilet Transfer (QC): 4 (SUP, use of 2WW.) Other Treatment Pt seen in recliner. Pt agrees to changing clothes and ex on this date. Pt completes ADLs as above in room (dressing and toileting- slightly soft stool noted). Pt washes hands/ brushes teeth with SUP. Pt ambulates with 2WW around [place] with good balance, min cues for directionality. Pt sits in chair/ tabletop to complete in hand manipulation/coordination and UE strengthening with 1# weights donned bilaterally. pt completes without c/o fatigue, continuous activity for 10 min. Pt states, "I am getting stronger." When asked if she can think of anything that would be difficult to complete at home at this point pt states, "No." Pt returns to room, sits in recliner with all needs met, call light in reach. 1305: Pt seen in recliner, completes toileting with SUP. Pt washes hands and returns to recliner. Pt completes UE automobile racer exercises with theraputty, completes automobile racer strength bilaterally: R: 30lbs x3, L: 35 lbs x3. Increase of R hand endurance from last week. Pt completes pinch strength bilaterally: R and L 12 lbs. Equal pinch this session. Pt educated on results. Pt educated on theraputty HEP, focus on automobile racer/ pinch/ coordination activities for continued strengthening at home. Pt completes while standing at tabletop. Pt left in recliner with all needs met, call light in reach. Education OT Patient Education: Correct positioning, Exercise program, Home exercise program, Modified ADL techniques, Progress toward Goal/Update tx plan, Purpose of tx/functional activities Teaching Recipient: Patient Teaching Methods: Demonstration Response to Teaching: Verbalize Understanding, Return Demonstration OT Traffic Engineering Director Goals Shelter Goals Time Frame: Jul 29, 2019 Eating (QC): 6 Oral Hygiene (QC): 6 Toileting Hygiene (QC): 6 Shower/Bathe Self (QC): 5 Upper Body Dressing (QC): 6 Lower Body Dressing (QC): 6 On/Off Footwear (QC): 6 Additional Goals: 1-Demonstrate ADL Tasks, 2-Verbalize Understanding, 3- ImproveStrength/Marissa 1=Demonstrate adherence to instructed precautions during ADL tasks. 2=Patient will verbalize/demonstrate understanding of assistive devices/modifications for ADL. 3=Patient will improve strength/tolerance for activity to enable patient to perform ADL's. OT Education/Plan Problem List/Assessment Assessment: Decreased Activ Tolerance, Decreased UE Strength, Impaired Cognition, Impaired Funct Balance, Impaired I ADL's, Impaired Self-Care Skills Discharge Recommendations Plan/Recommendations: Continue POC Therapy Discharge Recommendati: Intermittent Supervision Treatment Plan/Plan of Care Treatment,Training & Education: Yes Patient would benefit from OT for education, treatment and training to promote independence in ADL's, mobility, safety and/or upper extremity function for ADL's. Plan of Care: ADL Retraining, Functional Mobility, Group Exercise/Act as Ind, UE Funct Exercise/Act Treatment Duration: Jul 29, 2019 Frequency: At least 5 of 7 days/Wk (IRF) Estimated Hrs Per Day: 1.5 hours per day Rehab Potential: Good Time/GCodes Start Time: 08:05 (1305) Stop Time: 09:00 (1325) Total Time Billed (hr/min): 75 (55+20=75 min total) Billed Treatment Time 2506-3540: 1, ADL 2(30), EX 2 (25)= 55 5542-1706: 1, EX (20) Total: 75 min ind. RAINA Da Silva OTR Jul 25, 2019 10:14
--- NOTE | 2019-07-25 14:54 | Speech Therapy Daily Note ---
Speech Daily Progress Note Subjective Date Seen by Provider: Jul 25, 2019 Time Seen by Provider: 00:30 Patient was working on her word searches from previous session when I entered her room. Objective Patient completed a series of q/a for safety awareness with 95% with minimal cues. Assessment Assessment Current Status: Good Progress Treatment Plan Continue Plan of Care Speech Short Term Goals Short Term Goals Short Term Goals 1) Patient will complete memory tasks related to her daily needs with 80-90% given minimal cues. 2) Patient will complete problem solving tasks related to her daily needs with 80-90% given minimal cues. 3) Patient will complete safety awareness tasks related to her daily needs with 80-90% given minimal cues. Speech Silk Presser Goals Longterm Goals Patient will improve cognitive-communication necessary for safety and daily living tasks with minimal assist. Speech-Plan Patient/Family Goals Patient/Family Goals: Patient plans on returning to her home where she lives with her . Treatment Plan Speech Therapy Treatment Plan: Continue Plan of Care Treatment Duration: Jul 22, 2019 Frequency: 5 times per week Estimated Hrs Per Day: .5 hour per day Rehab Potential: Good Barriers to Learning: Patient's recent CVA and intellectual challenges Pt/Family Agrees to Plan: Yes Safety Risks/Education Teaching Recipient: Patient Teaching Methods: Demonstration, Discussion Response to Teaching: Verbalize Understanding, Return Demonstration Education Topics Provided: Continued safety and communication Time Speech Therapy Time In: 09:00 Speech Therapy Time Out: 09:30 Total Billed Time: 30 Billed Treatment Time 1ANDREEA BETHANIA ST Jul 25, 2019 14:54
--- NOTE | 2019-07-25 15:00 | Physical Therapy Daily Note ---
PT Daily Note-Current Subjective Pt. pleasant , sitting up , smiles and agrees to Rx. Pt. requests to do Nustep. Pain Location: No Pain Reported Mental Status Patient Orientation: Normal For Age Attachments: Other-See Comments (AFO right) Transfers SCALE: Activities may be completed with or without assistive devices. 2-Nslgxbwtzy-ipynphq completes the activity by him/herself with no assistance from a helper. 5-Set-up or Clean-up Assistance-helper sets up or cleans up; patient completes activity. [place] assists only prior to or following the activity. 4-Supervision or Touching Assistance-helper provides verbal cues and/or touching/steadying and/or contact guard assistance as patient completes activity. Assistance may be provided throughout the activity or intermittently. 3-Partial/Moderate Assistance-helper does LESS THAN HALF the effort. [place] lifts, holds or supports trunk or limbs, but provides less than half the effort. 2-Substantial/Maximal Assistance-helper does MORE THAN HALF the effort. [place] lifts or holds trunk or limbs and provides more than half the effort. 6-Uwwzpkznq-cikezz does ALL the effort. Patient does none of the effort to complete the activity. Or, the assistance of 2 or more helpers is required for the patient to complete the activity. If activity was not attempted, code reason: 7-Patient Refused. 9-Not Applicable-not attempted and the patient did not perform the activity before the current illness, exacerbation or injury. 10-Not Attempted due to Environmental Limitations-(lack of equipment, weather restraints, etc.). 88-Not Attempted due to Medical Conditions or Safety Concerns. all TRFs mod I Weight Bearing Right Lower Extremity: Right Full Weight Bearing Left Lower Extremity: Left Full Weight Bearing Gait Training Gait Assistive Device: FWW 160ft x 2 FWW SBA, uneven step length R>L Exercises NuStep Minutes: 12 NuStep Workload: 4 Assessment Current Status: Good Progress PT Short Term Goals Short Term Goals Time Frame: Jul 22, 2019 Roll Left & Right: 7 Sit to lyin Lying to sitting on side of be: 7 Sit to stand: 6 PT Usp Goals Usp Goals PT [place] Goals Time Frame: Jul 29, 2019 Roll Left & Right (QC): 7 Sit to Lying (QC): 7 Lying-Sitting on Side/Bed(QC): 7 Sit to Stand (QC): 6 Chair/Sxl-zi-Luelh Xfer(QC): 6 Toilet Transfer (QC): 6 Car Transfer (QC): 6 Does the Patient Walk: Yes Walk 10 feet (QC): 6 Walk 50ft with 2 Turns (QC): 6 Walk 150 ft (QC): 6 Walking 10ft on Uneven Surface: 6 1 Step (curb) (QC): 6 4 Steps (QC): 6 12 Steps (QC): 6 Picking up an Object (QC): 6 Does the Pt use WC or Scooter?: No Wheel 50 feet with 2 turns (QC: 9 Type: N/A Wheel 150 feet: 9 Type: N/A PT Plan Treatment/Plan Treatment Plan: Continue Plan of Care Treatment Plan: Bed Mobility, Education, Functional Activity Marissa, Functional Strength, Group Therapy, Gait, Safety, Therapeutic Exercise, Transfers Treatment Duration: Jul 29, 2019 Frequency: At least 5 of 7 days/Wk (IRF) Estimated Hrs Per Day: 1.5 hours per day Patient and/or Family Agrees t: Yes Safety Risks/Education Patient Education: Gait Training Time/GCodes Time In: 1420 Time Out: 1450 Total Billed Treatment Time: 30 Total Billed Treatment 1,GT15m,EX15m GEOVANY CHUA STATION AGENT Jul 25, 2019 15:00
--- NOTE | 2019-07-25 15:54 | NUR ---
"RD ASSESSMENT PMHx: afib; hypercholesterolemia; HTN; GERD; chronic constipation; Carpio's esophagus; osteoporosis PT INTERACTION: Pt was awake and pleasant during nutrition follow-up. Pt states she has been eating good since last assessment. Note avg pO Intake 59% x4d, per chart review. Pt states no issues with nausea, vomiting, or constipation since last assessment, but has had some issues with diarrhea. Note last BM was 07/24, and pt currently on bowel regimen of colace BID; senna BID; and miralax BID, per cahrt review. ABNORMAL NUTRITION-RELATED LAB VALUES LOW: K 3.4; alkphos 39; Pro 6.2 HIGH: BUN 42; cr 1.46 Est. kcal needs: 1270-0747 kcal | 30-35 kcal/kg Est. Pro needs: 47-55 kcal | 1.2-1.4 g Pro/kg PES STATEMENT: Inadequate oral intake (NI-2.1) related to diarrhea as evidenced by pt interview | avg PO intake 59% x4d INTERVENTION: Continue with current diet order of Regular diet. Pt may benefit from nutrition supplementation if PO intake declines. Will continue to follow and reassess as pt needs, intake, and status change. MONITOR/EVALUATE: PO Intake; Plan of Care; Hydration Status; Weight Status; Lab Values Lyubov Burrell, MS, RD, LD"
[2019-07-25] MEDS: FENOFIBRATE 134 MG (LOFIBRA) CAPSULE PO SCH (16:42)
[2019-07-25 17:18] VITALS: BP 127/77
[2019-07-25] MEDS: SIMvastatin 10 MG (ZOCOR) TAB PO SCH (21:05)
[2019-07-26 05:45] VITALS: BP 122/69
[2019-07-26 05:47] VITALS: BP 138/66
[2019-07-26] MEDS: SUCRALFATE 1 GM (CARAFATE) TAB PO SCH ×4 (06:08→20:20)
[2019-07-26] MEDS: MULTIVIT W/MINERALS TAB (THERAGRAN M) PO SCH (06:08)
--- NOTE | 2019-07-26 06:27 | PM&R Progress Note ---
Subjective HPI/CC On Admission Date Seen by Provider: Jul 26, 2019 Time Seen by Provider: 09:45 Subjective/Events-last exam No major issues DC planned for tomorrow Four wheeled walker order placed Eliquis will be sent to [facility] Denies any other significant issues Conferred with RN Checked meds and labs Reviewed therapy notes Review of Systems Neurological: Weakness, Numbness, Incoordination Objective Exam Vital Signs Vital Signs Date Time Temp Pulse Resp B/P (MAP) Pulse Ox O2 Delivery O2 Flow Rate FiO2 07/26/19 18:00 36.4 86 16 115/72 (86) 100 Room Air Capillary Refill : Less Than 3 Seconds General Appearance: No Apparent Distress, WD/WN, Chronically ill HEENT: PERRL/EOMI, Normal ENT Inspection, Pharynx Normal Neck: Full Range of Motion, Normal Inspection, Non Tender, Supple, Carotid Bruit Respiratory: Chest Non Tender, Lungs Clear, Normal Breath Sounds, No Accessory Muscle Use, No Respiratory Distress Cardiovascular: Regular Rate, Rhythm, No Edema, No Gallop, No JVD, No Murmur, Normal Peripheral Pulses Gastrointestinal: Normal Bowel Sounds, No Organomegaly, No Pulsatile Mass, Non Tender, Soft Back: Normal Inspection, No CVA Tenderness, No Vertebral Tenderness Extremity: Normal Capillary Refill, Normal Inspection, Normal Range of Motion, Non Tender, No Calf Tenderness, No Pedal Edema Neurologic/Psychiatric: Alert, Oriented x3, Normal Mood/Affect, data integration analyst II-XII Norm as Tested, Motor Weakness (right hand 4/5 right leg 3/5) Skin: Normal Color, Warm/Dry Lymphatic: No Adenopathy Results/Procedures Lab Patient resulted labs reviewed. FIM Transfers Therapy Code Descriptions/Definitions Functional [place] Measure: 0=Not Assessed/NA 4=Minimal Assistance 1=Total Assistance 5=Supervision or Setup 2=Maximal Assistance 6=Modified [place] 3=Moderate Assistance 7=Complete IndependenceSCALE: Activities may be completed with or without assistive devices. 6-Wpayesflwo-ujnvhrb completes the activity by him/herself with no assistance f rom a helper. 5-Set-up or Clean-up Assistance-helper sets up or cleans up; patient completes activity. [place] assists only prior to or following the activity. 4-Supervision or Touching Assistance-helper provides verbal cues and/or touching/steadying and/or contact guard assistance as patient completes activity. Assistance may be provided throughout the activity or intermittently. 3-Partial/Moderate Assistance-helper does LESS THAN HALF the effort. [place] lifts, holds or supports trunk or limbs, but provides less than half the effort. 2-Substantial/Maximal Assistance-helper does MORE THAN HALF the effort. [place] lifts or holds trunk or limbs and provides more than half the effort. 6-Tsulwrexl-zxzesq does ALL the effort. Patient does none of the effort to complete the activity. Or, the assistance of 2 or more helpers is required for the patient to complete the activity. If activity was not attempted, code reason: 7-Patient Refused. 9-Not Applicable-not attempted and the patient did not perform the activity before the current illness, exacerbation or injury. 10-Not Attempted due to Environmental Limitations-(lack of equipment, weather restraints, etc.). 88-Not Attempted due to Medical Conditions or Safety Concerns. Roll Left to Right (QC): 6 Sit to Lying (QC): 6 Sit to Stand (QC): 6 Chair/Yif-yz-Wvnkl Xfer(QC): 6 Car Transfer (QC): 4 Gait Training Does the Patient Walk?: Yes Distance: 150'x2 Walk 10 feet (QC): 6 Walk 50 ft with 2 Turns(QC): 6 Walk 150 ft (QC): 6 Walking 10ft/uneven surface-QC: 4 Gait Persons Needed: 1 Gait Assistive Device: FWW Wheelchair Training Does the Pt Use a Wheelchair?: No Wheel 50 ft with 2 turns (QC): 9 Wheel 150 ft (QC): 9 Type of Wheelchair: N/A Stair Training Stair Training: Handrails/: 2 handrails #of Steps: 4 1 Step (curb) (QC): 4 4 Steps (QC): 4 12 Steps (QC): 88 Stairs: Pattern: Step to Balance Picking up an Object (QC): 4 ADL-Treatment Eating (QC): 6 Oral Hygiene (QC): 4 (SUP at sink.) Bathing Location: L Arm, R Arm, L Upper Leg, R Upper Leg, L Lower Leg (including foot), R Lower Leg (including foot), Chest, Abdomen, Buttocks, Perineal Area Shower/Bathe Self (QC): 4 (SBA shower transfer and in stanceSUP showering while seated on sc.) Upper Body Dressing (QC): 6 Lower Body Dressing (QC): 4 (SBA in stance.) On/Off Footwear (QC): 4 (minimal cues for positioning of foot/ shoe when donning AFO.) Toileting Hygiene (QC): 4 (SUP, pt remains seated on toilet for cleansing.) Toilet Transfer (QC): 4 (SUP, use of 2WW.) Assessment/Plan Assessment and Plan Assess & Plan/Chief Complaint Assessment: CVA s/p tPA [place] [facility] 07/13/19 then sent to [facility] Intellectual disability high functioning HTN CRI Anemia nl iron level HLP PAF now placed on OAC Right sided weakness Plan: IRF protocol Iron level Dr Hutchins appreciated Lovenox DC Eliquis 2.5mg PO BID DC tomorrow (1) CVA (cerebral vascular accident) (2) Intellectual disability (3) Hyperlipemia (4) Atrial fib/flutter, transient (5) CAD (coronary artery disease) (6) GERD (gastroesophageal reflux disease) (7) HTN (hypertension) Status: Acute CARLOS ABREU DO Jul 26, 2019 06:27
[2019-07-26 07:43] VITALS: BP 131/74
[2019-07-26] MEDS: lisINopril 10 MG (PRINIVIL) TABLET PO SCH (07:44)
[2019-07-26] MEDS: PANTOPRAZOLE 40 MG (PROTONIX) TAB PO SCH ×2 (07:44→20:20)
[2019-07-26] MEDS: ASPIRIN E.C. 81 MG (ECOTRIN) TAB PO SCH (07:44)
[2019-07-26] MEDS: CARVEDILOL 12.5 MG (COREG) TABLET PO SCH ×2 (07:44→17:16)
[2019-07-26] MEDS: FUROSEMIDE 20 MG (LASIX) TAB PO SCH (07:44)
[2019-07-26] MEDS: FERROUS SULF 325 MG (IRON) TAB PO SCH (07:44)
[2019-07-26] MEDS: APIXABAN 2.5 MG (ELIQUIS) TABLET PO SCH ×2 (07:44→20:20)
--- NOTE | 2019-07-26 08:45 | Cardiology Progress Note ---
Subjective Date Seen by Provider: Jul 26, 2019 Time Seen by Provider: 08:44 Subjective/Events-last exam Patient is sitting up in chair, no new complaints. Denies any CP or dyspnea. Still having some right leg weakness. Review of Systems General: No Chills, No Night Sweats, No Fatigue, No Malaise, No Appetite, No Other HEENT: No Head Aches, No Visual Changes, No Eye Pain, No Ear Pain, No Dysphasia, No Sinus Congestion, No Post Nasal Drip, No Sore Throat, No Other Pulmonary: No Dyspnea, No Cough, No Pleuritic Chest Pain, No Other Cardiovascular: No: Chest Pain, Palpitations, Orthopnea, Paroxysmal Noc. Dyspnea, Edema, Lt Headedness, Other Objective-Cardiology Exam Last Set of Vital Signs Vital Signs 07/26/19 07/26/19 07/26/19 05:47 07:43 08:45 Temp 36.4 Pulse 89 Resp 16 B/P (MAP) 131/74 (93) Pulse Ox 98 O2 Delivery Room Air Capillary Refill : Less Than 3 Seconds I&O Intake and Output 07/26/19 00:00 Intake Total 1370 ml Balance 1370 ml Intake Oral 1370 ml # Voids 6 # Bowel Movements 3 General: Alert, Oriented X3, Cooperative HEENT: Atraumatic, PERRLA Neck: Supple, No JVD, No Thyromegaly Lungs: Clear to Auscultation, Normal Air Movement Heart: Regular Rate, Normal S1, Normal S2, No Murmurs Abdomen: Normal Bowel Sounds, Soft, No Tenderness, No Hepatosplenomegaly, No Masses Extremities: No Clubbing, No Cyanosis, No Edema, Normal Pulses, No Tenderness/Swelling Skin: No Rashes, No Breakdown, No Significant Lesion Neuro: Normal Gait, Normal Speech, Strength at 5/5 X4 Ext, Normal Tone, Sen sation Intact Psych/Mental Status: Mental Status NL, Mood NL A/P-Cardiology Admission Diagnosis Acute CVA Chronic atrial fibrillation Coronary artery disease Hypertension Assessment/Plan Status post acute CVA, received TPA on July 06, 2019, recovering slowly, still have some residual right sided weakness, improving, continue with physical therapy Paroxysmal atrial fibrillation, continue on Eliquis 2.5mg BID and monitor Coronary artery disease, EKG showed sinus tachycardia. Continue to monitor Hypertension, controlled, continue to monitor. Hyperlipidemia, monitor lipids History of intellectual disability. Patient was seen and evaluated with Katie, examination performed, management plan was discussed, agree with the current scribed note, I made few changes to the note using Italic font Patient was seen at bedside, feeling well, no new complaint. No chest pain or shortness of breath Continue on current medication continue to monitor Clinical Quality Measures DVT/VTE Risk/Contraindication: Risk Factor Score Per Nursin RFS Level Per Nursing on Admit: 2=Moderate KATIE ROBISON Jul 26, 2019 8:45 am LOUIS GROSSMAN MD Jul 26, 2019 11:32 am
--- NOTE | 2019-07-26 09:36 | Occupational Ther Daily Note ---
OT Current Status-Daily Note Subjective Pt sitting in chair, agrees to treatment. No c/o pain. Pt states she feels ready to go home tomorrow. ADL-Treatment Therapy Code Descriptions/Definitions Functional [place] Measure: 0=Not Assessed/NA 4=Minimal Assistance 1=Total Assistance 5=Supervision or Setup 2=Maximal Assistance 6=Modified [place] 3=Moderate Assistance 7=Complete IndependenceSCALE: Activities may be completed with or without assistive devices. 9-Zfsijhveug-jscotyr completes the activity by him/herself with no assistance from a helper. 5-Set-up or Clean-up Assistance-helper sets up or cleans up; patient completes activity. [place] assists only prior to or following the activity. 4-Supervision or Touching Assistance-helper provides verbal cues and/or touching/steadying and/or contact guard assistance as patient completes activity. Assistance may be provided throughout the activity or intermittently. 3-Partial/Moderate Assistance-helper does LESS THAN HALF the effort. [place] lifts, holds or supports trunk or limbs, but provides less than half the effort. 2-Substantial/Maximal Assistance-helper does MORE THAN HALF the effort. [place] lifts or holds trunk or limbs and provides more than half the effort. 2-Xrafbvzfh-quxlzu does ALL the effort. Patient does none of the effort to complete the activity. Or, the assistance of 2 or more helpers is required for the patient to complete the activity. If activity was not attempted, code reason: 7-Patient Refused. 9-Not Applicable-not attempted and the patient did not perform the activity before the current illness, exacerbation or injury. 10-Not Attempted due to Environmental Limitations-(lack of equipment, weather restraints, etc.). 88-Not Attempted due to Medical Conditions or Safety Concerns. Oral Hygiene (QC): 6 (Pt stood at sink to brush teeth without assist. No LOB noted. Pt able to comb hair and wash hands with modified independence as well.) Shower/Bathe Self (QC): 4 (Pt able to wash/dry all areas with SBA for safety. Pt completed shower transfer with supervision using grab bars for safety.) Upper Body Dressing (QC): 5 (Pt doffed/donned sports bra and pullover shirt with set up.) Lower Body Dressing (QC): 5 (Pt donned Depends and pants with set up. Stood without LOB during pant hike using FWW for balance. ) On/Off Footwear: 3 (Pt able to doff/don socks and left shoe with set up. Pt requires min assist for right AFO/shoe.) Toileting Hygiene (QC): 5 (Pt able to complete toileting hygiene and clothing management with set up. Changed Depends with set up.) Toilet Transfer (QC): 5 (Pt transferred to toilet using grab bars for safety. No LOB noted.) Pt states she has a tub/shower at home. Gait to shower room with FWW. Pt practiced transfer into tub/shower using shower chair. Pt required min assist to complete transfer and skilled cues for safety. Pt returned to room, transferred to chair using FWW. Educated pt on ADL/home safety. Pt states no questions or concerns at this time. Plan is for pt to d/c home tomorrow. Pt sitting in chair with needs met after session. OT Assistant Prosecuting Attorney Goals Assistant Prosecuting Attorney Goals Time Frame: Jul 29, 2019 Eating (QC): 6 (met) Oral Hygiene (QC): 6 (met) Toileting Hygiene (QC): 6 (not met) Shower/Bathe Self (QC): 5 (not met) Upper Body Dressing (QC): 6 (not met) Lower Body Dressing (QC): 6 (not met) On/Off Footwear (QC): 6 (not met) Additional Goals: 1-Demonstrate ADL Tasks, 2-Verbalize Understanding, 3- ImproveStrength/Marissa 1=Demonstrate adherence to instructed precautions during ADL tasks. 2=Patient will verbalize/demonstrate understanding of assistive devices/modifications for ADL. 3=Patient will improve strength/tolerance for activity to enable patient to perform ADL's. OT Education/Plan Discharge Recommendations Plan/Recommendations: Continue POC Treatment Plan/Plan of Care Patient would benefit from OT for education, treatment and training to promote independence in ADL's, mobility, safety and/or upper extremity function for ADL's. Plan of Care: ADL Retraining, Functional Mobility, Group Exercise/Act as Ind, UE Funct Exercise/Act Treatment Duration: Jul 29, 2019 Frequency: At least 5 of 7 days/Wk (IRF) Estimated Hrs Per Day: 1.5 hours per day Rehab Potential: Good Time/GCodes Start Time: 08:15 Stop Time: 09:30 Total Time Billed (hr/min): 75 Billed Treatment Time 1 visit, ADLx5(75minutes) MOHAN MEYER OT Jul 26, 2019 09:36
--- NOTE | 2019-07-26 12:09 | Physical Therapy Daily Note ---
PT Daily Note-Current Subjective Pt sitting in recliner upon arrival. Pt agrees to PT for QC scoring for DC tomorrow. Pain Location: No Pain Reported Mental Status Patient Orientation: Person, Place, Situation Attachments: Other-See Comments (AFO for R LE) Transfers SCALE: Activities may be completed with or without assistive devices. 3-Nferotwzdm-bgflghv completes the activity by him/herself with no assistance from a helper. 5-Set-up or Clean-up Assistance-helper sets up or cleans up; patient completes activity. [place] assists only prior to or following the activity. 4-Supervision or Touching Assistance-helper provides verbal cues and/or touching/steadying and/or contact guard assistance as patient completes activity. Assistance may be provided throughout the activity or intermittently. 3-Partial/Moderate Assistance-helper does LESS THAN HALF the effort. [place] lifts, holds or supports trunk or limbs, but provides less than half the effort. 2-Substantial/Maximal Assistance-helper does MORE THAN HALF the effort. [place] lifts or holds trunk or limbs and provides more than half the effort. 1-Sfcrasmdd-krgbhh does ALL the effort. Patient does none of the effort to complete the activity. Or, the assistance of 2 or more helpers is required for the patient to complete the activity. If activity was not attempted, code reason: 7-Patient Refused. 9-Not Applicable-not attempted and the patient did not perform the activity before the current illness, exacerbation or injury. 10-Not Attempted due to Environmental Limitations-(lack of equipment, weather restraints, etc.). 88-Not Attempted due to Medical Conditions or Safety Concerns. Roll Left & Right (QC): 6 Sit to Lying (QC): 6 Lying to Sitting/Side of Bed(Q: 6 Sit to Stand (QC): 6 Chair/Knh-zk-Msinh Xfer(QC): 6 Toilet Transfer (QC): 6 Car Transfer (QC): 6 Weight Bearing Right Lower Extremity: Right Full Weight Bearing Left Lower Extremity: Left Full Weight Bearing Gait Training Does the Patient Walk?: Yes Distance: 200', 125' Walk 10 feet (QC): 6 Walk 50 ft with 2 Turns(QC): 6 Walk 150 ft (QC): 6 Walking 10ft/uneven surface-QC: 6 Gait Persons Needed: 1 Gait Assistive Device: FWW Wheelchair Training Does the Pt Use a Wheelchair?: No Stair Training Stair Training: Handrails/: 2 handrails #of Steps: 8 1 Step (curb) (QC): 6 4 Steps (QC): 6 12 Steps (QC): 9 Stairs: Pattern: Step to Balance Picking up an Object (QC): 6 Exercises Standing: Hamstring curls, Heel/toe raises, Marching, Mini squats, Sit to Stand, Weight shifts Standing Reps: 15 NuStep Minutes: 15 NuStep Workload: 5 Treatments Pt transfers from recliner to standing and uses restroom. Pt completes QC scoring items listed above. Pt uses NuStep for 15m at WL 5 followed Standing Ex at //bars. Pt returns to room at end of Rx to rest in recliner with all needs met, call light in hand. Assessment Current Status: Good Progress SUR[employer] RESEARCH C[facility] DIRECTOR gives some VC for sequencing during stairs and walking across varying surface but pt performs these safely. PT Short Term Goals Short Term Goals Time Frame: Jul 22, 2019 Roll Left & Right: 7 Sit to lyin Lying to sitting on side of be: 7 Sit to stand: 6 PT Care Home Goals Self Propelled Hot Mix Roller Operator Goals PT Care Home Goals Time Frame: Jul 29, 2019 Roll Left & Right (QC): 7 Sit to Lying (QC): 7 Lying-Sitting on Side/Bed(QC): 7 Sit to Stand (QC): 6 Chair/Sak-bn-Sddps Xfer(QC): 6 Toilet Transfer (QC): 6 Car Transfer (QC): 6 Does the Patient Walk: Yes Walk 10 feet (QC): 6 Walk 50ft with 2 Turns (QC): 6 Walk 150 ft (QC): 6 Walking 10ft on Uneven Surface: 6 1 Step (curb) (QC): 6 4 Steps (QC): 6 12 Steps (QC): 6 Picking up an Object (QC): 6 Does the Pt use WC or Scooter?: No Wheel 50 feet with 2 turns (QC: 9 Type: N/A Wheel 150 feet: 9 Type: N/A PT Plan Problem List Problem List: Activity Tolerance, Safety Treatment/Plan Treatment Plan: Continue Plan of Care Treatment Plan: Bed Mobility, Education, Functional Activity Marissa, Functional Strength, Group Therapy, Gait, Safety, Therapeutic Exercise, Transfers Treatment Duration: Jul 29, 2019 Frequency: At least 5 of 7 days/Wk (IRF) Estimated Hrs Per Day: 1.5 hours per day Patient and/or Family Agrees t: Yes Safety Risks/Education Patient Education: Gait Training, Steps, Correct Positioning, Safety Issues Teaching Recipient: Patient Teaching Methods: Discussion Response to Teaching: Verbalize Understanding Time/GCodes Time In: 1045 Time Out: 1200 Total Billed Treatment Time: 75 Total Billed Treatment 1, GT (15m), FA x2 (30m) & EX x2 (30m) DONNA LINDA SURVEY RESEARCH C[facility] DIRECTOR Jul 26, 2019 12:09
--- NOTE | 2019-07-26 13:11 | NUR ---
CM/SS DISCHARGE Visited with patient this a.m. who reports she is ready to return home tomorrow. [employer] [place] [employer] contacted [facility]/Dalia Byers and she will send transport at 1400. IMM2 presented, reviewed, signed, charted. HHC: Coordinated with [facility] for PT. Confirmed with agency referral hub they can begin services 07/28/19 and have scheduled patient in their only vacant time slot. DME: Referral completed for FWW with patient selected agency, [facility]. Agency understands to deliver walker to patient room by 1100 07/27/19. Communication board updated.
--- NOTE | 2019-07-26 13:43 | Speech Therapy Daily Note ---
Speech Daily Progress Note Subjective Date Seen by Provider: Jul 26, 2019 Time Seen by Provider: 00:30 Patient states she will be leaving for return to home tomorrow. Objective Patient completed a series of q/a of fill in the blank for safety awareness at 95% with minimal cues. Assessment Assessment Current Status: Good Progress Treatment Plan Discontinue ST, Goals Met Speech Short Term Goals Short Term Goals Short Term Goals 1) Patient will complete memory tasks related to her daily needs with 80-90% given minimal cues. 2) Patient will complete problem solving tasks related to her daily needs with 80-90% given minimal cues. 3) Patient will complete safety awareness tasks related to her daily needs with 80-90% given minimal cues. Speech Jail Goals Street Sweeper Goals Patient will improve cognitive-communication necessary for safety and daily living tasks with minimal assist. Speech-Plan Patient/Family Goals Patient/Family Goals: Patient is scheduled to return to her home tomorrow. Treatment Plan Speech Therapy Treatment Plan: Discontinue ST, Goals Met Treatment Duration: Jul 22, 2019 Frequency: 5 times per week Estimated Hrs Per Day: .5 hour per day Rehab Potential: Good Barriers to Learning: Patient's recent CVA, however deficits appear to be resolved with patient returning to baseline Pt/Family Agrees to Plan: Yes Safety Risks/Education Teaching Recipient: Patient Teaching Methods: Demonstration, Discussion Response to Teaching: Verbalize Understanding, Return Demonstration Education Topics Provided: Continued safety upon her return home Time Speech Therapy Time In: 10:00 Speech Therapy Time Out: 10:30 Total Billed Time: 30 Billed Treatment Time 1, SLTS No QUALITY CODES: EXPRESSION OF IDEAS/WANTS: 4 UNDERSTANDING VERBAL CONTENT: 4 BRIEF INTERVIEW MENTAL STATUS: YES REPETITION OF 3 WORDS: 3 TEMPORAL ORIENTATION: YEAR: CORRECT, MONTH: CORRECT, DAY: CORRECT RECALL: SOCK: YES, BED: YES, COLOR: YES MEMORY/RECALL ABILITY: SEASON, THAT SHE'S IN THE HOSPITAL, STAFF NAMES, LOCATION OF HER ROOM ASYACHRIS Jul 26, 2019 13:43
[2019-07-26] MEDS: ACETAMINOPHEN 325 MG TABLET PO PRN (15:15)
[2019-07-26] MEDS: FENOFIBRATE 134 MG (LOFIBRA) CAPSULE PO SCH (17:16)
[2019-07-26 18:00] VITALS: BP 115/72
[2019-07-26] MEDS: SIMvastatin 10 MG (ZOCOR) TAB PO SCH (20:20)
[2019-07-26] MEDS ORDERED: CARV12.53 PO (20:42)
[2019-07-26] MEDS ORDERED: LISI10TA2 PO (20:42)
[2019-07-26] MEDS ORDERED: APIX2.5T PO (20:42)
[2019-07-26] MEDS ORDERED: ASPI-983 PO (20:42)
--- NOTE | 2019-07-26 20:43 | D/C HH Face to Face Order ---
D/C Face to Face Orders Reconcile Patient Problems Problems Reviewed?: Yes Instructions for Patient [facility] Patient Instructions/FollowUp: PCP 1 week Physician to follow Patient: [facility] Discharge Diet for Home: Cardiac Diet Patient Problems: CVA Goals for Patient: [place] Patient Data-Allergies,Ht & Wt Patient Allergies: Coded Allergies: diltiazem (Verified Allergy, Unknown, 05/04/18) Height (Feet): 5 Height (Inches): 2.00 Weight (Pounds): 85 Weight (Ounces): 0.2 Home Health Need/Face to Face Date of Face to Face: Jul 26, 2019 Clinical Findings: Generalized weakness and fatigue, Instability, Muscle weakness, Unsteady gait I have seen Pt glgt-xh-mxeq: Yes Discharged To: Home Diagnosis/Conditions: CVA Patient is Homebound due to: CognItive deficits, Naveed fall risk due to instabilty, Muscle weakness Homebound Status Due to the above stated illness, injury or surgical procedure (medical condition or diagnosis) and associated clinical findings, the patient is homebound because of his/her inability to leave home except with aid of a supportive device and/or person AND leaving the home requires a considerable and taxing effort or is medically contraindicated. Pt req the following assistanc: Walker Home Health Nursing Orders Home Health Services Order: Physical Therapy-Evaluate & Treat Certify Stmt I certify that this patient is under my care and that I, a nurse practitioner or a physician; a budget assistant working with me, had a face to face encounter that - meets the physician face to face encounter requirements with this patient as dated. CARLOS ABREU DO Jul 26, 2019 20:43
[2019-07-27 06:00] VITALS: BP 113/73
[2019-07-27] MEDS: SUCRALFATE 1 GM (CARAFATE) TAB PO SCH ×2 (06:01→12:19)
[2019-07-27] MEDS: MULTIVIT W/MINERALS TAB (THERAGRAN M) PO SCH (06:01)
--- NOTE | 2019-07-27 07:26 | Discharge Summary ---
Diagnosis/Chief Complaint Date of Admission July 15, 2019 at 13:51 Date of Discharge Discharge Date: Jul 27, 2019 Discharge Diagnosis Assessment: CVA s/p tPA [facility] [facility] 07/13/19 then sent to [facility] Intellectual disability high functioning HTN CRI Anemia nl iron level HLP PAF now placed on OAC Right sided weakness Plan: IRF protocol Iron level Dr Hutchins appreciated Lovenox DC Eliquis 2.5mg PO BID DC today (1) CVA (cerebral vascular accident) (2) Intellectual disability (3) Hyperlipemia (4) Atrial fib/flutter, transient (5) CAD (coronary artery disease) (6) GERD (gastroesophageal reflux disease) (7) HTN (hypertension) Status: Acute Discharge Summary Discharge Physical Examination Allergies: Coded Allergies: diltiazem (Verified Allergy, Unknown, 05/04/18) Vitals & I&Os Vital Signs Date Time Temp Pulse Resp B/P (MAP) Pulse Ox O2 Delivery O2 Flow Rate FiO2 07/27/19 17:14 36.9 89 19 113/73 99 Room Air General Appearance: Alert, Oriented X3, Cooperative Respiratory: Clear to Auscultation Cardiovascular: Regular Rate Neuro: Normal Speech, Strength at 5/5 X4 Ext Hospital Course Was the Problem List Reviewed?: Yes Hospital course: Pt had an uneventful 12 day hospital course in inpatient rehab after returning from after CVA with right-sided weakness, AFO was provided for the right ankle, intellectual developmental disorder did delay recovery but she participated in all therapies and was doing very well. Bowel function r eturned back to normal. She was started on Eliquis 2.5 BID for atrial flutter as cause of CVA and was tolerating all new medication, had no decompensation during inpatient rehab course, and was discharged in improved condition on home health PT. Labs (last 24 hrs) Laboratory Tests 07/16/19 05:14: White Blood Count 4.9, Red Blood Count 2.98L, Hemoglobin 9.7L, Hematocrit 29L, Mean Corpuscular Volume 98, Mean Corpuscular Hemoglobin 33, Mean Corpuscular Hemoglobin Concent 33, Red Cell Distribution Width 13.9, Platelet Count 262, Mean Platelet Volume 10.0, Neutrophils (%) (Auto) 57, Lymphocytes (%) (Auto) 31, Monocytes (%) (Auto) 11, Eosinophils (%) (Auto) 1, Basophils (%) (Auto) 0, Neutrophils # (Auto) 2.8, Lymphocytes # (Auto) 1.5, Monocytes # (Auto) 0.5, Eosinophils # (Auto) 0.1, Basophils # (Auto) 0.0, Sodium Level 135, Potassium Level 4.4, Chloride Level 104, Carbon Dioxide Level 22, Anion Gap 9, Blood Urea Nitrogen 27H, Creatinine 1.48H, Estimat Glomerular Filtration Rate 35, BUN/Creatinine Ratio 18, Glucose Level 112H, Calcium Level 8.7, Corrected Calcium 9.2, Iron Level 50, Total Bilirubin 0.3, Aspartate Amino Transf (AST/SGOT) 26, Alanine Aminotransferase (ALT/SGPT) 19, Alkaline Phosphatase 37L, Total Protein 6.1L, Albumin 3.4 07/25/19 04:59: White Blood Count 6.0, Red Blood Count 2.64L, Hemoglobin 8.8L, Hematocrit 26L, Mean Corpuscular Volume 99, Mean Corpuscular Hemoglobin 33, Mean Corpuscular Hemoglobin Concent 34, Red Cell Distribution Width 14.2, Platelet Count 340, Mean Platelet Volume 10.3, Neutrophils (%) (Auto) 61, Lymphocytes (%) (Auto) 26, Monocytes (%) (Auto) 12, Eosinophils (%) (Auto) 1, Basophils (%) (Auto) 0, Neutrophils # (Auto) 3.6, Lymphocytes # (Auto) 1.6, Monocytes # (Auto) 0.7, Eosinophils # (Auto) 0.1, Basophils # (Auto) 0.0, Sodium Level 138, Potassium Level 3.4L, Chloride Level 106, Carbon Dioxide Level 21, Anion Gap 11, Blood Urea Nitrogen 42H, Creatinine 1.46H, Estimat Glomerular Filtration Rate 36, BUN/Creatinine Ratio 29, Glucose Level 96, Calcium Level 8.8, Corrected Calcium 9.2, Total Bilirubin 0.2, Aspartate Amino Transf (AST/SGOT) 20, Alanine Aminotransferase (ALT/SGPT) 18, Alkaline Phosphatase 39L, Total Protein 6.2L, Albumin 3.5 Pending Labs Laboratory Tests 07/16/19 05:14: White Blood Count 4.9, Red Blood Count 2.98, Hemoglobin 9.7, Hematocrit 29, Mean Corpuscular Volume 98, Mean Corpuscular Hemoglobin 33, Mean Corpuscular Hemoglobin Concent 33, Red Cell Distribution Width 13.9, Platelet Count 262, Mean Platelet Volume 10.0, Neutrophils (%) (Auto) 57, Lymphocytes (%) (Auto) 31, Monocytes (%) (Auto) 11, Eosinophils (%) (Auto) 1, Basophils (%) (Auto) 0, Neutrophils # (Auto) 2.8, Lymphocytes # (Auto) 1.5, Monocytes # (Auto) 0.5, Eosinophils # (Auto) 0.1, Basophils # (Auto) 0.0, Sodium Level 135, Potassium Level 4.4, Chloride Level 104, Carbon Dioxide Level 22, Anion Gap 9, Blood Urea Nitrogen 27, Creatinine 1.48, Estimat Glomerular Filtration Rate 35, BUN/Creatinine Ratio 18, Glucose Level 112, Calcium Level 8.7, Corrected Calcium 9.2, Iron Level 50, Total Bilirubin 0.3, Aspartate Amino Transf (AST/SGOT) 26, Alanine Aminotransferase (ALT/SGPT) 19, Alkaline Phosphatase 37, Total Protein 6.1, Albumin 3.4 07/25/19 04:59: White Blood Count 6.0, Red Blood Count 2.64, Hemoglobin 8.8, Hematocrit 26, Mean Corpuscular Volume 99, Mean Corpuscular Hemoglobin 33, Mean Corpuscular Hemoglobin Concent 34, Red Cell Distribution Width 14.2, Platelet Count 340, Mean Platelet Volume 10.3, Neutrophils (%) (Auto) 61, Lymphocytes (%) (Auto) 26, Monocytes (%) (Auto) 12, Eosinophils (%) (Auto) 1, Basophils (%) (Auto) 0, Neutrophils # (Auto) 3.6, Lymphocytes # (Auto) 1.6, Monocytes # (Auto) 0.7, Eosinophils # (Auto) 0.1, Basophils # (Auto) 0.0, Sodium Level 138, Potassium Level 3.4, Chloride Level 106, Carbon Dioxide Level 21, Anion Gap 11, Blood Urea Nitrogen 42, Creatinine 1.46, Estimat Glomerular Filtration Rate 36, BUN/Creati nine Ratio 29, Glucose Level 96, Calcium Level 8.8, Corrected Calcium 9.2, Total Bilirubin 0.2, Aspartate Amino Transf (AST/SGOT) 20, Alanine Aminotransferase (ALT/SGPT) 18, Alkaline Phosphatase 39, Total Protein 6.2, Albumin 3.5 Discharge Home Medications: Active Scripts Active Aspirin EC (Aspirin) 81 Mg Tablet.dr 81 Mg PO DAILY Lisinopril 10 Mg Tablet 10 Mg PO DAILY Carvedilol 12.5 Mg Tablet 12.5 Mg PO BID WITH MEALS Eliquis (Apixaban) 2.5 Mg Tablet 2.5 Mg PO BID Reported Potassium Chloride 40 Meq/15 Ml Liquid 15 Ml PO DAILY Nitrofurantoin (Nitrofurantoin Macrocrystal) 100 Mg Capsule 100 Mg PO HS Fenofibrate 160 Mg Tablet 160 Mg PO DAILY Protonix (Pantoprazole Sodium) 40 Mg Tablet.dr 40 Mg PO BID Multivitamin 1 Each Tablet 1 Each PO DAILY Fish Oil [place]-3 Softgel ([place]-3S/Dha/Epa/Fish Oil) 1 Each Capsule.dr 1 Each PO DAILY Promethazine Tablet (Promethazine HCl) 25 Mg Tablet 25 Mg PO Q6H PRN Guaifenesin Dm Syrup (Guaifenesin/Dextromethorphan) 5 Ml Syrup 10 Ml PO Q4H PRN Mapap (Acetaminophen) 325 Mg Tablet 325 Mg PO Q4H PRN Loperamide (Loperamide HCl) 2 Mg Capsule 2 Mg PO Q3H PRN Sucralfate 1 Gm Tablet 1 Gm PO ACHS [id number] (Polyethylene Glycol 3350) 238 Gm Powder 17 Gm PO DAILY Lovastatin 20 Mg Tablet 20 Mg PO HS Furosemide 20 Mg Tablet 20 Mg PO DAILY Iron (Ferrous Sulfate) 325 Mg Tablet 325 Mg PO DAILY Instructions to patient/family Please see electronic discharge instructions given to patient. Diagnosis/Problems Diagnosis/Problems (1) CVA (cerebral vascular accident) (2) Intellectual disability (3) Hyperlipemia (4) Atrial fib/flutter, transient (5) CAD (coronary artery disease) (6) GERD (gastroesophageal reflux disease) (7) HTN (hypertension) Status: Acute Clinical Quality Measures DVT/VTE Risk/Contraindication: Risk Factor Score Per Nursin RFS Level Per Nursing on Admit: 2=Moderate CARLOS ABREU DO Jul 27, 2019 07:26
[2019-07-27 08:00] VITALS: BP 124/67
[2019-07-27] MEDS: ASPIRIN E.C. 81 MG (ECOTRIN) TAB PO SCH (08:37)
[2019-07-27] MEDS: lisINopril 10 MG (PRINIVIL) TABLET PO SCH (08:37)
[2019-07-27] MEDS: CARVEDILOL 12.5 MG (COREG) TABLET PO SCH (08:37)
[2019-07-27] MEDS: FUROSEMIDE 20 MG (LASIX) TAB PO SCH (08:37)
[2019-07-27] MEDS: APIXABAN 2.5 MG (ELIQUIS) TABLET PO SCH (08:37)
[2019-07-27] MEDS: PANTOPRAZOLE 40 MG (PROTONIX) TAB PO SCH (08:37)
[2019-07-27] MEDS: FERROUS SULF 325 MG (IRON) TAB PO SCH (08:37)
--- NOTE | 2019-07-27 08:59 | Cardiology Progress Note ---
Subjective Date Seen by Provider: Jul 27, 2019 Time Seen by Provider: 08:57 Subjective/Events-last exam Patient is sitting up in chair, no new complaints. Denies any chest pain or dyspnea. Being discharged home today. Objective-Cardiology Exam Last Set of Vital Signs Vital Signs 07/27/19 06:00 Temp 36.9 Pulse 89 Resp 19 B/P (MAP) 113/73 (86) Pulse Ox 99 O2 Delivery Room Air Capillary Refill : Less Than 3 Seconds I&O Intake and Output 07/27/19 00:00 Intake Total 1220 ml Balance 1220 ml Intake Oral 1220 ml # Voids 5 # Bowel Movements 4 General: Alert, Oriented X3, Cooperative HEENT: Atraumatic, PERRLA Neck: Supple, No JVD, No Thyromegaly Lungs: Clear to Auscultation, Normal Air Movement Heart: Regular Rate, Normal S1, Normal S2, No Murmurs Abdomen: Normal Bowel Sounds, Soft, No Tenderness, No Hepatosplenomegaly, No Masses Extremities: No Clubbing, No Cyanosis, No Edema, Normal Pulses, No Tenderness/Swelling Skin: No Rashes, No Breakdown, No Significant Lesion Neuro: Normal Gait, Normal Speech, Strength at 5/5 X4 Ext, Normal Tone, Sensation Intact Psych/Mental Status: Mental Status NL, Mood NL A/P-Cardiology Admission Diagnosis Acute CVA Chronic atrial fibrillation Coronary artery disease Hypertension Assessment/Plan Status post acute CVA, received TPA on July 06, 2019, recovering slowly, still have some residual right sided weakness, improving, continue with physical therapy Paroxysmal atrial fibrillation, continue on Eliquis 2.5mg BID and monitor Coronary artery disease, EKG showed sinus tachycardia. Continue to monitor Hypertension, controlled, continue to monitor. Hyperlipidemia, monitor lipids History of intellectual disability. OK for discharge from cardiology standpoint. F/u in 4 weeks in our office. Clinical Quality Measures DVT/VTE Risk/Contraindication: Risk Factor Score Per Nursin RFS Level Per Nursing on Admit: 2=Moderate JANAE ROBISON Jul 27, 2019 08:59
[2019-07-27] MEDS ORDERED: KCL 10 MEQ TAB (MICRO K) PO ONE (09:00)
--- NOTE | 2019-07-27 09:57 | Therapy Team Discharge Summary ---
Therapy Discharge Summary Discharge Recommendations Date of Discharge Physical Therapy This patient was admitted to ARU post acute stay due to a CVA. Her PLOF was indep with all mobility and [facility] [email or web address] Upon admission to [facility], pt was mod indep with bed mobility, SB-CGA with transfers and gait up to 150 ft. Treatment has consisted of functional strength and balance training as well as transfer and gait progression. In addition, she has been using an AFO to support her Right LE. She has made excellent progress and has achieved all goals set at evaluation. She is mod indep with bed mobility, gait, transfers and steps. She is to discharge this date. Occupational Therapy Decreased Activ Tolerance, Decreased UE Strength, Impaired Cognition, Impaired Funct Balance, Impaired I ADL's, Impaired Self-Care Skills PT Motorcycle Delivery Driver Goals Motorcycle Delivery Driver Goals PT Motorcycle Delivery Driver Goals Time Frame: Jul 29, 2019 Roll Left to Right (QC): 6 Sit to Lying (QC): 6 Lying-Sitting on Side/Bed(QC): 6 Sit to Stand (QC): 6 Chair/Zpi-sl-Izwja Xfer(QC): 6 Car Transfer (QC): 6 Does the Patient Walk: Yes Walk 10 feet (QC): 6 Walk 10ft-Uneven Surface(QC): 6 Walk 50ft with 2 Turns (QC): 6 Walk 150 ft (QC): 6 Does the Pt use WC or Scooter?: No Wheel 50 feet with 2 turns (QC: 9 1 Step (curb) (QC): 6 4 Steps (QC): 6 12 Steps (QC): 6 Picking up an Object (QC): 6 Pt has met all goals set at evaluation. OT Motorcycle Delivery Driver Goals Motorcycle Delivery Driver Goals Time Frame: Jul 29, 2019 Eating (FIM): 6 Eating (QC): 6 (met) Oral Hygiene (QC): 6 (met) Shower/Bathe Self (QC): 5 (not met) Upper Body Dressing (QC): 6 (not met) Lower Body Dressing (QC): 6 (not met) On/Off Footwear (QC): 6 (not met) Toileting(FIM): 6 Toileting Hygiene (QC): 6 (not met) Toilet/Commode Transfer (QC): 6 Additional Goals: 1-Demonstrate ADL Tasks, 2-Verbalize Understanding, 3- ImproveStrength/Marissa 1=Demonstrate adherence to instructed precautions during ADL tasks. 2=Patient will verbalize/demonstrate understanding of assistive devices/modifications for ADL. 3=Patient will improve strength/tolerance for activity to enable patient to perform ADL's. Speech Motorcycle Delivery Driver Goals Motorcycle Delivery Driver Goals Patient will improve cognitive-communication necessary for safety and daily living tasks with minimal assist. CARLITA VASQUEZ PT Jul 27, 2019 09:57
--- NOTE | 2019-07-27 11:12 | Therapy Team Discharge Summary ---
Therapy Discharge Summary Discharge Recommendations Date of Discharge Occupational Therapy Pt admitted to ARU following acute hospitalization for CVA. On admission pt required min assist with LE dressing and toileting, and CGA for balance while completing oral care. Skilled OT intervention focused on ADL training, t ransfers, strengthening, and safety. Pt progressed with therapy and by discharge is completing eating and oral care with modified independence. Pt is set up for UE/LE dressing and toileting. Pt requires SBA for bathing and min assist for footwear secondary to right AFO and shoe. Pt met goals for eating and oral care, but did not meet goal of being modified independent for other ADLs. Pt discharging home today. D/c ARU OT at this time. Decreased Activ Tolerance, Decreased UE Strength, Impaired Cognition, Impaired Funct Balance, Impaired I ADL's, Impaired Self-Care Skills PT Dental Mold Maker Goals Dental Mold Maker Goals PT Dental Mold Maker Goals Time Frame: Jul 29, 2019 Roll Left to Right (QC): 6 Sit to Lying (QC): 6 Lying-Sitting on Side/Bed(QC): 6 Sit to Stand (QC): 6 Chair/Gfz-iy-Mejje Xfer(QC): 6 Car Transfer (QC): 6 Does the Patient Walk: Yes Walk 10 feet (QC): 6 Walk 10ft-Uneven Surface(QC): 6 Walk 50ft with 2 Turns (QC): 6 Walk 150 ft (QC): 6 Does the Pt use WC or Scooter?: No Wheel 50 feet with 2 turns (QC: 9 1 Step (curb) (QC): 6 4 Steps (QC): 6 12 Steps (QC): 6 Picking up an Object (QC): 6 OT Retirement Goals Retirement Goals Time Frame: Jul 29, 2019 Eating (FIM): 6 Eating (QC): 6 (met) Oral Hygiene (QC): 6 (met) Shower/Bathe Self (QC): 5 (not met) Upper Body Dressing (QC): 6 (not met) Lower Body Dressing (QC): 6 (not met) On/Off Footwear (QC): 6 (not met) Toileting(FIM): 6 Toileting Hygiene (QC): 6 (not met) Toilet/Commode Transfer (QC): 6 Additional Goals: 1-Demonstrate ADL Tasks, 2-Verbalize Understanding, 3- ImproveStrength/Marissa 1=Demonstrate adherence to instructed precautions during ADL tasks. 2=Patient will verbalize/demonstrate understanding of assistive devices/modifications for ADL. 3=Patient will improve strength/tolerance for activity to enable patient to perform ADL's. Speech Dental Mold Maker Goals Retirement Goals Patient will improve cognitive-communication necessary for safety and daily living tasks with minimal assist. MOHAN MEYER OT Jul 27, 2019 11:12
--- NOTE | 2019-07-27 12:29 | NUR ---
CM/SS DISCHARGE Patient discharged home with her spouse and with support from [facility]. HHC: Finalized with [facility], including discharge orders and instructions. Rx: Faxed to patient/[facility] Rx service, [facility] in [facility]. Spoke with inside sales account representative Damaris there, pharmacy understands to contact comic writer if prior authorization is needed for Eliquis (Dr. Hutchins) and to also contact [facility] Dalia Byers if these Rx will not be delivered timely today. Dalia informed comic writer they can get a one-day fill at a local [facility] pharmacy if needed. All Rx communication should remain between pharmacy and [facility] on behalf of patient unless Dr. Hutchins needs to participate in a prior authorization process. DME: [facility] delivered this a.m. to patient. Discharge complete unless circumstances arise requiring further interventions.
[2019-07-27 17:14] VITALS: BP 113/73
--- NOTE | 2019-07-28 11:22 | Therapy Team Discharge Summary ---
Therapy Discharge Summary Discharge Recommendations Date of Discharge Jul 27, 2019 at 14:25 Occupational Therapy Decreased Activ Tolerance, Decreased UE Strength, Impaired Cognition, Impaired Funct Balance, Impaired I ADL's, Impaired Self-Care Skills Speech-Language Pathology Patient was admitted to the ARU s/p CVA. Patient was given the SLUMS with a score obtained qualifying for ST. Patient was seen 5x/wk for improving cognitive function in order to return home safely. She was discharged to her home on 07/27/2019 where she lives with her . She met her ST goals with therapy progress made. PT Information Technology Intern Goals Alf Goals PT Alf Goals Time Frame: Jul 29, 2019 Roll Left to Right (QC): 6 Sit to Lying (QC): 6 Lying-Sitting on Side/Bed(QC): 6 Sit to Stand (QC): 6 Chair/Jtv-ks-Ujmya Xfer(QC): 6 Car Transfer (QC): 6 Does the Patient Walk: Yes Walk 10 feet (QC): 6 Walk 10ft-Uneven Surface(QC): 6 Walk 50ft with 2 Turns (QC): 6 Walk 150 ft (QC): 6 Does the Pt use WC or Scooter?: No Wheel 50 feet with 2 turns (QC: 9 1 Step (curb) (QC): 6 4 Steps (QC): 6 12 Steps (QC): 6 Picking up an Object (QC): 6 OT Alf Goals Alf Goals Time Frame: Jul 29, 2019 Eating (FIM): 6 Eating (QC): 6 (met) Oral Hygiene (QC): 6 (met) Shower/Bathe Self (QC): 5 (not met) Upper Body Dressing (QC): 6 (not met) Lower Body Dressing (QC): 6 (not met) On/Off Footwear (QC): 6 (not met) Toileting(FIM): 6 Toileting Hygiene (QC): 6 (not met) Toilet/Commode Transfer (QC): 6 Additional Goals: 1-Demonstrate ADL Tasks, 2-Verbalize Understanding, 3- ImproveStrength/Marissa 1=Demonstrate adherence to instructed precautions during ADL tasks. 2=Patient will verbalize/demonstrate understanding of assistive devices/modifications for ADL. 3=Patient will improve strength/tolerance for activity to enable patient to perform ADL's. Speech Information Technology Intern Goals Alf Goals Patient will improve cognitive-communication necessary for safety and daily living tasks with minimal assist. CHRIS SKY Jul 28, 2019 11:21
== END 2019-07-27 14:25 | disposition home health service (06) | DRG 57 ==
PROVIDERS: ADMIT Internal Medicine; ATTEND Internal Medicine
DX: I69.351 Hemiplegia and hemiparesis following cerebral infarction affecting right dominant side (principal); F70 Mild intellectual disabilities; I48.0 Paroxysmal atrial fibrillation; I12.9 Hypertensive chronic kidney disease with stage 1 through stage 4 chronic kidney disease, or unspecified chronic kidney disease; N18.9 Chronic kidney disease, unspecified; I25.10 Atherosclerotic heart disease of native coronary artery without angina pectoris; E78.5 Hyperlipidemia, unspecified; K21.9 Gastro-esophageal reflux disease without esophagitis; K22.70 Barrett's esophagus without dysplasia; D64.9 Anemia, unspecified; M81.0 Age-related osteoporosis without current pathological fracture
CPT/HCPCS: 36415; 80053; 83540; 85025; 93005

== ENCOUNTER 2020-01-05 09:41 | Emergency (ER) | payer MEDICARE, MEDICAID ==
[~2020-01-05] VITALS: Ht 149 cm; Wt 50.0 kg
[~2020-01-05 09:41] MED LIST changes: +APIX2.5T PO; +ASPI-1238 PO; +CARV12.52 PO; +CARV12.53 PO; +FENO145T26 PO; +LISI-556 PO; +LISI10TA2 PO; +LISI2.5T PO; +MULT-1136 PO; +NITR100C PO; +OMEG-154 PO; +PANT40TA2 PO; +POTA40LI3 PO; +PROM25TA14 PO
--- NOTE | 2020-01-05 09:49 | ED Fall/Injury ---
General Stated Complaint: FALL Source: patient Exam Limitations: no limitations History of Present Illness Date Seen by Provider: Jan 05, 2020 Time Seen by Provider: 09:53 Initial Comments 69-year-old female presents with right hip pain. Patient reports that she fell yesterday. She has been bearing weight on it but complains of worsening pain. Patient is in assisted living. Patient pain is right on the bone of the right hip. There is no deformity noted. She declines any other complaints at this time Allergies and Home Medications Allergies Coded Allergies: diltiazem (Verified Allergy, Unknown, 05/04/18) Home Medications Acetaminophen 325 Mg Tablet, 325 MG PO Q4H PRN for PAIN-MILD OR TEMPATURE, (Reported) Apixaban 2.5 Mg Tablet, 2.5 MG PO BID Prescribed by: CARLOS ABREU on 07/26/192041 Aspirin 81 Mg Tablet.dr, 81 MG PO DAILY Prescribed by: CARLOS ABREU on 07/26/192041 Carvedilol 12.5 Mg Tablet, 12.5 MG PO BID WITH MEALS Prescribed by: CARLOS ABREU on 07/26/192041 Fenofibrate 160 Mg Tablet, 160 MG PO DAILY, (Reported) Ferrous Sulfate 325 Mg Tablet, 325 MG PO DAILY, (Reported) Furosemide 20 Mg Tablet, 20 MG PO DAILY, (Reported) Guaifenesin/Dextromethorphan 5 Ml Syrup, 10 ML PO Q4H PRN for COUGH, (Reported) Lisinopril 10 Mg Tablet, 10 MG PO DAILY Prescribed by: CARLOS ABREU on 07/26/192041 Loperamide HCl 2 Mg Capsule, 2 MG PO Q3H PRN for DIARRHEA, (Reported) Lovastatin 20 Mg Tablet, 20 MG PO HS, (Reported) Multivitamin 1 Each Tablet, 1 EACH PO DAILY, (Reported) Nitrofurantoin Macrocrystal 100 Mg Capsule, 100 MG PO HS, (Reported) [place]-3S/Dha/Epa/Fish Oil 1 Each Capsule.dr, 1 EACH PO DAILY, (Reported) Pantoprazole Sodium 40 Mg Tablet.dr, 40 MG PO BID, (Reported) Polyethylene Glycol 3350 238 Gm Powder, 17 GM PO DAILY, (Reported) Potassium Chloride 40 Meq/15 Ml Liquid, 15 ML PO DAILY, (Reported) Promethazine HCl 25 Mg Tablet, 25 MG PO Q6H PRN for NAUSEA/VOMITING, (Reported) Sucralfate 1 Gm Tablet, 1 GM PO ACHS, (Reported) Patient Home Medication List Home Medication List Reviewed: Yes Review of Systems Review of Systems Constitutional: No chills, No fever Eyes: No Symptoms Reported Ears, Nose, Mouth, Throat: no symptoms reported Respiratory: no symptoms reported Cardiovascular: no symptoms reported Gastrointestinal: no symptoms reported Genitourinary: no symptoms reported Musculoskeletal: see HPI Skin: no symptoms reported Psychiatric/Neurological: No Symptoms Reported Past Ersqltp-Omqsft-Qldwpu Hx Past Med/Social Hx: Reviewed Nursing Past Med/Soc Hx Patient Social History 2nd Hand Smoke Exposure: No Recent Foreign Travel: No Contact w/Someone Who Travel: No Recent Hopitalizations: Yes ([facility] S/P CVA) Immunizations Up To Date Date of Pneumonia Vaccine: Jan 04, 2018 Date of Influenza Vaccine: Jan 04, 2018 Past Medical History Eye Surgery, Gallbladder Pneumonia Currently Using CPAP: No Currently Using BIPAP: No Cardiac: Yes Atrial Fibrillation, High Cholesterol, Hypertension Neurological: Yes (MILD INTELLECTUAL DISABILITY) Developmental Disorder Genitourinary: Yes Bladder Infection, Renal Failure Gastrointestinal: Yes (DUODENITIS) Gastroesophageal Reflux, Carpio's Esophagus, Chronic Constipation Musculoskeletal: Yes (OA ) Osteoporosis Endocrine: No Psychosocial: No (MILD INTELLECTUAL DISABILITY; ADJUSTMENT DISORDER) Blood Disorders: Yes (CHRONIC ANEMIA) Family Medical History Patient reports no known family medical history. No Pertinent Family Hx Physical Exam Vital Signs Vital Signs - First Documented 01/05/20 09:58 Temp 36.0 Pulse 91 Resp 20 B/P (MAP) 130/70 (90) Pulse Ox 95 O2 Delivery Room Air Capillary Refill : Height, Weight, BMI Height: 5'2.00" Weight: 85lbs. 0.2oz. 38.024529hy; 16.96 BMI Method:Stated General Appearance: no apparent distress, cachetic, thin Neck: full range of motion, supple Cardiovascular: normal peripheral pulses, regular rate, rhythm Respiratory: lungs clear, normal breath sounds Peripheral Pulses: 2+ Radial Pulses (R), 2+ Radial Pulses (L) Gastrointestinal: non tender, soft Back: no CVA tenderness, no vertebral tenderness Extremities: other (mild tenderness right hip, no obvious deformity) Neurologic/Psychiatric: alert, normal mood/affect, oriented x 3 Skin: normal color, warm/dry Progress/Results/Core Measures Results/Orders My Orders Orders - DOUGLAS,CARLOS L DO Hip 2-3 View Right (01/05/20 09:56) Vital Signs/I&O 01/05/20 09:58 Temp 36.0 Pulse 91 Resp 20 B/P (MAP) 130/70 (90) Pulse Ox 95 O2 Delivery Room Air Progress Progress Note : Time: 12:33 Progress Note Patient with negative x-ray along with negative physical exam for hip fracture. Patient stable, showing likely contusion. She should use Tylenol ibuprofen and topical lidocaine. Patient stable and will be discharged home Diagnostic Imaging Diagonstic Imaging: Xray Plain Films/CT/US/NM/MRI: hip Comments [facility], [place] NAME: KAROLINA SOMMERS MED REC#: [id number] PT STATUS: REG ER : 1950 PHYSICIAN: CARLOS DOUGLAS DO ADMIT DATE: 01/05/20/ER FS Signed Date of Exam:01/05/20 HIP 2-3 VIEW RIGHT Indication: Right hip pain 2 views the right hip show no fracture, dislocation or other acute abnormalities. IMPRESSION: Negative right hip Dictated by: Dictated on workstation # [id number] Dict: 01/05/20 1017 Trans: 01/05/20 1017 [id number] Interpreted by: EDDIE MOORE MD Electronically signed by: EDDIE MOORE MD 01/05/20 1017 Departure Impression Primary Impression: Contusion of hip, right Qualified Codes: S70.01XA - Contusion of right hip, initial encounter Disposition: HOME, SELF-CARE Condition: Stable Departure-Patient Inst. Referrals: NIKAI APPLE MD (PCP/Family) Primary Care Physician Patient Instructions: Hip Pointer Add. Discharge Instructions: Tylenol ibuprofen as needed 4% topical lidocaine with menthol to affected area as directed on package as needed for pain Follow-up with your primary care provider in 3-4 days if symptoms are not improv ing CARLOS DOUGLAS DO Jan 05, 2020 09:49
[2020-01-05 09:58] VITALS: BP 130/70
--- NOTE | 2020-01-05 10:19 | Diagnostic Imaging Report ---
Indication: Right hip pain 2 views the right hip show no fracture, dislocation or other acute abnormalities. IMPRESSION: Negative right hip Dictated by: Dictated on workstation # [id number]
== END 2020-01-05 10:28 | disposition home or self-care (01) ==
LOC: EDUNIT# 09:41 → ER FS 09:42
DX: S70.01XA Contusion of right hip, initial encounter (principal); I10 Essential (primary) hypertension; K21.9 Gastro-esophageal reflux disease without esophagitis; E78.00 Pure hypercholesterolemia, unspecified; Z88.8 Allergy status to other drugs, medicaments and biological substances; Z79.01 Long term (current) use of anticoagulants; Z79.82 Long term (current) use of aspirin; X50.9XXA Other and unspecified overexertion or strenuous movements or postures, initial encounter
CPT/HCPCS: 73502

== ENCOUNTER → 2020-05-02 | Outpatient (CLI) | payer MEDICARE, MEDICAID ==
[~2020-05-02] MED LIST changes: +CATHETER FLUSH 10 ML SYR IV PRN; +CEFD300C3 PO; -LISI-556 PO; +LISI-729 PO; -LISI10TA2 PO; +LISI10TA25 PO; +OMEG1600 PO; +POTASSIUM CHL PO; +REGADENOSON 0.4 MG/5 ML SYR (LEXISCAN) IV ONE
[2020-05-02 13:11] VITALS: BP 156/68
--- NOTE | 2020-05-02 15:25 | Cardiology Stress Test Report ---
Stress Test Report Date of Procedure/Referring: Date of Procedure: May 02, 2020 Katie Vega Admitting Physician Erick Rogers MD Indications: HTN Baseline Heart Rate: 70 Baseline Blood Pressure: Blood Pressure Systolic: 156 Blood Pressure Diastolic: 68 Baseline Vitals Vital Signs Date Time Temp Pulse Resp B/P (MAP) Pulse Ox O2 Delivery O2 Flow Rate FiO2 05/02/20 13:11 70 18 156/68 (97) 97 Room Air Baseline EKG: Baseline EKG: NSR Summary After explaining the procedure to the patient, she signed a consent and then brought to the stress nuclear laboratory. Patient received 0.4 mg Lexiscan for stress test, ECG, heart rate and blood pressure were monitored continuously. Resting and stress dose of radio tracer were injected, imaging was acquired and reviewed in short axis, horizontal long axis and vertical long axis views. TID: 0.95 SSS: 2 SDS: 2 EF: 91 1. Patient tolerated Lexiscan well 2. Extracardiac attenuation due to having the left arm down, there is mild decreased uptake at the apex with subtle reversibility, there is no significant ischemia or infarction on SPECT images 3. Small left ventricular size with good contractility, over estimation of the ejection fraction, 91 percent LOUIS GROSSMAN MD May 02, 2020 15:25
== END ==
LOC: CARD 11:30
PROVIDERS: ATTEND Physician Assistant
DX: I10 Essential (primary) hypertension (principal); I08.0 Rheumatic disorders of both mitral and aortic valves
CPT/HCPCS: 78452; 93017; 93306; A9502

== ENCOUNTER 2021-02-01 13:06 | Emergency (ER) | payer MEDICARE, MEDICAID ==
[~2021-02-01 13:06] MED LIST changes: -CATHETER FLUSH 10 ML SYR IV PRN; -LISI-729 PO; -LISI2.5T PO; +LISI2.5T13 PO; +LISI5TAB20 PO; -REGADENOSON 0.4 MG/5 ML SYR (LEXISCAN) IV ONE
--- OUTSIDE RECORDS SUMMARY | 2021-02-01 13:11 | XMS REPORT | Clinical Summary ---
Author Author [facility] Organization [facility] Address Unknown Phone Unavailable Care Team Providers Care Credit Consultant Name Role Phone Minor Reveles MD Unavailable Unavailable Erick Rogers MD PCP Source Comments Some departments are not documenting in the electronic medical record. If you d o not see the information that you expected, contact Release of Information in Critical access hospital Information Management department at [phone] for further assistan ce in locating additional records.[facility] Allergies Comments Active Allergy Reactions Severity Noted Date "not sure what happens" Diltiazem SEE COMMENTS Low 11/15/2010 Medications End Date Status Medication Sig Dispensed Refills Start Date Active ferrous sulfate 325 mg Take 325 mg 0 (65 mg iron) PO tablet by mouth daily. Active sucralfate (CARAFATE) 1 Take 1 g by 0 gram PO tablet mouth four times daily. Take 1 tab 30 min before meals and at bedtime Active acetaminophen (TYLENOL) Take 325 mg 0 325 mg tablet by mouth every 4 hours as needed. Active MULTIVITAMIN PO Take 1 tablet 0 by mouth daily. Active fish oil /omega-3 fatty Take 1,600 mg 0 acids 1,600-500-800 mg/5 by mouth mL liqd daily. Active furosemide (LASIX) 20 mg Take 20 mg by 0 tablet mouth every morning. Active lisinopriL (ZESTRIL) 5 mg Take 2.5 mg 0 tablet by mouth daily. Active lovastatin (MEVACOR) 20 Take 20 mg by 0 mg tablet mouth at bedtime daily. Active pantoprazole DR Take 40 mg by 0 (PROTONIX) 40 mg tablet mouth twice daily. Active polyethylene glycol 3350 Take 17 g by 0 (MIRALAX) 17 g mouth daily. packetIndications: Take 1 scoop constipation mixed in 8 oz fluid & drink daily Indications: constipation Active dextromethorphan/guaiFENe Take 10 mL by 0 sin (ROBITUSSIN-DM) mouth every 4 10/100 mg/5 mL syrp oral hours as syrupIndications: cough needed. Indications: cough Active loperamide (IMODIUM A-D) Take 2 mg by 0 2 mg capsuleIndications: mouth every 3 diarrhea hours as needed for Diarrhea. Take 2 capsules by mouth initially, followed by 1 capsule by mouth after each loose stool up to a maximum of 8 tablets in 24 hours. Indications: diarrhea Active fenofibrate Take one 90 tablet 1 nanocrystallized (TRICOR) tablet by 0 145 mg tablet mouth daily. Take with food. Active promethazine (PHENERGAN) Take one 30 tablet 0 0 25 mg tablet tablet by 0 mouth every 6 hours as needed. Active aspirin EC 81 mg tablet Take one 90 tablet 0 tablet by 0 mouth daily. Take with food. Active carvediloL (COREG) 12.5 Take one 180 tablet 0 202 mg tablet tablet by 0 mouth twice daily. Take with food. Active Problems Problem Noted Date Weakness of right lower extremity 07/13/2019 Stroke with cerebral ischemia 07/13/2019 Essential hypertension 07/13/2019 Mixed hyperlipidemia 07/13/2019 Dysphagia 11/19/2010 GERD (gastroesophageal reflux disease) 11/19/2010 Surgical History Surgery Date Site/Laterality Comments GALLBLADDER SURGERY EYE SURGERY MOUTH SURGERY Medical History Medical History Date Comments Coronary artery disease Gastrointestinal disorder Hypertension Atrial fib/flutter, transient Hyperlipidemia Chronic anemia History of chronic urinary tract infection Family History Medical History Relation Name Comments Diabetes Mother Relation Name Status Comments Father Mother Social History Date Tobacco Use Types Packs/Day Years Used Never Smoker Smokeless Tobacco: Never Used Comments Alcohol Use Standard Drinks/Week No 0 (1 standard drink = 0.6 o z pure alcohol) Sex Assigned at Date Recorded Female 07/14/2019 10:55 AM CDT Last Filed Vital Signs Reading Time Taken Comments Vital Sign 155/65 07/15/2019 8:00 AM CDT Blood Pressure 80 07/15/2019 8:00 AM CDT Pulse 36.6 C (97.8 F) 07/15/2019 8:00 AM CDT Temperature 18 03/04/2012 11:33 AM 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 Respiratory Rate 99% 07/15/2019 8:00 AM CDT Oxygen Saturation - - Inhaled Oxygen Concentration 40.4 kg (89 lb) 07/13/2019 3:47 PM CDT Weight 154.9 cm (5' 1") 07/13/2019 3:47 PM CDT Height 16.82 07/13/2019 3:47 PM CDT Body Mass Index Plan of Treatment Health Maintenance Due Date Last Done Comments MEDICARE ANNUAL WELLNESS 1950 VISIT DTAP/TDAP VACCINES (1 - 08/19/1969 Tdap) HEPATITIS C SCREENING 08/19/1969 PHYSICAL (COMPREHENSIVE) 08/19/1969 EXAM BREAST CANCER SCREENING 1991 COLORECTAL CANCER 08/19/2001 SCREENING OSTEOPOROSIS 08/19/2016 SCREENING/MONITORING PNEUMONIA (PPSV23) 08/19/2016 VACCINE (1 of - PPSV23) INFLUENZA VACCINE 09/16/2020 01/18/2009 SHINGLES RECOMBINANT Completed 10/01/2018, VACCINE 06/30/2018 Results Not on filefrom Last 3 Months Insurance Type Payer Benefit Subscriber ID Effective Phone Address Plan / Dates Group Medicare MEDICARE MEDICARE [id number] 1972-P [phone] [address] [place] [address] Medicaid [employer] [place] [employer] [id number] 2018-P [phone] [address] [place] [address] [address] [facility] (Home) [place] [phone] (Work) Advance Directives Patient Hay Baler Explanation Type Date Recorded Advance 07/13/2019 3:14 PM Directive/DPOA Date Inactivated Comments Code Status Date Activated 07/15/2019 1:46 PM Full Code 07/13/2019 1:39 PM Provider has discussed Code Status No, more discussi on w/Patient or Family? needed 11/19/2010 7:43 PM Full Code 11/18/2010 12:12 PM Provider has discussed Code Status Yes w/Patient or Family? Care Teams Start Date End Date Credit Consultant Relationship Specialty 11/18/10 Erick Rogers MD PCP - General [address] [place] [id number] 11/15/10 Minor Reveles MD General [phone] [facility] [place] [address]
--- NOTE | 2021-02-01 13:24 | ED General ---
General Stated Complaint: FALL; N/V Source of Information: Patient, EMS History of Present Illness Date Seen by Provider: Feb 01, 2021 Time Seen by Provider: 13:06 Initial Comments 70-year-old female presenting with complaints of nausea, vomiting, syncopal episode. She has pain to the left side of her ribs since she fell. She denies hitting her head. She denies any pain or burning with urination. She denies abdominal pain other than to the left lateral rib area after the fall. She has not had fever or chills. She lives at [facility] with her . They are both [facility] clients and live in a snf. They checked her blood pressure today after she collapsed and she had a low blood pressure. Associated Systoms: No Chest Pain, No Cough, No Diaphoresis, No Fever/Chills, No Headaches; Malaise, Nausea/Vomiting; No Seizure, No Shortness of Air; Sync ope, Weakness Allergies and Home Medications Allergies Coded Allergies: diltiazem (Verified Allergy, Unknown, 05/04/18) Patient Home Medication List Home Medication List Reviewed: Yes Acetaminophen (Mapap) 325 Mg Tablet, 650 MG PO Q4H PRN for PAIN-MILD OR TEMPATURE, (Reported) Entered as Reported by: EVELIO LOPEZ on 05/05/18 0847 Apixaban (Eliquis) 2.5 Mg Tablet, 2.5 MG PO BID, (Reported) Entered as Reported by: TRAVON HARPER on 01/27/20 0944 Aspirin (Aspirin EC) 81 Mg Tablet.dr, 81 MG PO DAILY, (Reported) Entered as Reported by: TRAVON HARPER on 01/27/20 0944 Carvedilol (Carvedilol) 12.5 Mg Tablet, 12.5 MG PO BID WITH MEALS, (Reported) Entered as Reported by: TRAVON HARPER on 01/27/20 0944 Cefdinir (Cefdinir) 300 Mg Capsule, 300 MG PO BID Prescribed by: CARLOS ABREU on 01/31/20 1007 Fenofibrate (Fenofibrate) 160 Mg Tablet, 160 MG PO HS, (Reported) Entered as Reported by: TRAVON HARPER on 07/19/19 1434 Ferrous Sulfate (Iron) 325 Mg Tablet, 325 MG PO DAILY, (Reported) Entered as Reported by: EVELIO LOPEZ on 05/05/18 0847 Folic Acid/Multivit-Minerals (Adult Multi Gummies) 200 Mcg Tab.chew, 200 MCG PO DAILY, (Reported) Entered as Reported by: TRAVON HARPER on 01/27/20 0944 Furosemide (Furosemide) 20 Mg Tablet, 20 MG PO DAILY, (Reported) Entered as Reported by: EVELIO LOPEZ on 05/05/18 0847 Guaifenesin/Dextromethorphan (Guaifenesin Dm Syrup) 5 Ml Syrup, 10 ML PO Q4H PRN for COUGH, (Reported) Entered as Reported by: EVELIO LOPEZ on 05/05/18 0847 Lidocaine (Lidocaine 5% Patch) 1 Each Adh..patch, 1 EACH TP Q12H PRN for Rib Pain/Fracture Rib Prescribed by: ROD EMERY on 02/01/21 1648 Lisinopril (Lisinopril) 10 Mg Tablet, 10 MG PO DAILY, (Reported) Entered as Reported by: TRAVON HARPER on 01/27/20 0944 Loperamide HCl (Loperamide) 2 Mg Capsule, 2 MG PO Q3H PRN for DIARRHEA, (Reported) Entered as Reported by: EVELIO LOPEZ on 05/05/18 0847 Lovastatin (Lovastatin) 20 Mg Tablet, 20 MG PO 1700, (Reported) Entered as Reported by: EVELIO LOPEZ on 05/05/18 0847 Nitrofurantoin Macrocrystal (Nitrofurantoin) 100 Mg Capsule, 100 MG PO HS, (Reported) Entered as Reported by: TRAVON HARPER on 07/19/19 1434 [place]-3/Dha/Epa/Fish Oil (Fish Oil 1,600 mg/5 ml Liquid) 1,600 Mg/5 Ml Liquid, 5 MG PO DAILY, (Reported) Entered as Reported by: TRAVON HARPER on 01/27/20 0944 Ondansetron (Ondansetron Odt) 4 Mg Tab.rapdis, 4 MG PO Q6H PRN for NAUSEA/VOMITING Prescribed by: ROD EMERY on 02/01/21 1648 Pantoprazole Sodium (Protonix) 40 Mg Tablet.dr, 40 MG PO BID, (Reported) Entered as Reported by: TRAVON HARPER on 07/15/19 1302 Polyethylene Glycol 3350 ([id number]) 238 Gm Powder, 17 GM PO WED,SAT @2000, (Reported) Entered as Reported by: EVELIO LOPEZ on 05/05/18 0847 Sucralfate (Sucralfate) 1 Gm Tablet, 1 GM PO ACHS, (Reported) Entered as Reported by: EVELIO LOPEZ on 05/05/18 0847 [Potassium Chl Jade] 20MEQ/15ML SOLUTION, 15 ML PO DAILY W/ MEAL, (Reported) Entered as Reported by: TRAVON HARPER on 01/27/20 0950 Review of Systems Review of Systems Constitutional: see HPI, malaise EENTM: no symptoms reported Respiratory: no symptoms reported Cardiovascular: see HPI, chest pain (Left lateral rib pain since falling) Gastrointestinal: see HPI Genitourinary: no symptoms reported Musculoskeletal: no symptoms reported Skin: No change in color Psychiatric/Neurological: Denies Numbness, Denies Paresthesia Past Tjprkxd-Agzugn-Qaorbp Hx Patient Social History Tobacco Use?: No Use of E-Cig and/or Vaping dev: No Substance use?: No Alcohol Use?: No Seasonal Allergies Seasonal Allergies: No Past Medical History Surgeries: Yes Eye Surgery, Gallbladder Pneumonia Currently Using CPAP: No Currently Using BIPAP: No Cardiac: Yes Atrial Fibrillation, High Cholesterol, Hypertension 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 No Pertinent Family Hx, Cancer, COPD Physical Exam Vital Signs Vital Signs - First Documented 02/01/21 13:06 Temp 36.1 Pulse 89 Resp 18 B/P (MAP) 124/64 (84) Pulse Ox 94 O2 Delivery Room Air Capillary Refill : Height, Weight, BMI Height: 5'2.00" Weight: 85lbs. 0.2oz. 38.497162cu; 16.04 BMI Method:Stated General Appearance: No Apparent Distress, Chronically ill, Thin HEENT: PERRL/EOMI; No Moist Mucous Membranes (Slightly dry mucous membranes) Neck: Full Range of Motion, Non Tender, Supple Respiratory: Lungs Clear, Normal Breath Sounds, No Accessory Muscle Use, No Respiratory Distress, Other (Tender to palpation on the left lateral lower ribs without crepitus or step-off) Cardiovascular: Regular Rate, Rhythm, Normal Peripheral Pulses Gastrointestinal: Normal Bowel Sounds, No Pulsatile Mass, Non Tender, Soft Rectal: Deferred Extremity: Normal Capillary Refill, Normal Inspection, No Pedal Edema Neurologic/Psychiatric: Alert, Oriented x3 Skin: Normal Color, Warm/Dry Focused Exam Lactate Level 02/01/21 13:35: Lactic Acid Level 1.37 Lactic Acid Level Laboratory Tests Test 02/01/21 13:35 Lactic Acid Level 1.37 MMOL/L (0.50-2.00) Progress/Results/Core Measures Suspected Sepsis SIRS Temperature: Pulse: Respiratory Rate: Laboratory Tests 02/01/21 13:20: White Blood Count 4.5 Blood Pressure / Mean: 02/01/21 13:35: Lactic Acid Level 1.37 Laboratory Tests 02/01/21 13:20: Creatinine 1.72H, INR Comment 2.3H, Platelet Count 352, Total Bilirubin 0.2 Results/Orders Lab Results Laboratory Tests Test 02/01/21 13:20 02/01/21 13:35 02/01/21 13:40 Range/Units White Blood Count 4.5 4.3-11.0 10^3/uL Red Blood Count 3.43 L 3.80-5.11 10^6/uL Hemoglobin 10.9 L 11.5-16.0 g/dL Hematocrit 34 L 35-52 % Mean Corpuscular Volume 98 80-99 fL Mean Corpuscular Hemoglobin 32 25-34 pg Mean Corpuscular Hemoglobin Concent 32 32-36 g/dL Red Cell Distribution Width 14.1 10.0-14.5 % Platelet Count 352 130-400 10^3/uL Mean Platelet Volume 10.7 9.0-12.2 fL Immature Granulocyte % (Auto) 0 % Neutrophils (%) (Auto) 75 42-75 % Lymphocytes (%) (Auto) 21 12-44 % Monocytes (%) (Auto) 2 0-12 % Eosinophils (%) (Auto) 1 0-10 % Basophils (%) (Auto) 0 0-10 % Neutrophils # (Auto) 3.4 1.8-7.8 X 10^3 Lymphocytes # (Auto) 1.0 1.0-4.0 X 10^3 Monocytes # (Auto) 0.1 0.0-1.0 X 10^3 Eosinophils # (Auto) 0.0 0.0-0.3 10^3/uL Basophils # (Auto) 0.0 0.0-0.1 10^3/uL Immature Granulocyte # (Auto) 0.0 0.0-0.1 10^3/uL Prothrombin Time 25.7 H 12.2-14.7 SEC INR Comment 2.3 H 0.8-1.4 Activated Partial Thromboplast Time 74 H 24-35 SEC Sodium Level 135 135-145 MMOL/L Potassium Level 5.3 H 3.6-5.0 MMOL/L Chloride Level 100 98-107 MMOL/L Carbon Dioxide Level 21 21-32 MMOL/L Anion Gap 14 5-14 MMOL/L Blood Urea Nitrogen 24 H 7-18 MG/DL Creatinine 1.72 H 0.60-1.30 MG/DL Estimat Glomerular Filtration Rate 29 BUN/Creatinine Ratio 14 Glucose Level 153 H 70-105 MG/DL Calcium Level 10.0 8.5-10.1 MG/DL Corrected Calcium 10.1 8.5-10.1 MG/DL Ferritin 57.5 20.0-177.0 ng/mL Total Bilirubin 0.2 0.1-1.0 MG/DL Aspartate Amino Transf (AST/SGOT) 21 5-34 U/L Alanine Aminotransferase (ALT/SGPT) 10 0-55 U/L Alkaline Phosphatase 82 40-136 U/L Troponin I < 0.30 <0.30 NG/ML C-Reactive Protein 1.51 H <0.50 MG/DL Total Protein 7.7 6.4-8.2 GM/DL Albumin 3.9 3.2-4.5 GM/DL Lipase 25 8-78 U/L Lactic Acid Level 1.37 0.50-2.00 MMOL/L Influenza Type A Antigen NEGATIVE NEGATIVE Influenza Type B Antigen NEGATIVE NEGATIVE SARS-CoV-2 RNA (RT-PCR) Not Detected Not Detecte My Orders Orders - ROD EMERY MD Monitor-Rhythm Ecg Trace Only (02/01/21 13:17) Ed Iv/Invasive Line Start (02/01/21 13:17) Cbc With Automated Diff (02/01/21 13:17) Comprehensive Metabolic Panel (02/01/21 13:17) Ferritin (02/01/21 13:17) Crp Fs (02/01/21 13:17) Troponin I Fs (02/01/21 13:17) Protime With Inr (02/01/21 13:17) Partial Thromboplastin Time (02/01/21 13:17) Ekg Tracing (02/01/21 13:17) Ns Iv 1000 Ml (Sodium Chloride 0.9%) (02/01/21 13:30) Ondansetron Injection (Zofran Injectio (02/01/21 13:30) Blood Culture (02/01/21 13:17) Lipase (02/01/21 13:17) Lactic Acid Analyzer (02/01/21 13:17) Ct Chest/Abdomen/Pelvis Wo (02/01/21 13:17) Ct Head Wo (02/01/21 13:17) Covid 19 Inhouse Test (02/01/21 13:17) Isolation Central Supply Req (02/01/21 13:17) Influenza A & B Antigens (02/01/21 13:17) Ns Iv 1000 Ml (Sodium Chloride 0.9%) (02/01/21 15:39) Stool Culture (02/01/21 16:22) Fecal Wbc (02/01/21 16:22) C Difficile Ag + Toxin A/B. (02/01/21 16:22) Medications Given in ED Vital Signs/I&O 02/01/21 02/01/21 13:06 17:08 Temp 36.1 Pulse 89 89 Resp 18 16 B/P (MAP) 124/64 (84) 145/62 Pulse Ox 94 100 O2 Delivery Room Air Room Air Capillary Refill : Progress Note #1: Progress Note Obtain basic labs as well as electrocardiogram and chest x-ray to look at the ri bs. CT head since she reported syncopal episode. Covid swab with influenza since she was having vomiting and became hypotensive and had a syncopal episode. Give IV fluids for hydration. Zofran for nausea and vomiting. Obtain urinalysis to look for infection as well. Progress Note #2: Progress Note CT scan does not show any acute abnormality of the head. In terms of the chest abdomen and pelvis she does have rib fractures of the 7,8,9, and 10th rib. This correlates to where she has pain. She also shows signs of constipation without any perforation or free air. She has no diverticulitis or colitis. Labs appear stable without acute significant abnormality with chronic anemai but Hgb looks ok at 10.9 currently. Chemistry shows chronic renal insufficiency at 1.72. Her blood pressure has been good here and she has had no emesis since arriving to ED. She was given Zofran 4 mg IV for nausea and a Liter of NS for hydration. Will check UA as well Progress Note #3: Progress Note Reviewed test results with the patient. Counseled about the rib fractures. Also counseled about constipation. She felt like she could take some ice chips. We will give an additional liter of normal saline since she has not been able to provide a urine specimen yet. See if topical lidocaine patch was available for the rib pain. If not could try prescribing a low-dose pain medicine and prescribe Lidocaine patch for home ECG Initial ECG Impression Date: Feb 01, 2021 Initial ECG Impression Time: 13:36 Initial ECG Rate: 84 Initial ECG Rhythm: Normal Sinus Initial ECG Comparisson: Unchanged Comment Normal sinus rhythm with a heart rate of 84 bpm. SD interval [address] elevation. QT interval 371 ms with a QTc interval 439 ms. Appears similar to prior tracings in the system. Diagnostic Imaging Diagonstic Imaging: CT Plain Films/CT/US/NM/MRI: chest, abdomen, pelvis Comments NAME: KAROLINA SOMMERS [facility] REC#: [id number] PT STATUS: REG ER : 1950 PHYSICIAN: ROD EMERY MD ADMIT DATE: 02/01/21/ER FS Signed Date of Exam:02/01/21 CT CHEST/ABDOMEN/PELVIS WO PROCEDURE: CT chest, abdomen, and pelvis without contrast. TECHNIQUE: Multiple contiguous axial images were obtained through the chest, abdomen, and pelvis without the use of intravenous contrast. Auto Exposure Controls were utilized during the CT exam to meet ALARA standards for radiation dose reduction. INDICATION: Nausea and vomiting. Fall. Left-sided rib pain. Torso bruising. COMPARISON: None. CT chest: The heart size is within normal limits. No pericardial effusion is present. There is calcified aortic and coronary atherosclerotic plaque. There is no mediastinal, hilar, or axillary lymphadenopathy. Small left pleural effusion is seen with left basilar atelectasis. No pulmonary mass. No central endobronchial obstructing lesions. No pneumothorax. Acute fractures are seen in the left 7th, 8th, 9th, and 10th ribs. There is generalized osteopenia. Age-indeterminate height loss is seen in the T5, T7, T8, T9, T11, and T12 vertebral bodies. Prior kyphoplasty is seen at T10. CT abdomen and pelvis: The liver, spleen, pancreas, adrenal glands, and kidneys have a normal appearance. The gallbladder is surgically absent. There is no pathologically enlarged mesenteric or retroperitoneal adenopathy. A moderate to large amount of stool is seen in the colon. No evidence of small bowel obstruction. No free fluid or free air in the abdomen and pelvis. Age-indeterminate height loss is seen in the L3, L4, and L5 vertebral bodies. Generalized osteopenia is seen. There is calcified aortic and iliac atherosclerotic plaque without aneurysm. The urinary bladder is moderately distended. There is no free air, loculated collection, or adenopathy in the pelvis. IMPRESSION: 1. Acute left-sided rib fractures involving the 7th through 10th ribs. Associated small pleural effusion is seen on the left without evidence of pneumothorax. 2. Age-indeterminate height loss in the T5, T7, T8, T9, T11, T12, L3, L4, and L5 vertebral bodies. If indicated, consider MRI of the thoracic and lumbar spine to further evaluate. 3. Generalized osteopenia. 4. Moderate to large volume of stool throughout the colon which can be seen with constipation. Dictated by: Dictated on workstation # [id number] Dict: 02/01/211408 Trans: 02/01/211433 [facility] [id number] Interpreted by: RACHAEL GARCIA DO Electronically signed by: RACHAEL GARCIA DO 02/01/21 1434 Reviewed: Reviewed by Mi Diagonstic Imaging: CT Plain Films/CT/US/NM/MRI: head Comments [facility] [place] NAME: KAROLINA SOMMERS MED REC#: [id number] PT STATUS: REG ER : 1950 PHYSICIAN: ROD EMERY MD ADMIT DATE: 02/01/21/ER FS Signed Date of Exam:02/01/21 CT HEAD WO EXAMINATION: CT head without contrast. TECHNIQUE: Multiple contiguous axial images were obtained through the brain without the use of intravenous contrast. All CT scans use one or more of the following dose optimizing techniques: automated exposure control, MA and/or KvP adjustment based on patient size and exam type or iterative reconstruction. HISTORY: Syncopal episode. Hypotension. COMPARISON: 07/13/2019. FINDINGS: No large acute territorial ischemia, mass, or hemorrhage. No midline shift or mass effect. Old infarcts are seen in the left parietal lobe and left frontal lobe. Decreased attenuation is seen in the periventricular and subcortical white matter. The ventricles and cortical sulci are prominent. The basilar cisterns are patent and unremarkable. The orbits are normal. Chronic sinusitis is seen in the left maxillary sinus. Mastoid air cells are clear. No soft tissue abnormality is seen. No osseus lesions or fractures are seen. IMPRESSION: 1. No large acute territorial ischemia, mass, or hemorrhage. 2. 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 3. Generalized parenchymal volume loss with chronic microvascular disease. 4. Chronic sinusitis in the left maxillary sinus. Dictated by: Dictated on workstation # [id number] Dict: 02/01/21 1406 Trans: 02/01/21 1416 [facility] [id number] Interpreted by: RACHAEL GARCIA DO Electronically signed by: RACHAEL GARCIA DO 02/01/21 1416 Reviewed: Reviewed by Me Departure Impression Primary Impression: Fracture of four ribs of left side Qualified Codes: S22.42XA - Multiple fractures of ribs, left side, initial encounter for closed fracture Additional Impressions: Person under investigation for COVID-19 Nausea & vomiting Qualified Codes: R11.14 - Bilious vomiting Syncope Qualified Codes: R55 - Syncope and collapse Rib pain on left side Constipation Qualified Codes: K59.00 - Constipation, unspecified Disposition: 01 HOME, SELF-CARE Condition: Stable Departure-Patient Inst. Decision time for Depature: 16:48 Referrals: NIKIA APPLE MD (PCP/Family) Primary Care Physician Patient Instructions: Nausea and Vomiting, Adult ED, Fainting, Adult ED, Rib Fracture or Bruised Rib ED, Constipation, Adult ED Add. Discharge Instructions: Try to stay well hydrated and drink more fluids and electrolyte drinks. Use the Lidocaine patch for your pain from rib fractures on left side. You could also take Acetaminophen for pain. Use Nausea medicine for helping to keep your stomach settled. Try to increase fiber in your diet to help with constipation. Check with clinic for continued problems/concerns. Scripts Ondansetron (Ondansetron Odt) 4 Mg Tab.rapdis 4 MG PO Q6H PRN for NAUSEA/VOMITING for 5 Days, #20 TAB 0 Refills Prov: ROD EMERY MD 02/01/21 Lidocaine (Lidocaine 5% Patch) 1 Each Adh..patch 1 EACH TP Q12H PRN for Rib Pain/Fracture Rib MDD 2 for 30 Days, #30 PATCH 0 Refills 2 patches max for 12 hours, then 12 hours patch-free period. Prov: ROD EMERY MD 02/01/21 ROD EMERY MD Feb 01, 2021 13:24
[2021-02-01] MEDS ORDERED: NS IV 1000 ML 1,000 ML IV SCH (13:30)
[2021-02-01] MEDS ORDERED: ONDANSETRON 4 MG/2 ML (SDV) Z0FRAN IV ONE (13:30)
[2021-02-01 14:03] LABS: INR 2.3 (0.8-1.4); PROTHROMBIN TIME PATIENT 25.7 SEC (12.2-14.7)
[2021-02-01 14:09] LABS: HEMATOCRIT 34 % (35-52); HEMOGLOBIN 10.9 g/dL (11.5-16.0); MEAN CORPUSCULAR HEMOGLOBIN 32 pg (25-34); MEAN CORPUSCULAR HGB CONC 32 g/dL (32-36); MEAN CORPUSCULAR VOLUME 98 fL (80-99); PLATELET COUNT 352 10^3/uL (130-400); WHITE BLOOD COUNT 4.5 10^3/uL (4.3-11.0)
[2021-02-01 14:10] LABS: BASOPHILS % (AUTO) 0 % (0-10); EOSINOPHILS % (AUTO) 1 % (0-10); LYMPHOCYTES % (AUTO) 21 % (12-44); MEAN PLATELET VOLUME 10.7 fL (9.0-12.2); MONOCYTES # (AUTO) 0.1 X 10^3 (0.0-1.0); MONOCYTES % (AUTO) 2 % (0-12); NEUTROPHILS # (AUTO) 3.4 X 10^3 (1.8-7.8); NEUTROPHILS % (AUTO) 75 % (42-75)
--- NOTE | 2021-02-01 14:10 | Diagnostic Imaging Report ---
EXAMINATION: CT head without contrast. TECHNIQUE: Multiple contiguous axial images were obtained through the brain without the use of intravenous contrast. All CT scans use one or more of the following dose optimizing techniques: automated exposure control, MA and/or KvP adjustment based on patient size and exam type or iterative reconstruction. HISTORY: Syncopal episode. Hypotension. COMPARISON: 07/13/2019. FINDINGS: No large acute territorial ischemia, mass, or hemorrhage. No midline shift or mass effect. Old infarcts are seen in the left parietal lobe and left frontal lobe. Decreased attenuation is seen in the periventricular and subcortical white matter. The ventricles and cortical sulci are prominent. The basilar cisterns are patent and unremarkable. The orbits are normal. Chronic sinusitis is seen in the left maxillary sinus. Mastoid air cells are clear. No soft tissue abnormality is seen. No osseus lesions or fractures are seen. IMPRESSION: 1. No large acute territorial ischemia, mass, or hemorrhage. 2. 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 3. Generalized parenchymal volume loss with chronic microvascular disease. 4. Chronic sinusitis in the left maxillary sinus. Dictated by: Dictated on workstation # [id number]
--- NOTE | 2021-02-01 14:20 | Diagnostic Imaging Report ---
PROCEDURE: CT chest, abdomen, and pelvis without contrast. TECHNIQUE: Multiple contiguous axial images were obtained through the chest, abdomen, and pelvis without the use of intravenous contrast. Auto Exposure Controls were utilized during the CT exam to meet ALARA standards for radiation dose reduction. INDICATION: Nausea and vomiting. Fall. Left-sided rib pain. Torso bruising. COMPARISON: None. CT chest: The heart size is within normal limits. No pericardial effusion is present. There is calcified aortic and coronary atherosclerotic plaque. There is no mediastinal, hilar, or axillary lymphadenopathy. Small left pleural effusion is seen with left basilar atelectasis. No pulmonary mass. No central endobronchial obstructing lesions. No pneumothorax. Acute fractures are seen in the left 7th, 8th, 9th, and 10th ribs. There is generalized osteopenia. Age-indeterminate height loss is seen in the T5, T7, T8, T9, T11, and T12 vertebral bodies. Prior kyphoplasty is seen at T10. CT abdomen and pelvis: The liver, spleen, pancreas, adrenal glands, and kidneys have a normal appearance. The gallbladder is surgically absent. There is no pathologically enlarged mesenteric or retroperitoneal adenopathy. A moderate to large amount of stool is seen in the colon. No evidence of small bowel obstruction. No free fluid or free air in the abdomen and pelvis. Age-indeterminate height loss is seen in the L3, L4, and L5 vertebral bodies. Generalized osteopenia is seen. There is calcified aortic and iliac atherosclerotic plaque without aneurysm. The urinary bladder is moderately distended. There is no free air, loculated collection, or adenopathy in the pelvis. IMPRESSION: 1. Acute left-sided rib fractures involving the 7th through 10th ribs. Associated small pleural effusion is seen on the left without evidence of pneumothorax. 2. Age-indeterminate height loss in the T5, T7, T8, T9, T11, T12, L3, L4, and L5 vertebral bodies. If indicated, consider MRI of the thoracic and lumbar spine to further evaluate. 3. Generalized osteopenia. 4. Moderate to large volume of stool throughout the colon which can be seen with constipation. Dictated by: Dictated on workstation # [id number]
[2021-02-01 14:39] LABS: CARBON DIOXIDE 21 MMOL/L (21-32); CHLORIDE 100 MMOL/L (98-107); POTASSIUM 5.3 MMOL/L (3.6-5.0); SODIUM 135 MMOL/L (135-145)
[2021-02-01 14:40] LABS: ALANINE AMINOTRANSFERASE 10 U/L (0-55); BILIRUBIN,TOTAL 0.2 MG/DL (0.1-1.0); BUN/CREATININE RATIO 14; CREATININE SERUM 1.72 MG/DL (0.60-1.30); GFR ESTIMATED 29; GLUCOSE 153 MG/DL (70-105)
[2021-02-01 14:41] LABS: ALBUMIN 3.9 GM/DL (3.2-4.5); TOTAL PROTEIN 7.7 GM/DL (6.4-8.2)
[2021-02-01 14:42] LABS: ALKALINE PHOSPHATASE 82 U/L (40-136)
[2021-02-01] MEDS ORDERED: NS IV 1000 ML 1,000 ML IV STA (15:39)
[2021-02-01] MEDS ORDERED: LIDO700A45 TP (16:48)
[2021-02-01] MEDS ORDERED: ONDA4TAB11 PO (16:48)
[2021-02-01 17:08] VITALS: BP 145/62
== END 2021-02-01 17:15 | disposition home or self-care (01) ==
LOC: EDUNIT# 13:06 → ER FS 13:07
DX: S22.42XA Multiple fractures of ribs, left side, initial encounter for closed fracture (principal); R11.2 Nausea with vomiting, unspecified; R55 Syncope and collapse; K59.00 Constipation, unspecified; I10 Essential (primary) hypertension; E78.00 Pure hypercholesterolemia, unspecified; I48.91 Unspecified atrial fibrillation; K21.9 Gastro-esophageal reflux disease without esophagitis; E11.9 Type 2 diabetes mellitus without complications; Z20.822 Contact with and (suspected) exposure to COVID-19; Z79.899 Other long term (current) drug therapy; Z79.01 Long term (current) use of anticoagulants; Z79.82 Long term (current) use of aspirin; W18.30XA Fall on same level, unspecified, initial encounter
CPT/HCPCS: 36415; 70450; 71250; 74176; 80053; 82728; 83605; 83690; 84484; 85025; 85610; 85730; 86141; 87015; 87040; 87045; 87046; 87324; 87449; 87636; 87804; 87899; 93005; 93041

== ENCOUNTER 2022-06-13 15:09 | Emergency (ER) | payer MEDICARE, MEDICAID ==
[~2022-06-13 15:09] MED LIST changes: +LIDO700A45 TP
[2022-06-13 15:10] VITALS: BP 157/76
[2022-06-13] MEDS ORDERED: ACETAMINOPHEN 325 MG TABLET PO ONE (15:15)
--- NOTE | 2022-06-13 15:19 | ED Back Pain ---
General Chief Complaint: Trauma-Non Activation Stated Complaint: FELL Source of Information: Patient, EMS, Old Records Exam Limitations: No Limitations History of Present Illness Date Seen by Provider: Jun 13, 2022 Time Seen by Provider: 15:10 Initial Comments 71-year-old female coming in via EMS from [facility] after she was using her walker, step down a 2 inch step off on the ground, causing her to lose her footing, landed down onto her sacrum. Did not hit her head, did not pass out, remembers all events. Denies any neck pain and has been ambulatory since the incident. Does not take any blood thinners. She was having some mid to lower back discomfort prior to EMS arriving, is not complaining of any pain on their arrival. She also states she is pain-free currently. She is otherwise denying any other acute complaints. Allergies and Home Medications Allergies Coded Allergies: diltiazem (Verified Allergy, Unknown, 05/04/18) Patient Home Medication List Home Medication List Reviewed: Yes Acetaminophen (Mapap) 325 Mg Tablet, 650 MG PO Q4H PRN for PAIN-MILD OR TEMPATURE, (Reported) Entered as Reported by: EVELIO LOPEZ on 05/05/18 0847 Apixaban (Eliquis) 2.5 Mg Tablet, 2.5 MG PO BID, (Reported) Entered as Reported by: TRAVON HARPER on 01/27/20 0944 Aspirin (Aspirin EC) 81 Mg Tablet.dr, 81 MG PO DAILY, (Reported) Entered as Reported by: TRAVON HARPER on 01/27/20 0944 Carvedilol (Carvedilol) 12.5 Mg Tablet, 12.5 MG PO BID WITH MEALS, (Reported) Entered as Reported by: TRAVON HARPER on 01/27/20 0944 Cefdinir (Cefdinir) 300 Mg Capsule, 300 MG PO BID Prescribed by: CARLOS ABREU on 01/31/20 1007 Fenofibrate (Fenofibrate) 160 Mg Tablet, 160 MG PO HS, (Reported) Entered as Reported by: TRAVON HARPER on 07/19/19 1434 Ferrous Sulfate (Iron) 325 Mg Tablet, 325 MG PO DAILY, (Reported) Entered as Reported by: EVELIO LOPEZ on 05/05/18 0847 Folic Acid/Multivit-Minerals (Adult Multi Gummies) 200 Mcg Tab.chew, 200 MCG PO DAILY, (Reported) Entered as Reported by: TRAVON HARPER on 01/27/20 0944 Furosemide (Furosemide) 20 Mg Tablet, 20 MG PO DAILY, (Reported) Entered as Reported by: EVELIO LOPEZ on 05/05/18 0847 Guaifenesin/Dextromethorphan (Guaifenesin Dm Syrup) 5 Ml Syrup, 10 ML PO Q4H PRN for COUGH, (Reported) Entered as Reported by: EVELIO LOPEZ on 05/05/18 0847 Lidocaine (Lidocaine 5% Patch) 1 Each Adh..patch, 1 EACH TP Q12H PRN for Rib Pain/Fracture Rib Prescribed by: ROD EMERY on 02/01/21 1648 Lisinopril (Lisinopril) 10 Mg Tablet, 10 MG PO DAILY, (Reported) Entered as Reported by: TRAVON HARPER on 01/27/20 0944 Loperamide HCl (Loperamide) 2 Mg Capsule, 2 MG PO Q3H PRN for DIARRHEA, (Reported) Entered as Reported by: EVELIO LOPEZ on 05/05/18 0847 Lovastatin (Lovastatin) 20 Mg Tablet, 20 MG PO 1700, (Reported) Entered as Reported by: EVELIO LOPEZ on 05/05/18 0847 Nitrofurantoin Macrocrystal (Nitrofurantoin) 100 Mg Capsule, 100 MG PO HS, (Reported) Entered as Reported by: TRAVON HARPER on 07/19/19 1434 [place]-3/Dha/Epa/Fish Oil (Fish Oil 1,600 mg/5 ml Liquid) 1,600 Mg/5 Ml Liquid, 5 MG PO DAILY, (Reported) Entered as Reported by: TRAVON HARPER on 01/27/20 0944 Ondansetron (Ondansetron Odt) 4 Mg Tab.rapdis, 4 MG PO Q6H PRN for NAUSEA/VOMITING Prescribed by: ROD EMERY on 02/01/21 1648 Pantoprazole Sodium (Protonix) 40 Mg Tablet.dr, 40 MG PO BID, (Reported) Entered as Reported by: TRAVON HARPER on 07/15/19 1302 Polyethylene Glycol 3350 ([id number]) 238 Gm Powder, 17 GM PO WED,SAT @2000, (Reported) Entered as Reported by: EVELIO LOPEZ on 05/05/18 0847 Sucralfate (Sucralfate) 1 Gm Tablet, 1 GM PO ACHS, (Reported) Entered as Reported by: EVELIO LOPEZ on 05/05/18 0847 [Potassium Chl Jade] 20MEQ/15ML SOLUTION, 15 ML PO DAILY W/ MEAL, (Reported) Entered as Reported by: TRAVON HARPER on 01/27/20 0950 Review of Systems Constitutional: No fever EENTM: no symptoms reported Respiratory: no symptoms reported Cardiovascular: no symptoms reported Gastrointestinal: no symptoms reported Genitourinary: no symptoms reported Musculoskeletal: see HPI Skin: no symptoms reported Psychiatric/Neurological: No Symptoms Reported All Other Systems Reviewed Negative Unless Noted: Yes Past Xtlmhjd-Zfpjaw-Xfoxew Hx Patient Social History Tobacco Use?: No Seasonal Allergies Seasonal Allergies: No Past Medical History Surgeries: Yes Eye Surgery, Gallbladder Pneumonia Currently Using CPAP: No Currently Using BIPAP: No Cardiac: Yes Atrial Fibrillation, High Cholesterol, Hypertension 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 No Pertinent Family Hx, Cancer, COPD Physical Exam Vital Signs Vital Signs - First Documented 06/13/22 15:10 Temp 36.6 Pulse 92 Resp 18 B/P (MAP) 157/76 (103) Pulse Ox 97 O2 Delivery Room Air Capillary Refill : Height, Weight, BMI Height: 5'2.00" Weight: 85lbs. 0.2oz. 38.292134wg; 16.04 BMI Method:Stated General Appearance: No Apparent Distress, Thin HEENT: PERRL/EOMI, Normal ENT Inspection, Pharynx Normal Neck: Full Range of Motion, Normal Inspection, Non Tender, Supple Cardiovascular: Regular Rate, Rhythm, No Edema, Normal Peripheral Pulses Respiratory: Chest Non Tender, Lungs Clear, Normal Breath Sounds, No Accessory Muscle Use, No Respiratory Distress Gastrointestinal: Normal Bowel Sounds, Non Tender, Soft; No Distended, No Guarding Back: Normal Inspection, No CVA Tenderness, No Vertebral Tenderness, Other (Pain with lateral twisting at her lower thoracic region but no pain with palpation in that area, ambulates without difficulty at her baseline) Extremity: Normal Capillary Refill, Normal Range of Motion, Non Tender, No Calf Tenderness, No Pedal Edema, Other (Small abrasion to her left elbow without tenderness) Neurologic/Psychiatric: Alert, No Motor/Sensory Deficits, Normal Mood/Affect Skin: Normal Color, Warm/Dry Progress/Results/Core Measures Results/Orders My Orders Orders - CASSIA SALGADO MD Ct Thoracic/Lumbar Spine Wo (06/13/22 15:14) Acetaminophen Tablet/Caplet (Tylenol T (06/13/22 15:15) Medications Given in ED Current Medications Medications Dose Ordered Sig/Rolando Route Start Time Stop Time Status Last Admin Dose Admin Acetaminophen 650 mg ONCE ONCE PO 06/13/22 15:15 06/13/22 15:16 DC 06/13/22 15:23 650 MG Vital Signs/I&O 06/13/22 06/13/22 15:10 15:23 Temp 36.6 36.6 Pulse 92 Resp 18 B/P (MAP) 157/76 (103) Pulse Ox 97 O2 Delivery Room Air Progress Progress Note : Progress Note 71-year-old female with above history coming in after mechanical fall missing a step and falling a short distance onto her sacrum. She actually has no pain anywhere with palpation, is neurovascularly intact, and was ambulating per her normal after the fall. She did not hit her head, did not pass out, is not on blood thinners, and I think would be overall low risk for significant brain injury. I could not really get her to have any pain when I palpate anywhere. I was able to get her to have some discomfort with twisting of her core around her lower thoracic spine. Given her relative thinness and age, there is risk for osteoporosis. We will do a CT of her thoracic and lumbar spine to assess for fracture. She will be given Tylenol for discomfort. On my interpretation of the CT she does have multilevel degenerative changes that are chronic in nature with chronic compression fractures present. She also has L1 and T8 compression deformities that are likely subacute per radiology. She has once again on repeat palpation no pain associated with these. She can follow up as an outpatient with a spine surgeon if having issues and likely will need outpatient MRI. I believe she is otherwise stable for discharge with outpatient follow up. She was sent home with strict return precautions. Diagnostic Imaging Diagonstic Imaging: CT (T and L spine) Comments NAME: KAROLINA SOMMERS [facility] REC#: [id number] PT STATUS: REG ER : 1950 PHYSICIAN: CASSIA SALGADO MD ADMIT DATE: 06/13/22/ER FS Draft Date of Exam:06/13/22 CT THORACIC/LUMBAR SPINE WO Clinical Indication: Patient status post fall with mid back pain. Exam: Exam: Axial CT scan of the thoracic and lumbar spine performed without IV contrast. Sagittal and coronal reformations were performed. Bone and soft tissue windows were created. Auto Exposure Controls were utilized during the CT exam to meet ALARA standards for radiation dose reduction. Comparison: CT scan of the chest, abdomen, pelvis without contrast dated 02/01/2021. Findings: There is diffuse osteopenia seen. There is interval development of a mild compression deformity involving the upper endplate of the L1 vertebra with the appearance of cortical disruption concerning for acute or subacute fracture. There is roughly 30% loss of height with compression on both the superior and inferior endplates. There is interval development of a compression deformity inferior endplate of the L3 vertebra with sclerosis. This may represent a subacute fracture or chronic fracture. There is no other fracture seen on this exam. There is interval progression of a roughly 80% compression fracture deformity involving the T8 vertebra with no cortical disruption. This may be subacute or chronic. Stable burst fracture involving the T10 vertebra with kyphoplasty changes. Stable chronic burst fracture involving the T11 vertebra. Stable chronic compression deformity involving the inferior endplate of the T12 vertebra and chronic compression fracture deformities of the L4 and L5 vertebra. The remainder of the thoracic and lumbar vertebra show no significant interval change regarding vertebral body heights. There is degenerative spurs and facet arthropathy involving the thoracic and lumbar spine. There is excessive kyphosis of the thoracic spine posture again seen. IMPRESSION: 1: There is interval development of a compression fracture deformity involving the L1 vertebra concerning for acute/subacute fracture. MRI of the lumbar spine would help better evaluate for possible kyphoplasty changes. 2: There is interval development of a compression fracture deformity involving the T8 vertebra with no cortical disruption seen. This may be possibly subacute or chronic. This also would be better evaluated with MRI of the thoracic spine. 3: The remainder of the thoracic and lumbar spine compression fracture deformities are chronic and have not significantly changed. Dictated on workstation # [id number] Dict: 06/13/22 1555 Trans: 06/13/22 1627 [facility] [id number] Interpreted by: NOAH COTTO MD Electronically signed by: Departure Impression Primary Impression: Fall Qualified Codes: W19.XXXA - Unspecified fall, initial encounter Additional Impressions: Back pain Qualified Codes: M54.6 - Pain in thoracic spine L1 vertebral fracture Qualified Codes: S32.010A - Wedge compression fracture of first lumbar vertebra, initial encounter for closed fracture T8 vertebral fracture Qualified Codes: S22.060A - Wedge compression fracture of T7-T8 vertebra, initial encounter for closed fracture Disposition: 01 HOME, SELF-CARE Condition: Stable Departure-Patient Inst. Decision time for Depature: 16:20 Referrals: NIKIA APPLE MD (PCP/Family) Primary Care Physician Patient Instructions: Low Back Pain (DC), Preventing Falls ED Add. Discharge Instructions: You do have some chronic changes in your back that can cause pain. You also have multiple old fractures in your back. You likely have a new fracture at T8 and L1. These will need to have an MRI and follow up with a spine surgeon as an outpatient. You can continue to use a walker and move as feels comfortable to you. If having new severe weakness, numbness, or pain in your back then I would follow up with a spine surgeon sooner. Take tylenol as needed for pain. One option for a spine surgeon is the [facility] spine surgery clinic in [place]. You can call [phone] to schedule an appointment. CASSIA SALGADO MD Jun 13, 2022 15:19
--- NOTE | 2022-06-13 16:28 | Diagnostic Imaging Report ---
Clinical Indication: Patient status post fall with mid back pain. Exam: Exam: Axial CT scan of the thoracic and lumbar spine performed without IV contrast. Sagittal and coronal reformations were performed. Bone and soft tissue windows were created. Auto Exposure Controls were utilized during the CT exam to meet ALARA standards for radiation dose reduction. Comparison: CT scan of the chest, abdomen, pelvis without contrast dated 02/01/2021. Findings: There is diffuse osteopenia seen. There is interval development of a mild compression deformity involving the upper endplate of the L1 vertebra with the appearance of cortical disruption concerning for acute or subacute fracture. There is roughly 30% loss of height with compression on both the superior and inferior endplates. There is interval development of a compression deformity inferior endplate of the L3 vertebra with sclerosis. This may represent a subacute fracture or chronic fracture. There is no other fracture seen on this exam. There is interval progression of a roughly 80% compression fracture deformity involving the T8 vertebra with no cortical disruption. This may be subacute or chronic. Stable burst fracture involving the T10 vertebra with kyphoplasty changes. Stable chronic burst fracture involving the T11 vertebra. Stable chronic compression deformity involving the inferior endplate of the T12 vertebra and chronic compression fracture deformities of the L4 and L5 vertebra. The remainder of the thoracic and lumbar vertebra show no significant interval change regarding vertebral body heights. There is degenerative spurs and facet arthropathy involving the thoracic and lumbar spine. There is excessive kyphosis of the thoracic spine posture again seen. IMPRESSION: 1: There is interval development of a compression fracture deformity involving the L1 vertebra concerning for acute/subacute fracture. MRI of the lumbar spine would help better evaluate for possible kyphoplasty changes. 2: There is interval development of a compression fracture deformity involving the T8 vertebra with no cortical disruption seen. This may be possibly subacute or chronic. This also would be better evaluated with MRI of the thoracic spine. 3: The remainder of the thoracic and lumbar spine compression fracture deformities are chronic and have not significantly changed. Dictated by: Dictated on workstation # [id number]
== END 2022-06-13 16:50 | disposition home or self-care (01) ==
LOC: EDUNIT# 15:09 → ER FS 15:11
DX: S32.019A Unspecified fracture of first lumbar vertebra, initial encounter for closed fracture (principal); S22.068A Other fracture of T7-T8 thoracic vertebra, initial encounter for closed fracture; S50.312A Abrasion of left elbow, initial encounter; W10.9XXA Fall (on) (from) unspecified stairs and steps, initial encounter; Y93.01 Activity, walking, marching and hiking
CPT/HCPCS: 72128; 72131

== ENCOUNTER 2022-08-06 05:41 | Outpatient (CLI) | payer MEDICARE, MEDICAID ==
[~2022-08-06] VITALS: Ht 149.9 cm; Wt 34.3 kg
[2022-08-07] MEDS ORDERED: CALC500T64 PO (12:44)
[2022-08-07] MEDS ORDERED: MULT200T10 PO (12:44)
[2022-08-07] MEDS ORDERED: POTA15TA26 PO (12:44)
[2022-08-07] MEDS ORDERED: ALEN70TA80 PO (12:44)
[2022-08-07] MEDS ORDERED: OMEG1600 PO (12:44)
[2022-08-07] MEDS ORDERED: CARV6.252 PO (12:44)
== END 2022-08-07 12:50 | disposition home or self-care (01) ==
LOC: PREOP 05:41
PROVIDERS: ATTEND Surgery
DX: Z01.818 Encounter for other preprocedural examination (principal)

== ENCOUNTER 2022-08-18 06:47 | Day surgery (SDC) | payer MEDICARE, MEDICAID ==
[2022-08-18] VITALS (7 sets, daily range): BP systolic 158–175; BP diastolic 75–87
[~2022-08-18] VITALS: Ht 149.9 cm; Wt 34.3 kg
[~2022-08-18 06:47] MED LIST changes: +ALEN70TA80 PO; +CALC500T64 PO; +CARV6.252 PO; +MULT200T10 PO; +POTA15TA26 PO
[2022-08-18] MEDS ORDERED: LACTATED RINGERS 1,000 ML IV STA (07:22)
[2022-08-18] MEDS ORDERED: HURRICAINE EXT TUBE (BENZOCAINE) XX PRN (07:30)
[2022-08-18] MEDS ORDERED: PROPOFOL INJECTION 50 ML IV ONE (07:49)
--- NOTE | 2022-08-18 08:10 | Progress Note-Pre Operative ---
Pre-Operative Progress Note Date of Available H&P: Jul 29, 2022 Date H&P Reviewed: Aug 18, 2022 Time H&P Reviewed: 08:04 History & Physical: H&P Reviewed, Patient Examed, No changes noted Pre-Operative Diagnosis: Dysphagia, Emesis NINA ODOM DO Aug 18, 2022 08:10
--- NOTE | 2022-08-18 08:40 | Progress Note-Post Operative ---
Post-Operative Progess Note Surgeon (s)/Captain/Airline Pilot (s) Surgeon NINA ODOM DO Captain/Airline Pilot: none Pre-Operative Diagnosis Dysphagia, Emesis Post-Operative Diagnosis ?Marginal Ulcer Gastritis Hiatal hernia ?? Esophageal stricture possible gastroparesis Procedure & Operative Findings Date of Procedure 08/18/22 Procedure Performed/Findings EGD with biopsy PROCEDURE NOTE: After informed consent was obtained, the patient was brought to the endoscopy suite, placed in bed in left lateral decubitus position. She was administered IV sedation by the FORESTRY FIRE AIDE who then monitored vitals the entire time, heart rate, blood pressure and pulse ox and the scope was inserted down the mouth through the esophagus into the stomach. On the way down, noted some mild esophagitis and possible narrowing of the esophagus at the GE junction. However, able to easily get the scope past this area; took a picture, pushed into the stomach and immediately noted some retained food and blood clots. Pushed toward the antrum and could see right into the duodenum. Duodenum looked good, but there was no Pylorus, appeared to be marginal ulcer and inflamed tissue on the gastric side. Elected to do a biopsy of the marginal/anastomotic line and then another biopsy of the antrum. Then retroflexed the scope, saw small grade IV AFS hiatal hernia, took a picture of this and then pulled the scope into the GE junction and took another picture of the GE junction. Pushed the scope back into the stomach, suctioned all the air out of the stomach. At this point pulled the scope up the esophagus and out the mouth. The patient tolerated the procedure, and she recovered in endoscopy suite. Anesthesia Type IV sedation by FORESTRY FIRE AIDE Estimated Blood Loss Estimated blood loss (mL): scant Specimens/Packing Specimens Removed anastomotic line antrum/gastric NINA ODOM DO Aug 18, 2022 08:40
--- NOTE | 2022-08-18 08:41 | Endoscopy Discharge Instruct ---
Endo Procedure/Findings Findings 1.: Gastritis 2.: Hiatal Hernia Discharge Instructions - Activity: You might feel a little sleepy until tomorrow. This is due to the medicine you received to relax you. Until tomorrow, you should: NOT drive a car, operate machinery or power tools. NOT drink any alcoholic beverages. NOT make any important decisions or sign importortant papers. Do not return to work until tomorrow, unless otherwise instructed. Resume previous activities tomorrow. Diet: Start by taking liquids. If you tolerate liquids, advance to solid food. 1.: EGD in 6-8 weeks Notify Physician - If you experience excessive bleeding, unusual abdominal pain, fever, or chest pain, contact your doctor immediately. Follow-Up: Other Follow up in my office in a week NINA ODOM DO Aug 18, 2022 08:41
--- NOTE | 2022-08-18 11:44 | Anesthesia-General Post-Op ---
MAC Patient Condition Mental Status/LOC: Same as Preop Cardiovascular: Satisfactory Nausea/Vomiting: Absent Respiratory: Satisfactory Pain: Controlled Complications: Absent Post Op Complications Complications None Follow Up Care/Instructions Patient Instructions None needed. Anesthesiology Discharge Order Discharge Order Patient is doing well, no complaints, stable vital signs, no apparent adverse anesthesia problems. No complications reported per nursing. CARSON LOYOLA CRNA Aug 18, 2022 11:44
== END 2022-08-18 09:18 | disposition home or self-care (01) ==
LOC: ENDO 06:47
PROVIDERS: ATTEND Surgery
DX: K29.50 Unspecified chronic gastritis without bleeding (principal); K44.9 Diaphragmatic hernia without obstruction or gangrene; K91.89 Other postprocedural complications and disorders of digestive system

== ENCOUNTER → 2022-12-18 | Outpatient (CLI) | payer MEDICARE, MEDICAID ==
[~2022-12-18] MED LIST changes: +CIPR-226 PO
== END ==
LOC: CARD 10:13
PROVIDERS: ATTEND Physician Assistant
DX: I34.0 Nonrheumatic mitral (valve) insufficiency (principal); I35.1 Nonrheumatic aortic (valve) insufficiency; I10 Essential (primary) hypertension
CPT/HCPCS: 93306

== ENCOUNTER 2022-12-23 16:00 | Emergency (ER) | payer MEDICARE, MEDICAID ==
[~2022-12-23] VITALS: Ht 145 cm; Wt 30.5 kg
[~2022-12-23 16:00] MED LIST changes: -CIPR-226 PO
--- NOTE | 2022-12-23 16:42 | ED General ---
General Chief Complaint: General Problems/Pain Stated Complaint: WEAK Nursing Triage Note: patient is from [facility] locally, staff report patient has been vomiting all weekend, c/o weakness and fever with a temp max on thursday of 102.3. currently patient is afebrile, noted some mild weakness. normally uses a walker to ambulate. Source of Information: Patient, Caregiver Exam Limitations: Other (IDD) History of Present Illness Date Seen by Provider: Dec 23, 2022 Time Seen by Provider: 16:30 Initial Comments 72-year-old female patient with history of hypertension, CHF, hyperlipidemia, chronic UTI, Carpio esophagitis, CVA, intellectual disability disorder resident of [facility] home brought in by staff because of fever up to 102.3 four days ago that resolved after 1 day and several episodes of vomiting. Patient had increasing weakness and decrease of ambulation. Patient usually uses a walker to ambulate. Patient has chronic anorexia for almost 1 year and chronic diarrhea for 4 months and gradually lose more weight. Patient is alert and oriented x2 and denies any pain. Patient was afebrile at arrival to ER. Allergies and Home Medications Allergies Coded Allergies: diltiazem (Verified Allergy, Unknown, 12/23/22) Patient Home Medication List Home Medication List Reviewed: Yes Acetaminophen (Mapap) 325 Mg Tablet, 650 MG PO Q4H PRN for PAIN-MILD OR TEMPATURE, (Reported) Entered as Reported by: EVELIO LOPEZ on 05/05/18 0847 Alendronate Sodium (Alendronate Sodium) 70 Mg Tablet, 70 MG PO DAILY, (Reported) Entered as Reported by: LAVONNE JOSE on 08/07/22 1244 Calcium Carbonate (Calcium Carbonate) 500 Mg Calcium (1250 Mg) Tablet, 500 MG PO DAILY, (Reported) Entered as Reported by: LAVONNE JOSE on 08/07/22 1244 Carvedilol (Carvedilol) 6.25 Mg Tablet, 6.25 MG PO BID, (Reported) Entered as Reported by: LAVONNE JOSE on 08/07/22 1244 Ciprofloxacin HCl (Cipro) 250 Mg Tablet, 250 MG PO Q12H Prescribed by: Shara molina on 12/23/22 1800 Fenofibrate (Fenofibrate) 160 Mg Tablet, 160 MG PO HS, (Reported) Entered as Reported by: TRAVON HARPER on 07/19/19 1434 Ferrous Sulfate (Iron) 325 Mg Tablet, 325 MG PO DAILY, (Reported) Entered as Reported by: EVELIO LOPEZ on 05/05/18 0847 Furosemide (Furosemide) 20 Mg Tablet, 20 MG PO DAILY, (Reported) Entered as Reported by: EVELIO LOPEZ on 05/05/18 0847 Guaifenesin/Dextromethorphan (Guaifenesin Dm Syrup) 5 Ml Syrup, 10 ML PO Q4H PRN for COUGH, (Reported) Entered as Reported by: EVELIO LOPEZ on 05/05/18 0847 Lisinopril (Lisinopril) 10 Mg Tablet, 10 MG PO DAILY, (Reported) Entered as Reported by: TRAVON HARPER on 01/27/20 0944 Loperamide HCl (Loperamide) 2 Mg Capsule, 2 MG PO Q3H PRN for DIARRHEA, (Reported) Entered as Reported by: EVELIO LOPEZ on 05/05/18 08 Lovastatin (Lovastatin) 20 Mg Tablet, 20 MG PO 1700, (Reported) Entered as Reported by: EVELIO LOPEZ on 05/05/18 0847 Multivit-Minerals/Folic Acid (Vitajoy Adult Multi Gummy) 200 Mcg Tab.chew, 200 MCG PO DAILY, (Reported) Entered as Reported by: LAVONNE JOSE on 08/07/22 1244 Nitrofurantoin Macrocrystal (Nitrofurantoin) 100 Mg Capsule, 100 MG PO HS, (Reported) Entered as Reported by: TRAVON HARPER on 07/19/19 1434 [place]-3/Dha/Epa/Fish Oil (Fish Oil 1,600 mg/5 ml Liquid) 1,600 Mg-500 Mg-800 Mg/5 Ml Liquid, 1,600 MG PO DAILY, (Reported) Entered as Reported by: LAVONNE JOSE on 08/07/22 1244 Ondansetron (Ondansetron Odt) 4 Mg Tab.rapdis, 4 MG PO TID PRN for NAUSEA-1ST LINE Prescribed by: Shara molina on 12/23/22 1800 Pantoprazole Sodium (Protonix) 40 Mg Tablet.dr, 40 MG PO BID, (Reported) Entered as Reported by: TRAVON HARPER on 5/29/20 1302 Potassium Chloride (Potassium Chloride) 15 Meq Tab.er.prt, 15 MEQ PO DAILY, (R eported) Entered as Reported by: LAVONNE Caballero [facility] on 08/07/22 1244 Review of Systems Review of Systems Constitutional: see HPI EENTM: no symptoms reported Respiratory: no symptoms reported Cardiovascular: no symptoms reported Gastrointestinal: see HPI Genitourinary: no symptoms reported Musculoskeletal: no symptoms reported Skin: no symptoms reported Psychiatric/Neurological: See HPI Hematologic/Lymphatic: No Symptoms Reported Immunological/Allergic: no symptoms reported All Other Systems Reviewed Negative Unless Noted: Yes Past Mqoitnl-Xdzyxk-Jjpwpv Hx Patient Social History Tobacco Use?: No Use of E-Cig and/or Vaping dev: No Substance use?: No Alcohol Use?: No Immunizations Up To Date First/Initial COVID19 Vaccinat: YES Second COVID19 Vaccination Alfredo: YES Third COVID19 Vaccination Date: YES Seasonal Allergies Seasonal Allergies: No Past Medical History Surgery/Hospitalization HX: High cholesterol; Chronic UTI; Barretts esophagus; CVA; High blood pressure; CHF Surgeries: Yes Eye Surgery, Gallbladder Respiratory: Yes Pneumonia Currently Using CPAP: No Currently Using BIPAP: No Cardiac: Yes Atrial Fibrillation, High Cholesterol, Hypertension 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 No Pertinent Family Hx, Cancer, COPD Physical Exam Vital Signs Vital Signs - First Documented 12/23/22 16:10 Temp 36.6 Pulse 90 Resp 15 B/P (MAP) 121/73 (89) Pulse Ox 97 O2 Delivery Room Air Capillary Refill : Less Than 3 Seconds Height, Weight, BMI Height: 5'2.00" Weight: 85lbs. 0.2oz. [id number]; 11.00 BMI Method:Stated General Appearance: No Apparent Distress Eyes: Bilateral Eye Normal Inspection, Bilateral Eye PERRL, Bilateral Eye Conjunctivae Pale (mild) HEENT: PERRL/EOMI Neck: Full Range of Motion, Normal Inspection Respiratory: Chest Non Tender, Lungs Clear, Normal Breath Sounds Cardiovascular: Regular Rate, Rhythm, No Edema, No Gallop Gastrointestinal: Normal Bowel Sounds, No Organomegaly Back: Normal Inspection Extremity: Normal Capillary Refill, Non Tender, No Calf Tenderness Neurologic/Psychiatric: Alert, No Motor/Sensory Deficits Progress/Results/Core Measures Suspected Sepsis SIRS Temperature: Pulse: 90 Respiratory Rate: 15 Laboratory Tests 12/23/22 16:15: White Blood Count 5.7 Blood Pressure 121 /73 Mean: 89 Laboratory Tests 12/23/22 16:15: Creatinine 1.77H, Platelet Count 224, Total Bilirubin 0.3 Results/Orders Lab Results Laboratory Tests Test 12/23/22 16:14 12/23/22 16:15 12/23/22 16:40 Range/Units Urine Color YELLOW Urine Clarity CLOUDY Urine pH 6.0 5-9 Urine Specific [place] 1.010 L 1.016-1.022 Urine Protein 2+ H NEGATIVE Urine Glucose (UA) NEGATIVE NEGATIVE Urine Ketones NEGATIVE NEGATIVE Urine Nitrite NEGATIVE NEGATIVE Urine Bilirubin NEGATIVE NEGATIVE Urine Urobilinogen 0.2 < = 1.0 MG/DL Urine Leukocyte Esterase 3+ H NEGATIVE Urine RBC (Auto) 2+ H NEGATIVE Urine RBC 10-25 H /HPF Urine WBC >100 H /HPF Urine Squamous Epithelial Cells 0-2 /HPF Urine Crystals NONE /LPF Urine Bacteria LARGE H /HPF Urine Casts NONE /LPF Urine Mucus NEGATIVE /LPF Urine Culture Indicated YES White Blood Count 5.7 4.3-11.0 10^3/uL Red Blood Count 2.66 L 3.80-5.11 10^6/uL Hemoglobin 8.7 L 11.5-16.0 g/dL Hematocrit 26 L 35-52 % Mean Corpuscular Volume 97 80-99 fL Mean Corpuscular Hemoglobin 33 25-34 pg Mean Corpuscular Hemoglobin Concent 34 32-36 g/dL Red Cell Distribution Width 13.4 10.0-14.5 % Platelet Count 224 130-400 10^3/uL Mean Platelet Volume 11.5 9.0-12.2 fL Immature Granulocyte % (Auto) 1 % Neutrophils (%) (Auto) 79 H 42-75 % Lymphocytes (%) (Auto) 11 L 12-44 % Monocytes (%) (Auto) 10 0-12 % Eosinophils (%) (Auto) 0 0-10 % Basophils (%) (Auto) 0 0-10 % Neutrophils # (Auto) 4.5 1.8-7.8 10^3/uL Lymphocytes # (Auto) 0.6 L 1.0-4.0 10^3/uL Monocytes # (Auto) 0.6 0.0-1.0 10^3/uL Eosinophils # (Auto) 0.0 0.0-0.3 10^3/uL Basophils # (Auto) 0.0 0.0-0.1 10^3/uL Immature Granulocyte # (Auto) 0.0 0.0-0.1 10^3/uL Percent Immature Platelet Fraction 7.8 H 0.0-7.6 % Sodium Level 130 L 135-145 MMOL/L Potassium Level 3.8 3.6-5.0 MMOL/L Chloride Level 100 98-107 MMOL/L Carbon Dioxide Level 18 L 21-32 MMOL/L Anion Gap 12 5-14 MMOL/L Blood Urea Nitrogen 30 H 7-18 MG/DL Creatinine 1.77 H 0.60-1.30 MG/DL Estimat Glomerular Filtration Rate 30 BUN/Creatinine Ratio 17 Glucose Level 103 70-105 MG/DL Calcium Level 9.0 8.5-10.1 MG/DL Corrected Calcium 9.9 8.5-10.1 MG/DL Total Bilirubin 0.3 0.1-1.0 MG/DL Aspartate Amino Transf (AST/SGOT) 24 5-34 U/L Alanine Aminotransferase (ALT/SGPT) 11 0-55 U/L Alkaline Phosphatase 47 40-136 U/L Total Protein 6.8 6.4-8.2 GM/DL Albumin 2.9 L 3.2-4.5 GM/DL Lipase 143 H 8-78 U/L Influenza Type A (RT-PCR) Not Detected Not Detecte Influenza Type B (RT-PCR) Not Detected Not Detecte SARS-CoV-2 RNA (RT-PCR) Not Detected Not Detecte My Orders Orders - SHARA MOLINA MD Cbc And Automated Diff (12/23/22 16:40) Comprehensive Metabolic Panel (12/23/22 16:40) Chest 1 View Ap/Pa Only (12/23/22 16:40) Ed Iv/Invasive Line Start (12/23/22 16:40) Ua Culture If Indicated (12/23/22 16:40) Covid 19 Inhouse Test (12/23/22 16:40) Influenza A And B By Pcr (12/23/22 16:40) Lipase (12/23/22 16:42) Ct Abdomen/Pelvis Wo (12/23/22 16:42) Ns Iv 500 Ml (Ns Iv 500 Ml) (12/23/22 16:53) Urine Culture (12/23/22 16:14) Ceftriaxone Iv/Im (Ceftriaxone Iv/Im) (12/23/22 17:30) Medications Given in ED Current Medications Medications Dose Ordered Sig/Rolando Route Start Time Stop Time Status Last Admin Dose Admin Ceftriaxone Sodium 1000 mg/ Sodium Chloride 50 ml @ 100 mls/hr ONCE ONCE IV 12/23/22 17:30 12/23/22 17:59 DC 12/23/22 17:44 100 MLS/HR Vital Signs/I&O 12/23/22 16:10 Temp 36.6 Pulse 90 Resp 15 B/P (MAP) 121/73 (89) Pulse Ox 97 O2 Delivery Room Air Capillary Refill : Less Than 3 Seconds Blood Pressure Mean: 89 Progress Note : Progress Note Differential diagnosis: UTI, dehydration, electrolyte imbalance, COVID 72-year-old female patient resident of [facility] with chronic diarrhea and weight loss and 1 day of fever and episode of vomiting 4 days ago. Patient was afebrile at arrival to ER and had a stable vital signs and unremarkable physical exam except for low weight. CBC, CMP, lipase, UA, COVID and influenza, chest x- ray, CT of abdomen pelvis was ordered and reviewed by me and showed hemoglobin of 8.7 with history of chronic anemia, sodium of 130 with history of chronic hyponatremia, mild elevation of BUN/creatinine with creatinine of 1.77 with history of renal insufficiency. UA showed more than 100 WBC. Lipase was mildly elevated at 140 without complaining of pain. COVID and influenza was negative. Chest x-ray interpreted by radiologist and reviewed by me and showed mild cardiomegaly without infiltrate. CT abdomen pelvis interpreted by radiologist and reviewed by me and was unremarkable. Patient treated with Rocephin in ER and prescription for Cipro and Zofran was given and advised to follow-up with primary care physician regarding chronic anorexia and diarrhea and anemia and hyponatremia. Patient has history of CHF and currently taking Lasix with mild elevation of BUN and creatinine. Diagnostic Imaging Diagonstic Imaging: Xray, CT Plain Films/CT/US/NM/MRI: chest, abdomen, pelvis Comments 1 view chest x-ray interpreted by radiologist and reviewed by me and showed: [facility], [place] NAME: KAROLINA SOMMERS [facility] REC#: [id number] PT STATUS: REG ER : 1950 PHYSICIAN: SHARA MOLINA MD ADMIT DATE: 12/23/22/ER FS Draft Date of Exam:12/23/22 CHEST 1 VIEW AP/PA ONLY CLINICAL INDICATION: Patient with fever and weakness. EXAM: Portable chest x-ray upright view. COMPARISON: Chest x-ray dated 01/28/2020. FINDINGS: There is cardiomegaly with no significant pulmonary vascular congestion. There is increased lung markings throughout both lungs which may be related to chronic lung changes. There is no interval lung infiltrate. There is no pleural effusion or pneumothorax. There are chronic appearing left rib deformities seen which may be related to old healed fractures. There is a stable chronic compression fracture deformity with kyphoplasty changes involving lower thoracic vertebra. There are degenerative spurs involving the thoracic spine. IMPRESSION: 1: There is no lung infiltrate. 2: There is cardiomegaly with no significant pulmonary vascular congestion. Dictated on workstation # [id number] Dict: 12/23/22 1735 Trans: 12/23/22 1738 [id number] Interpreted by: NOAH COTTO MD Electronically signed by: CT abdomen pelvis interpreted by radiologist and reviewed by me and showed: [facility] [place] NAME: KAROLINA SOM[facility]ERS [facility] REC#: [id number] PT STATUS: REG ER : 1950 PHYSICIAN: SHARA MOLINA MD ADMIT DATE: 12/23/22/ER FS Signed Date of Exam:12/23/22 CT ABDOMEN/PELVIS WO EXAMINATION: CT abdomen and pelvis without contrast. TECHNIQUE: Multiple contiguous axial images were obtained through the abdomen and pelvis without the use of intravenous contrast. All CT scans use one or more of the following dose optimizing techniques: automated exposure control, MA and/or KvP adjustment based on patient size and exam type or iterative reconstruction. HISTORY: Fever and vomiting COMPARISON: 02/01/2021 FINDINGS: Lung bases: Bibasilar dependent atelectasis. Solid organs: The liver is normal. The gallbladder is surgically absent. Mild biliary ductal dilatation which may be secondary to reservoir effect from prior cholecystectomy. Pancreas is normal. Spleen is normal. Adrenal glands are normal. The kidneys are normal without visualized calculus or hydronephrosis. Bowel: The stomach and small bowel are normal without obstruction. There is scattered colonic diverticulosis. There are no secondary signs of acute appendicitis. Peritoneum: There is no intraperitoneal free fluid or free air. No suspicious lymphadenopathy. Vasculature: Calcification of the aorta without aneurysm. Musculoskeletal: Degenerative changes of the spine without suspicious osseous lesion or compression fracture. Multilevel chronic thoracolumbar compression fractures. Pelvis: The uterus is surgically absent. No adnexal mass. The urinary bladder is normal. IMPRESSION: 1. No acute abnormality is seen within the abdomen or pelvis. Dictated by: Dictated on workstation # [id number] Dict: 12/23/221735 Trans: 12/23/221740 [facility] [id number] Interpreted by: MANAN MOORE DO Electronically signed by: MANAN MOORE DO 12/23/221740 Departure Impression Primary Impression: Urinary tract infection Additional Impressions: Chronic anemia Chronic renal insufficiency Chronic hyponatremia Failure to thrive Elevated lipase Chronic diarrhea Disposition: 01 HOME, SELF-CARE (care home) Condition: Improved Departure-Patient Inst. Decision time for Depature: 17:58 Referrals: NIKIA APPLE MD (PCP/Family) Primary Care Physician Patient Instructions: Chronic kidney disease, Failure to Thrive, Adult (DC), Hyponatremia (DC), Urinary Tract Infection, Adult (DC) Add. Discharge Instructions: Follow-up with your primary care physician in 2 or 3 days regarding chronic anorexia and anemia and hyponatremia Continue home medication Return to ER as needed All discharge instructions reviewed with patient and/or family. Voiced unde rstanding. Scripts Ondansetron (Ondansetron Odt) 4 Mg Tab.rapdis 4 MG PO TID PRN for NAUSEA-1ST LINE, #10 TAB Prov: SHARA MOLINA MD 12/23/22 Ciprofloxacin HCl (Cipro) 250 Mg Tablet 250 MG PO Q12H, #14 TAB Prov: SHARA MOLINA MD 12/23/22 SHARA MOLINA MD Dec 23, 2022 16:42
[2022-12-23 16:52] LABS: BILIRUBIN,URINE NEGATIVE (NEGATIVE); CLARITY,URINE CLOUDY; COLOR,URINE YELLOW; GLUCOSE, URINE (UA) NEGATIVE (NEGATIVE); KETONES,URINE NEGATIVE (NEGATIVE); LEUKOCYTE ESTERASE ,URINE 3+ (NEGATIVE); NITRITE,URINE NEGATIVE (NEGATIVE); PROTEIN,URINE 2+ (NEGATIVE)
[2022-12-23] MEDS ORDERED: NS IV 500 ML 500 ML IV STA (16:53)
[2022-12-23 16:56] LABS: BACTERIA,URINE LARGE /HPF; SQUAMOUS EPITHELIAL CELL,UR 0-2 /HPF; WBC,URINE >100 /HPF
[2022-12-23 17:02] LABS: POTASSIUM 3.8 MMOL/L (3.6-5.0)
[2022-12-23 17:03] LABS: BASOPHILS % (AUTO) 0 % (0-10); EOSINOPHILS % (AUTO) 0 % (0-10); HEMATOCRIT 26 % (35-52); HEMOGLOBIN 8.7 g/dL (11.5-16.0); LYMPHOCYTES # (AUTO) 0.6 10^3/uL (1.0-4.0); LYMPHOCYTES % (AUTO) 11 % (12-44); MEAN CORPUSCULAR HEMOGLOBIN 33 pg (25-34); MEAN CORPUSCULAR HGB CONC 34 g/dL (32-36); MEAN CORPUSCULAR VOLUME 97 fL (80-99); MEAN PLATELET VOLUME 11.5 fL (9.0-12.2); MONOCYTES # (AUTO) 0.6 10^3/uL (0.0-1.0); MONOCYTES % (AUTO) 10 % (0-12); NEUTROPHILS # (AUTO) 4.5 10^3/uL (1.8-7.8); NEUTROPHILS % (AUTO) 79 % (42-75); PLATELET COUNT 224 10^3/uL (130-400); WHITE BLOOD COUNT 5.7 10^3/uL (4.3-11.0)
[2022-12-23 17:06] LABS: ALBUMIN 2.9 GM/DL (3.2-4.5); BILIRUBIN,TOTAL 0.3 MG/DL (0.1-1.0); CREATININE SERUM 1.77 MG/DL (0.60-1.30); TOTAL PROTEIN 6.8 GM/DL (6.4-8.2)
[2022-12-23] MEDS ORDERED: cefTRIAXone IV/IM 1,000 MG in NS (IVPB) 50 ML 50 ML IV ONE (17:30)
--- NOTE | 2022-12-23 17:39 | Diagnostic Imaging Report ---
CLINICAL INDICATION: Patient with fever and weakness. EXAM: Portable chest x-ray upright view. COMPARISON: Chest x-ray dated 01/28/2020. FINDINGS: There is cardiomegaly with no significant pulmonary vascular congestion. There is increased lung markings throughout both lungs which may be related to chronic lung changes. There is no interval lung infiltrate. There is no pleural effusion or pneumothorax. There are chronic appearing left rib deformities seen which may be related to old healed fractures. There is a stable chronic compression fracture deformity with kyphoplasty changes involving lower thoracic vertebra. There are degenerative spurs involving the thoracic spine. IMPRESSION: 1: There is no lung infiltrate. 2: There is cardiomegaly with no significant pulmonary vascular congestion. Dictated by: Dictated on workstation # [id number]
--- NOTE | 2022-12-23 17:40 | Diagnostic Imaging Report ---
EXAMINATION: CT abdomen and pelvis without contrast. TECHNIQUE: Multiple contiguous axial images were obtained through the abdomen and pelvis without the use of intravenous contrast. All CT scans use one or more of the following dose optimizing techniques: automated exposure control, MA and/or KvP adjustment based on patient size and exam type or iterative reconstruction. HISTORY: Fever and vomiting COMPARISON: 02/01/2021 FINDINGS: Lung bases: Bibasilar dependent atelectasis. Solid organs: The liver is normal. The gallbladder is surgically absent. Mild biliary ductal dilatation which may be secondary to reservoir effect from prior cholecystectomy. Pancreas is normal. Spleen is normal. Adrenal glands are normal. The kidneys are normal without visualized calculus or hydronephrosis. Bowel: The stomach and small bowel are normal without obstruction. There is scattered colonic diverticulosis. There are no secondary signs of acute appendicitis. Peritoneum: There is no intraperitoneal free fluid or free air. No suspicious lymphadenopathy. Vasculature: Calcification of the aorta without aneurysm. Musculoskeletal: Degenerative changes of the spine without suspicious osseous lesion or compression fracture. Multilevel chronic thoracolumbar compression fractures. Pelvis: The uterus is surgically absent. No adnexal mass. The urinary bladder is normal. IMPRESSION: 1. No acute abnormality is seen within the abdomen or pelvis. Dictated by: Dictated on workstation # [id number]
[2022-12-23] MEDS ORDERED: CIPR-226 PO (18:00)
[2022-12-23] MEDS ORDERED: ONDA4TAB11 PO (18:00)
[2022-12-23 18:13] VITALS: BP 144/70
== END 2022-12-23 18:13 | disposition home or self-care (01) ==
LOC: EDUNIT# 16:00 → ER FS 16:04
DX: N39.0 Urinary tract infection, site not specified (principal); D64.89 Other specified anemias; E87.1 Hypo-osmolality and hyponatremia; K52.9 Noninfective gastroenteritis and colitis, unspecified; R74.8 Abnormal levels of other serum enzymes; I13.0 Hypertensive heart and chronic kidney disease with heart failure and stage 1 through stage 4 chronic kidney disease, or unspecified chronic kidney disease; E11.22 Type 2 diabetes mellitus with diabetic chronic kidney disease; N18.9 Chronic kidney disease, unspecified; I50.9 Heart failure, unspecified; R62.7 Adult failure to thrive; Z68.1 Body mass index [BMI] 19.9 or less, adult; Z79.4 Long term (current) use of insulin; Z79.899 Other long term (current) drug therapy
CPT/HCPCS: 36415; 71045; 74176; 80053; 81000; 83690; 85025; 87077; 87088; 87186; 87636; 96365